=== PATIENT | female | born 1950 ===

== ENCOUNTER 2016-12-15 09:27 | Inpatient (IN) | payer MEDICARE, OTHER ==
[2016-12-15 09:28] VITALS: BMI 34.2
--- NOTE | 2016-12-15 10:03 | ED PDOC ---
Arrival/HPI - General Chief Complaint: Medical Clearance Time Seen by Provider: 12/15/16 09:47 Historian: Patient - History of Present Illness Narrative History of Present Illness (Text): 12/15/16 10:00 A 66 year old female sent into the emergency department by PMD for further evaluation. Family present to assist with translation when needed. Patient complains of a cough, fever and chills for the past 3 months. She reports her cough resolved after taken antibiotics perceived by her PMD. However, continues to experience fever and chills. Patient denies any nausea, vomiting, chest pain , shortness of breath, dyspnea on exertion or any other complaints. Patient reports she had a chest xray which showed a lung mass. PMD: Dr. James Time/Duration: Other (3 months) Symptom Course: Unchanged Quality: Other Context: Home Past Medical History - Provider Review Nursing Documentation Reviewed: Yes - Past History Past History: No Previous - Infectious Disease Hx of Infectious Diseases: None - Tetanus Immunization Tetanus Immunization: Unknown - Pulmonary Hx Pneumonia: Yes - Endocrine/Metabolic Hx Endocrine Disorders: Yes Hx Hypothyroidism: Yes - Hematological/Oncological Hx Blood Disorders: Yes Hx Cancer: Yes (COLON 2008) Hx Chemotherapy: Yes (2008) - Musculoskeletal/Rheumatological Hx Musculoskeletal Disorders: Yes Hx Arthritis: Yes - Gastrointestinal Hx Gastrointestinal Disorders: Yes Hx Bowel Surgery: Yes (COLECTOMY 2008) Other/Comment: 2008 COLON CANCER COLECTOMY - Genitourinary/Gynecological Hx Genitourinary Disorders: Yes Other/Comment: HX OVARIAN CYSTECTOMT OPEN 1997 HYSTERECTOMY OCTOBER 2013 - Surgical History Hx Section: Yes Hx Cholecystectomy: Yes Hx Hysterectomy: Yes Hx Tubal Ligation: Yes (1979) Other/Comment: OPEN OVARIAN CYSTECTOMY 1997 KATHE CATH INSERTION THEN REMOVAL - Anesthesia Hx Anesthesia: Yes Hx Anesthesia Reactions: Yes (NAUSEA VOMITTING) - Suicidal Assessment Feels Threatened In Home Enviroment: No Family/Social History - Physician Review Nursing Documentation Reviewed: Yes Family/Social History: No Known Family HX Smoking Status: Former Smoker Hx Alcohol Use: No Hx Substance Use Treatment: No Allergies/Home Meds Allergies/Adverse Reactions: Allergies No Known Allergies Allergy (Verified 12/15/16 09:46) Home Medications: Home Meds Medication Instructions Recorded Confirmed Atorvastatin Calcium [Lipitor] 10 mg PO DAILY 03/05/13 11/17/13 Levothyroxine 200 mcg PO DAILY 03/05/13 11/17/13 Physical Exam - Physical Exam Narrative Physical Exam (Text): - Review of Systems Constitutional: (+) Fever, Chills absent: Fatigue, Weight Change Eyes: Normal ENT: Normal Respiratory: (+) Cough, which resolved absent: SOB, ALEMAN Cardiovascular: Normal absent: Chest pain, Palpitations, Syncope Gastrointestinal: Normal absent: Abdominal pain, Diarrhea, Nausea, Vomiting Genitourinary: Normal. absent: Dysuria, Frequency, Hematuria Musculoskeletal: Normal. absent: Arthralgias, Back Pain, Neck Pain Skin: Normal Neurological: Normal absent: Focal Weakness Endocrine: Normal Hemo/Lymphatic: Normal Psychiatric: Normal - Physical exam Patient appears age appropriate, speaking full sentences without difficulty - Systems Exam Head: Present: Atraumatic, Normocephalic Pupils: Present: PERRL Extraocular Muscles: Present: EOMI Conjunctiva: Present: Normal Mouth: Present: Moist Mucous Membranes Neck: Present: Normal Range of Motion. No: MIDLINE TENDERNESS, Paraspinal Tenderness Respiratory/Chest: Present: Clear to Auscultation, Good Air Exchange. No: Respiratory Distress, Accessory Muscle Use, Tachypnic Cardiovascular: Present: Regular Rate and Rhythm, Normal S1, S2, Peripheral Pulses Present. No: Murmurs Abdomen: Present: Normal Bowel Sounds, No: Tenderness, Peritoneal Signs, Rebound, Guarding, Distention Back: Present: Normal Inspection. No: Midline Tenderness, Paraspinal Tenderness Upper Extremity: Present: Normal Inspection. No: Cyanosis, Edema Lower Extremity: Present: Normal Inspection. No: Edema Neurological: Present: GCS=15, Speech Normal, cranial nerves II through XII fully intact with no cerebellar abnormality, neuro-sensory fully intact. No focal neurological deficits. Skin: Present: Warm, Dry, Normal Color. No: Rashes Lymphatic: Present: OX3, NI, NC Psychiatric: Present: Alert, Oriented x 3, Normal Insight, Normal Concentration Vital Signs Reviewed: Yes Vital Signs Temp Pulse Resp BP Pulse Ox 12/15/16 09:42 98.1 F 86 17 122/83 97 Temperature: Afebrile Blood Pressure: Normal Pulse: Regular Respiratory Rate: Normal Appearance: Positive for: Well-Appearing, Non-Toxic, Comfortable Pain Distress: None Mental Status: Positive for: Alert and Oriented X 3 Medical Decision Making ED Course and Treatment: 12/15/16 10:00 Impression: A 66 year old female with fever, chills and cough (resolved with abx). Pt denies weight loss. Physical exam unremarkable. Pt does not appear in resp distress. Differential diagnosis includes but not limited to: pneumonia, lung CA Plan: -- Chest xray -- Labs -- Blood culture -- Reassess and disposition Progress Notes: 12/15/16 10:[address] Mercer, who request patient admission for failed out patient treatment and biopsy to rule out cancer. Patient and family aware of and in agreement with plan. 12/15/16 11:04 Chest X-ray read and interpreted by me, which shows no cardiomegaly, effusions, right parihilar infiltrate. 12/15/16 11:31 Case discussed in detail with Dr. Thakur,who agrees with admission to [facility]. Requests Dr. Alejo, Dr. Simón Blank and Dr. Bustamante for consult. Patient and family aware of and agree with plan. - Lab Interpretations Lab Results: 12/15/16 10:23 12/15/16 10:23 Lab Results 12/15/16 10:23: Sodium 142, Potassium 3.9, Chloride 103, Carbon Dioxide 27, Anion Gap 16, BUN 15, Creatinine 0.7, Est GFR ( Amer) > 60, Est GFR (Non- Af Amer) > 60, Random Glucose 147 H, Calcium 9.5, Total Bilirubin 0.4, AST 45 H , ALT 60 H, Alkaline Phosphatase 172 H, Total Protein 8.4 H, Albumin 3.9, Globulin 4.5, Albumin/Globulin Ratio 0.9 L 12/15/16 10:23: PT 12.0 H, INR 1.11 H, APTT 33.4 H 12/15/16 10:23: WBC 11.9 H, RBC 3.93, Hgb 10.2 L, Hct 32.2 L, MCV 81.9, MCH 26.0 , MCHC 31.7, RDW 15.2 H, Plt Count 565 H, MPV 8.4, Gran % 64.9, Lymph % (Auto) 21.8 L, Stanton % (Auto) 6.1 H, Eos % (Auto) 6.8 H, Baso % (Auto) 0.4, Gran # 7.72 H, Lymph # 2.6, Stanton # 0.7 H, Eos # 0.8 H, Baso # 0.05 I have reviewed the lab results: Yes - RAD Interpretation Radiology Orders: 12/15/16 10:05 CHEST TWO VIEWS (PA/LAT) [RAD] Stat - Medication Orders Current Medication Orders: Azithromycin (Zithromax 500mg In Ns) 500 mg in 250 mls @ 167 mls/hr IVPB STAT STA PRN Reason: Protocol Stop: 12/15/16 11:44 Last Admin: 12/15/16 11:08 Dose: 167 mls/hr Discontinued Medications Ceftriaxone Sodium (Rocephin 1 Gram Ivpb) 1 gm in 100 mls @ 200 mls/hr IV STAT STA PRN Reason: Protocol Stop: 12/15/16 10:44 Last Admin: 12/15/16 10:28 Dose: 200 mls/hr Ondansetron HCl (Zofran Odt) 4 mg PO STAT STA Stop: 12/15/16 10:32 Last Admin: 12/15/16 10:34 Dose: 4 mg Ondansetron HCl (Zofran Odt) Confirm Administered Dose 4 mg .ROUTE .STK-MED ONE Stop: 12/15/16 10:33 Last Admin: 12/15/16 10:34 Dose: - Scribe Statement The provider has reviewed the documentation as recorded by the Roberto Carlos Rm Provider Scribe Attestation: All medical record entries made by the Scribe were at my direction and personally dictated by me. I have reviewed the chart and agree that the record accurately reflects my personal performance of the history, physical exam, medical decision making, and the department course for this patient. I have also personally directed, reviewed, and agree with the discharge instructions and disposition. Disposition/Present on Arrival - Present on Arrival Any Indicators Present on Arrival: No History of DVT/PE: No History of Uncontrolled Diabetes: No Urinary Catheter: Yes History of Decub. Ulcer: No History Surgical Site Infection Following: None - Disposition Have Diagnosis and Disposition been Completed?: Yes Diagnosis: Lung mass Disposition: HOSPITALIZED Disposition Time: 10:13 Patient Plan: Admission Patient Problems: Current Active Problems Problem Status Onset Lung mass Acute Condition: STABLE Referrals: Damián James [Primary Care Provider] - Follow up with primary Forms: [email or web address] (Lao)
[2016-12-15] MEDS ORDERED: cefTRIAXone 1 gm 1 GM/100 ML BAG IV STA (10:15)
[2016-12-15] MEDS ORDERED: Azithromycin 500MG/NS 250ml 500 MG/250 ML BAG IVPB STA (10:15)
[2016-12-15 10:35] LABS: BASO # 0.05 K/mm3 (0.0-2.0); BASO % 0.4 % (0.0-3.0); EOS # 0.8 (0.0-0.7); EOS % 6.8 % (1.5-5.0); GRAN # 7.72 (1.4-6.5); GRAN % 64.9 % (50.0-68.0); HEMOGLOBIN 10.2 gm/dL (12.0-16.0); LYMPH # 2.6 (1.2-3.4); LYMPH % 21.8 % (22.0-35.0); MEAN CELL VOLUME 81.9 fL (80.0-105.0); MEAN CORPUSCULAR HGB CONC 31.7 g/dl (31.0-37.0); MEAN PLATELET VOLUME 8.4 fl (7.0-11.0); MONO # 0.7 (0.1-0.6); MONO % 6.1 % (1.0-6.0); PLATELET COUNT 565 10^3/uL (120.0-450.0); RBC 3.93 10^6/uL (3.5-6.1); RED CELL DISTRIBUTION WIDTH 15.2 % (11.5-14.5); WHITE BLOOD COUNT 11.9 10^3/ul (4.5-11.0)
[2016-12-15 10:37] LABS: ALB/GLOB RATIO 0.9 (1.1-1.8); ALBUMIN 3.9 g/dL (3.0-4.8); ALT/SGPT 60 U/L (7-56); AST/SGOT 45 U/L (15-39); BLOOD UREA NITROGEN 15 mg/dL (7-21); CALCIUM 9.5 mg/dL (8.4-10.5); GFR AFRICAN-AMERICAN > 60; GFR NON-AFRICAN AMERICAN > 60
[2016-12-15 10:40] LABS: INR 1.11 (0.93-1.08); PARTIAL THROMBOPLASTIN TIME 33.4 Seconds (23.7-30.8)
--- NOTE | 2016-12-15 12:34 | RAD ---
HISTORY: cough COMPARISON: Prior chest radiograph 12/06/2016. TECHNIQUE: Chest PA and lateral FINDINGS: LUNGS: No acute infiltrate appreciated with a prominent right epicardial fat pad again identified. Right suprahilar nodular mass again evident. PLEURA: No significant pleural effusion identified. No pneumothorax apparent. CARDIOVASCULAR: Mild cardiomegaly stable. No pulmonary vascular derangement identified. OSSEOUS STRUCTURES: No significant abnormalities. VISUALIZED UPPER ABDOMEN: Normal. OTHER FINDINGS: None. IMPRESSION: Stable mild cardiomegaly. No acute infiltrate. Right suprahilar nodular lesion again identified.
[2016-12-15] MEDS ORDERED: Pneumococcal 23-Valent Vaccine IM ONE (15:39)
[2016-12-15] MEDS: Albuterol-Ipratrop 3 mg / 0.5 (3 ml) UD IH SCH (20:42)
[2016-12-15] MEDS: MethylPREDNISolone 40 mg Vial IVP SCH (21:10)
--- NOTE | 2016-12-15 22:43 | CP.PCM.HP ---
History of Present Illness - History of Present Illness History of Present Illness: 12/15/16 Narrative History of Present Illness (Text): 12/15/16 10:00 A 66 year old female sent into the emergency department by PMD for further evaluation. Family present to assist with translation when needed. Patient complains of a cough, fever and chills for the past 3 months. She reports her cough resolved after taken antibiotics perceived by her PMD. However, continues to experience fever and chills. Patient denies any nausea, vomiting, chest pain , shortness of breath, dyspnea on exertion or any other complaints. Patient reports she had a chest xray which showed a lung mass.PT IS SEEN AND examined in her room , looking comfortable Present on Admission - Present on Admission Any Indicators Present on Admission: No Review of Systems - Constitutional Constitutional: As Per HPI - EENT Eyes: As Per HPI Ears: As Per HPI Nose/Mouth/Throat: As Per HPI - Breasts Breasts: As Per HPI - Cardiovascular Cardiovascular: As Per HPI - Respiratory Respiratory: Wheezing, Chest Congestion - Gastrointestinal Gastrointestinal: As Per HPI - Genitourinary Genitourinary: As Per HPI - Reproductive: Female Reproductive:Female: As Per HPI - Menstruation Menstruation: As Per HPI - Musculoskeletal Musculoskeletal: As Per HPI - Integumentary Integumentary: As Per HPI - Neurological Neurological: As Per HPI - Psychiatric Psychiatric: As Per HPI - Endocrine Endocrine: As Per HPI - Hematologic/Lymphatic Hematologic: As Per HPI Past Patient History - Infectious Disease Hx of Infectious Diseases: None - Tetanus Immunizations Tetanus Immunization: Unknown - Past Medical History & Family History Past Medical History?: Yes - Past Social History Smoking Status: Former Smoker - CARDIAC Hx Hypercholesterolemia: Yes - PULMONARY Hx Pneumonia: Yes - HEENT Hx HEENT Problems: Yes (glasses) - ENDOCRINE/METABOLIC Hx Endocrine Disorders: Yes Hx Hypothyroidism: Yes - HEMATOLOGICAL/ONCOLOGICAL Hx Blood Disorders: Yes Hx Cancer: Yes (COLON 2009, colectomy) Hx Chemotherapy: Yes (2008) - MUSCULOSKELETAL/RHEUMATOLOGICAL Hx Falls: No - GASTROINTESTINAL Hx Gastrointestinal Disorders: Yes Other/Comment: 2009 COLON CANCER COLECTOMY - GENITOURINARY/GYNECOLOGICAL Hx Genitourinary Disorders: Yes Other/Comment: HX OVARIAN CYSTECTOMY OPEN 1997 HYSTERECTOMY OCTOBER 2013 - PSYCHIATRIC Hx Substance Use: No - SURGICAL HISTORY Hx Cholecystectomy: Yes Hx Hysterectomy: Yes (10/2013) Other/Comment: OPEN OVARIAN CYSTECTOMY 1998 KATHE CATH INSERTION THEN REMOVAL 2008, tubal 1980, colectomy 2009 - ANESTHESIA Hx Anesthesia: Yes Hx Anesthesia Reactions: Yes (NAUSEA VOMITTING) Meds Allergies/Adverse Reactions: Allergies Allergy/AdvReac Type Severity Reaction Status Date / Time No Known Allergies Allergy Verified 12/15/16 09:46 Physical Exam - Constitutional Appears: Well - Head Exam Head Exam: ATRAUMATIC, NORMAL INSPECTION, NORMOCEPHALIC - Eye Exam Eye Exam: EOMI, Normal appearance, PERRL Pupil Exam: NORMAL ACCOMODATION, PERRL - ENT Exam ENT Exam: Mucous Membranes Moist, Normal Exam - Neck Exam Neck exam: Positive for: Normal Inspection - Respiratory Exam Respiratory Exam: Clear to Auscultation Bilateral, NORMAL BREATHING PATTERN - Cardiovascular Exam Cardiovascular Exam: REGULAR RHYTHM - GI/Abdominal Exam GI & Abdominal Exam: Normal Bowel Sounds, Soft. absent: Tenderness - Rectal Exam Rectal Exam: NORMAL INSPECTION - Exam Exam: Circumcision, NORMAL INSPECTION External exam: NORMAL EXTERNAL EXAM Speculum exam: NORMAL SPECULUM EXAM Bimanual exam: NORMAL BIMANUAL EXAM - Extremities Exam Extremities exam: Positive for: normal inspection - Back Exam Back exam: NORMAL INSPECTION - Neurological Exam Neurological exam: Alert, CN II-XII Intact, Normal Gait, Oriented x3, Reflexes Normal - Psychiatric Exam Psychiatric exam: Normal Affect, Normal Mood - Skin Skin Exam: Dry, Intact, Normal Color, Warm Results - Vital Signs Recent Vital Signs: Last Vital Signs Temp 99.4 F 12/15/16 18:26 Pulse 75 12/15/16 15:28 Resp 18 12/15/16 15:28 BP 136/92 H 12/15/16 15:28 Pulse Ox 100 12/15/16 11:57 - Labs Result Diagrams: 12/15/16 10:23 12/15/16 10:23 Assessment & Plan (1) Anemia Status: Acute (2) Leukocytosis Status: Acute (3) Thrombocytosis Status: Acute - Assessment and Plan (Free Text) Assessment: Narrative History of Present Illness (Text): 12/15/16 A 66 year old female sent into the emergency department by PMD for further evaluation. Family present to assist with translation when needed. Patient complains of a cough, fever and chills for the past 3 months. She reports her cough resolved after taken antibiotics perceived by her PMD. However, continues to experience fever and chills. Patient denies any nausea, vomiting, chest pain , shortness of breath, dyspnea on exertion or any other complaints. Patient reports she had a chest xray which showed a lung mass. we admitted the pt , pul. oncology and Ir consults called .pt had h/o colan ca . s/p chemo
[2016-12-16] MEDS: Albuterol-Ipratrop 3 mg / 0.5 (3 ml) UD IH SCH ×4 (02:43→21:05)
--- NOTE | 2016-12-16 04:22 | CON ---
DATE: 12/15/2016 REFERRING PHYSICIAN: Kathy Thakur MD REASON FOR CONSULTATION: Cough, shortness of breath, and lung mass. HISTORY OF PRESENT ILLNESS: This is a 66 years old female with known history of cervical cancer requiring hysterectomy, history of colon cancer requiring resection in the remote past, seen a PMD as an outpatient. Apparently, has some x-rays done, and was told to go to the emergency room. She was treated with antibiotics prior to coming to ER and felt better with that. No nausea, no vomiting, no diarrhea, leg pain, leg swelling. Admit to have loud snoring, daytime sleepy. PAST MEDICAL HISTORY: Significant for cervical cancer requiring hysterectomy, colon cancer requiring hemicolectomy, history of arthritis, hyperlipidemia, and hypothyroid. ALLERGIES: NONE KNOWN. SOCIAL HISTORY: Stopped smoking many years ago. Denied any alcohol use. FAMILY HISTORY: No significant cardiopulmonary disease reported. REVIEW OF SYSTEMS: No headache, no rhinitis, admit to have cough, shortness of breath. No chest pain. No nausea, no vomiting, no diarrhea, dysuria, leg pain, leg swelling, admit to have snoring and daytime sleepy. PHYSICAL EXAMINATION: GENERAL: Lying in the bed. No acute distress. VITAL SIGNS: Temperature 98, heart rate is 75, respiratory rate 18, blood pressure 136/92, pulse of 100% on room air. HEENT: Moist mucous membrane. Crowded airway. Mallampati score is 4. NECK: Supple. No JVD. LUNGS: Fair airflow with few rhonchi, prolonged expiratory phase. HEART: S1 and S2. ABDOMEN: Soft and nontender, no organomegaly. EXTREMITIES: No edema. NEUROLOGIC: Awake and alert. Follow simple commands. LABORATORY DATA: Shows hemoglobin 10.2, hematocrit 32.2, WBC of 11.9, platelet is 565, INR of 1.1, PTT 33. Sodium 142, potassium 3.9, chloride 103, bicarbonate 27, BUN 15, creatinine 0.7, glucose 147, calcium 9.5, AST 25, ALT 60, alkaline phosphatase is 172, and albumin is 3.9. IMAGING DATA: Chest x-ray was done on admission and it shows right suprahilar nodule. CAT scan does show right upper lobe lung mass adjacent to mediastinum with probably right hilar adenopathy, mild mediastinal adenopathy also seen. IMPRESSION AND PLAN: 1. Right upper lobe lung mass. 2. Mediastinal and hilar adenopathy. 3. History of colon cancer. 4. History of cervical cancer. 5. May have a component of chronic lung disease. 6. Hypothyroid. 7. Hypertension. 8. Hyperlipidemia. Case discussed with the family, daughter at the bedside. All the question were answered. We will start her on Rocephin 1 g daily, nebulizer treatments, Solu-medrol. We will speak to Dr. Simón Blank for possible lung biopsy. Also spoke to Dr. Thakur. Thank you, I will follow with you. Ashlie Alejo MD
--- NOTE | 2016-12-16 05:04 | CON ---
DATE: 12/15/2016 LOCATION: Consult on the medical floor. REQUESTING PHYSICIAN: Dr. Bustamante. CHIEF COMPLAINT: Lung mass. HISTORY OF PRESENT ILLNESS: The patient is a 66-year-old female sent to the emergency room by her primary doctor after recent testing. CT scan of the chest done 2 days prior as ordered by Dr. 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 The patient had a chest x-ray done by her primary, Dr. James, done on 11/15/2016 for bronchitis with the impression at that time showing right upper lobe density, possibly pneumonia, followup recommended to rule out a mass with a repeat x-ray done on 12/06/2016 showing right upper lobe lung mass unchanged with the eventual CAT scan done as above. She had taken antibiotics with good effect and the patient is no longer febrile with a productive cough, which had been complaining back from 3 months time. She is seen resting comfortably in no acute distress at this visit. ALLERGIES: SHE DENIES ANY ALLERGIES. MEDICATIONS: Reviewed that include aspirin, Lipitor, Synthroid and Lisinopril. PAST MEDICAL HISTORY: Significant for hypertension, hypothyroidism, hyperlipidemia with a history of cancer of the cervix, squamous cell CA diagnosed in 09/2013, eventually having a hysterectomy, one-third of the upper vagina with right salpingo-oophorectomy done by Dr. 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 The patient also reports having had cancer of the colon with chemotherapy [place] [address] Bustamante with a port at that time having been discontinued. She also reports recent placement of ear tubes by , Ears, Nose and Throat for fullness in her ears. FAMILY HISTORY AND SOCIAL HISTORY: The patient admits to smoking 1 pack a day for at least 20 years, quitting in 2008. Denies alcohol use. 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 REVIEW OF SYSTEMS: Essentially, negative to questioning except as above, except for the patient reporting right chest discomfort approximately 4 to 5 out of 10 with deep breath. PHYSICAL EXAMINATION: VITAL SIGNS: Temperature 98.1, pulse 75, respirations 18, blood pressure 136/92 and pulse ox 100%. HEENT: Unremarkable except for a bilateral tympanostomy tubes of approximately 2 to 3 months duration. Tongue is dry. NECK: Supple. HEART: Regular rate. LUNGS: Rare rhonchi on the right. ABDOMEN: Soft, obese and nontender. EXTREMITIES: No edema. SKIN: Warm, dry and clear. NEUROLOGIC: Awake, alert and oriented x3. LABORATORY DATA: The patient labs were done. White blood cell count 11.9, hemoglobin 10.2, hematocrit of 32.2 and platelet count of 565,000. INR 1.1 with a chem metabolic panel showing an AST of 45, ALT of 60 and alk phos 172. Total protein 8.4, non-fasting glucose 147. On review of prior testing, the patient's LFT's were within normal range on 11/06/2013 with an AST of 21 at that time and ALT of 27, they are now 45 and 60 respectively. Other testing was described above including the CT scan of the chest which was significant for a speculated right upper lobe lesion adjacent to the mediastinum measuring 24 x 37 mm with probable hilar adenopathy. 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 Tympanostomy tube placement, hypertension, hyperlipidemia, hypothyroidism and obesity. PLAN: For this patient after consult with Dr. Simón Blank for tissue diagnosis biopsy. We will give Tylenol for mild pain, tramadol for moderate pain in her right chest wall. We will refill her thyroid medication, pending her TSH value, put on hold in the interim, Lisinopril dose was now we will start with low dose with increase dose as indicated. We will stop her aspirin in anticipation of ventral biopsy. We will ask for CT scan of the abdomen and pelvis with p.o. and IV contrast with liver protocol. We will check tumor markers including, CEA, CA19-9 and we will monitor clinically and with labs. Prognosis for this patient is guarded. Rogelio MD Brianna
[2016-12-16] MEDS: Levothyroxine 100 MCG TAB PO SCH (05:06)
[2016-12-16] MEDS: Pantoprazole 40 mg EC Tab PO SCH (05:06)
[2016-12-16] MEDS: MethylPREDNISolone 40 mg Vial IVP SCH ×3 (05:07→21:41)
[2016-12-16] MEDS ORDERED: Levothyroxine 50 MCG TAB PO SCH (06:00)
[2016-12-16 06:51] LABS: ALB/GLOB RATIO 0.9 (1.1-1.8); ALT/SGPT 54 U/L (7-56); AST/SGOT 41 U/L (15-39); BLOOD UREA NITROGEN 14 mg/dL (7-21); CALCIUM 9.5 mg/dL (8.4-10.5); GFR AFRICAN-AMERICAN > 60; GFR NON-AFRICAN AMERICAN > 60
[2016-12-16 07:14] LABS: BASO # 0.02 K/mm3 (0.0-2.0); BASO % 0.2 % (0.0-3.0); EOS % 0.1 % (1.5-5.0); GRAN # 10.06 (1.4-6.5); HEMOGLOBIN 10.3 gm/dL (12.0-16.0); LYMPH # 1.2 (1.2-3.4); LYMPH % 10.2 % (22.0-35.0); MEAN CELL VOLUME 82.5 fL (80.0-105.0); MEAN CORPUSCULAR HEMOGLOBIN 26.1 pg (25.0-35.0); MEAN CORPUSCULAR HGB CONC 31.7 g/dl (31.0-37.0); MEAN PLATELET VOLUME 8.7 fl (7.0-11.0); MONO # 0.2 (0.1-0.6); MONO % 1.5 % (1.0-6.0); PLATELET COUNT 612 10^3/uL (120.0-450.0); RBC 3.94 10^6/uL (3.5-6.1); RED CELL DISTRIBUTION WIDTH 15.1 % (11.5-14.5); WHITE BLOOD COUNT 11.4 10^3/ul (4.5-11.0)
[2016-12-16] MEDS ORDERED: Barium Sulfate Susp 2.1% w/v, 2.0% w/w 450 mL Bottle PO ONE (08:00)
[2016-12-16] MEDS: Enoxaparin 30 mg Syringe SC SCH (09:47)
[2016-12-16] MEDS: cefTRIAXone 1 gm 1 GM/100 ML BAG IVPB SCH (09:47)
[2016-12-16] MEDS ORDERED: Iohexol 350 MG/100 ML VIAL ONE (10:30)
--- NOTE | 2016-12-16 15:17 | CT ---
PROCEDURE: CT Abdomen and Pelvis with contrast HISTORY: LIVER PROTOCOL LUNG MASS ABN LFTs COMPARISON: Abdomen pelvis CT with contrast examination 12/31/2013. TECHNIQUE: Helical CT of the abdomen pelvis was performed following oral contrast administration. Subsequently, intravenous contrast was dynamically administered with sequential CT examinations performed at various time points post contrast administration, including arterial, arterial venous and delayed time points. Contrast dose: Omnipaque 350, 100 cc. Radiation dose: Total exam DLP = 2528 mGy-cm. This CT exam was performed using one or more of the following dose reduction techniques: Automated exposure control, adjustment of the mA and/or kV according to patient size, and/or use of iterative reconstruction technique. FINDINGS: LOWER THORAX: Cardiomegaly is noted as well as the right lower lobe calcified granuloma. Linear atelectasis or fibrosis is seen at both lung bases. LIVER: There is a 1.6 x 1.7 cm poorly enhancing lesion identified at the right lobe liver inferiorly which does not exhibit the classic peripheral nodule enhancing than a benign hemangioma which should. This may represent a metastatic lesion and follow-up MRI is advised without contrast for further characterization. Tissue diagnosis is an alternative. Remainder the liver appears unremarkable. . No gross lesion or ductal dilatation. GALLBLADDER AND BILE DUCTS: Prior cholecystectomy with dilatation of the common bile duct again evident. The prior CBD measures 21 mm with the distal CBD measuring 6 mm with a biliary stent in position with the tip terminating at or just distal to the ampulla. It appears terminates somewhat distal to its previous location on 12/31/2013. PANCREAS: Unremarkable. No gross lesion or significant ductal dilatation. SPLEEN: Unremarkable. ADRENALS: Unremarkable. No mass. KIDNEYS AND URETERS: Extrarenal right renal pelvis again evident. No hydronephrosis bilaterally. No solid mass. Simple cyst again noted at the lower pole right kidney. Stable but dilated right ureter is again identified. VASCULATURE: Unremarkable. No aortic aneurysm. BOWEL: Nonacute colonic diverticular changes are again seen throughout the colon with postop changes about the left hemicolon suggesting prior segmental resection distally. Opacified small-bowel appears diffusely unremarkable. Stomach is moderately distended with oral contrast material and appears unremarkable APPENDIX: Normal appendix. PERITONEUM: Unremarkable. No free fluid. No free air. LYMPH NODES: Unremarkable. No enlarged lymph nodes. BLADDER: Unremarkable. REPRODUCTIVE: Prior hysterectomy identified once again. BONES: No acute fracture. OTHER FINDINGS: None. IMPRESSION: 1. 1.7 cm poorly enhancing lesion is identified at the right lobe liver for which follow-up MRI is advised to evaluate for possible malignancy. 2. Dilated common bile duct with biliary stent again identified placed. 3. Stable dilated right ureter without hydronephrosis. 4. Extensive colonic diverticulosis without diverticulitis. Post segmental resection distal left hemicolon evident. 5. Other lesser findings as discussed above.
--- NOTE | 2016-12-16 21:43 | PN ---
This is the patient's hospital visit on the medical floor. For Dr. Bustamante. SUBJECTIVE: The patient is a 66-year-old female, [place] speaking with fair Citizen [place], seen while resting in bed, admitted via the emergency room by her primary doctor and clip coater Dr. Rai after a suspicious right upper lobe mass was diagnosed with mediastinal adenopathy with the patient now rescheduled as per Dr. Simón Blank for biopsy when possible. She is otherwise resting comfortably now, reporting that her right chest upper abdominal discomfort is no longer an issue, since she has been resting in bed since her admission to the hospital, she is without complaint. She denies coughing, hemoptysis, or pain at this point. OBJECTIVE: VITAL SIGNS: Temperature 98.5, pulse 97, respirations 20, blood pressure 125/71, pulse ox 93%. HEENT: Unremarkable. Tongue is dry. NECK: Supple. HEART: Regular rate. LUNGS: Occasional rhonchi on the right. ABDOMEN: Obese, soft, nontender. EXTREMITIES: No edema. SKIN: Warm, dry, and clear. NEUROLOGIC: Awake, alert, and oriented x3. LABORATORY DATA: The patient's labs were done with a white blood cell count of 11.4, hemoglobin 10.3, hematocrit of 32.5, platelet count 612,000 with a chem metabolic panel showing a non-fasting glucose of 232, AST of 41, alk phos of 191. CEA of 3.8. CA19-9 pending. TSH of 1.1. Again, INR of 1.1, done yesterday. The patient did have a CT scan of the abdomen and pelvis done earlier today with contrast. Impression was 1.7 cm poorly enhanced lesion at right lobe of the liver, dilated common bile duct with biliary stent, stable dilated right ureter without hydronephrosis, colonic diverticulosis without diverticulitis, post segmental resection distal left hemicolon event, status post prior hysterectomy. The patient's blood cultures were negative from yesterday. The patient is continuing her Solu-Medrol 20 mg IV q. [address] Alejo. This may explain the elevation of her white blood cell count and her blood sugar testing. Pepcid was given as prophylaxis for her steroid use. ASSESSMENT: New lung mass, history of cancer of the colon, history of cancer of the cervix status post hysterectomy with fistula, tympanostomy tube placement bilateral, hypertension, hyperlipidemia, hypothyroidism, obesity with possible metastasis to the right lower lobe of the liver?. PLAN: Continue present medical regimen with labs to be drawn in the morning. We will repeat her PT/INR in anticipation of biopsy as per Dr. Simón Blank. We will treat the patient as per present medical regimen with current changes as indicated. Prognosis for this patient is guarded. Rogelio Reed MD
[2016-12-17] MEDS: Albuterol-Ipratrop 3 mg / 0.5 (3 ml) UD IH SCH ×4 (01:01→19:52)
--- NOTE | 2016-12-17 01:33 | PN ---
DATE: SUBJECTIVE: The patient was seen and examined on the bedside. Daughter was sitting on the bedside also. The patient is feeling better. No nausea, vomiting, diarrhea. No hematuria or hematochezia. No swelling of the leg. No chest pain. No palpitation. Just feeling shortness of breath and coughing once in a while. Length of time discussion done with the daughter. All questions were answered. PHYSICAL EXAMINATION VITAL SIGNS: Temperature 98.5, pulse 97, blood pressure 125/75, respiratory rate 20. HEENT: Head normocephalic and atraumatic. Eyes: PERRLA. Extraocular muscles intact. Conjunctivae clear. Nose patent. Mucous membrane moist. NECK: Neck supple. No carotid bruits. No JVD or thyromegaly. CHEST: Bilaterally symmetrical. HEART: S1, S2 positive. LUNGS: Clear to auscultation. ABDOMEN: Soft. Bowel sounds present. No organomegaly. EXTREMITIES: No edema. No cyanosis. NEUROLOGIC: The patient is awake and alert. Moving all 4 extremities. No focal deficits. MEDICATIONS: DuoNeb, Lovenox, Pepcid, Protonix, Rocephin, Solu-Medrol, levothyroxine, Tylenol, Tramadol, Zestril. LABORATORY DATA: White blood cell count of 11.4, hemoglobin 10.3, hematocrit of 32.5, platelets 612. Sodium 142, potassium 4.4, BUN 14, creatinine 0.6, random glucose 232, AST 41, ALT 54. ASSESSMENT AND PLAN: The patient is a 66-year-old lady with hyperglycemia, abnormal liver function tests, carcinoembryonic antigen is 3.8, is high. Leukocytosis, anemia. Eventful CAT of abdomen and pelvis reviewed by me, seen by Dr. Rogelio Reed, covering Dr. Bustamante. CAT of the abdomen shows 1.7 cm poorly enhanced lesion at right lobe of the liver, dilated common bile duct with biliary stent, stable dilated right ureter without hydronephrosis, colonic diverticulosis without diverticulitis, post segmental resection distal left hemicolon event, status post prior hysterectomy. Blood cultures were negative. The patient is continuing Solu-Medrol tapering doses. The patient's new lung density, history of colon cancer, history of cancer of the cervix, status post hysterectomy with fistula, tympanostomy tube placement bilaterally, hypertension, hypercholesterolemia, hypothyroidism, obesity, possible metastasis right lower lobe of the liver. May be patient will be go tomorrow for biopsy by Dr. Simón Blank. Continue present treatment. Overall prognosis is guarded as per oncologist, seen by Dr. Alejo, microstrategy developer. history of arthritis, The patient has been found to have hilar adenopathy also, chronic obstructive lung disease, hypothyroidism. Discussion done with the family, daughter was at the bedside. All of their questions were answered. Started on Rocephin, nebulizer treatments, Solu-medrol . Spoke to Dr. Simón Blank for possible lung biopsy. Gastrointestinal and deep venous thrombosis prophylaxis. Repeat labs. Kathy Thakur MD MTDD
--- NOTE | 2016-12-17 04:25 | PN ---
DATE: 12/16/2016 REFERRING PHYSICIAN: Dr. Thakur. SUBJECTIVE: She is lying in the bed at 45 degrees. No headache. No rhinitis. No nausea, no vomiting, and no diarrhea. No leg pain and leg swelling. OBJECTIVE: GENERAL: In no acute distress. VITAL SIGNS: Temperature is 98, heart rate is 97, respiratory rate is 20, blood pressure 125/71, pulse ox 93% on room air. HEENT: Moist mucous membranes. Crowded airway. NECK: Supple. No JVD. LUNGS: Fair air flow with few rhonchi. HEART: S1 and S2. ABDOMEN: Soft, nontender. No organomegaly. EXTREMITIES: There is no edema. NEUROLOGIC: Awake and alert. Follows simple commands. LABORATORY DATA: Shows hemoglobin 10.3, hematocrit 32.5, WBC 11.4, platelet is 612. Sodium 142, potassium 4.4., chloride 104, bicarbonate 23, BUN 14, creatinine 0.6, glucose 232, calcium is 9.5. AST 41, ALT 54, alkaline phosphatase is 191, albumin 4.0. Carcinoembryonic antigen 3.8. TSH 1.1. Blood culture has been negative. Has CAT scan of the abdomen and pelvis done, which shows 1.7 cm poorly enhanced lesion identified in the right lobe of the liver for which follow up MRI was advised. Dilated common bile duct with a biliary stent again identified, stable dilated right ureteral without hydronephrosis, extensive colonic diverticulosis without diverticulitis. MEDICATIONS: She is on DuoNeb q.6 hours, Lovenox 30 mg subcutaneous daily, Pepcid 20 mg daily, Protonix 40 mg daily, Rocephin 1 g daily, Solu-Medrol 20 mg q.8 hours, Synthroid 100 mcg daily, Tylenol p.r.n., Ultram 50 mg three times a day p.r.n., Zestril 5 mg daily. IMPRESSION AND PLAN: Right lung mass, also having mediastinal and hilar adenopathy, also has a liver lesion, history of colon cancer, history of cervical cancer, chronic lung disease, hypothyroidism, hypertension, hyperlipidemia. We will keep the patient n.p.o. with possible biopsy most likely a lung biopsy and let Dr. Simón Blank decide if he want to go for liver lesion biopsy. We will place her n.p.o., gastric prophylaxis, sequential compression device to lower extremity, bronchodilator. Thank you, and we will follow up with you. Ashlie Alejo MD
[2016-12-17] MEDS: Pantoprazole 40 mg EC Tab PO SCH (05:05)
[2016-12-17] MEDS: MethylPREDNISolone 40 mg Vial IVP SCH ×3 (05:06→22:08)
[2016-12-17 07:41] LABS: MEAN CELL VOLUME 81.5 fL (80.0-105.0); MEAN CORPUSCULAR HEMOGLOBIN 26.1 pg (25.0-35.0); MEAN CORPUSCULAR HGB CONC 32.1 g/dl (31.0-37.0); MEAN PLATELET VOLUME 8.9 fl (7.0-11.0); PLATELET COUNT 614 10^3/uL (120.0-450.0); RBC 3.83 10^6/uL (3.5-6.1); RED CELL DISTRIBUTION WIDTH 15.1 % (11.5-14.5); WHITE BLOOD COUNT 23.2 10^3/ul (4.5-11.0)
[2016-12-17 07:49] LABS: INR 1.13 (0.93-1.08); PROTHROMBIN TIME 12.2 Seconds (9.9-11.8)
[2016-12-17 07:55] LABS: ALB/GLOB RATIO 0.9 (1.1-1.8); ALBUMIN 3.7 g/dL (3.0-4.8); ALT/SGPT 50 U/L (7-56); AST/SGOT 25 U/L (15-39); BLOOD UREA NITROGEN 21 mg/dL (7-21); CALCIUM 8.6 mg/dL (8.4-10.5); GFR AFRICAN-AMERICAN > 60; GFR NON-AFRICAN AMERICAN > 60
[2016-12-17 08:23] LABS: BAND 2 % (0-2); LYMPHOCYTE 4 % (22.0-35.0); MONOCYTE 3 % (1.0-6.0); NEUTROPHIL 91 % (50.0-70.0)
[2016-12-17 08:24] LABS: PLATELET ESTIMATE NORMAL (NORMAL)
[2016-12-17] MEDS: cefTRIAXone 1 gm 1 GM/100 ML BAG IVPB SCH (09:47)
[2016-12-17] MEDS: Enoxaparin 30 mg Syringe SC SCH (09:47)
--- NOTE | 2016-12-17 15:08 | CP.PCM.PN ---
Subjective - Date & Time of Evaluation Date of Evaluation: 12/17/16 Time of Evaluation: 09:30 - Subjective Subjective: PGY [address] Bustamante: Pt seen and examined at bedside. No acute events overnight. Pt c/o R side chest pain with deep inspiration rated 4/10 in severity. Denies any f/c, sob, abd pain , n/v/d. Objective - Vital Signs/Intake and Output Vital Signs (last 24 hours): Temp Pulse Resp BP Pulse Ox 97.9 F 73 18 100/54 L 94 L 12/17/16 08:06 12/17/16 08:06 12/17/16 08:06 12/17/16 09:00 12/17/16 08:06 Intake and Output: 12/17/16 12/17/16 06:59 18:59 Intake Total 940 Balance 940 - Medications Medications: Current Medications Acetaminophen (Tylenol 325mg Tab) 650 mg PO Q4H PRN PRN Reason: Pain, Mild (1-3) Last Admin: 12/15/16 18:26 Dose: 650 mg Albuterol/Ipratropium (Duoneb 3 Mg/0.5 Mg (3 Ml) Ud) 3 ml IH [id number] [facility] Last Admin: 12/17/16 13:34 Dose: 3 ml Enoxaparin Sodium (Lovenox) 30 mg SC DAILY [facility] PRN Reason: Protocol Last Admin: 12/17/16 09:47 Dose: Not Given Famotidine (Pepcid) 20 mg PO DAILY [facility] Last Admin: 12/17/16 09:46 Dose: 20 mg Ceftriaxone Sodium (Rocephin 1 Gram Ivpb) 1 gm in 100 mls @ 100 mls/hr IVPB DAILY [facility] PRN Reason: Protocol Last Admin: 12/17/16 09:47 Dose: 100 mls/hr Sodium Chloride (Sodium Chloride 0.45%) 1,000 mls @ 80 mls/hr IV .[id number] [facility] Levothyroxine Sodium (Synthroid) 100 mcg PO 0600 [facility] Last Admin: 12/16/16 05:06 Dose: 100 mcg Lisinopril (Zestril) 5 mg PO DAILY [facility] Last Admin: 12/17/16 09:00 Dose: Not Given Methylprednisolone (Solu-Medrol) 20 mg IVP Q8 [facility] Last Admin: 12/17/16 05:06 Dose: 20 mg Pantoprazole Sodium (Protonix Ec Tab) 40 mg PO 0600 [facility] Last Admin: 12/17/16 05:05 Dose: Not Given Tramadol HCl (Ultram) 50 mg PO TID PRN PRN Reason: Pain, moderate (4-7) - Labs Labs: 12/17/16 07:00 12/17/16 07:00 PT 12.2 Seconds (9.9-11.8) H 12/17/16 07:00 INR 1.13 (0.93-1.08) H 12/17/16 07:00 APTT 33.4 Seconds (23.7-30.8) H 12/15/16 10:23 - Constitutional Appears: No Acute Distress - Head Exam Head Exam: ATRAUMATIC, NORMAL INSPECTION, NORMOCEPHALIC - Eye Exam Eye Exam: EOMI, Normal appearance, PERRL Pupil Exam: NORMAL ACCOMODATION, PERRL - ENT Exam ENT Exam: Mucous Membranes Moist, Normal Exam - Neck Exam Neck Exam: Full ROM, Normal Inspection. absent: Lymphadenopathy - Respiratory Exam Respiratory Exam: Clear to Ausculation Bilateral, NORMAL BREATHING PATTERN. absent: Rales, Wheezes - Cardiovascular Exam Cardiovascular Exam: REGULAR RHYTHM, RRR, +S1, +S2. absent: Murmur - GI/Abdominal Exam GI & Abdominal Exam: Soft, Normal Bowel Sounds. absent: Distended, Tenderness - Extremities Exam Extremities Exam: Full ROM, Normal Capillary Refill, Normal Inspection. absent : Calf Tenderness, Joint Swelling, Pedal Edema - Back Exam Back Exam: NORMAL INSPECTION - Neurological Exam Neurological Exam: Alert, Awake, CN II-XII Intact, Normal Gait, Oriented x3 - Skin Skin Exam: Dry, Intact, Normal Color, Warm Assessment and Plan - Assessment and Plan (Free Text) Assessment: 66F with pmh of colon cancer (2008) and cervical cancer s/p hysterectomy (2009) , HTN, HLD, Hypothyroidism, obesity, presented to the PMD with cough fever and chills x 3 months found to have lung mass on CXR. Plan: - Cont current medical management - CXR: R supra hilar nodular lesion - CT abd pelvis showed 1.7cm poorly enhancing lesion in the R lobe of liver rec MRI follow up - Ordered MRI of abd w/wo verenice - IR consulted for biopsy of lung mass tami at 11am, hold Lovenox Saturday PM and Saturday - Cont abx Rocephin - Cont Duoneb and methylprednosolone 20mg Q8 - NS @ 80 Case and plan was reviewed and discussed in detail with Dr Bustamante.
[2016-12-17] MEDS ORDERED: Gadodiamide 287 MG/ML VIAL (15ML) IV ONE (18:29)
[2016-12-17] MEDS: Levothyroxine 100 MCG TAB PO SCH (22:08)
[2016-12-17] MEDS ORDERED: Magnesium Hydroxide Susp 30 ml UD PO STA (22:32)
--- NOTE | 2016-12-17 22:58 | CP.PCM.PN ---
Subjective - Date & Time of Evaluation Date of Evaluation: 12/17/16 Time of Evaluation: 22:55 - Subjective Subjective: Patient was seen at bedside because she had no bowel movement for 3 days. States that she does not suffer from constipation, has been drinking and eating normal. Denies nausea, vomiting , abdominal pain, diarrhoea. She is for biopsy in the morning. This 66 year old woman was admitted with cough , fever, chills of 3 weeks duration, leukocytosis, anemia, elevated platelets. Has PMH of PNA, hypothyroidism, colon cancer ,obesity, colectomy, ovarian cystectomy, hystrectomy, cholecystectomy. Objective - Vital Signs/Intake and Output Vital Signs (last 24 hours): Temp Pulse Resp BP Pulse Ox 97.9 F 73 18 100/54 L 94 L 12/17/16 08:06 12/17/16 08:06 12/17/16 08:06 12/17/16 09:00 12/17/16 08:06 - Medications Medications: Current Medications Acetaminophen (Tylenol 325mg Tab) 650 mg PO Q4H PRN PRN Reason: Pain, Mild (1-3) Last Admin: 12/15/16 18:26 Dose: 650 mg Albuterol/Ipratropium (Duoneb 3 Mg/0.5 Mg (3 Ml) Ud) 3 ml IH [id number] [facility] Last Admin: 12/17/16 19:52 Dose: 3 ml Enoxaparin Sodium (Lovenox) 30 mg SC DAILY [facility] PRN Reason: Protocol Last Admin: 12/17/16 09:47 Dose: Not Given Famotidine (Pepcid) 20 mg PO DAILY [facility] Last Admin: 12/17/16 09:46 Dose: 20 mg Ceftriaxone Sodium (Rocephin 1 Gram Ivpb) 1 gm in 100 mls @ 100 mls/hr IVPB DAILY [facility] PRN Reason: Protocol Last Admin: 12/17/16 09:47 Dose: 100 mls/hr Sodium Chloride (Sodium Chloride 0.45%) 1,000 mls @ 80 mls/hr IV .[id number] [facility] Levothyroxine Sodium (Synthroid) 100 mcg PO 0600 [facility] Last Admin: 12/17/16 22:08 Dose: Not Given Lisinopril (Zestril) 5 mg PO DAILY [facility] Last Admin: 12/17/16 09:00 Dose: Not Given Magnesium Hydroxide (Milk Of Magnesia) 30 ml PO STAT [facility] Stop: 12/17/16 22:33 Methylprednisolone (Solu-Medrol) 20 mg IVP Q8 [facility] Last Admin: 12/17/16 22:08 Dose: 20 mg Pantoprazole Sodium (Protonix Ec Tab) 40 mg PO 0600 [facility] Last Admin: 12/17/16 05:05 Dose: Not Given Tramadol HCl (Ultram) 50 mg PO TID PRN PRN Reason: Pain, moderate (4-7) - Labs Labs: 12/17/16 07:00 12/17/16 07:00 PT 12.2 Seconds (9.9-11.8) H 12/17/16 07:00 INR 1.13 (0.93-1.08) H 12/17/16 07:00 APTT 33.4 Seconds (23.7-30.8) H 12/15/16 10:23 Micro Results 12/15/16 10:42 Blood-Venous Blood Culture - Preliminary NO GROWTH AFTER 48 HOURS 12/15/16 10:23 Blood-Venous Blood Culture - Preliminary NO GROWTH AFTER 48 HOURS Most Recent Lab Values WBC 23.2 10^3/ul (4.5-11.0) H D 12/17/16 07:00 RBC 3.83 10^6/uL (3.5-6.1) 12/17/16 07:00 Hgb 10.0 gm/dL (12.0-16.0) L 12/17/16 07:00 Hct 31.2 % (36.0-48.0) L 12/17/16 07:00 MCV 81.5 fL (80.0-105.0) 12/17/16 07:00 MCH 26.1 pg (25.0-35.0) 12/17/16 07:00 MCHC 32.1 g/dl (31.0-37.0) 12/17/16 07:00 RDW 15.1 % (11.5-14.5) H 12/17/16 07:00 Plt Count 614 10^3/uL (120.0-450.0) H 12/17/16 07:00 MPV 8.9 fl (7.0-11.0) 12/17/16 07:00 Gran % 88.0 % (50.0-68.0) H 12/16/16 06:00 Lymph % (Auto) 10.2 % (22.0-35.0) L 12/16/16 06:00 Calloway % (Auto) 1.5 % (1.0-6.0) 12/16/16 06:00 Eos % (Auto) 0.1 % (1.5-5.0) L 12/16/16 06:00 Baso % (Auto) 0.2 % (0.0-3.0) 12/16/16 06:00 Gran # 10.06 (1.4-6.5) H 12/16/16 06:00 Lymph # 1.2 (1.2-3.4) 12/16/16 06:00 Calloway # 0.2 (0.1-0.6) 12/16/16 06:00 Eos # 0.0 (0.0-0.7) 12/16/16 06:00 Baso # 0.02 K/mm3 (0.0-2.0) 12/16/16 06:00 Neutrophils % (Manual) 91 % (50.0-70.0) H 12/17/16 07:00 Band Neutrophils % 2 % (0-2) 12/17/16 07:00 Lymphocytes % (Manual) 4 % (22.0-35.0) L 12/17/16 07:00 Monocytes % (Manual) 3 % (1.0-6.0) 12/17/16 07:00 Platelet Evaluation Normal (NORMAL) 12/17/16 07:00 PT 12.2 Seconds (9.9-11.8) H 12/17/16 07:00 INR 1.13 (0.93-1.08) H 12/17/16 07:00 APTT 33.4 Seconds (23.7-30.8) H 12/15/16 10:23 Sodium 139 mmol/L (132-148) 12/17/16 07:00 Potassium 4.6 mmol/L (3.6-5.0) 12/17/16 07:00 Chloride 104 mmol/L (98-107) 12/17/16 07:00 Carbon Dioxide 16 mmol/L (21-33) L 12/17/16 07:00 Anion Gap 24 (10-20) H 12/17/16 07:00 BUN 21 mg/dL (7-21) 12/17/16 07:00 Creatinine 0.6 mg/dL (0.5-1.4) 12/17/16 07:00 Est GFR ( Amer) > 60 12/17/16 07:00 Est GFR (Non-Af Amer) > 60 12/17/16 07:00 Random Glucose 255 mg/dL (70-110) H 12/17/16 07:00 Calcium 8.6 mg/dL (8.4-10.5) 12/17/16 07:00 Total Bilirubin 0.4 mg/dL (0.2-1.3) 12/17/16 07:00 AST 25 U/L (15-39) 12/17/16 07:00 ALT 50 U/L (7-56) 12/17/16 07:00 Alkaline Phosphatase 152 U/L (38-133) H 12/17/16 07:00 Total Protein 7.7 g/dL (5.8-8.3) 12/17/16 07:00 Albumin 3.7 g/dL (3.0-4.8) 12/17/16 07:00 Globulin 4.0 gm/dL 12/17/16 07:00 Albumin/Globulin Ratio 0.9 (1.1-1.8) L 12/17/16 07:00 Carcinoembryonic Ag 3.8 ng/mL (0.0-3.0) H 12/16/16 06:00 CA 19-9 Antigen 175 U/mL (0-37) H 12/16/16 06:00 TSH 3rd Generation 1.1 MIU/ml (0.46-4.68) 12/16/16 06:00 - Constitutional Appears: Well, No Acute Distress - Head Exam Head Exam: ATRAUMATIC, NORMAL INSPECTION, NORMOCEPHALIC - Eye Exam Eye Exam: Normal appearance - ENT Exam ENT Exam: Normal External Ear Exam - Neck Exam Neck Exam: Normal Inspection - Respiratory Exam Respiratory Exam: NORMAL BREATHING PATTERN - Cardiovascular Exam Cardiovascular Exam: absent: JVD - GI/Abdominal Exam GI & Abdominal Exam: absent: Distended - Rectal Exam Rectal Exam: Deferred - Exam Additional comments: Deferred. - Extremities Exam Extremities Exam: Normal Inspection - Back Exam Back Exam: NORMAL INSPECTION - Neurological Exam Neurological Exam: Alert, Oriented x3 - Psychiatric Exam Psychiatric exam: Normal Affect, Normal Mood - Skin Skin Exam: Normal Color Assessment and Plan - Assessment and Plan (Free Text) Assessment: Constipation. Hypothyroidism. Obeisity. PNA? Anemia. Leukocytosis. Thrombocytosis. Plan: MOM 30 CC po now. Continue present management.
--- NOTE | 2016-12-17 23:01 | PN ---
DATE: 12/17/2016 REFERRING PHYSICIAN: Dr. Thakur SUBJECTIVE: The patient is out of bed to chair, reading a book. Biopsy was not done today. No headache. No rhinitis. No nausea, no vomiting, and no diarrhea. No leg pain and leg swelling. PHYSICAL EXAMINATION GENERAL: In no acute distress. VITAL SIGNS: Temperature is 98, heart rate 73, respiratory rate 18, blood pressure 100/54, pulse ox 94% on room air. HEENT: Moist mucous membranes. Crowded airway. NECK: Supple. No JVD. CARDIOPULMONARY: S1 and S2. LUNGS: Fair air flow with few rhonchi. ABDOMEN: Soft and nontender, no organomegaly. EXTREMITIES: No edema. NEUROLOGIC: Awake and alert. Follows simple commands. LABORATORY DATA: Hemoglobin 10.0, hematocrit 31.2, WBC 23,000, platelet count is 614, INR 1.13. Sodium 139, potassium 4.6, chloride 104, bicarbonate 19, BUN 21, creatinine 0.6, glucose 255, calcium 8.6,AST 25, ALT 50, alk phos is 152, albumin 3.7, globulin is 4.0, carcinoembryonic antigen is 3.8, CA 19-9 antigen 175. Microbiology blood culture has been negative. MRI of the liver is done, report is still pending. MEDICATIONS: She is on DuoNeb q. 6 hours, Lovenox 30 mg subcutaneous daily, Pepcid 20 mg daily, Protonix 40 mg daily, Rocephin 1 g daily, IV fluid with half normal saline 80 mL per hour, Solu-Medrol 20 mg q. 8 hours, Synthroid 100 mcg daily, Tylenol p.r.n., Ultram 50 mg three times a day, and Zestril 5 mg daily. IMPRESSION AND PLAN: Right lung mass, also has mediastinal and hilar adenopathy, liver lesion, history of colon cancer, history of cervical cancer, chronic lung disease, hypothyroidism, hypertension, hyperlipidemia. Reschedule biopsy for tomorrow. From pulmonary point of view, she is doing okay. Continue bronchodilator, keep head at 45 degree, sleep apnea precaution, , needs close cardiopulmonary monitoring, gastric prophylaxis, deep venous thrombosis prophylaxis. Thank you and we will follow with you. Ashlie Alejo MD
--- NOTE | 2016-12-17 23:48 | CP.PCM.PN ---
Subjective - Date & Time of Evaluation Date of Evaluation: 12/17/16 Time of Evaluation: 07:30 - Subjective Subjective: Pt seen and examined at bedside. No acute events overnight. Pt c/o R side chest pain with deep inspiration rated 4/10 in severity. Denies any f/c, sob, abd pain , n/v/d.daughter bryan is at bed side , going for biopsy [place] Objective - Vital Signs/Intake and Output Vital Signs (last 24 hours): Temp Pulse Resp BP Pulse Ox 97.9 F 73 18 100/54 L 94 L 12/17/16 08:06 12/17/16 08:06 12/17/16 08:06 12/17/16 09:00 12/17/16 08:06 - Medications Medications: Current Medications Acetaminophen (Tylenol 325mg Tab) 650 mg PO Q4H PRN PRN Reason: Pain, Mild (1-3) Last Admin: 12/15/16 18:26 Dose: 650 mg Albuterol/Ipratropium (Duoneb 3 Mg/0.5 Mg (3 Ml) Ud) 3 ml IH [id number] [facility] Last Admin: 12/17/16 19:52 Dose: 3 ml Enoxaparin Sodium (Lovenox) 30 mg SC DAILY [facility] PRN Reason: Protocol Last Admin: 12/17/16 09:47 Dose: Not Given Famotidine (Pepcid) 20 mg PO DAILY [facility] Last Admin: 12/17/16 09:46 Dose: 20 mg Ceftriaxone Sodium (Rocephin 1 Gram Ivpb) 1 gm in 100 mls @ 100 mls/hr IVPB DAILY [facility] PRN Reason: Protocol Last Admin: 12/17/16 09:47 Dose: 100 mls/hr Sodium Chloride (Sodium Chloride 0.45%) 1,000 mls @ 80 mls/hr IV .[id number] [facility] Levothyroxine Sodium (Synthroid) 100 mcg PO 0600 [facility] Last Admin: 12/17/16 22:08 Dose: Not Given Lisinopril (Zestril) 5 mg PO DAILY [facility] Last Admin: 12/17/16 09:00 Dose: Not Given Methylprednisolone (Solu-Medrol) 20 mg IVP Q8 [facility] Last Admin: 12/17/16 22:08 Dose: 20 mg Pantoprazole Sodium (Protonix Ec Tab) 40 mg PO 0600 [facility] Last Admin: 12/17/16 05:05 Dose: Not Given Tramadol HCl (Ultram) 50 mg PO TID PRN PRN Reason: Pain, moderate (4-7) - Labs Labs: 12/17/16 07:00 12/17/16 07:00 PT 12.2 Seconds (9.9-11.8) H 12/17/16 07:00 INR 1.13 (0.93-1.08) H 12/17/16 07:00 APTT 33.4 Seconds (23.7-30.8) H 12/15/16 10:23 - Constitutional Appears: Well - Head Exam Head Exam: ATRAUMATIC, NORMAL INSPECTION, NORMOCEPHALIC - Eye Exam Eye Exam: EOMI, Normal appearance, PERRL Pupil Exam: NORMAL ACCOMODATION, PERRL - ENT Exam ENT Exam: Mucous Membranes Moist, Normal Exam - Neck Exam Neck Exam: Full ROM, Normal Inspection. absent: Lymphadenopathy - Respiratory Exam Respiratory Exam: Clear to Ausculation Bilateral, NORMAL BREATHING PATTERN - Cardiovascular Exam Cardiovascular Exam: REGULAR RHYTHM, +S1, +S2. absent: Murmur - GI/Abdominal Exam GI & Abdominal Exam: Soft, Normal Bowel Sounds. absent: Tenderness - Rectal Exam Rectal Exam: NORMAL INSPECTION - Exam Exam: Circumcision, NORMAL INSPECTION External exam: NORMAL EXTERNAL EXAM Speculum exam: NORMAL SPECULUM EXAM Bimanual exam: NORMAL BIMANUAL EXAM - Extremities Exam Extremities Exam: Full ROM, Normal Capillary Refill, Normal Inspection. absent : Joint Swelling, Pedal Edema - Back Exam Back Exam: NORMAL INSPECTION - Neurological Exam Neurological Exam: Alert, Awake, CN II-XII Intact, Normal Gait, Oriented x3 - Psychiatric Exam Psychiatric exam: Normal Affect, Normal Mood - Skin Skin Exam: Dry, Intact, Normal Color, Warm Assessment and Plan (1) Anemia Status: Acute (2) Leukocytosis Status: Acute (3) Thrombocytosis Status: Acute - Assessment and Plan (Free Text) Assessment: 66F with pmh of colon cancer (2008) and cervical cancer s/p hysterectomy (2009) , HTN, HLD, Hypothyroidism, obesity, presented to the PMD with cough fever and chills x 3 months found to have lung mass on CXR. Plan: - Cont current medical management - CXR: R supra hilar nodular lesion - CT abd pelvis showed 1.7cm poorly enhancing lesion in the R lobe of liver rec MRI follow up - Ordered MRI of abd w/wo verenice - IR consulted for biopsy of lung mass tami at 11am, hold Lovenox Saturday PM and Saturday - Cont abx Rocephin - Cont Duoneb and methylprednosolone 20mg Q8 - NS got miralex for constepation ,
[2016-12-18] MEDS: Albuterol-Ipratrop 3 mg / 0.5 (3 ml) UD IH SCH ×4 (01:36→19:28)
[2016-12-18] MEDS: Sodium Chloride 0.45% 1,000 ML IV SCH ×2 (05:44→21:04)
[2016-12-18] MEDS: MethylPREDNISolone 40 mg Vial IVP SCH ×3 (05:45→22:46)
[2016-12-18] MEDS: Pantoprazole 40 mg EC Tab PO SCH (05:46)
[2016-12-18] MEDS: Levothyroxine 100 MCG TAB PO SCH (05:47)
[2016-12-18] MEDS: Enoxaparin 30 mg Syringe SC SCH (09:12)
[2016-12-18] MEDS: cefTRIAXone 1 gm 1 GM/100 ML BAG IVPB SCH (09:34)
--- NOTE | 2016-12-18 10:53 | MRI ---
PROCEDURE: MRI Abdomen with and without contrast HISTORY: Follow-up lesion right lobe of the liver COMPARISON: CT scan 12/16/2016. TECHNIQUE: Multisequence, multiplanar MR images of the abdomen with and without gadolinium contrast enhancement. FINDINGS: LIVER: There is a 1.7 cm lesion in the right lobe of the liver. On the postcontrast images this has a hypo intense appearance centrally with rim enhancement. On T2 images there is a larger area of edema or abnormal signal intensity around the central portion of the lesion. This measures 26 mm in diameter as seen on image 12 series 6. These findings are not typical of hemangioma. This is suspicious for metastatic disease. Clinical correlation is suggested regarding a primary neoplasm. GALLBLADDER: Unremarkable. SPLEEN: Unremarkable. PANCREAS: Unremarkable. ADRENALS: Unremarkable. KIDNEYS: Unremarkable. AORTA: No aneurysm. ASCITES: None. PERITONEUM: Unremarkable. LYMPH NODES: Unremarkable. OTHER FINDINGS: The report concurs with the preliminary [facility] report IMPRESSION: 1.7 cm lesion in the right lobe of the liver with a rim enhancement pattern. The findings are suspicious for neoplasm. There are no other lesions seen.
--- NOTE | 2016-12-18 11:31 | CP.PCM.PN ---
Subjective - Date & Time of Evaluation Date of Evaluation: 12/18/16 Time of Evaluation: 07:45 - Subjective Subjective: PGY [address] Bustamante: Pt seen and examined at bedside. No acute events overnight. No complaints at this time. For lung biopsy this am. Denies any f/c, sob, abd pain, n/v/d. Objective - Vital Signs/Intake and Output Vital Signs (last 24 hours): Temp Pulse Resp BP Pulse Ox 97.9 F 67 20 140/70 95 12/18/16 06:00 12/18/16 09:34 12/18/16 06:00 12/18/16 09:34 12/18/16 06:00 Intake and Output: 12/18/16 12/18/16 06:59 18:59 Intake Total 180 240 Balance 180 240 - Medications Medications: Current Medications Acetaminophen (Tylenol 325mg Tab) 650 mg PO Q4H PRN PRN Reason: Pain, Mild (1-3) Last Admin: 12/15/16 18:26 Dose: 650 mg Albuterol/Ipratropium (Duoneb 3 Mg/0.5 Mg (3 Ml) Ud) 3 ml IH [id number] [facility] Last Admin: 12/18/16 08:03 Dose: 3 ml Enoxaparin Sodium (Lovenox) 30 mg SC DAILY [facility] PRN Reason: Protocol Last Admin: 12/18/16 09:12 Dose: Not Given Famotidine (Pepcid) 20 mg PO DAILY [facility] Last Admin: 12/18/16 09:34 Dose: 20 mg Ceftriaxone Sodium (Rocephin 1 Gram Ivpb) 1 gm in 100 mls @ 100 mls/hr IVPB DAILY [facility] PRN Reason: Protocol Last Admin: 12/18/16 09:34 Dose: 100 mls/hr Sodium Chloride (Sodium Chloride 0.45%) 1,000 mls @ 80 mls/hr IV .[id number] [facility] Last Admin: 12/18/16 05:44 Dose: 80 mls/hr Levothyroxine Sodium (Synthroid) 100 mcg PO 0600 [facility] Last Admin: 12/18/16 05:47 Dose: 100 mcg Lisinopril (Zestril) 5 mg PO DAILY [facility] Last Admin: 12/18/16 09:34 Dose: 5 mg Methylprednisolone (Solu-Medrol) 20 mg IVP Q8 [facility] Last Admin: 12/18/16 05:45 Dose: 20 mg Pantoprazole Sodium (Protonix Ec Tab) 40 mg PO 0600 [facility] Last Admin: 12/18/16 05:46 Dose: 40 mg Tramadol HCl (Ultram) 50 mg PO TID PRN PRN Reason: Pain, moderate (4-7) - Labs Labs: 12/17/16 07:00 12/17/16 07:00 PT 12.2 Seconds (9.9-11.8) H 12/17/16 07:00 INR 1.13 (0.93-1.08) H 12/17/16 07:00 APTT 33.4 Seconds (23.7-30.8) H 12/15/16 10:23 - Constitutional Appears: No Acute Distress - Head Exam Head Exam: ATRAUMATIC, NORMAL INSPECTION, NORMOCEPHALIC - Eye Exam Eye Exam: EOMI, Normal appearance, PERRL Pupil Exam: NORMAL ACCOMODATION, PERRL - ENT Exam ENT Exam: Mucous Membranes Moist, Normal Exam - Neck Exam Neck Exam: Full ROM, Normal Inspection. absent: Lymphadenopathy - Respiratory Exam Respiratory Exam: Clear to Ausculation Bilateral. absent: Wheezes - Cardiovascular Exam Cardiovascular Exam: REGULAR RHYTHM, +S1, +S2. absent: Murmur - GI/Abdominal Exam GI & Abdominal Exam: Soft, Normal Bowel Sounds. absent: Tenderness - Extremities Exam Extremities Exam: absent: Calf Tenderness, Pedal Edema - Back Exam Back Exam: absent: CVA tenderness (L) - Neurological Exam Neurological Exam: Alert, Awake, Oriented x3 - Psychiatric Exam Psychiatric exam: Normal Affect, Normal Mood - Skin Skin Exam: Dry, Intact, Normal Color, Warm Assessment and Plan - Assessment and Plan (Free Text) Assessment: 66F with pmh of colon cancer (2008) and cervical cancer s/p hysterectomy (2009) , HTN, HLD, Hypothyroidism, obesity, presented to the PMD with cough fever and chills x 3 months found to have lung mass on CXR. Plan: - IR consulted - biopsy of lung mass tami at 11am - Cont current medical management - CXR: R supra hilar nodular lesion - CT abd pelvis showed 1.7cm poorly enhancing lesion in the R lobe of liver rec MRI follow up - MRI of abd w/wo verenice 1.7cm R lobe lesion with a rim enhancing pattern - finding suspicious for neoplasm. no other lesions noticed - Cont abx Rocephin - Cont Duoneb and methylprednosolone 20mg Q8 - NS @ 80 Case and plan was reviewed and discussed in detail with Dr Bustamante.
[2016-12-18] MEDS ORDERED: Midazolam 2 MG/2 ML VIAL ONE (12:14)
--- NOTE | 2016-12-18 18:43 | CT ---
PROCEDURE: CT guided right upper lobe lung biopsy. HISTORY: Solitary noncalcified 4 cm right upper lobe lung mass. Evaluate for malignancy. PHYSICIAN(S): Simón Blank MD. TECHNIQUE: The relative risks and indications of the procedure were explained to the patient and consent obtained. The patient was placed supine on the CT scanner and preliminary images through the upper lungs obtained. Conscious sedation and monitoring were provided throughout the procedure by a nurse. There is a 4 cm noncalcified mass in the right upper lobe anteriorly with irregular margins.. A right anterior approach was selected and the area prepped and draped in the usual sterile fashion. 1% Xylocaine was used to anesthetize the skin and soft tissues. A 19 gauge guiding needle was advanced into the 4 cm right upper lobe lung mass. Its position was confirmed with CT. Using coaxial technique, multiple core biopsies were obtained. The postprocedure images show no evidence of large pneumothorax or significant bridge.. IMPRESSION: 1. CT-guided right upper lobe lung biopsy as described above.
--- NOTE | 2016-12-18 18:44 | CT ---
PROCEDURE: CT guided liver biopsy. HISTORY: Solitary 2.5 cm right liver mass. History colon CA, cervical CA and recently biopsied right upper lobe lung mass. Evaluate for metastatic disease. PHYSICIAN(S): Simón Blank MD. TECHNIQUE: The relative risks and indications of the procedure were explained to the patient and consent obtained. The patient was placed supine on the CT scanner and preliminary images through the liver obtained. Conscious sedation and monitoring were provided throughout the procedure by a nurse. There is a 2.5 cm low-attenuation lesion in the inferior aspect of the right lobe.. A right lateral approach was selected and the area prepped and draped in the usual sterile fashion. 1% Xylocaine was used to anesthetize the skin and soft tissues. A 17-gauge guiding needle was advanced into the 2.5 cm right liver mass. Its position was confirmed with CT. Using coaxial technique, multiple core biopsies were obtained. The postprocedure images show no evidence of significant hemorrhage. IMPRESSION: 1. CT-guided liver biopsy as described above.
[2016-12-18] MEDS ORDERED: MethylPREDNISolone 40 mg Vial IVP SCH (22:00)
--- NOTE | 2016-12-18 23:11 | PN ---
DATE: 12/18/2016 REFERRING PROVIDER: Kathy Thakur MD SUBJECTIVE: She is lying in the bed 45 degrees, status post liver biopsy, mild abdominal pain. No nausea, no vomiting, no diarrhea. No leg pain. No leg swelling. OBJECTIVE: GENERAL: No acute distress. VITAL SIGNS: Temperature is 98, heart rate is 83, respiratory rate is 20, blood pressure 136/84, pulse ox 93% on room air. HEENT: Moist mucous membranes. Crowded airway. NECK: Supple. No JVD. LUNGS: Has fair airflow with rhonchi. HEART: S1 and S2. ABDOMEN: Soft and nontender. No organomegaly. EXTREMITIES: No edema. NEUROLOGIC: Awake and alert, follows simple commands. MEDICATIONS: She is on DuoNeb q.6 hour, lactulose 20 g p.o. daily p.r.n. for constipation, Lovenox 30 mg daily, Pepcid 20 mg daily, Protonix 40 mg daily, Rocephin 1 g IV daily, IV fluid half normal saline 80 mL/hour, Solu-Medrol 20 mg q.8 h., Synthroid 100 mcg daily, Tylenol p.r.n., Ultram 50 mg 3 times a day p.r.n.,and Zestril 5 mg daily. LABORATORY DATA: Shows no new labs available since yesterday. Microbiology: Blood cultures have been negative. Status post liver biopsy. IMPRESSION AND PLAN: Right lung mass, mediastinal and hilar adenopathy, also having a liver lesion, history of colon cancer, history of cervical cancer, chronic lung disease, hypothyroid, hypertension, hyperlipidemia. Spoke to family at bedside. All the questions answered. We will change Solu-Medrol to 20 q.12 hour. Choices are to send the patient to [facility] for therapy or home. Could be followed by Dr. Thakur as an outpatient. Taper off steroids next 5 days or so. We will make further recommendation once the biopsy report is back. Thank you and we will follow with you. Ashlie Alejo MD
--- NOTE | 2016-12-19 01:24 | PN ---
DATE: 12/18/2016 SUBJECTIVE: The patient is a 66 years old female. The patient was seen and examined at the bedside, looking comfortable. No nausea, vomiting or diarrhea. No hematemesis or hematochezia. Status post lung biopsy, ultrasound guided by Dr. Simón Blank. Pain is not as much. Shortness of breath is better. Cough is better. PHYSICAL EXAMINATION: VITAL SIGNS: Temperature 97.8, pulse 80, blood pressure 136/84, respiratory rate is 20. HEENT: Head normocephalic, atraumatic. Eyes; PERRLA. Extraocular muscles are intact. Conjunctivae clear. Nose is patent. Mucous membrane moist. NECK: Supple. No carotid bruits. No JVD or thyromegaly. CHEST: Bilateral symmetrical. HEART: S1, S2 positive. LUNGS: Clear to auscultation. ABDOMEN: Soft, positive sounds present. No organomegaly. EXTREMITIES: No edema. No cyanosis. NEUROLOGIC: Awake, alert and oriented. EXTREMITIES: Moving all four extremities. No focal deficit. MEDICATIONS: DuoNeb, lactulose, Lovenox, Pepcid, Protonix, Rocephin, NS, Solo-Medrol, Synthroid, Tylenol and Zestril. LABORATORY DATA: White blood cells 23.2, hemoglobin 10.0, hematocrit 31.2,and platelets 614. Sodium 139, potassium 4.6, BUN noted , creatinine 0.6, glucose 255. ASSESSMENT AND PLAN: Ms. Guille Simon is 66 years old female with leukocytosis, anemia, thrombocytosis, uncontrolled diabetes mellitus, increased alkaline phosphatase, abnormal liver function test, has right lung mass. Ultrasound-guided diagnostic biopsy done by Dr. Simón Blank, waiting for the biopsy result. Also has mediastinal and hilar adenopathy, liver lesion, history of colon cancer, history of cervical cancer, chronic lung disease, hypothyroidism, hypertension, and hypercholesterolemia. Continue bronchodilator, tapering dose of steroids. Need close cardiopulmonary monitoring. Gastric and DVT prophylaxis. Discussion done with the patient, the patient's sister and nurse practitioner Beronica. Reviewed labs. We will followup. Kathy Thakur MD [facility] # [id number] MTDLeonor
[2016-12-19] MEDS: Albuterol-Ipratrop 3 mg / 0.5 (3 ml) UD IH SCH ×2 (02:06→08:06)
[2016-12-19] MEDS: Levothyroxine 100 MCG TAB PO SCH (05:53)
[2016-12-19] MEDS: Pantoprazole 40 mg EC Tab PO SCH (05:53)
--- NOTE | 2016-12-19 07:55 | RAD ---
HISTORY: rt lung bx COMPARISON: CT-guided lung biopsy 12/18/2016 ; chest x-ray PA and lateral 12/15/2016 FINDINGS: LUNGS: The ill-defined right upper lobe mass is similar in appearance PLEURA: No significant pleural effusion identified, no pneumothorax apparent. CARDIOVASCULAR: Cardiomegaly - as before. The fullness mild asymmetry is renoted. Right cardiophrenic fat pad noted. OSSEOUS STRUCTURES: Thoracic spondylosis VISUALIZED UPPER ABDOMEN: Normal. OTHER FINDINGS: None. IMPRESSION: No interval pneumothorax or significant appearing no pleural effusion appreciated. Right upper lobe mass and recently biopsied noted
[2016-12-19] MEDS: cefTRIAXone 1 gm 1 GM/100 ML BAG IVPB SCH (10:17)
[2016-12-19] MEDS: Enoxaparin 30 mg Syringe SC SCH (10:17)
[2016-12-19] MEDS: MethylPREDNISolone 40 mg Vial IVP SCH (10:18)
[2016-12-19 10:25] VITALS: BP 140/66; PULSE 62
[2016-12-19 10:38] VITALS: RESP 19; TEMP 98; O2SAT 95
--- NOTE | 2016-12-19 13:11 | CP.PCM.PN ---
<Sravan Montero - Last Filed: 12/19/16 13:07> Subjective - Date & Time of Evaluation Date of Evaluation: 12/19/16 Time of Evaluation: 07:15 - Subjective Subjective: PGY [address] Bustamante: Pt seen and examined at bedside. No acute events overnight. States that her R sided chest /abd pain has resolved. No complaints at this time. Is s/p lung and liver bx pod1. Denies any f/c, sob, abd pain, n/v/d. Objective - Vital Signs/Intake and Output Vital Signs (last 24 hours): Temp Pulse Resp BP Pulse Ox 98.0 F 62 19 140/66 95 12/19/16 06:00 12/19/16 10:18 12/19/16 06:00 12/19/16 10:18 12/19/16 06:00 Intake and Output: 12/19/16 12/19/16 06:59 18:59 Intake Total 2019 Balance 2019 - Labs Labs: 12/17/16 07:00 12/17/16 07:00 PT 12.2 Seconds (9.9-11.8) H 12/17/16 07:00 INR 1.13 (0.93-1.08) H 12/17/16 07:00 APTT 33.4 Seconds (23.7-30.8) H 12/15/16 10:23 - Constitutional Appears: No Acute Distress - Head Exam Head Exam: ATRAUMATIC, NORMAL INSPECTION, NORMOCEPHALIC - Eye Exam Eye Exam: EOMI, Normal appearance, PERRL Pupil Exam: NORMAL ACCOMODATION, PERRL - ENT Exam ENT Exam: Mucous Membranes Moist, Normal Exam - Neck Exam Neck Exam: absent: Lymphadenopathy - Respiratory Exam Respiratory Exam: Clear to Ausculation Bilateral, NORMAL BREATHING PATTERN. absent: Wheezes - Cardiovascular Exam Cardiovascular Exam: REGULAR RHYTHM, RRR, +S1, +S2. absent: Murmur - GI/Abdominal Exam GI & Abdominal Exam: Soft, Normal Bowel Sounds. absent: Distended, Tenderness - Extremities Exam Extremities Exam: Full ROM, Normal Capillary Refill, Normal Inspection. absent : Calf Tenderness, Joint Swelling, Pedal Edema - Back Exam Back Exam: NORMAL INSPECTION - Neurological Exam Neurological Exam: Alert, Awake, CN II-XII Intact, Normal Gait, Oriented x3 - Psychiatric Exam Psychiatric exam: Normal Affect, Normal Mood - Skin Skin Exam: Dry, Intact, Normal Color, Warm Assessment and Plan - Assessment and Plan (Free Text) Assessment: 66F with pmh of colon cancer (2008) and cervical cancer s/p hysterectomy (2009) , HTN, HLD, Hypothyroidism, obesity, presented to the PMD with cough fever and chills x 3 months found to have lung mass on CXR. S/p lung and liver bx POD 1. Plan: - IR consulted - s/p lung and liver bx yesterday - F/u pathology report - Cont current medical management - CXR: R supra hilar nodular lesion - CT abd pelvis showed 1.7cm poorly enhancing lesion in the R lobe of liver rec MRI follow up - MRI of abd w/wo verenice 1.7cm R lobe lesion with a rim enhancing pattern - finding suspicious for neoplasm. no other lesions noticed - Cont Duoneb and methylprednosolone 20mg Q8 - NS @ 80 Case and plan was reviewed and discussed in detail with Dr Bustamante. <Julio Bustamante P - Last Filed: 12/22/16 11:41> Objective - Vital Signs/Intake and Output Vital Signs (last 24 hours): Temp Pulse Resp BP Pulse Ox 98.0 F 62 19 140/66 95 12/19/16 06:00 12/19/16 10:18 12/19/16 06:00 12/19/16 10:18 12/19/16 06:00 - Labs Labs: 12/17/16 07:00 12/17/16 07:00 PT 12.2 Seconds (9.9-11.8) H 12/17/16 07:00 INR 1.13 (0.93-1.08) H 12/17/16 07:00 APTT 33.4 Seconds (23.7-30.8) H 12/15/16 10:23 Attending/Attestation - Attestation I have personally seen and examined this patient.: Yes I have fully participated in the care of the patient.: Yes I have reviewed all pertinent clinical information, including history, physical exam and plan: Yes
--- NOTE | 2016-12-19 18:40 | CP.PCM.DIS ---
Provider - Provider Date of Admission: 12/15/16 11:31 Attending physician: Kathy Thakur MD Primary care physician: Damián James MD Time Spent in preparation of Discharge (in minutes): 60 Diagnosis - Discharge Diagnosis (1) Anemia Status: Acute (2) Leukocytosis Status: Acute (3) Thrombocytosis Status: Acute Hospital Course - Lab Results Lab Results: Most Recent Lab Values WBC 23.2 10^3/ul (4.5-11.0) H D 12/17/16 07:00 RBC 3.83 10^6/uL (3.5-6.1) 12/17/16 07:00 Hgb 10.0 gm/dL (12.0-16.0) L 12/17/16 07:00 Hct 31.2 % (36.0-48.0) L 12/17/16 07:00 MCV 81.5 fL (80.0-105.0) 12/17/16 07:00 MCH 26.1 pg (25.0-35.0) 12/17/16 07:00 MCHC 32.1 g/dl (31.0-37.0) 12/17/16 07:00 RDW 15.1 % (11.5-14.5) H 12/17/16 07:00 Plt Count 614 10^3/uL (120.0-450.0) H 12/17/16 07:00 MPV 8.9 fl (7.0-11.0) 12/17/16 07:00 Gran % 88.0 % (50.0-68.0) H 12/16/16 06:00 Lymph % (Auto) 10.2 % (22.0-35.0) L 12/16/16 06:00 [place] % (Auto) 1.5 % (1.0-6.0) 12/16/16 06:00 Eos % (Auto) 0.1 % (1.5-5.0) L 12/16/16 06:00 Baso % (Auto) 0.2 % (0.0-3.0) 12/16/16 06:00 Gran # 10.06 (1.4-6.5) H 12/16/16 06:00 Lymph # 1.2 (1.2-3.4) 12/16/16 06:00 [place] # 0.2 (0.1-0.6) 12/16/16 06:00 Eos # 0.0 (0.0-0.7) 12/16/16 06:00 Baso # 0.02 K/mm3 (0.0-2.0) 12/16/16 06:00 Neutrophils % (Manual) 91 % (50.0-70.0) H 12/17/16 07:00 Band Neutrophils % 2 % (0-2) 12/17/16 07:00 Lymphocytes % (Manual) 4 % (22.0-35.0) L 12/17/16 07:00 Monocytes % (Manual) 3 % (1.0-6.0) 12/17/16 07:00 Platelet Evaluation Normal (NORMAL) 12/17/16 07:00 PT 12.2 Seconds (9.9-11.8) H 12/17/16 07:00 INR 1.13 (0.93-1.08) H 12/17/16 07:00 APTT 33.4 Seconds (23.7-30.8) H 12/15/16 10:23 Sodium 139 mmol/L (132-148) 12/17/16 07:00 Potassium 4.6 mmol/L (3.6-5.0) 12/17/16 07:00 Chloride 104 mmol/L (98-107) 12/17/16 07:00 Carbon Dioxide 16 mmol/L (21-33) L 12/17/16 07:00 Anion Gap 24 (10-20) H 12/17/16 07:00 BUN 21 mg/dL (7-21) 12/17/16 07:00 Creatinine 0.6 mg/dL (0.5-1.4) 12/17/16 07:00 Est GFR ( Amer) > 60 12/17/16 07:00 Est GFR (Non-Af Amer) > 60 12/17/16 07:00 Random Glucose 255 mg/dL (70-110) H 12/17/16 07:00 Calcium 8.6 mg/dL (8.4-10.5) 12/17/16 07:00 Total Bilirubin 0.4 mg/dL (0.2-1.3) 12/17/16 07:00 AST 25 U/L (15-39) 12/17/16 07:00 ALT 50 U/L (7-56) 12/17/16 07:00 Alkaline Phosphatase 152 U/L (38-133) H 12/17/16 07:00 Total Protein 7.7 g/dL (5.8-8.3) 12/17/16 07:00 Albumin 3.7 g/dL (3.0-4.8) 12/17/16 07:00 Globulin 4.0 gm/dL 12/17/16 07:00 Albumin/Globulin Ratio 0.9 (1.1-1.8) L 12/17/16 07:00 Carcinoembryonic Ag 3.8 ng/mL (0.0-3.0) H 12/16/16 06:00 CA 19-9 Antigen 175 U/mL (0-37) H 12/16/16 06:00 TSH 3rd Generation 1.1 MIU/ml (0.46-4.68) 12/16/16 06:00 - Hospital Course Hospital Course: A 66 year old female sent into the emergency department by PMD for further evaluation. Family present to assist with translation when needed. Patient complains of a cough, fever and chills for the past 3 months. She reports her cough resolved after taken antibiotics perceived by her PMD. However, continues to experience fever and chills. Patient denies any nausea, vomiting, chest pain , shortness of breath, dyspnea on exertion or any other complaints. Patient reports she had a chest xray which showed a lung mass. Assessment: 66F with pmh of colon cancer (2008) and cervical cancer s/p hysterectomy (2009) , HTN, HLD, Hypothyroidism, obesity, presented to the PMD with cough fever and chills x 3 months found to have lung mass on CXR. S/p lung and liver bx POD 1. Plan: - IR consulted - s/p lung and liver bx yesterday - F/u pathology report - Cont current medical management - CXR: R supra hilar nodular lesion - CT abd pelvis showed 1.7cm poorly enhancing lesion in the R lobe of liver rec MRI follow up - MRI of abd w/wo verenice 1.7cm R lobe lesion with a rim enhancing pattern - finding suspicious for neoplasm. no other lesions noticed - Cont Duoneb and methylprednosolone 20mg [id number] doses Discharge Exam - Head Exam Head Exam: ATRAUMATIC, NORMAL INSPECTION, NORMOCEPHALIC - Eye Exam Eye Exam: EOMI, Normal appearance, PERRL Pupil Exam: NORMAL ACCOMODATION, PERRL - GI/Abdominal Exam GI & Abdominal Exam: Normal Bowel Sounds - Rectal Exam Rectal Exam: NORMAL INSPECTION - Exam Exam: Circumcision, NORMAL INSPECTION External exam: NORMAL EXTERNAL EXAM Speculum exam: NORMAL SPECULUM EXAM Bimanual exam: NORMAL BIMANUAL EXAM - Neurological Exam Neurological exam: Alert, CN II-XII Intact, Normal Gait, Oriented x3, Reflexes Normal - Psychiatric Exam Psychiatric exam: Normal Affect, Normal Mood - Skin Skin Exam: Dry, Intact, Normal Color, Warm Discharge Plan - Discharge Medications Prescriptions: Cefuroxime Susp [Ceftin] 500 mg PO BID #10 mg Methylprednisolone [Medrol Dose Pack (21 tabs)] See Protocol PO DAILY #21 mg - Follow Up Plan Condition: STABLE Disposition: HOME/ ROUTINE Instructions: Lung Cancer (DC), Anemia (DC) Additional Instructions: Follow up with Dr. Thakur on Saturday12/24/16 at 1:00 pm if not able to make please call [phone] to reschedule your appointment. IF SHORTNESS OF BREATH PERSIST OR GETS WORST PLEASE CALL YOUR PRIMARY CARE PHYSICIAN OR GO TO THE NEAREST EMERGENCY ROOM. Referrals: Damián James [Primary Care Provider] -
== END 2016-12-19 13:03 | disposition home or self-care (01) | DRG 181 ==
LOC: ED 09:27 → ERH 11:31 → 3RSO 12:05
PROVIDERS: ADMIT Internal Medicine; ATTEND Internal Medicine
PROC: 3E0F7GC Introduction of Other Therapeutic Substance into Respiratory Tract, Via Natural or Artificial Opening (ICD-10-PCS; 2016-12-15)
PROC: 0FB13ZX Excision of Right Lobe Liver, Percutaneous Approach, Diagnostic (ICD-10-PCS; 2016-12-18)
PROC: 0BBC3ZX Excision of Right Upper Lung Lobe, Percutaneous Approach, Diagnostic (ICD-10-PCS; principal; 2016-12-18 11:30)
DX: C34.11 Malignant neoplasm of upper lobe, right bronchus or lung (principal); C78.7 Secondary malignant neoplasm of liver and intrahepatic bile duct; J44.9 Chronic obstructive pulmonary disease, unspecified; E11.65 Type 2 diabetes mellitus with hyperglycemia; I10 Essential (primary) hypertension; D64.9 Anemia, unspecified; R59.0 Localized enlarged lymph nodes; E78.5 Hyperlipidemia, unspecified; E66.9 Obesity, unspecified; E03.9 Hypothyroidism, unspecified; D75.89 Other specified diseases of blood and blood-forming organs; R07.1 Chest pain on breathing; K59.00 Constipation, unspecified; D72.829 Elevated white blood cell count, unspecified; E78.00 Pure hypercholesterolemia, unspecified; Z85.038 Personal history of other malignant neoplasm of large intestine; Z85.41 Personal history of malignant neoplasm of cervix uteri; Z90.49 Acquired absence of other specified parts of digestive tract; Z90.710 Acquired absence of both cervix and uterus; Z92.21 Personal history of antineoplastic chemotherapy; Z87.891 Personal history of nicotine dependence

== ENCOUNTER 2017-01-03 14:02 | Inpatient (IN) | payer MEDICARE, OTHER ==
[2017-01-03 14:26] VITALS: BMI 32.5
[2017-01-03] MEDS ORDERED: Sodium Chloride 0.9% 1,000 ML IV STA (14:44)
--- NOTE | 2017-01-03 14:47 | ED PDOC ---
Arrival/HPI - General Chief Complaint: Fever Time Seen by Provider: 01/03/17 14:43 Historian: Patient - History of Present Illness Narrative History of Present Illness (Text): 01/03/17 14:35 Aurora Han is a 66 year old female, whose past medical history includes newly diagnosed lung cancer, who presents to the emergency department complaining of intermittent fevers for the past 10 days. Patient states that her oral temperature yesterday was 102.8 and 100.6 this morning. Patient notes that she took Tylenol at 13:00 this afternoon. Patient denies any sore throat, cough, abdominal pain, dysuria, sick person contact, difficulty breathing, or any other complaints at this time. PMD: Dr. Thakur Time/Duration: > week (10 days) Symptom Onset: Gradual Symptom Course: Intermittent Activities at Onset: Rest Context: Home Past Medical History - Provider Review Nursing Documentation Reviewed: Yes - Past History Past History: No Previous - Infectious Disease Hx of Infectious Diseases: None - Tetanus Immunization Tetanus Immunization: Unknown - Cardiac Hx Hypertension: Yes - Pulmonary Hx Lung Cancer: Yes Hx Pneumonia: Yes - HEENT Hx HEENT Disorder: Yes (glasses) - Endocrine/Metabolic Hx Endocrine Disorders: Yes Hx Hypothyroidism: Yes - Hematological/Oncological Hx Blood Disorders: Yes Hx Cancer: Yes (COLON 2009, colectomy; Lung) Hx Chemotherapy: Yes (2008) - Musculoskeletal/Rheumatological Hx Falls: No - Gastrointestinal Hx Gastrointestinal Disorders: Yes Other/Comment: 2008 COLON CANCER COLECTOMY - Genitourinary/Gynecological Hx Genitourinary Disorders: Yes Other/Comment: HX OVARIAN CYSTECTOMY OPEN 1997 HYSTERECTOMY OCTOBER 2013 - Psychiatric Hx Substance Use: No - Surgical History Hx Cholecystectomy: Yes Other/Comment: Ovarian Cyst sx. Colon Sx. Lung biopsy - Anesthesia Hx Anesthesia Reactions: Yes (NAUSEA VOMITTING) Hx Malignant Hyperthermia: No - Suicidal Assessment Feels Threatened In Home Enviroment: No Family/Social History - Physician Review Nursing Documentation Reviewed: Yes Family/Social History: No Known Family HX Smoking Status: Former Smoker Hx Alcohol Use: No Hx Substance Use: No Hx Substance Use Treatment: No Allergies/Home Meds Allergies/Adverse Reactions: Allergies No Known Allergies Allergy (Verified 12/15/16 09:46) Home Medications: Home Meds Medication Instructions Recorded Confirmed Levothyroxine 100 mcg PO DAILY 03/05/13 01/03/17 Ketotifen Fumarate 1 drop BOTHEYES BID 12/15/16 01/03/17 Lisinopril [Prinivil] 5 mg PO DAILY 12/15/16 01/03/17 Physical Exam - Physical Exam Narrative Physical Exam (Text): - Review of Systems Constitutional: Intermittent Fevers. absent: Fatigue Eyes: Normal ENT: Normal Respiratory: Normal absent: SOB, Cough, Sputum Cardiovascular: Normal absent: Chest pain, Palpitations, Syncope Gastrointestinal: Normal absent: Abdominal pain, Diarrhea, Nausea, Vomiting Genitourinary: Normal. absent: Dysuria, Frequency, Hematuria Musculoskeletal: Normal. absent: Arthralgias, Back Pain, Neck Pain Skin: Normal Neurological: Normal absent: Focal Weakness Endocrine: Normal Hemo/Lymphatic: Normal Psychiatric: Normal - Physical exam Patient appears age appropriate, speaking full sentences without difficulty. - Systems Exam Head: Present: Atraumatic, Normocephalic Pupils: Present: PERRL Extraocular Muscles: Present: EOMI Conjunctiva: Present: Normal Mouth: Present: Moist Mucous Membranes Neck: Present: Normal Range of Motion. No: MIDLINE TENDERNESS, Paraspinal Tenderness Respiratory/Chest: Present: Clear to Auscultation, Good Air Exchange. No: Respiratory Distress, Accessory Muscle Use, Tachypnic Cardiovascular: Present: Regular Rate and Rhythm, Normal S1, S2, Peripheral Pulses Present. No: Murmurs Abdomen: Present: Normal Bowel Sounds, No: Tenderness, Peritoneal Signs, Rebound, Guarding, Distention Back: Present: Normal Inspection. No: Midline Tenderness, Paraspinal Tenderness Upper Extremity: Present: Normal Inspection. No: Cyanosis, Edema Lower Extremity: Present: Normal Inspection. No: Edema Neurological: Present: GCS=15, Speech Normal, cranial nerves II through XII fully intact with no cerebellar abnormality, neuro-sensory fully intact. No focal neurological deficits. Skin: Present: Warm, Dry, Normal Color. No: Rashes Lymphatic: Present: OX3, NI, NC Psychiatric: Present: Alert, Oriented x 3, Normal Insight, Normal Concentration Vital Signs Reviewed: Yes Vital Signs Temp Pulse Resp BP Pulse Ox 01/03/17 15:22 99.8 F H 91 H 18 113/62 95 01/03/17 14:38 99.8 F H 01/03/17 14:27 98.9 F 106 H 18 125/74 96 Temperature: Afebrile Blood Pressure: Normal Pulse: Tachycardic Respiratory Rate: Normal Appearance: Positive for: Well-Appearing, Non-Toxic, Comfortable Pain Distress: None Mental Status: Positive for: Alert and Oriented X 3 Medical Decision Making ED Course and Treatment: 01/03/17 14:35 Impression: 66 year old female complaining of intermittent fevers for the past 10 days. Differential Diagnosis included but are not limited to: fever of unknown origin vs. cancer vs. pneumonia Plan: -- Chest X-ray -- Blood Culture -- Urine Culture and Urinalysis -- Labs -- IV Fluids -- Reassess and disposition Prior Visits: Notes and results from previous visits were reviewed. Patient last seen in the ED on 12/15/16 sent by PMD due to cough, fever, and chills for 3 months. Patient was admitted to hospitalist care for further evaluation. Progress Notes: 01/03/17 15:10 Chest X-ray: Dictator : Milo Delatorre MD FINDINGS: LUNGS:There is a mass in the right upper lobe measuring 2.5 x 4.5 cm. This is unchanged. The lungs are otherwise clear PLEURA:No significant pleural effusion identified, no pneumothorax apparent. CARDIOVASCULAR:Normal. OSSEOUS STRUCTURES:No significant abnormalities. VISUALIZED UPPER ABDOMEN:Normal. OTHER FINDINGS:None. IMPRESSION: Stable appearance of right upper lobe lung mass. No acute pulmonary findings 01/03/17 15:[address] Thakur in the emergency department and asked to admit patient to her service with Dr. Bustamante and Dr. Alejo on consult. Pt in no resp distress, aware of and agrees with plan - Lab Interpretations Lab Results: 01/03/17 15:00 01/03/17 15:00 Lab Results 01/03/17 15:00: Sodium 136, Potassium 3.8, Chloride 101, Carbon Dioxide 24, Anion Gap 15, BUN 14, Creatinine 0.8, Est GFR ( Amer) > 60, Est GFR (Non- Af Amer) > 60, Random Glucose 160 H, Calcium 9.1, Total Bilirubin 0.5, AST 55 H , ALT 54, Alkaline Phosphatase 184 H, Total Protein 7.5, Albumin 3.7, Globulin 3.8, Albumin/Globulin Ratio 1.0 L 01/03/17 15:00: PT 12.2 H, INR 1.13 H, APTT 36.9 H 01/03/17 15:00: WBC 11.6 H D, RBC 3.58, Hgb 9.3 L, Hct 28.7 L, MCV 80.2, MCH 26.0, MCHC 32.4, RDW 16.5 H, Plt Count 444, MPV 8.7, Gran % 76.9 H, Lymph % ( Auto) 11.4 L, [place] % (Auto) 6.1 H, Eos % (Auto) 5.3 H, Baso % (Auto) 0.3, Gran # 8.93 H, Lymph # 1.3, [place] # 0.7 H, Eos # 0.6, Baso # 0.04 I have reviewed the lab results: Yes - RAD Interpretation Radiology Orders: 01/03/17 14:44 CHEST PORTABLE [RAD] Stat - Medication Orders Current Medication Orders: Sodium Chloride (Sodium Chloride 0.9%) 1,000 mls @ 1,000 mls/hr IV .Q1H STA Stop: 01/03/17 15:43 Last Admin: 01/03/17 15:12 Dose: 1,000 mls/hr - Scribe Statement The provider has reviewed the documentation as recorded by the Roberto Carlos Cortez Provider Scribe Attestation: All medical record entries made by the Fabiolaibroberto were at my direction and personally dictated by me. I have reviewed the chart and agree that the record accurately reflects my personal performance of the history, physical exam, medical decision making, and the department course for this patient. I have also personally directed, reviewed, and agree with the discharge instructions and disposition. Disposition/Present on Arrival - Present on Arrival Any Indicators Present on Arrival: No History of DVT/PE: No History of Uncontrolled Diabetes: No Urinary Catheter: No History of Decub. Ulcer: No History Surgical Site Infection Following: None - Disposition Have Diagnosis and Disposition been Completed?: Yes Diagnosis: Fever Disposition: HOSPITALIZED Disposition Time: 15:22 Patient Plan: Admission Condition: FAIR Referrals: Terence Campbell, [Non-Staff] - Follow up with primary Forms: [employer] (Slovenian)
--- NOTE | 2017-01-03 15:02 | RAD ---
HISTORY: cough COMPARISON: 12/18/2016 FINDINGS: LUNGS: There is a mass in the right upper lobe measuring 2.5 x 4.5 cm. This is unchanged. The lungs are otherwise clear PLEURA: No significant pleural effusion identified, no pneumothorax apparent. CARDIOVASCULAR: Normal. OSSEOUS STRUCTURES: No significant abnormalities. VISUALIZED UPPER ABDOMEN: Normal. OTHER FINDINGS: None. IMPRESSION: Stable appearance of right upper lobe lung mass. No acute pulmonary findings
[2017-01-03 15:13] LABS: ADD MANUAL DIFF? NO
[2017-01-03 15:25] LABS: ALKALINE PHOSPHATASE 184 U/L (38-133); ALT/SGPT 54 U/L (7-56); AST/SGOT 55 U/L (15-39); BILIRUBIN,TOTAL 0.5 mg/dL (0.2-1.3); BLOOD UREA NITROGEN 14 mg/dL (7-21); CALCIUM 9.1 mg/dL (8.4-10.5); CARBON DIOXIDE 24 mmol/L (21-33); CHLORIDE 101 mmol/L (95-110); GFR AFRICAN-AMERICAN > 60; GLUCOSE,RANDOM 160 mg/dL (70-110); POTASSIUM 3.8 mmol/L (3.6-5.0); SODIUM 136 mmol/L (132-148); TOTAL PROTEIN 7.5 g/dL (5.8-8.3)
[2017-01-03 15:32] LABS: BASO # 0.04 K/mm3 (0.0-2.0); BASO % 0.3 % (0.0-3.0); EOS # 0.6 (0.0-0.7); EOS % 5.3 % (1.5-5.0); GRAN # 8.93 (1.4-6.5); GRAN % 76.9 % (50.0-68.0); HEMATOCRIT 28.7 % (36.0-48.0); LYMPH # 1.3 (1.2-3.4); LYMPH % 11.4 % (22.0-35.0); MEAN CELL VOLUME 80.2 fl (80.0-105.0); MEAN CORPUSCULAR HGB CONC 32.4 g/dl (31.0-37.0); MEAN PLATELET VOLUME 8.7 fl (7.0-11.0); MONO # 0.7 (0.1-0.6); MONO % 6.1 % (1.0-6.0); PLATELET COUNT 444 10^3/uL (120.0-450.0); RED CELL DISTRIBUTION WIDTH 16.5 % (11.5-14.5); WHITE BLOOD COUNT 11.6 10^3/ul (4.5-11.0)
[2017-01-03 15:38] LABS: INR 1.13 (0.93-1.08); PARTIAL THROMBOPLASTIN TIME 36.9 Seconds (23.7-30.8)
[2017-01-03 17:10] LABS: URINE BILIRUBIN NEGATIVE (NEGATIVE); URINE BLOOD SMALL (NEGATIVE); URINE GLUCOSE (UA) NEGATIVE (NEGATIVE); URINE KETONE NEGATIVE (NEGATIVE); URINE LEUKOCYTE ESTERASE NEGATIVE Leu/uL (NEGATIVE); URINE PROTEIN NEGATIVE mg/dL (<30 mg/dL); URINE UROBILINOGEN 0.2 E.U./dL (<1 E.U./dL)
[2017-01-03 17:13] LABS: URINE APPEARANCE CLEAR (CLEAR); URINE COLOR YELLOW (YELLOW)
[2017-01-03 17:19] LABS: URINE BACTERIA MOD (NEG); URINE RBC 0 - 2 /hpf (0-2); URINE WBC 0 - 2 /hpf (0-6)
[2017-01-03] MEDS ORDERED: Pneumococcal 23-Valent Vaccine IM ONE (19:52)
[2017-01-03] MEDS ORDERED: Morphine 2 mg/ml ISec IVP PRN (19:55)
[2017-01-04 05:33] LABS: ADD MANUAL DIFF? NO
[2017-01-04] MEDS: Levothyroxine 100 MCG TAB PO SCH (05:41)
[2017-01-04 05:47] LABS: BASO # 0.03 K/mm3 (0.0-2.0); BASO % 0.3 % (0.0-3.0); EOS # 0.7 (0.0-0.7); EOS % 6.8 % (1.5-5.0); GRAN # 6.51 (1.4-6.5); GRAN % 65.3 % (50.0-68.0); HEMATOCRIT 30.6 % (36.0-48.0); LYMPH # 2.1 (1.2-3.4); LYMPH % 20.6 % (22.0-35.0); MEAN CORPUSCULAR HEMOGLOBIN 25.4 pg (25.0-35.0); MEAN CORPUSCULAR HGB CONC 31.4 g/dl (31.0-37.0); MEAN PLATELET VOLUME 8.4 fl (7.0-11.0); MONO # 0.7 (0.1-0.6); PLATELET COUNT 452 10^3/uL (120.0-450.0); RED CELL DISTRIBUTION WIDTH 16.9 % (11.5-14.5)
[2017-01-04 06:14] LABS: ALKALINE PHOSPHATASE 209 U/L (38-133); ALT/SGPT 51 U/L (7-56); AST/SGOT 34 U/L (15-39); BILIRUBIN,TOTAL 0.5 mg/dL (0.2-1.3); BLOOD UREA NITROGEN 8 mg/dL (7-21); CALCIUM 8.9 mg/dL (8.4-10.5); CARBON DIOXIDE 23 mmol/L (21-33); CHLORIDE 105 mmol/L (95-110); GFR AFRICAN-AMERICAN > 60; GLUCOSE,RANDOM 118 mg/dL (70-110); POTASSIUM 4.2 mmol/L (3.6-5.0); SODIUM 140 mmol/L (132-148); TOTAL PROTEIN 7.8 g/dL (5.8-8.3)
--- NOTE | 2017-01-04 07:22 | CON ---
DATE: 01/03/2017 This is admission consult for Dr. Bustamante on the Oncology/MedSurg floor. CHIEF COMPLAINT: Pyrexia, elevated temperatures. HISTORY OF PRESENT ILLNESS: The patient is a 66-year-old female, admitted by the emergency room earlier today after the patient reportedly suffered from high fevers off and on for the past 10 days with an elevated temperature to 102 last night and now admitted by the emergency room. She denies nausea or vomiting with her family members at the bedside reporting significant 5/10 or 6/10 pain to the right mid chest. It is radiating to the lateral aspect of her chest, also with right rib area, also left shoulder pain, unrelieved by tramadol which was prescribed recently while she was in the office. The patient also recently had PET/CT scan done along with an MRI of her brain which will be related further on in this dictation. 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 ALLERGIES: NO KNOWN ALLERGIES. MEDICATIONS: Include aspirin, Lipitor, Synthroid, and lisinopril. PAST MEDICAL HISTORY: Significant for recently diagnosed adenocarcinoma of the lungs; history of hypertension; hypothyroidism; hyperlipidemia; history of cancer of the cervix, squamous CA diagnosed in 09/2013 with the patient being status post hysterectomy, one third of the upper vagina; right salpingo-oophorectomy done by Dr. Matt Blank. Then the pathology showed there is squamous cell CA of the cervix. The patient also had cancer of the colon with chemotherapy [place] [address] Bustamante with a port placed and discontinued then. She also reports recent ear tube placement by Dr. Linton, Ear, Nose and Throat for fullness in her ears. FAMILY HISTORY AND SOCIAL HISTORY: The patient has been smoking 1 pack a day for 20 years, quitting in 2008. Denies alcohol use. 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 Four daughters and two sons alive and well. Two brothers and three sisters alive, one brother with diabetes. REVIEW OF SYSTEMS: Twelve-point review of systems was done which is essentially negative to questions except for items listed in the history of present illness as above. The patient does report that her right chest discomfort is worsened with deep breaths. PHYSICAL EXAMINATION: I have checked the physical exam. VITAL SIGNS: Today include a temperature of 98.2 with earlier temperatures noted to be 98.5 with a rectal temperature of 99.8. Her pulse is 100, respirations are 19, blood pressure 120/82 and pulse ox 98%. HEENT: Unremarkable except for known bilateral tympanostomy tubes, approximately 3 months' duration. NECK: Supple. HEART: Regular rate. LUNGS: Occasional rhonchi on the right greater than left. ABDOMEN: Soft, obese, nontender. EXTREMITIES: No edema. SKIN: Warm, dry and clear. NEUROLOGIC: Awake, alert and oriented x3 with minimal tenderness to gentle palpation of the right rib area and decreased range of motion of the left shoulder. LABORATORY DATA: The patient's labs were done. White blood cell count 11.6; hemoglobin 9.3; hematocrit 28.7; platelet count 444,000 with a chem metabolic panel within normal range except for non-fasting glucose of 160, AST of 55, alk phos of 184. Her INR is 1.13 with urinalysis showing small amount of blood, otherwise negative. The patient's testing also included her MRI and PET/CT scan. PET/CT scan done from today showed an impression of FDG-avid mass lesion in the medial aspect of the right lung upper lobe extending to the right upper mediastinum consistent with the patient's known right lung cancer. The mass abuts the SVC without definite evidence of encasement or occlusion of the SVC. Right hilar, precarinal, and subcarinal FDG-avid large lymphadenopathy consistent with metastasis, 2.5-cm FDG-avid mass lesion in the inferior aspect of the right liver lobe and 1-cm FDG-avid lesion in the left liver lobe consistent with metastasis. She has metastases including lytic bone lesion of the left humeral head, multiple lesions in the spine, and right iliac bone. The patient had MRI for brain done yesterday. It was read as impression, probable metastatic lesions in the left frontal lobe and right posterior temporal lobe with the impressions also stating there was a lesion in the left frontal, suspicious for metastatic disease, 5-mm central portion with a halo of edema, measuring 15 mm; also small lesion in the right posterior temporal lobe with a lesion in the left precentral gyrus, findings will be better evaluated with post-contrast scan. The patient did have testing done on her tissue diagnosis, biopsy from 12/18/2016 showing [id number] differentiated adenocarcinoma of the lung, primary, predominantly solid type with other stains sent as per Dr. Bustamante reporting that she may be a candidate for Keytruda as indicated. ASSESSMENT: Fever of unknown origin; recently diagnosed adenocarcinoma, poorly differentiated of the lungs, predominantly solid type with metastases to the mediastinum; right hilum precarinal, subcarinal lymphadenopathy with metastasis; and also 2.5-cm right liver lobe lesion with bony lesions including left humeral head, spine and right iliac bone. She also suffers from hypothyroidism, hypertension, history of cancer of the cervix, history of cancer of the colon with this considered de tamia lung cancer with metastasis. She also has tympanostomy tubes. PLAN: Plan for this patient after discussion with Dr. Bustamante is to ask for a consult with Dr. Sherice Peters, Radiation Oncology, also as per Dr. Thakur who asked Dr. Alejo, evaluation for her lung lesions; also for her intractable pain. We will offer Tylenol for mild pain, tramadol for moderate pain with morphine 2 mg IV q. 4 hours for her severe pain. The patient does not appear to need an anxiolytic at this point. The prognosis for this patient is guarded. Also consideration for treatment with Keytruda as per special test ordered by Dr. Bustamante on the biopsy specimen. Rogelio Reed MD
[2017-01-04] MEDS: Budesonide 0.5 mg/2 ml Inhal Susp UD IH SCH ×2 (07:48→19:44)
[2017-01-04] MEDS: Arformoterol 15 mcg/2 ml Inh Sol IH SCH ×2 (07:48→19:44)
--- NOTE | 2017-01-04 08:30 | CON ---
DATE: 01/03/2017 REFERRING PHYSICIAN: Dr. Thakur. REASON FOR CONSULT: Lung tumor. HISTORY OF PRESENT ILLNESS: This is a 66-year-old female with newly diagnosed lung cancer, complaining about some fever, had fever up to 102. Not much cough. No sputum production. No nausea, no vomiting, diarrhea, leg pain or leg swelling. PAST MEDICAL HISTORY: Hypothyroid, lung cancer, history of pneumonia, had a colon cancer in 2009, and history of cholecystectomy. ALLERGIES: NONE KNOWN. SOCIAL HISTORY: Former smoker. Denies any alcohol use. FAMILY HISTORY: No history of cardiopulmonary disease reported. MEDICATIONS: Morphine 2 mg IV q. 4 hours p.r.n., Synthroid 100 mcg daily, Tylenol p.r.n., Ultram 50 mg q. 8 hours, and Zestril 5 mg daily. REVIEW OF SYSTEMS: Denies any headache. No rhinitis. No nausea, no vomiting. No dysuria. No leg pain or leg swelling. PHYSICAL EXAMINATION GENERAL: Lying in the bed, sleepy, arousable. VITAL SIGNS: Temp is 98, heart rate is 100, respiratory rate is 20, blood pressure 120/82, and pulse ox 98% on room air. HEENT: Moist mucous membranes. Crowded airway. Mallampati score is 4. NECK: Supple. No JVD. LUNGS: Fair airflow with few rhonchi. HEART: S1 and S2. ABDOMEN: Soft, nontender. No organomegaly. EXTREMITIES: There is no edema. NEUROLOGIC: Awake, alert and follows simple commands. LABORATORY DATA: Shows hemoglobin 9.3, hematocrit 28.7, WBC 11.6 and platelets are 444. INR 1.13, PTT 37. Sodium 136, potassium 3.8, chloride 101, bicarbonate 24, BUN 14, creatinine 0.8, glucose 160, calcium 9.1. AST 55, ALT 54, and alkaline phosphatase is 184. Albumin 3.7. Chest x-ray done today, right upper lobe mass. She has a PET scan done as an outpatient, which was also done before coming to the hospital, shows right lung upper lobe extended to the right upper mediastinum, consistent with the patient's known cancer with FDG-avid mass abuts the SVC without defined evidence of encasement or occlusion of the SVC; right hilum, precarinal and subcarinal FDG-avid, large lymphadenopathy, consistent with metastatic disease. There is 2.5 cm avid mass lesion in the inferior aspect of the right liver lobe and 1 cm FDG evidence lesion at the left liver lobe, consistent with metastatic disease. There is also metastatic including lytic bony lesion in the left humeral head, multiple lesions in the spine, right iliac bone. IMPRESSION AND PLAN: Metastatic cancer, which is a primary lung, also has history of colon cancer in the past, history of cervical cancer in the past, chronic lung disease, hypothyroid, hypertension, and hyperlipidemia. We will add inhaled bronchodilator, gastric prophylaxis, SCD to lower extremity. We will need radiation oncology followup. Case discussed with Oncology team. Thank you and we will follow with you. Ashlie Alejo MD
--- NOTE | 2017-01-04 09:40 | CARD ---
APPROVED REPORT EKG Measurement Heart [id number] <Conclusion> Normal sinus rhythm Normal ECG
--- NOTE | 2017-01-04 11:51 | CP.PCM.CON ---
History of Present Illness - History of Present Illness History of Present Illness: Ms Han is a 66 year old female with a newly diagnosed stage IV lung cancer. She initially presented with dyspnea on exertion as well as right sided rib pain A CT of the chest on December 13, 2016 revealed a solid spiculated mass in the right upper lung adjacent to the mediastinum measuring 2.4 x 3.7cm with mild mediastinal lymph nodes. There was a sub-carinal lymph node measuring 2.6 x 1.6cm. On December 16, 2016, she had a CT of the abdomen and pelvis which revealed a 1.7cm poorly enhancing lesion in the right lobe of the lesion. A right upper lobe lung and liver biopsy confirmed adenocarcinoma. She had x-ray of the right ribs on December 27, 2016 which was negative for a destructive mass.As part of the metastatic workup on January 02, 2017, she had a MRI of the brain which revealed a left frontal lesion measuring 5mm, right posterior temporal and left precentral gyrus lesion consistent with metastases. A CT/PET scan on January 03, 2017 revealed a right upper lung mass measuring 3.7 x 3.9cm as well as 2.6cm right liver lesion and left humeral head metastases, T7 vertebral body metastases on the left, right iliac and right L4 lesion. She was [place] [facility]. We were asked to see the patient today regarding the brain lesions. Incidentally, the patient recently has been complaining of left shoulder pain. Review of Systems - Respiratory Respiratory: Dyspnea on Exertion - Musculoskeletal Additional comments: left shoulder pain 5/10 and right pleuritic lower pain. Past Patient History - Infectious Disease Hx of Infectious Diseases: None - Tetanus Immunizations Tetanus Immunization: Unknown - Past Medical History & Family History Past Medical History?: Yes - Past Social History Smoking Status: Former Smoker Alcohol: None Home Situation {Lives}: With Family - CARDIAC Hx Hypercholesterolemia: Yes Hx Hypertension: Yes - PULMONARY Hx Pneumonia: Yes Other/Comment: lung mass found on cxr - HEENT Hx HEENT Problems: Yes (glasses, itchy eyes) - ENDOCRINE/METABOLIC Hx Endocrine Disorders: Yes Hx Hypothyroidism: Yes - HEMATOLOGICAL/ONCOLOGICAL Hx Blood Disorders: Yes Hx Cancer: Yes (COLON 2009, colectomy; Lung) Hx Chemotherapy: Yes (2008) Other/Comment: recently dx with lung ca, lung bx done - MUSCULOSKELETAL/RHEUMATOLOGICAL Hx Falls: No - GASTROINTESTINAL Hx Gastrointestinal Disorders: Yes Other/Comment: 2008 COLON CANCER COLECTOMY - GENITOURINARY/GYNECOLOGICAL Hx Genitourinary Disorders: Yes Other/Comment: HX OVARIAN CYSTECTOMY OPEN 1997 HYSTERECTOMY OCTOBER 2013 - PSYCHIATRIC Hx Substance Use: No - SURGICAL HISTORY Hx Cholecystectomy: Yes Other/Comment: Ovarian Cyst sx, lcw pac in and out, c section, tubal. Colon Sx. Lung biopsy - ANESTHESIA Hx Anesthesia Reactions: Yes (NAUSEA VOMITTING) Hx Malignant Hyperthermia: No Meds Allergies/Adverse Reactions: Allergies Allergy/AdvReac Type Severity Reaction Status Date / Time No Known Allergies Allergy Verified 12/15/16 09:46 - Medications Medications: Current Medications Acetaminophen (Tylenol 325mg Tab) 650 mg PO Q4H PRN PRN Reason: Pain, Mild (1-3) Last Admin: 01/03/17 21:42 Dose: 650 mg Arformoterol Tartrate (Brovana) 15 mcg IH [id number] [facility] Last Admin: 01/04/17 07:48 Dose: 15 mcg Budesonide (Pulmicort Respules) 0.5 mg IH [id number] [facility] Last Admin: 01/04/17 07:48 Dose: 0.5 mg Levothyroxine Sodium (Synthroid) 100 mcg PO 0600 [facility] Last Admin: 01/04/17 05:41 Dose: 100 mcg Lisinopril (Zestril) 5 mg PO DAILY [facility] Last Admin: 01/04/17 09:50 Dose: 5 mg Morphine Sulfate (Morphine) 2 mg IVP Q4H PRN PRN Reason: Pain, severe (8-10) Tramadol HCl (Ultram) 50 mg PO TID PRN PRN Reason: Pain, moderate (4-7) Last Admin: 01/04/17 09:56 Dose: 50 mg Physical Exam - Eye Exam Eye Exam: EOMI - ENT Exam ENT Exam: Mucous Membranes Moist - Respiratory Exam Respiratory Exam: Clear to Auscultation Bilateral - Cardiovascular Exam Cardiovascular Exam: REGULAR RHYTHM - GI/Abdominal Exam GI & Abdominal Exam: Normal Bowel Sounds - Neurological Exam Neurological exam: CN II-XII Intact, Oriented x3 Results - Vital Signs Recent Vital Signs: Last Vital Signs Temp 99.1 F 01/04/17 08:23 Pulse 77 01/04/17 08:23 Resp 20 01/04/17 08:23 BP 131/80 01/04/17 08:23 Pulse Ox 96 01/04/17 08:23 - Labs Result Diagrams: 01/04/17 04:30 01/04/17 04:30 Labs: Laboratory Results - last 24 hr 01/03/17 01/04/17 01/04/17 16:40 04:30 04:30 WBC 10.0 RBC 3.78 Hgb 9.6 L Hct 30.6 L MCV 81.0 MCH 25.4 MCHC 31.4 RDW 16.9 H Plt Count 452 H MPV 8.4 Gran % 65.3 Lymph % (Auto) 20.6 L [place] % (Auto) 7.0 H Eos % (Auto) 6.8 H Baso % (Auto) 0.3 Gran # 6.51 H Lymph # 2.1 Hamblen # 0.7 H Eos # 0.7 Baso # 0.03 Sodium Potassium Chloride Carbon Dioxide Anion Gap BUN Creatinine Est GFR ( Amer) Est GFR (Non-Af Amer) Random Glucose Calcium Total Bilirubin AST ALT Alkaline Phosphatase Total Protein Albumin Globulin Albumin/Globulin Ratio TSH 3rd Generation 1.9 Urine Color Yellow Urine Appearance Clear Urine pH 6.0 Ur Specific [place] 1.015 Urine Protein Negative Urine Glucose (UA) Negative Urine Ketones Negative Urine Blood Small H Urine Nitrate Negative Urine Bilirubin Negative Urine Urobilinogen 0.2 Ur Leukocyte Esterase Negative Urine RBC 0 - 2 Urine WBC 0 - 2 Ur Epithelial Cells 3 - 4 Urine Bacteria Mod Urine Other Fiber 01/04/17 04:30 WBC RBC Hgb Hct MCV MCH MCHC RDW Plt Count MPV Gran % Lymph % (Auto) [place] % (Auto) Eos % (Auto) Baso % (Auto) Gran # Lymph # [place] # Eos # Baso # Sodium 140 Potassium 4.2 Chloride 105 Carbon Dioxide 23 Anion Gap 16 BUN 8 Creatinine 0.7 Est GFR ( Amer) > 60 Est GFR (Non-Af Amer) > 60 Random Glucose 118 H Calcium 8.9 Total Bilirubin 0.5 AST 34 ALT 51 Alkaline Phosphatase 209 H Total Protein 7.8 Albumin 3.8 Globulin 4.0 Albumin/Globulin Ratio 1.0 L TSH 3rd Generation Urine Color Urine Appearance Urine pH Ur Specific [place] Urine Protein Urine Glucose (UA) Urine Ketones Urine Blood Urine Nitrate Urine Bilirubin Urine Urobilinogen Ur Leukocyte Esterase Urine RBC Urine WBC Ur Epithelial Cells Urine Bacteria Urine Other Assessment & Plan - Assessment and Plan (Free Text) Assessment: Ms Han is a 66 year old female with a newly diagnosed stage IV lung cancer. We reviewed the PET and MRI of brain findings with the patient. She is symptomatic from her left humeral metastases. We spoke about palliative whole radiation therapy. Because of her left shoulder pain, she would like radiation to that region as well. We spoke to her and her family about the risks and benefits of radiation therapy. Informed consent was obtained. We will schedule her for a simulation session so that she can begin treatment as soon as possible. She will be started on decadron as well. Dr Bustamante has ordered an xray of the shoulder and MRI of the thoracic spine which we will follow up as well.
--- NOTE | 2017-01-04 14:15 | RAD ---
PROCEDURE: Radiographs of the left humerus. HISTORY: Mets to humerus COMPARISON: None. FINDINGS: BONES: Normal. No fracture or focal lesion. SOFT TISSUES: Normal. OTHER FINDINGS: None. IMPRESSION: Normal radiographs of left humerus.
[2017-01-04] MEDS ORDERED: Gadodiamide 287 MG/ML VIAL (15ML) IV ONE (14:20)
--- NOTE | 2017-01-04 15:17 | HP ---
DATE: 01/03/2017 CHIEF COMPLAINT: Fever, failed outpatient treatment. HISTORY OF PRESENT ILLNESS: The patient is a 66-year-old female with past medical history of newly diagnosed lung cancer with liver metastasis, was discharged recently, got a course of antibiotics in the hospital for postoperative pneumonia. Biopsy was done, came to know the patient has cancer with metastasis, then followed up in my office. Ten days ago, family called me that the patient has fever. I gave as outpatient Z-Sumit. Now, according to the patient and her family still the patient getting 102.8 fever at night. No sore throat. No coughing. No nausea, vomiting, or diarrhea. No hematuria or hematochezia. No swelling of the legs. No chest pain. No palpitation. PAST MEDICAL HISTORY: Hypertension, lung cancer, pneumonia, hypothyroidism, colon cancer with colectomy, status post chemotherapy, history of ovarian cystectomy, hysterectomy. FAMILY HISTORY: Father and mother noncontributory. HABITS: No smoking. No drugs. No ethanol. ALLERGIES: THE PATIENT IS NOT ALLERGIC TO ANY MEDICATION. HOME MEDICATIONS: Levothyroxine, lisinopril, and ketotifen. REVIEW OF SYSTEMS: The patient seen and examined on the bedside, looking comfortable. No nausea, vomiting, or diarrhea. No hematuria or hematochezia. No swelling of the legs. No chest pain. No palpitation. No headache. No dizziness. Has fever, fatigue, and tired. PHYSICAL EXAMINATION VITAL SIGNS: Temperature 97.8, pulse 91, respiratory rate 18, blood pressure 113/52, and pulse oximetry 95%. T-max is 102.1. HEENT: Head is normocephalic and atraumatic. Eyes: PERRLA. Extraocular muscles intact. Conjunctivae clear. Nose is patent. Mucous membrane moist. NECK: Supple. No carotid bruits. No thyromegaly. CHEST: Bilaterally symmetrical. HEART: S1 and S2 positive. LUNGS: Clear to auscultation. ABDOMEN: Soft. Bowel sounds are present. No organomegaly. EXTREMITIES: No edema. No cyanosis. NEUROLOGIC: The patient is awake and alert. Follows simple commands. LABORATORY DATA: White blood cell is 11.6, hemoglobin 9.3, hematocrit 28.7 and platelets 444. Sodium 136, potassium 3.8, BUN 14, creatinine 0.8, glucose 160, AST 55 and ALT 184. ASSESSMENT AND PLAN: The patient is a 66-year-old lady, was seen and examined on the bedside in the ER on 01/03/2017 and the H and P 01/03/2017. The patient has hyperglycemia, normal liver function test, lymphocystosis, anemia, history of newly diagnosed lung cancer with metastasis to the liver, obstructive pneumonia, hypertension, hypothyroidism, colectomy, chemotherapy in 2008, history of ovarian cystectomy, hysterectomy. Gastrointestinal and deep venous thrombosis prophylaxis. We did have patient consult with ID. Blood cultures are done. For pulmonary called Dr. Alejo. We will follow up. Kathy Thakur MD
--- NOTE | 2017-01-04 15:41 | MRI ---
PROCEDURE: MR LUMBAR SPINE WITH AND WITHOUT CONTRAST HISTORY: mets to spine COMPARISON: PET-CT 01/03/2017 TECHNIQUE: Multiecho multiplanar sequences were performed through the lumbar spine with and without the use of intravenous contrast. FINDINGS: Normal lumbar lordosis. Vertebral body heights are preserved. There is an 8 mm metastatic lesion on the right side of the L4 vertebral body. This was also demonstrated on the PET-CT. There is also a lesion within L2 vertebral body that most likely represents a hemangioma. This is high in signal intensity on nonenhanced T1 weighted images. Conus medullaris unremarkable at the level of T12 Paraspinal soft tissues are unremarkable. No abnormal enhancement. T12-L1: No disc herniation, spinal canal stenosis or neural foraminal narrowing. L1-2: No disc herniation, spinal canal stenosis or neural foraminal narrowing. L2-3: No disc herniation, spinal canal stenosis or neural foraminal narrowing. L3-4: No disc herniation, spinal canal stenosis or neural foraminal narrowing. L4-5: Mild disc bulge L5-S1: There is disc bulging with mild spondylolisthesis. There is bilateral foraminal stenosis OTHER FINDINGS: None. IMPRESSION: Small metastatic lesion on the right side of L4. No other lesions seen. No evidence of vertebral compression fracture or epidural invasion. Disc degeneration with spondylolisthesis at L5-S1. Bilateral foraminal stenosis
--- NOTE | 2017-01-04 15:47 | MRI ---
PROCEDURE: MR THORACIC SPINE WITH AND WITHOUT CONTRAST HISTORY: Mets to spine COMPARISON: PET-CT 01/03/2017 TECHNIQUE: Multiecho multiplanar sequences were performed through the thoracic spine with and without the use of intravenous contrast. 15 cc of Omniscan FINDINGS: ALIGNMENT: Normal thoracic spinal alignment. Normal thoracic kyphosis. VERTEBRA: Vertebral body height are preserved. MARROW: Metastatic lesions are seen at the C7 and T7 levels. These lesions are low intensity on T1 weighted imaging and high intensity on T2 and postcontrast imaging. There is no associated epidural invasion or compression fracture. There are no other lesions identified. These lesions were also seen on the recent PET-CT. PARASPINAL SOFT TISSUES: Unremarkable. CORD: Unremarkable thoracic cord. No volume loss, signal abnormality or syrinx. DISCS: No disc herniation, spinal canal stenosis, or neuroforaminal narrowing. ENHANCEMENT: Enhancement at the C7 and T7 levels OTHER FINDINGS: None. IMPRESSION: Metastatic lesions within the vertebral bodies at C7 and T7. No evidence of compression fracture and no epidural invasion
[2017-01-04] MEDS: Vancomycin 1gm in NS 250ml 1 GM/250 ML BAG IVPB SCH (16:02)
[2017-01-04] MEDS: cefTRIAXone 1 gm 1 GM/100 ML BAG IVPB SCH (16:02)
--- NOTE | 2017-01-04 17:25 | CP.PCM.PN ---
<Sravan Montero - Last Filed: 01/04/17 17:21> Subjective - Date & Time of Evaluation Date of Evaluation: 01/04/17 Time of Evaluation: 07:55 - Subjective Subjective: Heme/onc note for Dr Bustamante: Pt seen and examined at bedside. No acute events overnight. Pt still complains of fevers and chills. Last fever last night at 10pm of 102.1F. Denies any n/v , cp, abd pain, bm changes. Objective - Vital Signs/Intake and Output Vital Signs (last 24 hours): Temp Pulse Resp BP Pulse Ox 99.1 F 77 20 131/80 96 01/04/17 08:23 01/04/17 08:23 01/04/17 08:23 01/04/17 08:23 01/04/17 08:23 Intake and Output: 01/04/17 01/04/17 06:59 18:59 Intake Total 120 Balance 120 - Medications Medications: Current Medications Acetaminophen (Tylenol 325mg Tab) 650 mg PO Q4H PRN PRN Reason: Pain, Mild (1-3) Last Admin: 01/03/17 21:42 Dose: 650 mg Arformoterol Tartrate (Brovana) 15 mcg IH [id number] [facility] Last Admin: 01/04/17 07:48 Dose: 15 mcg Budesonide (Pulmicort Respules) 0.5 mg IH [id number] [facility] Last Admin: 01/04/17 07:48 Dose: 0.5 mg Vancomycin HCl (Vancomycin 1gm) 1 gm in 250 mls @ 167 mls/hr IVPB Q12H [facility] PRN Reason: Protocol Last Admin: 01/04/17 16:02 Dose: 167 mls/hr Piperacillin Sod/Tazobactam Sod (Zosyn 3.375 In Ns 100ml) 100 mls @ 200 mls/hr IVPB Q6 [facility] PRN Reason: Protocol Stop: 01/11/17 18:01 Ceftriaxone Sodium (Rocephin 1 Gram Ivpb) 1 gm in 100 mls @ 100 mls/hr IVPB DAILY [facility] PRN Reason: Protocol Last Admin: 01/04/17 16:02 Dose: 100 mls/hr Levothyroxine Sodium (Synthroid) 100 mcg PO 0600 [facility] Last Admin: 01/04/17 05:41 Dose: 100 mcg Lisinopril (Zestril) 5 mg PO DAILY [facility] Last Admin: 01/04/17 09:50 Dose: 5 mg Morphine Sulfate (Morphine) 2 mg IVP Q4H PRN PRN Reason: Pain, severe (8-10) Tramadol HCl (Ultram) 50 mg PO TID PRN PRN Reason: Pain, moderate (4-7) Last Admin: 01/04/17 09:56 Dose: 50 mg - Labs Labs: 01/04/17 04:30 01/04/17 04:30 PT 12.2 Seconds (9.9-11.8) H 01/03/17 15:00 INR 1.13 (0.93-1.08) H 01/03/17 15:00 APTT 36.9 Seconds (23.7-30.8) H 01/03/17 15:00 - Constitutional Appears: No Acute Distress - Head Exam Head Exam: ATRAUMATIC, NORMAL INSPECTION, NORMOCEPHALIC - Eye Exam Eye Exam: EOMI, Normal appearance, PERRL Pupil Exam: NORMAL ACCOMODATION, PERRL - ENT Exam ENT Exam: Mucous Membranes Moist - Neck Exam Neck Exam: Full ROM, Normal Inspection. absent: Lymphadenopathy - Respiratory Exam Respiratory Exam: Clear to Ausculation Bilateral, NORMAL BREATHING PATTERN. absent: Wheezes - Cardiovascular Exam Cardiovascular Exam: REGULAR RHYTHM, RRR, +S1, +S2. absent: Murmur - GI/Abdominal Exam GI & Abdominal Exam: Soft. absent: Distended, Tenderness - Extremities Exam Extremities Exam: absent: Calf Tenderness, Pedal Edema - Neurological Exam Neurological Exam: Alert, Awake, Oriented x3 - Psychiatric Exam Psychiatric exam: Normal Affect, Normal Mood - Skin Skin Exam: Dry, Intact, Normal Color, Warm Assessment and Plan - Assessment and Plan (Free Text) Assessment: 66F with pmh of HTN, Hypothyroidism, HLD, cervical ca in 2013 s/p hysterectomy, colon ca s/p resection? chemo in 2008, newly diagnosed lung adenocarcinoma with mets to the liver, bone, and brain, presents with fevers x 10 days. - Radiation oncology consulted for recs regarding if patient a candidate of any RT - Pulm consulted regarding lung mass - started on pulmicort and brovana - To consider treatment with Keytruda - will f/u - Pain control - ID consulted for fevers - started on Rocephin, Vanc and zosyn - Consulted IR for port placement - F/u Humerus xray evaluate extent of mets - F/u MRI of thoracic and lumbar spine to evaluate extent of mets - Pet/CT - R uppr lobe mass, Large hilum and precarinal and subcrinal FDG amid large lymphadenopathy consistent with mets, 2.5 cm in inf aspect of R liver lobe , and 1cm in L liver lobe consistent with mets, osseous mets including lytic bony lesion at the L humeral head, multiple lesion in the spine and R ilaic bone Case and plan was reviewed and discussed with Dr Bustamante. <Julio Bustamante P - Last Filed: 01/12/17 18:41> Objective - Vital Signs/Intake and Output Vital Signs (last 24 hours): Temp Pulse Resp BP Pulse Ox 98.5 F 68 18 130/76 95 01/09/17 06:00 01/09/17 09:12 01/09/17 06:00 01/09/17 09:12 01/09/17 06:00 - Labs Labs: 01/09/17 06:01 01/09/17 06:01 PT 12.2 Seconds (9.9-11.8) H 01/03/17 15:00 INR 1.13 (0.93-1.08) H 01/03/17 15:00 APTT 36.9 Seconds (23.7-30.8) H 01/03/17 15:00 Attending/Attestation - Attestation I have personally seen and examined this patient.: Yes I have fully participated in the care of the patient.: Yes I have reviewed all pertinent clinical information, including history, physical exam and plan: Yes
[2017-01-04] MEDS: Piperacillin/Tazobact 3.375 gm 100 ML IVPB SCH (18:12)
[2017-01-04] MEDS: Enoxaparin 60 mg Syringe SC SCH (20:58)
--- NOTE | 2017-01-05 03:00 | PN ---
DATE: The patient is 66 years old female. SUBJECTIVE: The patient seen and examined on the bedside, just came back from x-rays, MRI's and radiation therapy. Last night had fever of 102.1. Denies nausea, vomiting or diarrhea. No hematuria or hematochezia. No swelling of the legs. No chest pain. No palpitation. No headache. No dizziness. PHYSICAL EXAMINATION: VITAL SIGNS: Temperature 99.1, pulse 77, blood pressure 130/80 and respiratory rate 18 and T-max is 102.1. HEENT: Head is normocephalic and atraumatic. Eyes: PERRLA. Extraocular muscles intact. Conjunctivae clear. Nose patent. NECK: Supple. No carotid bruits. No thyromegaly. CHEST: Bilaterally symmetrical. HEART: S1 and S2, positive. LUNGS: Clear to auscultation. ABDOMEN: Soft. Bowel sounds are present. No organomegaly. EXTREMITIES: No edema. No cyanosis. NEUROLOGIC: The patient is awake and alert. Moving all four extremities. No focal deficits. MEDICATIONS: Brovana, morphine, Pulmicort, Rocephin, Synthroid, Tylenol, Tramadol, vancomycin, Zestril and Zosyn. LABORATORY DATA: White blood cell count noted , hemoglobin 9.6, hematocrit 30.6 and platelets 452. Sodium 140, potassium 4.2, BUN 8, creatinine 0.7, glucose 118 and alkaline phosphatase 209. Prolactin 0.15. ASSESSMENT AND PLAN: Ms. Aurora Han is 66 years old lady with history of leukocytosis and improved anemia, thrombocytosis, hyperglycemia, hematuria with hypercholesterolemia, cervical pain status post hysterectomy, colon carcinoma status post resection, history of chemotherapy in 2009, newly diagnosed lung adenocarcinoma with metastasis with the liver, bones and brain, has fever from 10 days. Oncology consult appreciated. The patient had lung mass seen by the fan runner, started on Brovana. Pain control. Infectious disease started the patient on Rocephin, vancomycin and Zosyn. Consult with interventional radiology for port placement. lumbar spine done shows metastasis, lymphadenopathy. Gastrointestinal and deep venous thrombosis prophylaxis. Repeat labs. We will followup. Kathy Thakur MD [facility]
[2017-01-05] MEDS: Piperacillin/Tazobact 3.375 gm 100 ML IVPB SCH ×4 (03:13→18:02)
--- NOTE | 2017-01-05 05:54 | PN ---
DATE: 01/04/2017 REFERRING PHYSICIAN: Dr. Thakur. SUBJECTIVE: Patient out of bed to chair. Family is at bedside. Feels okay. Still having fever last night. PHYSICAL EXAMINATION: VITAL SIGNS: Temperature is 99.0, heart rate is 104, respiratory rate is 18, blood pressure 102/63, pulse ox 96% on room air. HEENT: Moist mucous membranes. Crowded airway. NECK: Supple. No JVD. LUNGS: Fair air flow with rhonchi. CARDIOPULMONARY: S1 and S2. ABDOMEN: Soft and nontender. No organomegaly. EXTREMITIES: No edema. NEUROLOGIC: Awake and alert. Follows simple commands. MEDICATIONS: She is on Brovana 15 mcg inhaled twice a day, Lovenox mg subcutaneous q. 12 hours, Morphine 2 mg IV q. 4 hours, p.r.n., Pulmicort inhaled twice a day, Rocephin 1 g IV daily, Synthroid 100 mcg daily, Tylenol p.r.n, Ultram 50 mg 3 times a day p.r.n., vancomycin 1 g IV q. 12 hours, Zestril 5 mg daily, Zosyn 3.375 g q. 6 hours. LABORATORY DATA: Shows hemoglobin 9.6, hematocrit 13.6, WBC 10.0, platelets is 452, INR 1.13, PTT 37. Sodium 140, potassium 4.2, chloride 105, bicarbonate 23, BUN 8, creatinine 0.7, glucose 118, calcium 8.9, AST 34, ALT 51, alkaline phosphatase is 209, albumin is 3.8, procalcitonin 0.12, TSH is 1.9. Microbiology: Blood cultures have been negative. Humerus x-ray was unremarkable. Thoracic spine MRI was done, which shows metastatic lesion within the vertebral body at C7 and T7. No evidence of compression fracture and no evidence of epidural invasion. Also had MRI of lumbar spine done, which shows small metastatic lesion in the right side of L4. No other lesions seen. No evidence of vertebral compression fracture or epidural invasion, disk degeneration with spondylolisthesis at L5 to S1, bilateral foraminal stenosis. IMPRESSION AND PLAN: Metastatic cancer, which is primary lung. Also has a history of colon cancer in the past, history of cervical cancer in the past, chronic lung disease, hypothyroid, hypertension, hyperlipidemia. At present, she has metastatic disease to spine and brain. I spoke with the patient's family at bedside. All their questions answered. Has a fever, is it post-obstructive pneumonia? I agree with antibiotics, gastric prophylaxis, sequential compression device to lower extremities, fall precautions. Patient evaluated by Radiation Oncology. Radiation will be started soon. Thank you and we will follow with you. Ashlie Alejo MD
[2017-01-05] MEDS: Vancomycin 1gm in NS 250ml 1 GM/250 ML BAG IVPB SCH (06:47)
[2017-01-05] MEDS: Levothyroxine 100 MCG TAB PO SCH (06:48)
[2017-01-05 07:27] LABS: ALB/GLOB RATIO 0.9 (1.1-1.8); ALKALINE PHOSPHATASE 197 U/L (38-133); ALT/SGPT 56 U/L (7-56); AST/SGOT 37 U/L (15-39); BILIRUBIN,TOTAL 0.5 mg/dL (0.2-1.3); BLOOD UREA NITROGEN 7 mg/dL (7-21); CARBON DIOXIDE 25 mmol/L (21-33); CHLORIDE 102 mmol/L (98-107); GFR AFRICAN-AMERICAN > 60; GLUCOSE,RANDOM 158 mg/dL (70-110); POTASSIUM 3.7 mmol/L (3.6-5.0); SODIUM 138 mmol/L (132-148); TOTAL PROTEIN 7.2 g/dL (5.8-8.3)
[2017-01-05 07:40] LABS: BASO # 0.04 K/mm3 (0.0-2.0); BASO % 0.4 % (0.0-3.0); EOS # 0.8 (0.0-0.7); EOS % 6.9 % (1.5-5.0); GRAN # 8.25 (1.4-6.5); GRAN % 74.4 % (50.0-68.0); LYMPH # 1.3 (1.2-3.4); LYMPH % 11.5 % (22.0-35.0); MEAN CELL VOLUME 79.9 fl (80.0-105.0); MEAN CORPUSCULAR HEMOGLOBIN 26.6 pg (25.0-35.0); MEAN CORPUSCULAR HGB CONC 33.3 g/dl (31.0-37.0); MEAN PLATELET VOLUME 8.6 fl (7.0-11.0); MONO # 0.8 (0.1-0.6); MONO % 6.8 % (1.0-6.0); RED CELL DISTRIBUTION WIDTH 16.8 % (11.5-14.5); WHITE BLOOD COUNT 11.1 10^3/ul (4.5-11.0)
[2017-01-05] MEDS: Arformoterol 15 mcg/2 ml Inh Sol IH SCH ×2 (08:59→19:50)
[2017-01-05] MEDS: Budesonide 0.5 mg/2 ml Inhal Susp UD IH SCH ×2 (08:59→19:50)
[2017-01-05] MEDS: Enoxaparin 60 mg Syringe SC SCH ×2 (09:23→21:02)
[2017-01-05] MEDS: cefTRIAXone 1 gm 1 GM/100 ML BAG IVPB SCH (09:23)
--- NOTE | 2017-01-05 21:36 | PN ---
DATE: 01/05/2017 SUBJECTIVE: The patient is a 66-year-old female seen lying awake in bed reporting that her temperatures have returned with the patient reporting her pain is bearable and she has not taken her morphine that was ordered for severe pain. The patient now aware of her diagnosis of metastasis to the brain and other findings as described on her medical record. With this, the patient is otherwise reporting that she had testing done yesterday, which will be reviewed, MRIs of the thoracic and lumbar spine. PHYSICAL EXAMINATION: VITAL SIGNS: Temperature 99.5, pulse 91, respirations 20, blood pressure 116/72, pulse ox 95%. HEENT: Unremarkable. NECK: Supple. HEART: Regular rate. LUNGS: Clear. Occasional rare rhonchi. ABDOMEN: Obese, soft, nontender. EXTREMITIES: No edema. SKIN: Warm, dry, and clear. LABORATORY DATA: The patient's labs were done. White blood cell count of 11.1, hemoglobin of 9.0, hematocrit 27.0, platelet count of 455,000 with a chem metabolic panel showing a fasting glucose of 158, alkaline phosphatase 197, procalcitonin 0.1, otherwise normal chem metabolic panel. The patient's urine culture and blood culture has been negative after 24 hours. The patient did have an x-ray of her humerus, which was done yesterday that was read as normal radiographs of the left humerus. She also had an MRI of the thoracic spine with and without gadolinium yesterday that was read as metastatic lesion within the vertebral of C7 and T7. No evidence of compression fracture or epidural invasion. She had an MRI of the lumbosacral spine with and without gadolinium yesterday that was read as small metastatic lesion in the right side of L4 and no other lesions seen. No evidence of vertebral, compression fracture, epidural invasion, disc degeneration, spondylosis of L4, L5, and S1, bilateral foraminal stenosis. The patient was relayed this information. 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 The plan for this patient after conversation with Dr. Bustamante to continue present medical regimen, consult with Dr. Sherice Peters, radiation oncology was appreciated with a palliative treatment regimen to begin along with port placement. We will monitor clinically and with labs with antibiotics begun by , infectious disease furniture rental consultant. Prognosis for this patient is guarded. Rogelio Reed MD
[2017-01-06] MEDS: Piperacillin/Tazobact 3.375 gm 100 ML IVPB SCH ×4 (00:31→17:40)
--- NOTE | 2017-01-06 01:58 | PN ---
DATE: SUBJECTIVE: The patient is 66 years old female. The patient is seen and examined at the bedside, getting a nebulizer treatment, still having fever at night. No nausea, vomiting or diarrhea. No hematemesis or hematochezia. No swelling of the legs. No chest pain. No palpitation. PHYSICAL EXAMINATION: VITAL SIGNS: Temperature 99.2, T-max 102.7, pulse 92, blood pressure 150/81 and respiratory rate 18. HEENT: Head normocephalic and atraumatic. Eyes, PERRLA. Extraocular muscles intact. Conjunctivae clear. Nose patent. Mucous membrane moist. NECK: Supple. No carotid bruits, JVD or thyromegaly. CHEST: Bilaterally symmetrical. HEART: S1 and S2 positive. LUNGS: Clear to auscultation. ABDOMEN: Soft. Bowel sounds positive. No organomegaly. EXTREMITIES: No edema and no cyanosis. NEUROLOGICAL: The patient is awake and alert. Moving all 4 extremities. No focal deficit. MEDICATIONS: Brovana, Lovenox, morphine, Pulmicort, Synthroid, Tylenol, tramadol, Zestril and Zosyn. LABORATORY DATA: White blood cell 11.1, hemoglobin 9.0, hematocrit 27.0 and platelets is 455. Sodium 138, potassium 3.7, BUN 7, creatinine 0.7 and glucose 158. ASSESSMENT AND PLAN: Mr. Guille Simon is 66 years old female with leukocytosis, anemia, hyperglycemia, hematuria, metastatic cancer which is primarily in the lung also history of lung cancer in the past, history of cervical cancer in the past, chronic lung disease, hypothyroidism, hypertension, hypercholesterolemia. Now, the patient is metastatic disease to the spine, brain and lungs. Dr. Alejo spoke to the patient's family. All questions answered even I spooked to them as a fever is it post-obstructive pneumonia, getting antibiotics, gastric prophylaxis, sequential compression device to lower extremities, fall precautions. Radiation oncology evaluated the patient for radiation therapy. I think Saturday they will start radiation therapy. We will follow. Kathy Thakur MD
--- NOTE | 2017-01-06 04:28 | CON ---
DATE: 01/05/2017 LOCATION: The patient was seen in room 374, bed 2. CHIEF COMPLAINT: Fever in several days. HISTORY OF PRESENT ILLNESS: This is a 66-year-old female with past medical history significant for poorly-differentiated adenocarcinoma of the lung, hypertension, hypothyroid disease, hyperlipidemia, cancer of the cervix, and history of hysterectomy, who is admitted with fever x10 days duration. According to Dr. Alejo's note, the patient has malignancy and metastasis of the spine and brain metastasis. The patient denies any chest pain at this time. The patient was admitted through the emergency room, was seen by Dr. Ebenezer Hernandez, who states the patient has newly diagnosed lung cancer and presented to the emergency room with fevers for 10 days and denied any dysuria or frequency. PAST MEDICAL HISTORY: Significant for poorly-differentiated adenocarcinoma of the lung, cervical cancer. Dr. Alejo writes that the patient also has colon cancer, hypertension, hypothyroidism, and hyperlipidemia. PAST SURGICAL HISTORY: The patient also has surgical history significant for hysterectomy, cholecystectomy, lung biopsy and colon resection. ALLERGIES: THE PATIENT HAS NO KNOWN ALLERGIES TO ANY ANTIBIOTICS. According to the nursing note, the patient had colectomy because of colon cancer in 2008, had chemotherapy in 2008, hysterectomy and tubal ligation in 1979. MEDICATIONS AT HOME: Includes the patient to be on lisinopril and levothyroxine. PHYSICAL EXAMINATION VITAL SIGNS: Temperature is 100, T-Max is 102.1, heart rate of 95, blood pressure is 110/60, respiratory rate of 20 and was up to 24 at one time, oxygenating well with saturating at 96%. HEENT: Unremarkable. NECK: Supple. LUNGS: Decreased breath sounds. HEART: Normal S1 and S2. ABDOMEN: Soft and nontender. No rebound or guarding. LABORATORY EXAMINATION: Reveals a white count of 11,600, hemoglobin of 9 and platelets of 444. Coagulation is noted. Chemistry reveals the patient's procalcitonin is 0.15, BUN of 14, creatinine of 0.8, and alk phos of 197. Urinalysis is unremarkable with 0 to 2 wbc's, moderate bacteria. Microbiology reveals the blood cultures are negative, urine cultures are negative. X-rays of the humerus reveals normal x-ray of the left humerus. The MRI of the spine reveals metastatic disease within the vertebral bodies of C7 and T7, and lumbar spine MRI, small metastatic disease in the right-side of L4 is noted. The patient had a plain chest x-ray, mass in the right upper lung is noted which is unchanged. Dr. Thakur's note is reviewed, and he says the patient with colon cancer status post resection, history of chemotherapy in 2008, newly-diagnosed lung cancer, adenocarcinoma with mets to the liver, bones, and brain. Reviews of previous admission reveals the patient had a liver biopsy on 12/[address] Simón lBank. Pathology of the biopsy of the liver on 12/18 reveals metastatic adenocarcinoma of the lung on the liver biopsy. Pathology of the biopsy reveals the lung mass to be poorly-differentiated adenocarcinoma of the lung, primary. The patient had abdominal CAT scan, which reveals liver metastasis, dilated common bile duct with biliary stent identified again and hydro. Review of microbiology from previous admission, the patient had Klebsiella in the urine in 2013, sensitivity is reviewed, and another one likely E. coli in the urine, and also sensitivity is reviewed. ASSESSMENT AND PLAN: This is a 66-year-old female with poorly-differentiated adenocarcinoma of the lung with metastasis to the liver, metastasis to the bone and spine, hypertension, hypothyroidism, hyperlipidemia, history of colon cancer, and history of cervical cancer presenting now with fever and tachycardia, systemic inflammatory response syndrome with normal procalcitonin. No evidence of pneumonia and the lung mass with a biliary stent and renal stent, but the blood and urine cultures negative at 24 hours. Fever is mostly likely from the liver metastasis. We will discontinue the Rocephin, which is ceftriaxone. We will discontinue the vancomycin and continue with Zosyn for now, and I doubt biliary tract infection since the blood culture thus far negative, although the patient does have mild alk phos elevation and the CAT scan of the abdomen and pelvis from 12/16 does show dilated common bile duct with a biliary stent and a stable dilated right ureter without hydronephrosis. If cultures remain negative, we will discontinue the Zosyn for the next 24 hours. Bennie García MD
--- NOTE | 2017-01-06 06:14 | PN ---
DATE: 01/05/2017 PULMONARY PROGRESS NOTE REFERRING PHYSICIAN: Kathy Thakur MD SUBJECTIVE: She is lying in the bed, head at 47 degrees. Still having fever. No nausea. No vomiting or diarrhea. No leg pain or leg swelling. PHYSICAL EXAMINATION: GENERAL: In no acute distress. VITAL SIGNS: Temperature is 99.6, heart rate 92, respiratory rate is 18, blood pressure 123/70, and pulse ox is 96% on room air. HEENT: Moist mucous membranes. Crowded airway. NECK: Supple. No JVD. LUNGS: Had a fair airflow with few rhonchi. HEART: S1 and S2. ABDOMEN: Soft, nontender, no organomegaly. EXTREMITIES: No edema. NEUROLOGICAL: Awake and alert. Follows simple commands. MEDICATIONS: She is on Brovana 15 mcg inhaled twice a day, Lovenox 50 mg subcutaneous q.12 h., morphine 2 mg IV q.4 h. p.r.n., budesonide 0.5 mg inhaled twice a day, Synthroid 100 mcg daily, Tylenol on a p.r.n. basis, Ultram 50 mg q.8 h. p.r.n., and Zosyn 3.375 g IV q.6 h. LABORATORY DATA: Shows hemoglobin 9.0, hematocrit 27.0, WBC 11.1, and platelet count is 455. Sodium 138, potassium 3.7, chloride 102, bicarbonate 25, BUN 7, creatinine 0.6, glucose 158, calcium 9.0, AST 37, ALT 56, alkaline phosphatase is 197, albumin is 3.5, procalcitonin 0.15. Microbiology: Blood cultures have been negative. IMPRESSION AND PLAN: Metastatic cancer of which primary is the lung, had a history of colon cancer in the past, history of cervical cancer, chronic lung disease, hypothyroid, hypertension, hyperlipidemia, fever, is this obstructive pneumonia? Already on Zosyn. Continue bronchodilators, keep head at 45 degrees, gastric prophylaxis, deep vein thrombosis prophylaxis. Oncology and infectious diseases followup. Ashlie Alejo MD
[2017-01-06] MEDS: Levothyroxine 100 MCG TAB PO SCH (06:53)
[2017-01-06 07:18] LABS: ALB/GLOB RATIO 0.9 (1.1-1.8); ALKALINE PHOSPHATASE 210 U/L (38-133); ALT/SGPT 60 U/L (7-56); AST/SGOT 41 U/L (15-39); BILIRUBIN,TOTAL 0.6 mg/dL (0.2-1.3); BLOOD UREA NITROGEN 7 mg/dL (7-21); CALCIUM 9.1 mg/dL (8.4-10.5); CARBON DIOXIDE 25 mmol/L (21-33); CHLORIDE 104 mmol/L (98-107); GFR AFRICAN-AMERICAN > 60; GLUCOSE,RANDOM 140 mg/dL (70-110); POTASSIUM 3.8 mmol/L (3.6-5.0); SODIUM 140 mmol/L (132-148); TOTAL PROTEIN 7.1 g/dL (5.8-8.3)
[2017-01-06] MEDS: Budesonide 0.5 mg/2 ml Inhal Susp UD IH SCH ×2 (07:44→21:01)
[2017-01-06] MEDS: Arformoterol 15 mcg/2 ml Inh Sol IH SCH ×2 (07:44→21:01)
[2017-01-06 08:08] LABS: BASO # 0.05 K/mm3 (0.0-2.0); BASO % 0.5 % (0.0-3.0); EOS # 0.9 (0.0-0.7); EOS % 9.8 % (1.5-5.0); GRAN # 5.82 (1.4-6.5); GRAN % 63.9 % (50.0-68.0); HEMATOCRIT 27.3 % (36.0-48.0); LYMPH # 1.7 (1.2-3.4); LYMPH % 18.2 % (22.0-35.0); MEAN CELL VOLUME 80.8 fl (80.0-105.0); MEAN CORPUSCULAR HEMOGLOBIN 25.4 pg (25.0-35.0); MEAN CORPUSCULAR HGB CONC 31.5 g/dl (31.0-37.0); MEAN PLATELET VOLUME 8.4 fl (7.0-11.0); MONO # 0.7 (0.1-0.6); MONO % 7.6 % (1.0-6.0); RED CELL DISTRIBUTION WIDTH 16.8 % (11.5-14.5); WHITE BLOOD COUNT 9.1 10^3/ul (4.5-11.0)
[2017-01-06] MEDS: Enoxaparin 60 mg Syringe SC SCH ×2 (11:10→21:25)
[2017-01-06] MEDS ORDERED: oxyCODONE 5 mg Immediate Release Tab PO PRN (15:54)
--- NOTE | 2017-01-06 19:04 | PN ---
DATE: 01/06/2017 SUBJECTIVE: The patient is seen earlier today. No fevers. No chills. No nausea. PHYSICAL EXAMINATION: VITAL SIGNS: Temperature is 98, blood pressure is 120/70, respiratory rate of 16. HEENT: Unremarkable. NECK: Supple. LUNGS: Decreased breath sounds. HEART: Normal S1 and S2. ABDOMEN: Soft, nontender. LABORATORY DATA: Reveals the patient's white count is 9.1, hemoglobin of 8 and chemistry reveals a BUN of 7, creatinine of 0.7. Urinalysis is noted and blood cultures are no growth, urine cultures are no growth. ASSESSMENT AND PLAN: A 66-year-old female with poorly differentiated adenocarcinoma of the lung with metastasis to the liver, metastasis to the bone and spine, hypertension, hypothyroidism, hyperlipidemia, history of colon cancer, and history of cervical cancer, presenting now with a fever and tachycardia with SIRS (systemic inflammatory response syndrome) with a normal procalcitonin. No evidence of pneumonia on imaging and there is a lung mass present. There is also biliary stent and renal stent on imaging. Thus far all cultures are negative. If the re-cultures remain negative, we will discontinue the Zosyn in the next 24 hours. Fever maybe secondary to liver metastasis. We will follow with you. Bennie García MD
--- NOTE | 2017-01-06 21:30 | PN ---
DATE: 01/06/2017 SUBJECTIVE: The patient is a 66-year-old female seeing lying awake in bed, reporting that her temperature is persist with the patient not willing try stronger analgesics including tablets or parenteral narcotics for her pain, was settling for Tramadol as needed. With this patient has a diagnosis of adenocarcinoma of the lung stage IV metastasis to the mediastinum, liver, bone and brain. She is scheduled for radiation as per Dr. Sherice Peters with port placement as per Dr. Simón Blank with the patient reports she is unaware of a need for a port place that she has had a port for a colon cancer in the past , which was removed. We will clarify this with Dr. Bustamante. She believes she would only be treated with oral chemotherapy agents. She is, otherwise, in no acute distress. PHYSICAL EXAMINATION VITAL SIGNS: Temperature 98.1, pulse 82, respirations 20, blood pressure 128/78, pulse ox 96%. HEENT: Unremarkable. NECK: Supple. HEART: Regular rate. LUNGS: Rare rhonchi. ABDOMEN: Obese, soft, and nontender. EXTREMITIES: No edema. Free range of motion. SKIN: Warm, dry, and clear. NEUROLOGIC: Awake, alert, and oriented x3. LABORATORY DATA: The patient's labs were done. White blood cell count of 9.1, hemoglobin 8.6 dropped from 9.0 yesterday, hematocrit 27.3, platelet count of 484,000. Chem metabolic panel showing an AST of 41, ALT of 60, alkaline phosphatase of 210, and procalcitonin is 0.1. ASSESSMENT: For this patient is that of stage IV poorly differentiated adenocarcinoma metastasis to liver, brain, bone. Hypertension, hypothyroidism, fevers of unknown origin, history of colon cancer, history of cervical cancer with systemic inflammatory response syndrome. She also has tympanostomy tube placement bilaterally, history of cancer of the cervix. PLAN: The plan for this patient after conversation with Dr. Bustamante to continue present medical regimen. Infectious Disease consult was appreciated with *------* also the patient's evaluation by Dr. Sherice Peters with radiation to start with analgesics to be adjusted as indicated. We will continue her present medical regimen including her Synthroid in the interim with antibiotics as per *------*. Rogelio MD [facility] # [id number]
--- NOTE | 2017-01-06 21:35 | PN ---
PULMONARY NOTE DATE: 01/06/2017 SUBJECTIVE: The patient is resting in bed, very comfortable. No complaints of shortness of breath on room air. No nausea, vomiting or diarrhea. No abdominal pain. PHYSICAL EXAMINATION: VITAL SIGNS: Her temperature is 98.1, her pulse is 82, respirations are 20, and blood pressure is 128/78. SKIN: Warm and dry. HEENT: Head: Atraumatic, normocephalic. Eyes: Reactive to light. Ears, Nose and Throat: Seems to be within normal limits. NECK: Supple. No JVD. No thyroid enlargement. No lymph nodes. HEART: Regular rate and rhythm. Normal S1 and S2. LUNGS: Revealed some decreased breath sounds at the bases with occasional rhonchi. ABDOMEN: Soft and nontender. Normal bowel sounds. No organomegaly noted. GENITALIA AND RECTAL: deferred. MUSCULOSKELETAL: No joint deformities. EXTREMITIES: Reveal no edema. NEUROLOGICAL: She seemed to be grossly intact. IMPRESSION: The patient has metastatic cancer which primary is the lung, has a history of colon carcinoma as well as a history of cervical carcinoma. She has chronic obstructive pulmonary disease as well as hypothyroidism, hypertension, hyperlipidemia, and may have obstructive pneumonia. PLAN: We will continue with Zosyn and bronchodilators. Keep patient at 45 degrees. Also she has an oncology as well as an infectious diseases consult. We will continue to follow closely and treat aggressively along with the other consultants and the primary care doctor. El Santos MD
[2017-01-07] MEDS: Piperacillin/Tazobact 3.375 gm 100 ML IVPB SCH ×2 (00:57→05:42)
[2017-01-07] MEDS: Levothyroxine 100 MCG TAB PO SCH (05:52)
[2017-01-07 07:03] LABS: BASO # 0.01 K/mm3 (0.0-2.0); BASO % 0.1 % (0.0-3.0); EOS % 0.2 % (1.5-5.0); GRAN # 7.58 (1.4-6.5); HEMATOCRIT 32.3 % (36.0-48.0); LYMPH # 1.1 (1.2-3.4); LYMPH % 11.6 % (22.0-35.0); MEAN CORPUSCULAR HEMOGLOBIN 26.3 pg (25.0-35.0); MEAN CORPUSCULAR HGB CONC 32.5 g/dl (31.0-37.0); MEAN PLATELET VOLUME 8.5 fl (7.0-11.0); MONO # 0.4 (0.1-0.6); MONO % 4.1 % (1.0-6.0); RED CELL DISTRIBUTION WIDTH 16.2 % (11.5-14.5)
[2017-01-07 07:36] LABS: ALB/GLOB RATIO 0.9 (1.1-1.8); ALKALINE PHOSPHATASE 233 U/L (38-133); ALT/SGPT 65 U/L (7-56); AST/SGOT 40 U/L (15-39); BILIRUBIN,TOTAL 0.9 mg/dL (0.2-1.3); BLOOD UREA NITROGEN 7 mg/dL (7-21); CALCIUM 9.3 mg/dL (8.4-10.5); CARBON DIOXIDE 24 mmol/L (21-33); CHLORIDE 106 mmol/L (98-107); GFR AFRICAN-AMERICAN > 60; GLUCOSE,RANDOM 215 mg/dL (70-110); POTASSIUM 4.2 mmol/L (3.6-5.0); SODIUM 141 mmol/L (132-148); TOTAL PROTEIN 7.4 g/dL (5.8-8.3)
[2017-01-07] MEDS: Enoxaparin 60 mg Syringe SC SCH ×2 (07:43→21:29)
[2017-01-07] MEDS: Budesonide 0.5 mg/2 ml Inhal Susp UD IH SCH ×2 (07:59→19:41)
[2017-01-07] MEDS: Arformoterol 15 mcg/2 ml Inh Sol IH SCH ×2 (07:59→19:41)
[2017-01-07] MEDS ORDERED: Lidocaine 2% Inj (20ml) ONE ×2 (12:32→13:17)
[2017-01-07] MEDS ORDERED: Iodixanol 320 MG/ML 100 ML BOTTLE IV ONE (12:40)
[2017-01-07] MEDS ORDERED: Midazolam 2 MG/2 ML VIAL ONE ×2 (12:54→13:08)
[2017-01-07] MEDS ORDERED: Sodium Chloride 0.45% 1,000 ML IV SCH (13:45)
--- NOTE | 2017-01-07 13:58 | CP.PCM.PN ---
Subjective - Date & Time of Evaluation Date of Evaluation: 01/07/17 Time of Evaluation: 11:10 - Subjective Subjective: Comfortable, no fevers overnight. Objective - Vital Signs/Intake and Output Vital Signs (last 24 hours): Temp Pulse Resp BP Pulse Ox 97.9 F 71 20 131/80 98 01/07/17 08:56 01/07/17 10:12 01/07/17 08:56 01/07/17 10:12 01/07/17 08:56 Intake and Output: 01/07/17 01/07/17 06:59 18:59 Intake Total 1027 Output Total 0 Balance 1027 - Medications Medications: Current Medications Acetaminophen (Tylenol 325mg Tab) 650 mg PO Q4H PRN PRN Reason: Pain, Mild (1-3) Last Admin: 01/06/17 15:45 Dose: 650 mg Arformoterol Tartrate (Brovana) 15 mcg IH [id number] [facility] Last Admin: 01/07/17 07:59 Dose: Not Given Budesonide (Pulmicort Respules) 0.5 mg IH [id number] [facility] Last Admin: 01/07/17 07:59 Dose: Not Given Enoxaparin Sodium (Lovenox) 50 mg SC Q12H [facility] PRN Reason: Protocol Last Admin: 01/07/17 07:43 Dose: 50 mg Sodium Chloride (Sodium Chloride 0.45%) 1,000 mls @ 80 mls/hr IV .[id number] [facility] Stop: 01/08/17 06:00 Levothyroxine Sodium (Synthroid) 100 mcg PO 0600 [facility] Last Admin: 01/07/17 05:52 Dose: 100 mcg Lisinopril (Zestril) 5 mg PO DAILY [facility] Last Admin: 01/07/17 10:12 Dose: 5 mg Memantine (Namenda) 5 mg PO DAILY [facility] Morphine Sulfate (Morphine) 2 mg IVP Q4H PRN PRN Reason: Pain, severe (8-10) Ondansetron HCl (Zofran Inj) 4 mg IVP Q6H PRN PRN Reason: Nausea/Vomiting Oxycodone HCl (Oxycodone Immediate Release Tab) 2.5 mg PO Q6H PRN PRN Reason: Pain, moderate (4-7) Tramadol HCl (Ultram) 50 mg PO TID PRN PRN Reason: Pain, moderate (4-7) Last Admin: 01/06/17 11:11 Dose: 50 mg - Labs Labs: 01/07/17 06:20 01/07/17 06:20 PT 12.2 Seconds (9.9-11.8) H 01/03/17 15:00 INR 1.13 (0.93-1.08) H 01/03/17 15:00 APTT 36.9 Seconds (23.7-30.8) H 01/03/17 15:00 - Constitutional Appears: Non-toxic, No Acute Distress - Head Exam Head Exam: NORMAL INSPECTION - ENT Exam ENT Exam: Mucous Membranes Moist - Neck Exam Neck Exam: absent: Meningismus - Respiratory Exam Respiratory Exam: Decreased Breath Sounds - Cardiovascular Exam Cardiovascular Exam: +S1, +S2 - GI/Abdominal Exam GI & Abdominal Exam: Soft. absent: Tenderness Assessment and Plan - Assessment and Plan (Free Text) Plan: Assessment S/P systemic inflammatory response syndrome, consider due to spinal and liver metastases in this patient with adenocarcinoma of the lung stage IV (poorly- differentiated) - no evidence of sepsis identified history of cervical cancer history of colon cancer HTN hypothyroidism dyslipidemia obesity with BMI 33 Plan Blood and urine cx are negative, CXR does not show pneumonia - will continue to monitor off antibiotics since she is at risk for nosocomial infections
--- NOTE | 2017-01-07 15:38 | CP.PCM.PN ---
<Sravan Montero - Last Filed: 01/07/17 15:40> Subjective - Date & Time of Evaluation Date of Evaluation: 01/07/17 Time of Evaluation: 10:30 - Subjective Subjective: Heme/onc note for Dr Bustamante: Pt seen and examined at bedside. No acute events overnight. No complaints. Dr Bustamante and I met with the patient along with her family at bedside explaining her condition along with all the treatment options including chemo, radiation,and immunotherapy. All their questions were answered. Denies any n/v, cp, abd pain, bm changes. Objective - Vital Signs/Intake and Output Vital Signs (last 24 hours): Temp Pulse Resp BP Pulse Ox 99.6 F 93 H 18 135/74 96 01/07/17 14:14 01/07/17 14:14 01/07/17 14:14 01/07/17 14:14 01/07/17 14:14 Intake and Output: 01/07/17 01/07/17 06:59 18:59 Intake Total 1027 360 Output Total 0 Balance 1027 360 - Medications Medications: Current Medications Acetaminophen (Tylenol 325mg Tab) 650 mg PO Q4H PRN PRN Reason: Pain, Mild (1-3) Last Admin: 01/06/17 15:45 Dose: 650 mg Arformoterol Tartrate (Brovana) 15 mcg IH [id number] [facility] Last Admin: 01/07/17 07:59 Dose: Not Given Budesonide (Pulmicort Respules) 0.5 mg IH [id number] [facility] Last Admin: 01/07/17 07:59 Dose: Not Given Enoxaparin Sodium (Lovenox) 50 mg SC Q12H [facility] PRN Reason: Protocol Last Admin: 01/07/17 07:43 Dose: 50 mg Sodium Chloride (Sodium Chloride 0.45%) 1,000 mls @ 80 mls/hr IV .[id number] [facility] Stop: 01/08/17 06:00 Levothyroxine Sodium (Synthroid) 100 mcg PO 0600 [facility] Last Admin: 01/07/17 05:52 Dose: 100 mcg Lisinopril (Zestril) 5 mg PO DAILY [facility] Last Admin: 01/07/17 10:12 Dose: 5 mg Memantine (Namenda) 5 mg PO DAILY [facility] Last Admin: 01/07/17 15:00 Dose: 5 mg Morphine Sulfate (Morphine) 2 mg IVP Q4H PRN PRN Reason: Pain, severe (8-10) Ondansetron HCl (Zofran Inj) 4 mg IVP Q6H PRN PRN Reason: Nausea/Vomiting Oxycodone HCl (Oxycodone Immediate Release Tab) 2.5 mg PO Q6H PRN PRN Reason: Pain, moderate (4-7) Tramadol HCl (Ultram) 50 mg PO TID PRN PRN Reason: Pain, moderate (4-7) Last Admin: 01/07/17 14:47 Dose: 50 mg - Labs Labs: 01/07/17 06:20 01/07/17 06:20 PT 12.2 Seconds (9.9-11.8) H 01/03/17 15:00 INR 1.13 (0.93-1.08) H 01/03/17 15:00 APTT 36.9 Seconds (23.7-30.8) H 01/03/17 15:00 - Constitutional Appears: No Acute Distress - Head Exam Head Exam: ATRAUMATIC, NORMAL INSPECTION, NORMOCEPHALIC - Eye Exam Eye Exam: EOMI, Normal appearance, PERRL Pupil Exam: NORMAL ACCOMODATION, PERRL - ENT Exam ENT Exam: Mucous Membranes Moist, Normal Exam - Neck Exam Neck Exam: Full ROM, Normal Inspection. absent: Lymphadenopathy - Respiratory Exam Respiratory Exam: Clear to Ausculation Bilateral, NORMAL BREATHING PATTERN. absent: Rhonchi, Wheezes - Cardiovascular Exam Cardiovascular Exam: RRR, +S1, +S2 - GI/Abdominal Exam GI & Abdominal Exam: Soft. absent: Distended, Tenderness - Extremities Exam Extremities Exam: absent: Calf Tenderness, Pedal Edema - Neurological Exam Neurological Exam: Alert, Awake, Oriented x3 - Skin Skin Exam: Dry, Intact, Normal Color Assessment and Plan - Assessment and Plan (Free Text) Assessment: 66F with pmh of HTN, Hypothyroidism, HLD, cervical ca in 2013 s/p hysterectomy, colon ca s/p resection? chemo in 2008, newly diagnosed lung adenocarcinoma with mets to the liver, bone, and brain, presents with fevers x 10 days. Currently afebrile. - Plan for Chemo port today - Plan to start Carboplatin and Gemcitabine; Plan to start tx with immunotherapy with Keytruda and Opdivo - Namenda started for cognitive dys of brain radiation -Will consider to administer 1 dose of bisphophonate - Radiation oncology consulted will receive whole brain RT - Pathology called to add BRAf gene testing - Pulm consulted regarding lung mass - pulmicort and brovana - Pain control - ID consulted for fevers - monitor off abx - Consulted IR for port placement - Humerus xray evaluate extent of mets - Normal radiographi - MRI of thoracic and lumbar spine - shows mets lesion to vertebral bodies of C7 and T7;Small mets lesion in R side of L4 - Pet/CT - R uppr lobe mass, Large hilum and precarinal and subcrinal FDG amid large lymphadenopathy consistent with mets, 2.5 cm in inf aspect of R liver lobe , and 1cm in L liver lobe consistent with mets, osseous mets including lytic bony lesion at the L humeral head, multiple lesion in the spine and R ilaic bone Case and plan was reviewed and discussed with Dr Bustamante. <Julio Bustamante P - Last Filed: 01/12/17 18:36> Objective - Vital Signs/Intake and Output Vital Signs (last 24 hours): Temp Pulse Resp BP Pulse Ox 98.5 F 68 18 130/76 95 01/09/17 06:00 01/09/17 09:12 01/09/17 06:00 01/09/17 09:12 01/09/17 06:00 - Labs Labs: 01/09/17 06:01 01/09/17 06:01 PT 12.2 Seconds (9.9-11.8) H 01/03/17 15:00 INR 1.13 (0.93-1.08) H 01/03/17 15:00 APTT 36.9 Seconds (23.7-30.8) H 01/03/17 15:00 Attending/Attestation - Attestation I have personally seen and examined this patient.: Yes I have fully participated in the care of the patient.: Yes I have reviewed all pertinent clinical information, including history, physical exam and plan: Yes
--- NOTE | 2017-01-07 20:50 | VASCULAR ---
PROCEDURE: Ultrasound and fluoroscopic right internal jugular venous access port. CLINICAL HISTORY: Metastatic lung CA.Venous port for chemotherapy. PHYSICIAN(S): Simón Blank M.D. TECHNIQUE: The relative risks and indications of the procedure were explained to the patient and consent obtained. The patient was placed supine on the arteriogram table and the right neck and chest prepped and draped in the usual sterile fashion. Conscious sedation monitoring was provided throughout the procedure by a nurse. Antibiotics were given prior to the procedure. Under direct ultrasound guidance, the right internal jugular vein was punctured with a micro-puncture set. A 0.035 angled Glidewire was advanced into the IVC. A 4 cm incision was made below the right clavicle and the pocket blunted dissected. A 8 Polish single-lumen catheter, 24cm long, was advanced to the SVC/RA junction. The catheter was trimmed and attached to the port. The port aspirates and injects easily. The port was placed in the pocket and closed in 2 layers. The patient tolerated the procedure well. IMPRESSION: Ultrasound and fluoroscopically placed right internal jugular venous access port.
--- NOTE | 2017-01-07 21:37 | PN ---
DATE: 01/06/2017 SUBJECTIVE: The patient is a 66-year-old female. The patient was seen and examined at bedside, looking comfortable, but still she has fever every night, and having pain of malignancy. She is scheduled for radiation as per Dr. Peters, radiation specialist. No nausea, vomiting, or diarrhea. Still getting shortness of breath. No chest pain. No palpitation. PHYSICAL EXAMINATION: VITAL SIGNS: Temperature is 98.1, pulse 82, respiratory rate 20, and blood pressure 128/78. HEENT: Head is normocephalic and atraumatic. Eyes; PERRLA. Extraocular muscles intact. Conjunctivae clear. Nose patent. Mucous membrane moist. NECK: Supple. No carotid bruits, JVD, or thyromegaly. CHEST: Bilaterally symmetrical. HEART: S1 and S2 positive. LUNGS: Clear to auscultation. ABDOMEN: Soft. Bowel sounds present. No organomegaly. EXTREMITIES: No edema. No cyanosis. NEUROLOGICAL: The patient is awake and alert. Moving all 4 extremities. No focal deficit. LABORATORY DATA: White blood cell is 9.1, hemoglobin 8.6, hematocrit 27.3, and platelets 484,000. AST 41 and ALT 60. IMPRESSION AND PLAN: Ms. Aurora Han is 66 years old lady with stage IV poorly differentiated adenocarcinoma, metastasis to the liver, brain and bone; hypertension, hypothyroidism, fever of unknown origin, may be related with malignancy, history of colon cancer, history of cervical cancer with systemic inflammatory response syndrome, history of tympanostomy tube placement bilaterally, and history of cancer of the cervix. [employer] Operator, ID, and oncologist on the case. Hypercholesterolemia. No evidence of pneumonia on imaging and there is a lung mass present. There is also biliary stent and renal stent on imaging. Cultures are negative. If re-cultures remain negative, we will discontinue Zosyn in the next 24 hours as per ID. Fever may be secondary to the liver metastasis. We will continue present treatment. Continue Brovana, Lovenox, pain medication, oxycodone, morphine, Pulmicort capsule, Synthroid, tramadol, and Zestril. Gastrointestinal and deep vein thrombosis prophylaxis. We will follow up. Kathy Thakur MD [facility] # [id number]
--- NOTE | 2017-01-08 02:04 | PN ---
PULMONARY PROGRESS NOTE DATE: 01/07/2017 REFERRING PHYSICIAN: Dr. Thakur. SUBJECTIVE: She is lying in the bed at 45 degree. Family is at the bedside. Had Port-A-Cath placed on the right chest. No nausea. No vomiting or diarrhea. No leg pain or leg swelling. PHYSICAL EXAMINATION GENERAL: In no acute distress. VITAL SIGNS: Temp is 98, heart rate 80, respiratory rate is 20, blood pressure 143/81 and pulse ox is 98%on room air. HEENT: Moist mucous membranes. Crowded airway. Mallampati score is 4. NECK: Supple. No JVD. LUNGS: Has a fair airflow with few rhonchi. HEART: S1 and S2. ABDOMEN: Soft and nontender. No organomegaly. EXTREMITIES: No edema. NEUROLOGIC: Awake and alert. Follows simple commands. MEDICATIONS: She is on Brovana 15 mcg inhaled twice a day, folic acid 1 mg daily, Lovenox 50 mg daily, methylprednisolone 4 mg twice a day, morphine 2 mg q.4 hours, Namenda 5 mg daily, oxycodone immediate release 2.5 mg q.6 hour p.r.n., Pulmicort inhaled twice a day, IV fluid with half normal saline 80 mL per hour, Synthroid 100 mcg daily, Tylenol p.r.n., Ultram 50 mg q.8 hour p.r.n., Zestril 5 mg daily, Zofran on p.r.n. basis. LABORATORY DATA: Shows hemoglobin 10.5, hematocrit 32.3, WBC 9.0 and platelets is 484. Sodium 141, potassium 4.2, chloride 106, bicarbonate 24, BUN 7, creatinine 0.6 and glucose 215. AST of 40, ALT of 65, alkaline phosphatase is 233, albumin is 3.5 and procalcitonin is 0.15. Microbiology; blood culture and urine culture, there is no growth. IMPRESSION AND PLAN: Metastatic cancer, had a history of colon cancer, cervical cancer, chronic lung disease, hypothyroid, hypertension, hyperlipidemia, metastatic brain lesion, had a [id number] today still have a low grade fever, on antibiotics, could be central component?, gastric prophylaxis, deep venous thrombosis prophylaxis. Spoke to family at the bedside. All the questions answered. Thank you and we will follow with you. Ashlie Alejo MD [facility] # [id number]
--- NOTE | 2017-01-08 05:17 | PN ---
The patient is a 66 years old female. SUBJECTIVE: The patient was seen and examined on the bedside, complaining about headache. Today, the patient had a session with Dr. Bustamante and the patient's family was also there. chemotherapy, radiation therapy and immunotherapy was discussed. No nausea, vomiting, diarrhea. No hematuria or hematochezia. Still having pain and sometimes shortness of breath. PHYSICAL EXAMINATION: VITAL SIGNS: Temperature 99.6, pulse 93, respiratory rate 18, blood pressure 134/73, pulse oximetry 96. HEENT: Head normocephalic, atraumatic. Eyes, PERRLA. Extraocular muscles are intact. Conjunctivae clear. Nose patent. NECK: Supple. No carotid bruits, JVD, or thyromegaly. CHEST: Bilaterally symmetrical. HEART: S1, S2 positive. LUNGS: Clear to auscultation. ABDOMEN: Soft. Bowel sounds positive. No organomegaly. EXTREMITIES: No edema, no cyanosis. NEUROLOGICAL: The patient is awake, alert. Follows simple commands. MEDICATIONS: Tylenol, Brovana, Pulmicort, Lovenox, Synthroid, Zestril, Namenda, morphine, Zofran, tramadol. LABORATORY DATA: White blood cells 9.0, hemoglobin 10.5, hematocrit 32.3, platelets 484. Sodium 141, potassium 4.2, BUN 7, creatinine 0.6, glucose 215. ASSESSMENT AND PLAN: The patient is a 66-year-old lady with anemia, thrombocytosis, hyperglycemia, hypothyroidism, hypertension, hypercholesterolemia, cervical cancer status post hysterectomy, colon cancer status post colon resection, and chemotherapy in 2008, newly diagnosed lung adenocarcinoma with metastasis to the liver, bone and brain, has fever for almost 10 days. Plan to start chemotherapy was discussed with the family. Started treatment with immunotherapy with Keytruda and Opdivo. Namenda started for cognitive dysfunction of the brain and according to Dr. Bustamante, he will administer 1 dose of bisphosphonate. Brain radiation. Pathology was called to add BRAF gene testing. Pulmonology is on the case, ID is on the case. Interventional radiology called for port placement. MRI of the thorax and lumbar spine done, shows metastasis to vertebral body C7, T7, small metastatic lesion in the right side of L4. We will continue the present treatment. Gastrointestinal and deep vein thrombosis prophylaxis. Migraine headache. The patient is seen by Dr. Garza, Infectious Disease. The patient has systemic inflammatory response syndrome, may be due to spinal and liver metastasis. Has adenocarcinoma of the lung, stage IV, poorly differentiated. No evidence of sepsis identified as per ID. Blood and urine cultures are negative. Chest x-ray does not show any pneumonia. We will continue to monitor off the antibiotics and she is at risk of nosocomial infection. GI and DVT prophylaxis. Repeat labs on followup. Kathy Thakur MD [facility]
[2017-01-08] MEDS: Levothyroxine 100 MCG TAB PO SCH (05:51)
[2017-01-08] MEDS: Arformoterol 15 mcg/2 ml Inh Sol IH SCH ×3 (07:43→19:57)
[2017-01-08] MEDS: Budesonide 0.5 mg/2 ml Inhal Susp UD IH SCH ×3 (07:43→19:57)
[2017-01-08 08:14] VITALS: O2SAT 95
[2017-01-08] MEDS: Enoxaparin 60 mg Syringe SC SCH (09:27)
[2017-01-08] MEDS: Sodium Chloride 0.9% 1,500 ML IV SCH ×3 (09:45→17:47)
[2017-01-08] MEDS: POLYETHYLENE GLYCOL 3350 17 GM/Dose PACKET PO SCH (09:58)
[2017-01-08 10:02] LABS: BASO # 0.02 K/mm3 (0.0-2.0); BASO % 0.2 % (0.0-3.0); EOS # 0.3 (0.0-0.7); GRAN # 7.71 (1.4-6.5); GRAN % 74.8 % (50.0-68.0); HEMATOCRIT 32.2 % (36.0-48.0); LYMPH # 1.7 (1.2-3.4); LYMPH % 16.4 % (22.0-35.0); MEAN CELL VOLUME 81.3 fl (80.0-105.0); MEAN CORPUSCULAR HEMOGLOBIN 26.5 pg (25.0-35.0); MEAN CORPUSCULAR HGB CONC 32.6 g/dl (31.0-37.0); MEAN PLATELET VOLUME 8.6 fl (7.0-11.0); MONO # 0.6 (0.1-0.6); MONO % 5.6 % (1.0-6.0); RED CELL DISTRIBUTION WIDTH 16.3 % (11.5-14.5); WHITE BLOOD COUNT 10.3 10^3/ul (4.5-11.0)
[2017-01-08 10:12] LABS: ALB/GLOB RATIO 0.9 (1.1-1.8); ALKALINE PHOSPHATASE 211 U/L (38-133); ALT/SGPT 58 U/L (7-56); AST/SGOT 48 U/L (15-39); BILIRUBIN,TOTAL 0.4 mg/dL (0.2-1.3); BLOOD UREA NITROGEN 9 mg/dL (7-21); CALCIUM 9.2 mg/dL (8.4-10.5); CARBON DIOXIDE 25 mmol/L (21-33); CHLORIDE 102 mmol/L (98-107); GFR AFRICAN-AMERICAN > 60; GLUCOSE,RANDOM 175 mg/dL (70-110); MAGNESIUM 2.2 mg/dL (1.7-2.2); POTASSIUM 3.6 mmol/L (3.6-5.0); SODIUM 138 mmol/L (132-148); TOTAL PROTEIN 7.5 g/dL (5.8-8.3)
[2017-01-08] MEDS ORDERED: Dexamethasone 20 MG, DiphenhydrAMINE 25 MG, Famotidine 20 MG in Sodium Chloride 0.9% 50 ML IVPB ONE (11:00)
[2017-01-08] MEDS ORDERED: Palonosetron 0.25 mg/5 mL Inj IVP ONE (11:00)
--- NOTE | 2017-01-08 11:52 | CP.PCM.PN ---
<Sravan Montero - Last Filed: 01/08/17 11:47> Subjective - Date & Time of Evaluation Date of Evaluation: 01/08/17 Time of Evaluation: 07:15 - Subjective Subjective: Heme/onc note for Dr Bustamante: Pt seen and examined at bedside. No acute events overnight. Pt complains of some constipation. Denies any n/v, cp, abd pain, urinary changes. Objective - Vital Signs/Intake and Output Vital Signs (last 24 hours): Temp Pulse Resp BP Pulse Ox 98.6 F 81 20 131/82 95 01/08/17 08:13 01/08/17 09:28 01/08/17 08:13 01/08/17 09:28 01/08/17 08:13 Intake and Output: 01/08/17 01/08/17 06:59 18:59 Intake Total 1020 Balance 1020 - Medications Medications: Current Medications Acetaminophen (Tylenol 325mg Tab) 650 mg PO Q4H PRN PRN Reason: Pain, Mild (1-3) Last Admin: 01/07/17 17:28 Dose: 650 mg Arformoterol Tartrate (Brovana) 15 mcg IH [id number] [facility] Last Admin: 01/08/17 07:43 Dose: Not Given Budesonide (Pulmicort Respules) 0.5 mg IH [id number] [facility] Last Admin: 01/08/17 07:43 Dose: Not Given Docusate Sodium (Colace) 100 mg PO BID [facility] Last Admin: 01/08/17 09:58 Dose: 100 mg Enoxaparin Sodium (Lovenox) 50 mg SC Q12H [facility] PRN Reason: Protocol Last Admin: 01/08/17 09:27 Dose: 50 mg Folic Acid (Folic Acid) 1 mg PO DAILY [facility] Last Admin: 01/08/17 09:28 Dose: 1 mg Sodium Chloride (Sodium Chloride 0.9%) 1,500 mls @ 250 mls/hr IV .Q6H [facility] Stop: 01/08/17 21:44 Carboplatin 500 mg/ Sodium (Chloride) 300 mls @ 300 mls/hr IV ONCE ONE Stop: 01/08/17 12:59 Pemetrexed 800 mg/ Sodium (Chloride) 250 mls @ 250 mls/hr IV ONCE ONE Stop: 01/08/17 12:59 Levothyroxine Sodium (Synthroid) 100 mcg PO 0600 [facility] Last Admin: 01/08/17 05:51 Dose: 100 mcg Lisinopril (Zestril) 5 mg PO DAILY [facility] Last Admin: 01/08/17 09:28 Dose: 5 mg Memantine (Namenda) 5 mg PO DAILY [facility] Last Admin: 01/08/17 09:28 Dose: 5 mg Methylprednisolone (Medrol) 4 mg PO BID [facility] Stop: 01/11/17 18:30 Last Admin: 01/08/17 09:28 Dose: 4 mg Morphine Sulfate (Morphine) 2 mg IVP Q4H PRN PRN Reason: Pain, severe (8-10) Ondansetron HCl (Zofran Inj) 4 mg IVP Q6H PRN PRN Reason: Nausea/Vomiting Oxycodone HCl (Oxycodone Immediate Release Tab) 2.5 mg PO Q6H PRN PRN Reason: Pain, moderate (4-7) Polyethylene Glycol (Miralax) 17 gm PO DAILY [facility] Last Admin: 01/08/17 09:58 Dose: 17 gm Tramadol HCl (Ultram) 50 mg PO TID PRN PRN Reason: Pain, moderate (4-7) Last Admin: 01/07/17 14:47 Dose: 50 mg - Labs Labs: 01/08/17 09:50 01/08/17 09:50 PT 12.2 Seconds (9.9-11.8) H 01/03/17 15:00 INR 1.13 (0.93-1.08) H 01/03/17 15:00 APTT 36.9 Seconds (23.7-30.8) H 01/03/17 15:00 - Constitutional Appears: No Acute Distress - Head Exam Head Exam: ATRAUMATIC, NORMAL INSPECTION, NORMOCEPHALIC - Eye Exam Eye Exam: EOMI, Normal appearance, PERRL Pupil Exam: NORMAL ACCOMODATION, PERRL - ENT Exam ENT Exam: Mucous Membranes Moist, Normal Exam - Neck Exam Neck Exam: Full ROM, Normal Inspection. absent: Lymphadenopathy - Respiratory Exam Respiratory Exam: Clear to Ausculation Bilateral, NORMAL BREATHING PATTERN. absent: Wheezes - Cardiovascular Exam Cardiovascular Exam: REGULAR RHYTHM, RRR, +S1, +S2. absent: Murmur - GI/Abdominal Exam GI & Abdominal Exam: Soft. absent: Distended, Tenderness - Extremities Exam Extremities Exam: Full ROM, Normal Capillary Refill, Normal Inspection. absent : Calf Tenderness, Joint Swelling, Pedal Edema - Neurological Exam Neurological Exam: Alert, Awake, CN II-XII Intact, Normal Gait, Oriented x3 - Psychiatric Exam Psychiatric exam: Normal Affect, Normal Mood - Skin Skin Exam: Dry, Intact, Normal Color, Warm Assessment and Plan - Assessment and Plan (Free Text) Assessment: 66F with pmh of HTN, Hypothyroidism, HLD, cervical ca in 2013 s/p hysterectomy, colon ca s/p resection? chemo in 2008, newly diagnosed lung adenocarcinoma with mets to the liver, bone, and brain, presents with fevers x 10 days. Currently afebrile. S/p chemoport placement. Started RT yesterday and will cont Sat- Saturday. Chemo will start today. - RT given yesterday and again today - Sat-Saturday - S/p chemo port - plan to start chemo today - Chemo with Carboplatin and Gemcitabine; Plan to start tx with immunotherapy with Keytruda and Opdivo - Namenda started for cognitive dys of brain radiation - Will consider to administer 1 dose of bisphophonate - Radiation oncology consulted will receive whole brain RT - Constipatio - started on colace and miralax - Pathology called to add BRAf gene testing - Pulm consulted regarding lung mass - pulmicort and brovana - Pain control - ID consulted for fevers - monitor off abx - Consulted IR for port placement - Humerus xray evaluate extent of mets - Normal radiographi - MRI of thoracic and lumbar spine - shows mets lesion to vertebral bodies of C7 and T7;Small mets lesion in R side of L4 - Pet/CT - R uppr lobe mass, Large hilum and precarinal and subcrinal FDG amid large lymphadenopathy consistent with mets, 2.5 cm in inf aspect of R liver lobe , and 1cm in L liver lobe consistent with mets, osseous mets including lytic bony lesion at the L humeral head, multiple lesion in the spine and R ilaic bone Total time spent with pt family yesterday >90min explaining her condition along with all the treatment options including chemo,radiation,and immunotherapy. Case and plan was reviewed and discussed with Dr Bustamante. <Julio Bustamante P - Last Filed: 01/11/17 23:27> Objective - Vital Signs/Intake and Output Vital Signs (last 24 hours): Temp Pulse Resp BP Pulse Ox 98.5 F 68 18 130/76 95 01/09/17 06:00 01/09/17 09:12 01/09/17 06:00 01/09/17 09:12 01/09/17 06:00 - Labs Labs: 01/09/17 06:01 01/09/17 06:01 PT 12.2 Seconds (9.9-11.8) H 01/03/17 15:00 INR 1.13 (0.93-1.08) H 01/03/17 15:00 APTT 36.9 Seconds (23.7-30.8) H 01/03/17 15:00 Attending/Attestation - Attestation I have personally seen and examined this patient.: Yes I have fully participated in the care of the patient.: Yes I have reviewed all pertinent clinical information, including history, physical exam and plan: Yes
[2017-01-08] MEDS ORDERED: SODIUM CHLORIDE 0.9% IV ONE (12:00)
[2017-01-08] MEDS ORDERED: PEMETREXED IV ONE (12:00)
[2017-01-08 12:21] LABS: URINE APPEARANCE CLEAR (CLEAR); URINE BILIRUBIN NEGATIVE (NEGATIVE); URINE BLOOD TRACE-LYSED (NEGATIVE); URINE COLOR YELLOW (YELLOW); URINE GLUCOSE (UA) NEGATIVE (NEGATIVE); URINE KETONE NEGATIVE (NEGATIVE); URINE LEUKOCYTE ESTERASE NEGATIVE Leu/uL (NEGATIVE); URINE PROTEIN NEGATIVE mg/dL (<30 mg/dL); URINE UROBILINOGEN 0.2 E.U./dL (<1 E.U./dL)
[2017-01-08 12:47] LABS: URINE AMORPHOUS SEDIMENT FEW; URINE BACTERIA MANY (NEG); URINE WBC 0 - 2 /hpf (0-6)
--- NOTE | 2017-01-08 13:32 | CP.PCM.PN ---
Subjective - Date & Time of Evaluation Date of Evaluation: 01/08/17 Time of Evaluation: 10:40 - Subjective Subjective: Comfortable in bed, had an episode of fever last night but did not have chills, no nausea or vomiting, no SOB, no cough or colds, no abdominal pain, no diarrhea , no dysuria. Objective - Vital Signs/Intake and Output Vital Signs (last 24 hours): Temp Pulse Resp BP Pulse Ox 98.6 F 81 20 131/82 95 01/08/17 08:13 01/08/17 08:13 01/08/17 08:13 01/08/17 08:13 01/08/17 08:13 Intake and Output: 01/08/17 01/08/17 06:59 18:59 Intake Total 1020 Balance 1020 - Medications Medications: Current Medications Acetaminophen (Tylenol 325mg Tab) 650 mg PO Q4H PRN PRN Reason: Pain, Mild (1-3) Last Admin: 01/07/17 17:28 Dose: 650 mg Arformoterol Tartrate (Brovana) 15 mcg IH [id number] [facility] Last Admin: 01/08/17 07:43 Dose: Not Given Budesonide (Pulmicort Respules) 0.5 mg IH [id number] [facility] Last Admin: 01/08/17 07:43 Dose: Not Given Enoxaparin Sodium (Lovenox) 50 mg SC Q12H [facility] PRN Reason: Protocol Last Admin: 01/07/17 21:29 Dose: 50 mg Folic Acid (Folic Acid) 1 mg PO DAILY [facility] Levothyroxine Sodium (Synthroid) 100 mcg PO 0600 [facility] Last Admin: 01/08/17 05:51 Dose: 100 mcg Lisinopril (Zestril) 5 mg PO DAILY [facility] Last Admin: 01/07/17 10:12 Dose: 5 mg Memantine (Namenda) 5 mg PO DAILY [facility] Last Admin: 01/07/17 15:00 Dose: 5 mg Methylprednisolone (Medrol) 4 mg PO BID [facility] Stop: 01/11/17 18:30 Last Admin: 01/07/17 19:03 Dose: 4 mg Morphine Sulfate (Morphine) 2 mg IVP Q4H PRN PRN Reason: Pain, severe (8-10) Ondansetron HCl (Zofran Inj) 4 mg IVP Q6H PRN PRN Reason: Nausea/Vomiting Oxycodone HCl (Oxycodone Immediate Release Tab) 2.5 mg PO Q6H PRN PRN Reason: Pain, moderate (4-7) Tramadol HCl (Ultram) 50 mg PO TID PRN PRN Reason: Pain, moderate (4-7) Last Admin: 01/07/17 14:47 Dose: 50 mg - Labs Labs: 01/07/17 06:20 01/07/17 06:20 PT 12.2 Seconds (9.9-11.8) H 01/03/17 15:00 INR 1.13 (0.93-1.08) H 01/03/17 15:00 APTT 36.9 Seconds (23.7-30.8) H 01/03/17 15:00 - Constitutional Appears: Non-toxic, No Acute Distress - Head Exam Head Exam: NORMAL INSPECTION - ENT Exam ENT Exam: Mucous Membranes Moist - Neck Exam Neck Exam: absent: Meningismus - Respiratory Exam Respiratory Exam: Decreased Breath Sounds Additional comments: right anterior chest wall port site intact - Cardiovascular Exam Cardiovascular Exam: +S1, +S2 - GI/Abdominal Exam GI & Abdominal Exam: Soft. absent: Tenderness Assessment and Plan - Assessment and Plan (Free Text) Plan: Assessment S/P systemic inflammatory response syndrome, consider due to spinal and liver metastases in this patient with adenocarcinoma of the lung stage IV (poorly-differentiated) - no evidence of sepsis identified; still had an episode of fever yesterday but patient just had a port-a-cath placed yesterday POD #1 history of cervical cancer history of colon cancer HTN hypothyroidism dyslipidemia obesity with BMI 33 Plan Blood and urine cx are negative, CXR does not show pneumonia - will continue to monitor off antibiotics since she is at risk for hospital-acquired infections
--- NOTE | 2017-01-09 | PN ---
DATE: 01/08/2017 REFERRING PHYSICIAN: Dr. Thakur. SUBJECTIVE: The patient was lying in the bed, head at 45 degrees, feels okay. Sister and family is at bedside. No headache, no rhinitis. No nausea. No vomiting. No diarrhea. No leg pain. No leg swelling. OBJECTIVE: GENERAL: No acute distress. VITAL SIGNS: Temp is 98.3, heart rate 71, respiratory rate is 20, and blood pressure 134/82. HEENT: Moist mucous membranes. Crowded airway. NECK: Supple. No JVD. LUNGS: Has fair airflow with few rhonchi. HEART: S1 and S2. ABDOMEN: Soft and nontender. No organomegaly. EXTREMITIES: There is no edema. NEUROLOGIC: Awake, alert, and follows simple commands. MEDICATIONS: She is on Brovana 15 mcg inhaler twice a day, Colace 100 mg twice a day, folic acid 1 mg daily, Lovenox 50 mg subcu twice a day, methylprednisolone 4 mg twice a day, MiraLax 17 g p.o. daily, morphine 2 mg q.4 hour p.r.n., Namenda 5 mg daily, oxycodone immediate release 2.5 mg q.6 hour p.r.n., Pulmicort inhaled twice a day, Synthroid 100 mcg daily, Tylenol p.r.n., Ultram 50 mg three times a day p.r.n., Zestril 5 mg daily, Zofran p.r.n. basis. LABORATORY DATA: Shows hemoglobin 10.5, hematocrit 32.2, WBC 10.3, platelets count are 535. Sodium 138, potassium 3.6, chloride 102, bicarbonate 25, BUN 9, creatinine 0.7, glucose 175, calcium 9.2, magnesium 2.2, AST 48, ALT 58, alkaline phosphatase is 211, albumin is 3.6. Procalcitonin 0.07. Microbiology: Blood culture and urine culture, there is no growth. IMPRESSION: Metastatic cancer, also has a history of colon cancer, cervical cancer, chronic obstructive lung disease, hypothyroid, hypertension, hyperlipidemia, also metastatic brain lesion, starting radiation therapy and chemotherapy. On antibiotics, bronchodilator. Keep head at 45 degrees. Gastric and deep vein thrombosis prophylaxis. Thank you and we will follow with you. Ashlie Alejo MD [facility] # [id number]
--- NOTE | 2017-01-09 03:04 | PN ---
SUBJECTIVE: The patient is a 66-year-old female. The patient is seen and examined at the bedside, feels comfortable, still having fever last night. No nausea, vomiting or diarrhea. No hematuria or hematochezia. No swelling of the legs. No chest pain. No palpitation. Has a little bit of constipation. PHYSICAL EXAMINATION: VITAL SIGNS: Temperature 98.3, pulse 71, blood pressure 135/82 and respiratory rate 20. HEENT: Head; normocephalic and atraumatic. Eyes; PERRLA. Extraocular muscles intact. Conjunctivae clear. Nose patent. Mucous membranes moist. NECK: Supple. No carotid bruits, JVD, or thyromegaly. CHEST: Bilaterally symmetrical. HEART: S1 and S2 positive. LUNGS: Clear to auscultation. ABDOMEN: Soft. Bowel sounds positive. No organomegaly. EXTREMITIES: No edema and no cyanosis. NEUROLOGICAL: The patient is awake and alert. Moving all 4 extremities. No focal deficit. MEDICATIONS: Brovana, Colace, folic acid, Lovenox, Solu-Medrol, MiraLax, morphine, Namenda, oxycodone, Pulmicort, Synthroid, Tylenol, tramadol, Zestril, and Zofran. LABORATORY DATA: White blood cells 10.3, hemoglobin 10.5, hematocrit 32.2, and platelets 532. Sodium 130, potassium 3.6, BUN 9, creatinine 0.7, glucose 175, AST 48 and ALT 58. ASSESSMENT AND PLAN: The patient is a 66-year-old lady with hyperglycemia, abnormal liver function test, anemia, history of leukocytosis improved, and systemic inflammatory response syndrome. The patient is having fever, may be due to spinal and liver metastasis with adenocarcinoma of the lung, stage IV poorly differentiated. As per ID, no evidence of sepsis identified, still had episodes of fever. The patient has Port-A-Cath placed yesterday. Peptic ulcer disease, has cervical cancer, colon cancer, hypertension, hypothyroidism, dyslipidemia and obesity. Blood cultures are negative. The patient was seen by Dr. Kayla Simeon and Dr. Bustamante. Newly diagnosed lung adenocarcinoma with metastasis to the liver, bone and brain, having high constant fevers since 10 days, Chemotherapy placement, started radiation therapy yesterday and we will continue Saturday to Saturday. The patient got chemoport today and got chemotherapy. Gastrointestinal and deep vein thrombosis prophylaxis. Repeat labs. We will follow up. Kathy Thakur MD
[2017-01-09] MEDS: Levothyroxine 100 MCG TAB PO SCH (05:59)
[2017-01-09 06:50] LABS: GRAN # 9.34 (1.4-6.5); GRAN % 87.2 % (50.0-68.0); LYMPH # 0.8 (1.2-3.4); LYMPH % 7.8 % (22.0-35.0); MEAN CELL VOLUME 81.8 fl (80.0-105.0); MEAN CORPUSCULAR HEMOGLOBIN 26.4 pg (25.0-35.0); MEAN CORPUSCULAR HGB CONC 32.3 g/dl (31.0-37.0); MEAN PLATELET VOLUME 8.6 fl (7.0-11.0); MONO # 0.5 (0.1-0.6); RED CELL DISTRIBUTION WIDTH 16.6 % (11.5-14.5); WHITE BLOOD COUNT 10.7 10^3/ul (4.5-11.0)
[2017-01-09 07:02] LABS: ALB/GLOB RATIO 0.9 (1.1-1.8); ALKALINE PHOSPHATASE 193 U/L (38-133); ALT/SGPT 55 U/L (7-56); AST/SGOT 40 U/L (15-39); BILIRUBIN,TOTAL 0.2 mg/dL (0.2-1.3); BLOOD UREA NITROGEN 12 mg/dL (7-21); CALCIUM 8.8 mg/dL (8.4-10.5); CARBON DIOXIDE 25 mmol/L (21-33); CHLORIDE 103 mmol/L (98-107); GFR AFRICAN-AMERICAN > 60; GLUCOSE,RANDOM 204 mg/dL (70-110); MAGNESIUM 2.3 mg/dL (1.7-2.2); PHOSPHOROUS 3.8 mg/dL (2.5-4.5); POTASSIUM 3.9 mmol/L (3.6-5.0); SODIUM 139 mmol/L (132-148)
[2017-01-09] MEDS: Budesonide 0.5 mg/2 ml Inhal Susp UD IH SCH (07:57)
[2017-01-09] MEDS: Arformoterol 15 mcg/2 ml Inh Sol IH SCH (07:57)
[2017-01-09 08:49] VITALS: BP 130/76; PULSE 68; RESP 18; TEMP 98.5
[2017-01-09] MEDS: Enoxaparin 60 mg Syringe SC SCH (08:53)
[2017-01-09] MEDS: POLYETHYLENE GLYCOL 3350 17 GM/Dose PACKET PO SCH (09:12)
--- NOTE | 2017-01-28 19:37 | DS ---
CHIEF COMPLAINT: Fever. HISTORY OF PRESENT ILLNESS: Ms. Aurora Han is a 66-year-old lady with history of lung cancer came to the emergency room with intermittent fever for the past 10 days. The patient says that her oral temperature yesterday was 102.8 and 100.6 on the day of admission. The patient noticed that she took Tylenol and with that fever is coming down, but then again coming up. The patient denies sore throat. No nausea, vomiting, or diarrhea. No sick person or contact. No hematuria. No hematochezia. No swelling of the legs. We admitted the patient and did lumbar spine MRI, thoracic spine MRI, and humerus x-rays. The patient was seen by Dr. Alejo, Dr. Blanco Garza, and Dr. Bustamante, oncologist. Port was put. Discharged home. Followup as an outpatient. PAST MEDICAL HISTORY: Hypertension, lung cancer, pneumonia, hypothyroidism, history of colon cancer in 2008, colectomy done, status post chemotherapy, history of ovarian cyst, ovarian surgery, and hysterectomy. FAMILY HISTORY: Father and mother noncontributory. HABITS: Former smoker. Now no drugs. No ethanol. ALLERGIES: THE PATIENT IS NOT ALLERGIC WITH ANY MEDICATIONS. REVIEW OF SYSTEMS: The patient is seen and examined on the bedside, looking comfortable. No nausea, vomiting, or diarrhea. No hematuria or hematochezia. No swelling of the legs. No chest pain. No palpitation. No headache or dizziness. PHYSICAL EXAMINATION: VITAL SIGNS: Temperature 98.5, pulse 68, blood pressure 130/76, and respiratory rate 18. HEENT: Head is normocephalic and atraumatic. Eyes: PERRLA. Extraocular muscles intact. Conjunctivae clear. Nose is patent. Mucous membrane moist. NECK: Supple. No carotid bruits. No thyromegaly. CHEST: Bilaterally symmetrical. HEART: S1 and S2 positive. LUNGS: Clear to auscultation. ABDOMEN: Soft. Bowel sounds are present. No organomegaly. EXTREMITIES: No edema. No cyanosis. NEUROLOGIC: The patient is awake and alert. Moving all 4 extremities. No focal deficits. LABORATORY DATA: White blood cells 10.7, hemoglobin 10.0, hematocrit 31.0, and platelets 553. Sodium 139, potassium 3.9, BUN 12, creatinine 0.6, glucose 204, magnesium 2.3, AST 40, ALT 55, and alkaline phosphatase 193. ASSESSMENT AND PLAN: Ms. Aurora Han is a 66-year-old lady with hyperglycemia, hypermagnesemia, abnormal liver function tests, history of hypothyroidism, history of leukocytosis improved, anemia, thrombocytosis, and hematuria was admitted with fever. Seen by ID, pulmonary, oncology. Metastatic lung cancer, history of colon cancer, cervical cancer, chronic obstructive lung disease, hypertension, hypercholesterolemia, metastasis to the brain and liver. Started radiation and chemotherapy. Port is put. Gastric and DVT prophylaxis given. Antibiotics given. Discharged home on 01/08/2017. We will follow up as an outpatient. Kathy Thakur MD
== END 2017-01-09 14:14 | disposition home or self-care (01) | DRG 181 ==
LOC: ED 14:02 → ERH 15:44 → 3RSO 17:52
PROVIDERS: ADMIT Internal Medicine; ATTEND Internal Medicine
PROC: 30233N1 Transfusion of Nonautologous Red Blood Cells into Peripheral Vein, Percutaneous Approach (ICD-10-PCS; 2017-01-06)
PROC: D0001ZZ Beam Radiation of Brain using Photons 1 - 10 MeV (ICD-10-PCS; principal; 2017-01-07)
PROC: DP0C1ZZ Beam Radiation of Other Bone using Photons 1 - 10 MeV (ICD-10-PCS; 2017-01-07)
PROC: 05HM33Z Insertion of Infusion Device into Right Internal Jugular Vein, Percutaneous Approach (ICD-10-PCS; 2017-01-07)
PROC: B543ZZA Ultrasonography of Right Jugular Veins, Guidance (ICD-10-PCS; 2017-01-07)
PROC: 3E04305 Introduction of Other Antineoplastic into Central Vein, Percutaneous Approach (ICD-10-PCS; 2017-01-08)
DX: C34.10 Malignant neoplasm of upper lobe, unspecified bronchus or lung (principal); C78.7 Secondary malignant neoplasm of liver and intrahepatic bile duct; C79.31 Secondary malignant neoplasm of brain; C78.1 Secondary malignant neoplasm of mediastinum; R65.10 Systemic inflammatory response syndrome (SIRS) of non-infectious origin without acute organ dysfunction; C79.51 Secondary malignant neoplasm of bone; R50.81 Fever presenting with conditions classified elsewhere; I10 Essential (primary) hypertension; E03.9 Hypothyroidism, unspecified; E78.5 Hyperlipidemia, unspecified; J44.9 Chronic obstructive pulmonary disease, unspecified; K27.9 Peptic ulcer, site unspecified, unspecified as acute or chronic, without hemorrhage or perforation; E66.9 Obesity, unspecified; G43.909 Migraine, unspecified, not intractable, without status migrainosus; E78.00 Pure hypercholesterolemia, unspecified; D64.9 Anemia, unspecified; R73.9 Hyperglycemia, unspecified; Z85.41 Personal history of malignant neoplasm of cervix uteri; Z85.038 Personal history of other malignant neoplasm of large intestine; Z90.710 Acquired absence of both cervix and uterus; Z68.33 Body mass index [BMI] 33.0-33.9, adult; Z90.49 Acquired absence of other specified parts of digestive tract; Z87.891 Personal history of nicotine dependence

== ENCOUNTER 2017-05-17 18:52 | Inpatient (IN) | payer MEDICARE, OTHER ==
[2017-05-17 18:52] VITALS: BMI 31.5
[2017-05-17] MEDS ORDERED: Albuterol-Ipratrop 3 mg / 0.5 (3 ml) UD IH STA (19:49)
--- NOTE | 2017-05-17 19:56 | ED PDOC ---
Arrival/HPI - General Chief Complaint: Cough, Cold, Congestion Time Seen by Provider: 05/17/17 19:08 Historian: Patient, Family (Son ) - History of Present Illness Narrative History of Present Illness (Text): 05/17/17 19:46 Aurora Han is a 66 year old female, whose past medical history includes lung cancer, hypertension, hypothyroidism, colectomy secondary to colon cancer ( 2008), hysterectomy and cholecystectomy presents to the Emergency department complaining of intermittent coughing with blood and phlegm since last week. Patient informs symptoms began last week but improved on its own until another episode of coughing with blood yesterday. Son informs administering codeine and a nebulizer with some improvements to symptoms. Patient additionally informs mild sore throat, weakness and shortness of breath secondary to coughing. Patient denies any fever, chills, nausea, chest pain, abdominal pain or any other complaints. Patient is compliant with her radiation and chemotherapy and admits compliance with good diet. Time/Duration: 1 week Symptom Onset: Gradual Symptom Course: Unchanged Activities at Onset: Light Past Medical History - Provider Review Nursing Documentation Reviewed: Yes - Past History Past History: No Previous - Infectious Disease Hx of Infectious Diseases: None - Tetanus Immunization Tetanus Immunization: Unknown - Cardiac Hx Hypertension: Yes - Pulmonary Hx Respiratory Disorders: Yes Hx Pneumonia: Yes Other/Comment: lung mass found on cxr - Neurological Hx Neurological Disorder: No - HEENT Hx HEENT Disorder: Yes (glasses, itchy eyes) - Renal Hx Renal Disorder: No - Endocrine/Metabolic Hx Endocrine Disorders: Yes Hx Hypothyroidism: Yes - Hematological/Oncological Hx Blood Disorders: Yes Hx Cancer: Yes (COLON 2009, colectomy; Lung) Hx Chemotherapy: Yes (05/07/2017) Other/Comment: recently dx with lung ca, lung bx done. radiation done today - Integumentary Hx Dermatological Disorder: No - Musculoskeletal/Rheumatological Hx Musculoskeletal Disorders: No Hx Falls: No - Gastrointestinal Hx Gastrointestinal Disorders: Yes Other/Comment: 2008 COLON CANCER COLECTOMY - Genitourinary/Gynecological Hx Genitourinary Disorders: Yes Other/Comment: HX OVARIAN CYSTECTOMY OPEN 1997 HYSTERECTOMY OCTOBER 2013 - Psychiatric Hx Psychophysiologic Disorder: No Hx Substance Use: No - Surgical History Hx Cholecystectomy: Yes Other/Comment: Ovarian Cyst sx, lcw pac in and out, c section, tubal. Colon Sx. Lung biopsy - Anesthesia Hx Anesthesia: Yes Hx Anesthesia Reactions: Yes (NAUSEA VOMITTING) Hx Malignant Hyperthermia: No - Suicidal Assessment Feels Threatened In Home Enviroment: No Family/Social History - Physician Review Nursing Documentation Reviewed: Yes Family/Social History: Unknown Family HX Smoking Status: Former Smoker Hx Alcohol Use: No Hx Substance Use: No Hx Substance Use Treatment: No Allergies/Home Meds Allergies/Adverse Reactions: Allergies No Known Allergies Allergy (Verified 05/17/17 19:01) Home Medications: Home Meds Medication Instructions Recorded Confirmed Levothyroxine 100 mcg PO DAILY 03/05/13 05/17/17 Ketotifen Fumarate 1 drop BOTHEYES BID 12/15/16 05/17/17 Lisinopril [Prinivil] 5 mg PO DAILY 12/15/16 05/17/17 Methylprednisolone [Medrol] 8 mg PO BID 02/26/17 05/17/17 Folic Acid [Folic Acid] 1 mg PO DAILY 03/20/17 05/17/17 metFORMIN [glucOPHAGE] 500 mg PO BID 04/16/17 05/17/17 Promethazine DM [Phenergan DM Oral 1 tbs PO HS 05/17/17 05/17/17 Syrup] Review of Systems - Physician Review All systems were reviewed & negative as marked: Yes - Review of Systems Constitutional: Normal. absent: Fevers Eyes: Normal ENT: Sore Throat (mild ) Respiratory: SOB (secondary to coughing ), Cough (cough with phlegm ) Cardiovascular: Normal. absent: Chest Pain Gastrointestinal: Vomiting, Hematemesis. absent: Abdominal Pain, Diarrhea, Nausea Genitourinary Female: Normal Musculoskeletal: Normal Skin: Normal Neurological: Normal. absent: Dizziness Endocrine: Normal Hemo/Lymphatic: Normal Psychiatric: Normal Physical Exam Vital Signs Reviewed: Yes Vital Signs Temp Pulse Resp BP Pulse Ox 05/17/17 19:02 98.2 F 120 H 18 116/71 96 Temperature: Afebrile Blood Pressure: Normal Pulse: Tachycardic Respiratory Rate: Normal Appearance: Positive for: Well-Appearing, Non-Toxic, Comfortable Pain Distress: None Mental Status: Positive for: Alert and Oriented X 3 - Systems Exam Head: Present: Atraumatic, Normocephalic Pupils: Present: PERRL Extroacular Muscles: Present: EOMI Conjunctiva: Present: Normal Mouth: Present: Moist Mucous Membranes Pharnyx: Present: Normal Nose (Internal): Present: Other (Nasal Congestion ) Neck: Present: Normal Range of Motion Respiratory/Chest: Present: Good Air Exchange, Rhonchi (bilaterally ), Other ( Blood in Sputum ). No: Respiratory Distress, Accessory Muscle Use Cardiovascular: Present: Regular Rate and Rhythm, Normal S1, S2. No: Murmurs Abdomen: Present: Normal Bowel Sounds. No: Tenderness, Distention, Peritoneal Signs Back: Present: Normal Inspection Upper Extremity: Present: Normal Inspection. No: Cyanosis, Edema Lower Extremity: Present: Normal Inspection. No: Edema Neurological: Present: GCS=15, CN II-XII Intact, Speech Normal Skin: Present: Warm, Dry, Normal Color. No: Rashes Psychiatric: Present: Alert, Oriented x 3, Normal Insight, Normal Concentration Medical Decision Making ED Course and Treatment: 05/17/17 20:05 Impression: 66 year old female presents to the Emergency department for coughing with blood. Differential Diagnosis included but are not limited to: acute bronchitis vs. pneumonia Plan: -- VBG -- Labs -- Chest X-ray -- Codeine -- Reassess and disposition Prior Visits: Notes and results from previous visits were reviewed. On 01/03/17 patient was seen in the Emergency department for intermittent fever. Patient was admitted to the hospital for further observation. Progress Notes: 05/17/17 21:11 Patient's WBC is elevated at 24. CXR shows Right PNA and will treat with Rocephin and Azithromycin. Patient feels a little with tylenol with codeine and neb tx. Case discussed with Dr. Rogelio Reed who agrees to place the patient on his service. He will consult Dr. Peters and Dr. Alejo. - Lab Interpretations Lab Results: 05/17/17 20:30 Lab Results 05/17/17 20:30: pO2 127 H, VBG pH 7.41, VBG pCO2 31.0 L, VBG HCO3 19.6 L, VBG Total CO2 20.6 L, VBG O2 Sat (Calc) 99.1 H, VBG Base Excess -4.0 L, VBG Potassium 5.0, Sodium 133.0, Chloride 102.0, Glucose 180 H, Lactate 1.7, FiO2 21.0, Venous Blood Potassium 5.0 05/17/17 20:30: WBC 24.2 H D, RBC 3.83, Hgb 10.5 L, Hct 33.9 L, MCV 88.5, MCH 27.4, MCHC 31.0, RDW 19.8 H, Plt Count 577 H, MPV 8.4, Gran % 93.5 H, Lymph % ( Auto) 1.6 L, Nye % (Auto) 4.4, Eos % (Auto) 0.5 L, Baso % (Auto) 0.0, Gran # 22.59 H, Lymph # 0.4 L, Nye # 1.1 H, Eos # 0.1, Baso # 0.01, Neutrophils % ( Manual) Pending, Lymphocytes % (Manual) Pending, Monocytes % (Manual) Pending - RAD Interpretation Radiology Orders: 05/17/17 19:48 CHEST PORTABLE [RAD] Stat - Medication Orders Current Medication Orders: Acetaminophen (Tylenol 325mg Tab) 650 mg PO Q6H PRN PRN Reason: Pain, Mild (1-3) Codeine Sulfate (Codeine) 30 mg PO Q4H PRN PRN Reason: Cough Folic Acid (Folic Acid) 1 mg PO DAILY NORMA Sodium Chloride (Sodium Chloride 0.9%) 1,000 mls @ 999 mls/hr IV .Q1H1M STA Stop: 05/17/17 22:02 Insulin Human Regular (Humulin R Low) 0 units SC ACHS NORMA PRN Reason: Protocol Levothyroxine Sodium (Synthroid) 100 mcg PO 0600 NORMA Lisinopril (Zestril) 5 mg PO DAILY NORMA Megestrol Acetate (Megace) 200 mg PO DAILY NORMA Oxycodone HCl (Oxycodone Immediate Release Tab) 15 mg PO Q6H PRN PRN Reason: Pain, severe (8-10) Pantoprazole Sodium (Protonix Ec Tab) 20 mg PO 0600 NORMA Polyethylene Glycol (Miralax) 17 gm PO DAILY NORMA Discontinued Medications Acetaminophen (Tylenol 325mg Tab) 650 mg PO STAT STA Stop: 05/17/17 19:52 Albuterol/Ipratropium (Duoneb 3 Mg/0.5 Mg (3 Ml) Ud) 3 ml IH STAT STA Stop: 05/17/17 19:50 Codeine Sulfate (Codeine) 30 mg PO STAT STA Stop: 05/17/17 19:51 Disposition/Present on Arrival - Present on Arrival Any Indicators Present on Arrival: No History of DVT/PE: No History of Uncontrolled Diabetes: No Urinary Catheter: No History of Decub. Ulcer: No History Surgical Site Infection Following: None - Disposition Have Diagnosis and Disposition been Completed?: Yes Diagnosis: Pneumonia, Hemoptysis Disposition: HOSPITALIZED Disposition Time: 21:14 Patient Plan: Admission Condition: FAIR Referrals: Damián James [Primary Care Provider] - Follow up with primary Forms: [employer] (E[place]ian)
[2017-05-17 20:45] LABS: BASO # 0.01 K/mm3 (0.0-2.0); EOS # 0.1 (0.0-0.7); EOS % 0.5 % (1.5-5.0); GRAN # 22.59 (1.4-6.5); GRAN % 93.5 % (50.0-68.0); HEMOGLOBIN 10.5 g/dL (12.0-16.0); LYMPH # 0.4 (1.2-3.4); LYMPH % 1.6 % (22.0-35.0); MEAN CELL VOLUME 88.5 fl (80.0-105.0); MEAN CORPUSCULAR HEMOGLOBIN 27.4 pg (25.0-35.0); MEAN PLATELET VOLUME 8.4 fl (7.0-11.0); MONO # 1.1 (0.1-0.6); MONO % 4.4 % (1.0-6.0); RBC 3.83 10^6/uL (3.5-6.1); RED CELL DISTRIBUTION WIDTH 19.8 % (11.5-14.5); WHITE BLOOD COUNT 24.2 10^3/ul (4.5-11.0)
[2017-05-17] MEDS ORDERED: Sodium Chloride 0.9% 500 ML IV STA (20:51)
[2017-05-17] MEDS ORDERED: Sodium Chloride 0.9% 1,000 ML IV STA (21:02)
[2017-05-17 21:04] LABS: VENOUS BLOOD GAS PO2 127 mm/Hg (30-55); VENOUS BLOOD PH 7.41 (7.32-7.43)
[2017-05-17 21:14] LABS: ALB/GLOB RATIO 0.9 (1.1-1.8); ALBUMIN 4.1 g/dL (3.0-4.8); ALT/SGPT 167 U/L (7-56); AST/SGOT 110 U/L (14-36); BLOOD UREA NITROGEN 16 mg/dL (7-21); CALCIUM 9.7 mg/dL (8.4-10.5); GFR AFRICAN-AMERICAN > 60; GFR NON-AFRICAN AMERICAN > 60; MAGNESIUM 1.9 mg/dL (1.7-2.2)
[2017-05-17 21:22] LABS: BAND 1 % (0-2); LYMPHOCYTE 3 % (22.0-35.0); MONOCYTE 2 % (1.0-6.0); NEUTROPHIL 94 % (50.0-70.0)
[2017-05-17 21:24] LABS: PLATELET COUNT 577 10^3/uL (120.0-450.0)
[2017-05-17] MEDS: Insulin Reg-LOW-Coverage SC SCH (22:57)
[2017-05-17] MEDS ORDERED: Cefepime IV 2 gm in NS 2 GM/100 ML BAG IVPB STA (23:22)
[2017-05-18] MEDS ORDERED: Influenza Vaccine 60 mcg/0.5 mL SYR (4YR UP) IM ONE (00:31)
[2017-05-18 03:06] LABS: URINE BILIRUBIN NEGATIVE (NEGATIVE); URINE BLOOD TRACE-INTACT (NEGATIVE); URINE GLUCOSE (UA) NEGATIVE (NEGATIVE); URINE LEUKOCYTE ESTERASE MODERATE Leu/uL (NEGATIVE); URINE NITRATE NEGATIVE (NEGATIVE); URINE PROTEIN TRACE mg/dL (<30 mg/dL); URINE UROBILINOGEN 0.2 E.U./dL (<1 E.U./dL)
[2017-05-18 03:21] LABS: URINE APPEARANCE SL CLOUDY (CLEAR); URINE COLOR YELLOW (YELLOW)
[2017-05-18 03:22] LABS: URINE EPITHELIAL CELLS 0 - 2 /hpf (0-5); URINE RBC 0 - 2 /hpf (0-2)
[2017-05-18 03:23] LABS: URINE BACTERIA MANY (NEG)
--- NOTE | 2017-05-18 05:36 | HP ---
This is her admission and history and physical. For Dr. Bustamante. CHIEF COMPLAINT: Hemoptysis. HISTORY OF PRESENT ILLNESS: The patient is 66-year-old female, to be admitted by the emergency room after patient reported coughing of blood with the patient having had a visit with Dr. Bustamante in the office yesterday for a cough. 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 Sherice Peters with recent scans showing progression of her disease with the patient to have followup treatment with Keytruda continuing next week. Her family reports that she had been coughing up blood like sputum, beginning a few hours ago with the cough, possibly related to her disease process, as the CT scan of the chest done on 05/09/2017 showed that the patient had increasing size of tumor in the right upper lobe of the chest, increased size of right suprahilar area with hilar lymphadenopathy, mild increase in mediastinal lymphadenopathy, slight increase in size of the left lobe with hepatic metastases, stable right lobe hepatic metastases, partial new tiny metastases with sclerotic changes to the C7 vertebrae, epidural soft tissue extension to the spinal canal, mixed sclerotic and lytic metastases to T7 with possible posterior epidural soft tissue extension to the spinal canal, sclerotic metastases to L1 and L4 vertebral bodies. She also had an MRI of her thoracic spine done on 05/10/2017, that was read as destructive enhancing bony lesion surrounding with bone marrow edema noted at T7 vertebral body, highly suggestive of metastases. No evidence of cord compression, multilevel small disc protrusion associated with mild spinal and neuroforaminal narrowing, hyperintensity in T1 and T2 bony lesion noted, T6 and T12 may represent benign hemangioma, large mass lesion at the central portion of the right lung, likely represent malignant neoplasm with a cervical spine. MRI done on 05/10/2017 also reporting that. There is an enhancing bony lesion at the anterior aspect of C7 surrounding bone marrow edema, highly suspicious for osseous metastases. No evidence of compression deformity in the cervical spine, multilevel small disc bulged, more prominent C3-4 associated with mild spinal stenosis on the cord compression. She also had MRI of her brain done on 04/23/2017 that was read as no evidence of metastatic disease, as she was treated with radiation with good effect, as her MRI of her brain done on 01/02/2017 showed probable metastatic lesions in the left frontal lobe and right posterior temporal lobe with most recent MRI of the brain showing again no evidence of metastatic disease. Her family is at the bedside with the patient having the cough as the main complaint, as her severe pain is now significantly improved. ALLERGIES: NO KNOWN ALLERGIES. MEDICATIONS: At this point include metformin, folic acid, Amitiza, omeprazole, lisinopril, L-thyroxine, meclozine, Colace, Megace, potassium, moxifloxacin eye drops, oxycodone, Medrol, promethazine with codeine, and codeine tablets. PAST MEDICAL HISTORY: Significant for hypertension, diabetes melitis, hypothyroidism, history of cancer to the cervix, squamous cell diagnosed in 09/2013, eventually having hysterectomy with one third of the upper vagina with right salpingo-oophorectomy, done by Dr. Matt Blank in 2013. 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 She also had cancer of the colon with chemotherapy done by Dr. Bustamante in 2008. Also status post tympanostomy tube placement in the recent past. FAMILY AND SOCIAL HISTORY : The patient is smoking a pack a day for approximately 20 years including in 2008. 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 She has 4 daughters, 2 sons, all alive and well. Two brothers and three sisters, one brother with diabetes, all alive. REVIEW OF SYSTEMS: A 12-point review of systems was done, which was negative to questioning except for items mentioned in the history of present illness as above. She ambulates with a measured gait. PHYSICAL EXAMINATION: VITAL SIGNS: Temperature 98.2, pulse 120, respirations 18, blood pressure 116/71, pulse ox 96%. HEENT: Unremarkable. NECK: Supple. HEART: Tachy rate, regular rhythm. LUNGS: Occasional rhonchi. ABDOMEN: Obese, soft, and nontender. EXTREMITIES: No edema. SKIN: Warm and dry. NEUROLOGIC: Awake, alert, and oriented. LABORATORY DATA: Pending with her most recent lab from 04/27/2017 showing white blood cell count of 12.3, hemoglobin of 9.4, hematocrit of 30.5, platelet count of 459,000, with a chem metabolic panel within normal range except for potassium of 3.5. AST of 37 and ALT of 70. The patient has other testing pending now with the above findings from May 10 and May 09 noted along with her brain MRI from April 23. ASSESSMENT: For this patient is that of hemoptysis, rule out pneumonia with known stage 4 non-small cell carcinoma of the lung, chemotherapy with Keytruda. The patient is due for Aredia for her bony lesions in the near future. She also suffers from hypertension. However, we will hold her lisinopril as she has cough at present, would restart the lisinopril once her cough improves. She also is taking Amitiza at home. We will change this to MiraLax as Amitiza is not on formulary here at this hospital. The patient also suffers from hypothyroidism, history of colon cancer, squamous cell cancer of the cervix with stage 4 non-small cell CA involving her cervical and thoracic spine with mediastinal lymphadenopathy, and liver metastases. Her intractable pain is now well controlled. The plan for this patient is to after consult with Dr. Alejo, Pulmonology, and Dr. Peters, Radiation Oncology, we will continue present medical regimen. We will ask for a trail of codeine 30 mg every 4 hours p.r.n. for cough to see if this will help with her cough with other modalities including IV antibodies and IV steroids as per Dr. Alejo, Pulmonology. We will check in a month clinically with labs with prognosis for this patient being guarded. Rogelio Reed MD
[2017-05-18] MEDS: Pantoprazole 20 mg EC Tab PO SCH (05:45)
[2017-05-18] MEDS ORDERED: Levothyroxine 100 MCG TAB PO SCH (06:00)
[2017-05-18] MEDS: Albuterol-Ipratrop 3 mg / 0.5 (3 ml) UD IH SCH ×4 (06:26→20:14)
[2017-05-18 07:50] LABS: BASO # 0.01 K/mm3 (0.0-2.0); EOS # 0.1 (0.0-0.7); EOS % 0.6 % (1.5-5.0); GRAN # 19.31 (1.4-6.5); HEMOGLOBIN 9.2 g/dL (12.0-16.0); LYMPH # 0.7 (1.2-3.4); LYMPH % 3.2 % (22.0-35.0); MEAN CELL VOLUME 88.3 fl (80.0-105.0); MEAN CORPUSCULAR HEMOGLOBIN 26.8 pg (25.0-35.0); MEAN CORPUSCULAR HGB CONC 30.4 g/dl (31.0-37.0); MEAN PLATELET VOLUME 8.4 fl (7.0-11.0); MONO # 0.9 (0.1-0.6); MONO % 4.2 % (1.0-6.0); RBC 3.43 10^6/uL (3.5-6.1); RED CELL DISTRIBUTION WIDTH 19.9 % (11.5-14.5)
[2017-05-18 07:55] LABS: ALB/GLOB RATIO 0.9 (1.1-1.8); ALBUMIN 3.6 g/dL (3.0-4.8); ALT/SGPT 142 U/L (7-56); AST/SGOT 66 U/L (14-36); BLOOD UREA NITROGEN 13 mg/dL (7-21); GFR AFRICAN-AMERICAN > 60; GFR NON-AFRICAN AMERICAN > 60
[2017-05-18] MEDS: Insulin Reg-LOW-Coverage SC SCH ×4 (08:59→22:00)
--- NOTE | 2017-05-18 09:09 | CP.PCM.CON ---
History of Present Illness - History of Present Illness History of Present Illness: Ms Han is known to our department. She has stage IV lung cancer on keytruda. We had originall seen her in consultation recently for back pain as well as cough. She had recent imaging studies of the chest, abdomen and pelvis as well as MRI of the spine. She had evidence of increased progression and enlargement of the right hilar lung mass. She is currently on palliative radiation therapy to the cervical and thoracic spine lesion. She is also getting palliative radiation to the lung mass. She was admitted to [facility] [place] [facility] [place] with cough and blood tinged sputum. Review of Systems - EENT Nose/Mouth/Throat: Sore Throat - Respiratory Respiratory: Cough, Hemoptysis Past Patient History - Infectious Disease Hx of Infectious Diseases: None - Tetanus Immunizations Tetanus Immunization: Unknown - Past Medical History & Family History Past Medical History?: Yes - Past Social History Smoking Status: Never Smoked - CARDIAC Hx Hypertension: Yes - PULMONARY Hx Respiratory Disorders: Yes Hx Pneumonia: Yes Other/Comment: lung mass found on cxr - NEUROLOGICAL Hx Neurological Disorder: No - HEENT Hx HEENT Problems: Yes (glasses, itchy eyes) - RENAL Hx Chronic Kidney Disease: No - ENDOCRINE/METABOLIC Hx Endocrine Disorders: Yes Hx Hypothyroidism: Yes - HEMATOLOGICAL/ONCOLOGICAL Hx Blood Disorders: Yes Hx Cancer: Yes (COLON 2009, colectomy; Lung) Hx Chemotherapy: Yes (05/07/2017) Other/Comment: recently dx with lung ca, lung bx done. radiation done today - INTEGUMENTARY Hx Dermatological Problems: No - MUSCULOSKELETAL/RHEUMATOLOGICAL Hx Falls: No - GASTROINTESTINAL Hx Gastrointestinal Disorders: Yes Other/Comment: 2008 COLON CANCER COLECTOMY - GENITOURINARY/GYNECOLOGICAL Hx Genitourinary Disorders: Yes Other/Comment: HX OVARIAN CYSTECTOMY OPEN 1997 HYSTERECTOMY OCTOBER 2013 - PSYCHIATRIC Hx Psychophysiologic Disorder: No - SURGICAL HISTORY Hx Cholecystectomy: Yes Other/Comment: Ovarian Cyst sx, lcw pac in and out, c section, tubal. Colon Sx. Lung biopsy - ANESTHESIA Hx Anesthesia: Yes Hx Anesthesia Reactions: Yes (NAUSEA VOMITTING) Hx Malignant Hyperthermia: No Meds Allergies/Adverse Reactions: Allergies Allergy/AdvReac Type Severity Reaction Status Date / Time No Known Allergies Allergy Verified 05/17/17 19:01 - Medications Medications: Current Medications Acetaminophen (Tylenol 325mg Tab) 650 mg PO Q6H PRN PRN Reason: Pain, Mild (1-3) Albuterol/Ipratropium (Duoneb 3 Mg/0.5 Mg (3 Ml) Ud) 3 ml IH [id number] [facility] Last Admin: 05/18/17 08:27 Dose: Not Given Codeine Sulfate (Codeine) 30 mg PO Q4H PRN PRN Reason: Cough Last Admin: 05/18/17 03:20 Dose: 30 mg Folic Acid (Folic Acid) 1 mg PO DAILY [facility] Cefepime HCl (Maxipime 2gm) 2 gm in 100 mls @ 100 mls/hr IVPB DAILY [facility] PRN Reason: Protocol Stop: 05/23/17 10:01 Insulin Human Regular (Humulin R Low) 0 units SC ACHS [facility] PRN Reason: Protocol Last Admin: 05/18/17 08:59 Dose: Not Given Levothyroxine Sodium (Synthroid) 100 mcg PO 0600 [facility] Last Admin: 05/18/17 05:45 Dose: 100 mcg Lisinopril (Zestril) 5 mg PO DAILY [facility] Megestrol Acetate (Megace) 200 mg PO DAILY [facility] Methylprednisolone (Medrol) 4 mg PO TID [facility] Oxycodone HCl (Oxycodone Immediate Release Tab) 15 mg PO Q6H PRN PRN Reason: Pain, severe (8-10) Pantoprazole Sodium (Protonix Ec Tab) 20 mg PO 0600 [facility] Last Admin: 05/18/17 05:45 Dose: 20 mg Polyethylene Glycol (Miralax) 17 gm PO DAILY [facility] Results - Vital Signs Recent Vital Signs: Last Vital Signs Temp 98 F 05/18/17 08:30 Pulse 90 05/18/17 08:30 Resp 24 05/18/17 08:30 BP 136/90 05/18/17 08:30 Pulse Ox 99 05/18/17 08:30 - Labs Result Diagrams: 05/18/17 07:00 05/18/17 07:00 Labs: Laboratory Results - last 24 hr 05/17/17 05/18/17 05/18/17 22:54 01:15 07:00 WBC 21.0 H RBC 3.43 L Hgb 9.2 L Hct 30.3 L MCV 88.3 MCH 26.8 MCHC 30.4 L RDW 19.9 H Plt Count 567 H MPV 8.4 Gran % 92.0 H Lymph % (Auto) 3.2 L Mcminn % (Auto) 4.2 Eos % (Auto) 0.6 L Baso % (Auto) 0.0 Gran # 19.31 H Lymph # 0.7 L Mcminn # 0.9 H Eos # 0.1 Baso # 0.01 Sodium Potassium Chloride Carbon Dioxide Anion Gap BUN Creatinine Est GFR ( Amer) Est GFR (Non-Af Amer) POC Glucose (mg/dL) 157 H Random Glucose Calcium Total Bilirubin AST ALT Alkaline Phosphatase Total Protein Albumin Globulin Albumin/Globulin Ratio TSH 3rd Generation Urine Color Yellow Urine Appearance Sl cloudy Urine pH 6.0 Ur Specific [place] 1.025 Urine Protein Trace H Urine Glucose (UA) Negative Urine Ketones Negative Urine Blood Trace-intact H Urine Nitrate Negative Urine Bilirubin Negative Urine Urobilinogen 0.2 Ur Leukocyte Esterase Moderate H Urine RBC 0 - 2 Urine WBC 10 - 15 Ur Epithelial Cells 0 - 2 Urine Bacteria Many 05/18/17 05/18/17 05/18/17 07:00 07:00 07:31 WBC RBC Hgb Hct MCV MCH MCHC RDW Plt Count MPV Gran % Lymph % (Auto) Mcminn % (Auto) Eos % (Auto) Baso % (Auto) Gran # Lymph # Mcminn # Eos # Baso # Sodium 136 Potassium 4.1 Chloride 103 Carbon Dioxide 20 L Anion Gap 17 BUN 13 Creatinine 0.7 Est GFR ( Amer) > 60 Est GFR (Non-Af Amer) > 60 POC Glucose (mg/dL) 117 H Random Glucose 109 Calcium 9.0 Total Bilirubin 0.5 AST 66 H D ALT 142 H Alkaline Phosphatase 223 H Total Protein 7.6 Albumin 3.6 Globulin 4.0 Albumin/Globulin Ratio 0.9 L TSH 3rd Generation 16.80 H Urine Color Urine Appearance Urine pH Ur Specific [place] Urine Protein Urine Glucose (UA) Urine Ketones Urine Blood Urine Nitrate Urine Bilirubin Urine Urobilinogen Ur Leukocyte Esterase Urine RBC Urine WBC Ur Epithelial Cells Urine Bacteria Assessment & Plan - Assessment and Plan (Free Text) Assessment: Ms Han is a 66 year old female with stage IV lung cancer. Based on her pain and cough, she is on palliative radiation for the bone metastases as well as increased lung mass. The radiation should help mitigate her cough. If her bleeding is due to her pulmonary disease, the radiation treatment should help as the tumor shrinks. From the radiation perspective, we would continue her current treatment. For her sore throat, once could offer her magic mouth wash as needed.
[2017-05-18] MEDS ORDERED: Cefepime IV 2 gm in NS 2 GM/100 ML BAG IVPB SCH (10:00)
[2017-05-18] MEDS: Megestrol Acetate 40 mg/ml Cup PO SCH (10:04)
[2017-05-18] MEDS: POLYETHYLENE GLYCOL 3350 17 GM/Dose PACKET PO SCH (10:05)
--- NOTE | 2017-05-18 13:32 | RAD ---
HISTORY: Sepsis Patient COMPARISON: Comparison made with CT scan chest abdomen pelvis 05/09/2017. . FINDINGS: LUNGS: Re- demonstrated is a poorly defined right upper lobe/right suprahilar mass lesion with what appears represent some superior retraction of the right hilum and associated chronic atelectasis and or thickening of the fissure. Suspect mild left basilar atelectasis. PLEURA: No significant pleural effusion identified, no pneumothorax apparent. CARDIOVASCULAR: Heart remains enlarged. OSSEOUS STRUCTURES: No significant abnormalities. VISUALIZED UPPER ABDOMEN: Normal. OTHER FINDINGS: None. IMPRESSION: Poorly defined right upper lobe/right suprahilar mass lesion with what appears represent some superior retraction of the right hilum and associated chronic atelectasis or thickening of the fissure. Suspect mild left basilar atelectasis.
--- NOTE | 2017-05-18 14:52 | CARD ---
APPROVED REPORT EKG Measurement Heart [id number] <Conclusion> Sinus tachycardia Possible Left atrial enlargement Nonspecific ST abnormality Abnormal ECG
--- NOTE | 2017-05-18 18:17 | PN ---
DATE: 05/18/2017 This is [facility] visit on the medical floor. REFERRING PHYSICIAN: Dr. 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 Arlene Peters. She has continued her radiation treatment with Dr. Peters to be resumed next week after the holiday with the hemoptysis noted blood like sputum with consideration for suspicious findings on her chest x-ray with antibiotics being given and consultants recommendation is being implemented. With this, the patient is otherwise being treated by Dr. Alejo with increase of her oral steroids. The patient was seen with her daughter at the bedside. She appears to be in no acute distress. OBJECTIVE/PHYSICAL EXAMINATION VITAL SIGNS: Temperature 98, pulse 90, respirations 24, blood pressure 136/90, pulse ox 99%. HEENT: Tongue is moist and midline. NECK: Supple. HEART: Tachy rate, regular rhythm. LUNGS: Scattered rhonchi. Rare expiratory wheeze. ABDOMEN: Obese, soft, and nontender. EXTREMITIES: No edema. SKIN: Warm and dry. NEUROLOGIC: Awake and alert. The patient denies any pain. LABORATORY DATA: The patient's EKG and chest x-ray were done they were not read yet, we will wait for the hard copy report. The patient was seen by Dr. Arlene Peters radiation oncology with Dr. Peters reporting the patient is receiving palliative radiation to the lung mass with increase progression enlargement of the right hilar lung mass. Also progression in cervical and thoracic spine. The patient's labs were done, white blood cell count of 21.0, hemoglobin of 9.2, hematocrit 30.3, and platelet count of 567,000. Chem metabolic panel showing an AST of 66 down from 110 yesterday, ALT of 142 down from 167 yesterday with a TSH of 16.8 with her Synthroid to be adjusted otherwise normal chem metabolic panel. ASSESSMENT: The assessment for this patient is that of hemoptysis, rule out pneumonia. 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 Brain metastasis now controlled. PLAN: Plan for this patient after conversation with Dr. Bustamante is to continue present medical regimen as per Dr. Alejo with codeine for her cough, with monitoring clinically with labs, with adjustment of her medications for her comfort, with continuation of radiation and as indicated with eventual Aredia to be given for her bony lesions. We also asked for consult with Dr. García of Infectious Disease regarding the possible pneumonia behind her tumor mass in her lung. We will also get MiraLax for constipation. The prognosis for this patient is guarded. We will monitor clinically with labs. This is a complex patient with multiple comorbidities with a comprehensive medically necessary and appropriate exam carried out at the bedside with [id number] time in excess of 30 minutes. The patient's daughter was at the bedside and her questions were answered. Rogelio Reed MD
--- NOTE | 2017-05-19 01:38 | CON ---
DATE: 05/18/2017 PULMONARY CONSULTATION NOTE REFERRING PHYSICIAN: Rogelio Reed MD REASON FOR CONSULTATION: Metastatic lung cancer status post radiation with cough, shortness of breath, and wheezing. HISTORY OF PRESENT ILLNESS: This is a 66-year-old female known to me with history of [id number] cancer of the lung with mets to the brain, bone, liver, she is now on radiation therapy, also been on chemotherapy, the patient developed some stridor, cough with blood-tinged sputum production. Last CAT scan which was done about 8-9 days ago shows increased size of the tumor with right upper lobe of the chest, also increase size of the right suprahilar area adenopathy, also has sclerotic change in the C7 vertebra. There is epidural soft tissue extension into the spinal canal. MRI suggestive of bone marrow edema at T7 vertebra. Presently lying in the bed, seen by Oncology service, is also seen by Radiation Oncology. Does have some stridor, which is inspiratory. No chest pain. No nausea, no vomiting, no diarrhea, leg pain or leg swelling. ALLERGIES :NONE KNOWN. SOCIAL HISTORY: Positive history of smoking. Denies any alcohol use. FAMILY HISTORY: Positive for diabetes. PAST MEDICAL HISTORY: Hypertension, diabetes, hypothyroid, history of cervix cancer in the past, also has a history of colon cancer in the past and chronic obstructive lung disease. MEDICATIONS: She is on codeine 30 mg q. 4 hours p.r.n., DuoNeb q. 6 hours, folic acid 1 mg daily, cefepime 2 g IV daily, Medrol 4 mg three times a day, Megace 20 mg daily, MiraLax 17 g daily, oxycodone immediate release 50 mg q. 6 hours, Protonix 40 mg daily, Synthroid 125 mcg daily, Tylenol p.r.n., and Zestril 5 mg daily. REVIEW OF SYSTEMS: No headache. No rhinitis. Has a cough with blood-tinged sputum, wheezing, no chest pain. No nausea, no vomiting or no diarrhea. No leg pain or leg swelling. PHYSICAL EXAMINATION GENERAL: Lying in the bed, mild distress secondary to cough and shortness of breath. VITAL SIGNS: Temperature is 98, heart is 90, respiratory rate is 20, blood pressure 136/90, pulse and 95% on room air. HEENT: Moist mucous membrane. Crowded airway. Mallampati score is IV. NECK: Supple. No JVD. LUNGS: Has a inspiratory stridor. HEART: S1, S2. ABDOMEN: Soft, nontender, no organomegaly. EXTREMITIES: Not much edema. NEUROLOGIC: Awake and follows simple commands. LABORATORY DATA: Shows hemoglobin 9.2, hematocrit 30.3, WBC 21,000, platelet is 567. VBG showed pH 7.41, pCO2 of 31, O2 127 that is on nasal cannula. Sodium 136, potassium 4.1, chloride 103, bicarbonate 20, BUN 13, creatinine 0.7, glucose 138, calcium 9.0, AST 66, ALT 142, alk phos is 223, albumin 3.6. TSH is 16. Urinalysis shows wbc 10-50, rbc 0-2. IMPRESSION AND PLAN: Metastatic lung cancer to liver, spine, recently found to have a progressive disease especially involving the lung and bone, last radiation therapy was a day ago, also may have component of chronic obstructive lung disease, hypertension, constipation, also has a history of hypothyroid with colon cancer in the past, also has cervical cancer in the past. Case discussed with nursing staff last night. Continue steroids, continue antibiotics. Continue cough suppressant. We will get CT scan of the neck to show the patency of vocal cord rule-out any pharyngeal, laryngeal and subglottic mass. Keep head elevated at 45 degrees, SCDs to lower extremity. Gastric prophylaxis, Oncology followup. Thank you and we will follow with you Ashlie Alejo MD
[2017-05-19] MEDS: Albuterol-Ipratrop 3 mg / 0.5 (3 ml) UD IH SCH ×4 (02:24→20:30)
[2017-05-19] MEDS: Pantoprazole 20 mg EC Tab PO SCH (06:15)
[2017-05-19] MEDS: Levothyroxine 125 MCG TAB PO SCH (06:15)
[2017-05-19 07:54] LABS: BASO # 0.01 K/mm3 (0.0-2.0); BASO % 0.1 % (0.0-3.0); EOS # 0.1 (0.0-0.7); EOS % 0.3 % (1.5-5.0); GRAN # 18.47 (1.4-6.5); GRAN % 92.2 % (50.0-68.0); HEMOGLOBIN 10.1 g/dL (12.0-16.0); LYMPH # 0.6 (1.2-3.4); LYMPH % 3.2 % (22.0-35.0); MEAN CELL VOLUME 88.4 fl (80.0-105.0); MEAN CORPUSCULAR HEMOGLOBIN 27.2 pg (25.0-35.0); MEAN CORPUSCULAR HGB CONC 30.7 g/dl (31.0-37.0); MEAN PLATELET VOLUME 8.5 fl (7.0-11.0); MONO # 0.8 (0.1-0.6); MONO % 4.2 % (1.0-6.0); RBC 3.72 10^6/uL (3.5-6.1); RED CELL DISTRIBUTION WIDTH 19.7 % (11.5-14.5)
[2017-05-19] MEDS: Insulin Reg-LOW-Coverage SC SCH ×3 (08:00→17:42)
[2017-05-19 08:02] LABS: ALB/GLOB RATIO 0.9 (1.1-1.8); ALBUMIN 3.8 g/dL (3.0-4.8); ALT/SGPT 142 U/L (7-56); AST/SGOT 66 U/L (14-36); BLOOD UREA NITROGEN 11 mg/dL (7-21); CALCIUM 9.5 mg/dL (8.4-10.5); GFR AFRICAN-AMERICAN > 60; GFR NON-AFRICAN AMERICAN > 60
[2017-05-19] MEDS: POLYETHYLENE GLYCOL 3350 17 GM/Dose PACKET PO SCH (09:35)
[2017-05-19] MEDS: Megestrol Acetate 40 mg/ml Cup PO SCH (09:45)
[2017-05-19] MEDS: Enoxaparin 30 mg Syringe SC SCH (12:41)
[2017-05-19] MEDS ORDERED: Aluminum Hydroxide/Magnesium 30 ML, DiphenhydrAMINE 75 MG, Lidocaine 2% Viscous 30 ML PO SCH (14:00)
[2017-05-19] MEDS: Meropenem 1 GM in Sodium Chloride 0.9% 100 ML IVPB SCH ×2 (15:15→22:46)
--- NOTE | 2017-05-19 16:09 | PN ---
DATE: 05/19/2017 This is [facility]'s [facility] visit on the medical floor. For Dr. Bustamante. SUBJECTIVE: The patient is a 66-year-old female, seen sitting up in bed with her family member at the bedside after I called earlier this morning for the patient desaturating on her pulse oximetry with oxygen 2 L nasal cannula begun. She humidified with good effect with the patient now reporting her breathing is better. She has a severe cough possibly related to her tumor burden, which is now being treated with radiation by Dr. Sherice Peters with the patient also known to be treated as per Dr. Bustamante with Keytruda. Lyrica was started as per Dr. Alejo with the patient requesting that this is not be given at this time; however, she will discuss with Dr. Alejo for her persistent cough secondary to tumor burden. With this, a CT scan of the neck and chest was ordered, it is to be done with a portable chest x-ray; however, now being done, we will look for the reading for it. At this point, the patient is resting comfortably. She also was getting B12 injection on a monthly basis with this possibly do now we will restart this. The patient is not wearing her sequential stockings, a compression device. We will stop Lovenox low-dose to this end. There is no further hemoptysis. Her oral steroids continue as per Dr. Alejo's recommendation increased from twice a day 4 mg of Medrol 3 to times a day. OBJECTIVE/PHYSICAL EXAMINATION: VITAL SIGNS: Today temperature 98.2, pulse 90, respirations 20, blood pressure 120/82, and pulse oximetry of 95%. HEENT: Unremarkable. Oxygen is on. NECK: Supple. HEART: Regular rate. LUNGS: Minimal decreased breath sounds bilaterally. ABDOMEN: Soft and nontender. EXTREMITIES: No edema. Free range of motion. SKIN: Warm and dry. NEUROLOGIC: Awake, alert, and oriented with the patient not actively coughing at this time. LABORATORY DATA: The patient's labs were done. White blood cell count 20.0, hemoglobin 10.1, hematocrit 32.9, platelet count of 599,000 with a chem metabolic panel within normal range except for AST of 66, ALT of 142, and nonfasting glucose of 139. The patient's blood cultures are negative after 24 hours. The patient did have a chest x-ray, which has not been read. We will await for the reading with a CT scan of the neck and chest ordered, which will be done later this afternoon. ASSESSMENT: For this patient is that of hemoptysis, stage IV nonsmall cell cancer of the lung, status post radiation and chemotherapy with questionable pneumonia, hypertension, diabetes, constipation, hypothyroidism, history of colon cancer, history of squamous cell cancer of the cervix with known metastases to the spine and liver with brain metastasis, most recent testing showed significant improvement there. PLAN: For this patient after conversation with Dr. Bustamante is to continue the plan as per Dr. Alejo; however, for DVT prophylaxis we will give low-dose Lovenox. We will also give her B12 injection, as there is no further hemoptysis with the patient to have CT scan of the chest and neck done with labs to be monitored in the morning. Prognosis for this patient is guarded. This has been a complex patient with comprehensive medically necessary to appropriate visit carried out in excess of 30 minutes [id number] time with the daughter's questions answer to her satisfaction and the nurse and family members in the room when the patient was examined and evaluated. Rogelio Reed MD
--- NOTE | 2017-05-19 16:49 | CON ---
DATE: 05/19/2017 HISTORY OF PRESENT ILLNESS: This is a 66-year-old female with colon cancer, hypertension, hypothyroidism, colectomy, colon cancer diagnosed in 2008, hysterectomy, and cholecystectomy, who is admitted through the Emergency Room and was seen in the Emergency Room with . The patient has been having fevers, cough, congestion, and shortness of breath. The patient denies any fevers. She does have occasional chills. The patient has a right-sided Port-A-Cath in. No abdominal pain, diarrhea, constipation, or bright red blood per rectum. No melena. PAST MEDICAL HISTORY: Significant for poorly differentiated adenocarcinoma of the lung, hypertension, hypothyroidism, cancer of the cervix, the patient's malignancy is metastasis with metastasis to the spine and brain. The patient also with colon cancer. PAST SURGICAL HISTORY: Significant for hysterectomy, cholecystectomy, lung biopsy, colectomy, and right-sided Port-A-Cath placement. ALLERGIES: THE PATIENT HAS NO KNOWN ALLERGIES TO ANY ANTIBIOTICS. MEDICATIONS: At home reveals the patient to be on Solu-Medrol, metformin, omeprazole, lisinopril, levothyroxine, and folic acid. PHYSICAL EXAMINATION: GENERAL: The patient is in bed in no acute distress. VITAL SIGNS: Temperature of 98, heart rate of 102, up to 120, respiratory rate of 24, blood pressure is 105/63, and oxygenation saturation is 95% saturation. HEENT: Unremarkable. NECK: Supple. LUNGS: Have decreased breath sounds. HEART: Normal S1 and S2. ABDOMEN: Soft and nontender. LABORATORY EXAMINATION: Reveals a white count of 24,000, hemoglobin of 10, platelets of 577, 93% granulocytosis. BUN of 11, creatinine of 0.7, alkaline phosphatase is 237 with an ALT of 142, and AST 66. Urinalysis is noted with 10-15 wbc's, many bacteria. Blood cultures have no growth in 24 hours. The patient had a chest x-ray, which demonstrated a poorly defined right upper lobe mass, superior retraction of the right hilum, and atelectasis. Dr. Alejo's consultation from yesterday is reviewed. He states the patient has a nonsmall cell cancer of the lung with metastasis to the brain, bone, and liver. ASSESSMENT AND PLAN: This is a 66-year-old female with lung cancer, poorly differentiated carcinoma of the lung with metastasis to the spine, bone, brain, liver; hypertension, hypothyroidism, colon cancer, cervical cancer, and diabetes admitted with shortness of breath, tachycardia, and the patient has had radiation treatment and chemotherapy and now presenting with systemic inflammatory response syndrome, must rule out underlying healthcare-associated pneumonia; according to Dr. Alejo's note the last CT scan showed increase in size of the tumor and the suprahilar adenopathy. Dr. Rogelio Reed's history and physical examination is noted. We will start the patient empirically on meropenem. Review of cultures from previous admissions reveals the patient has had Klebsiella in the urine and an Escherichia coli in the in 2013. We will also order a procalcitonin. Blood cultures are reported to be negative. We will make further recommendations upon availability of initial culture results negative and we will discontinue the cefepime. The patient is on Solu-Medrol. The patient is scheduled for CAT scan of the chest and neck by Dr. Alejo. We will make further recommendations upon availability of imaging, culture results, and procalcitonin. Bennie García MD
--- NOTE | 2017-05-19 17:32 | RAD ---
HISTORY: SOB COMPARISON: Comparison chest 05/17/2017. FINDINGS: No change right IJ central line with tip in the SVC LUNGS: Re- demonstrated is right suprahilar and right medial upper lobe mass lesion. . Mild left basilar atelectasis. PLEURA: No significant pleural effusion identified, no pneumothorax apparent. CARDIOVASCULAR: Heart remains mildly enlarged with left ventricular configuration OSSEOUS STRUCTURES: No significant abnormalities. VISUALIZED UPPER ABDOMEN: Normal. OTHER FINDINGS: None. IMPRESSION: Re- demonstrated is right suprahilar and right medial upper lobe mass lesion. . Mild left basilar atelectasis.
[2017-05-19] MEDS ORDERED: Aluminum Hydroxide/Magnesium 30 ML, DiphenhydrAMINE 75 MG, Lidocaine 2% Viscous 30 ML PO PRN ×2 (17:47→18:02)
--- NOTE | 2017-05-19 18:30 | CT ---
PROCEDURE: CT scan of the neck chest dated 05/19/2017. HISTORY: Hemoptysis. Stridor. COMPARISON: Comparison made with CT chest dated 05/09/2017. TECHNIQUE: Contiguous axial images were obtained through the neck and chest without intravenous contrast enhancement. Sagittal and coronal reconstructions were performed. Radiation dose (DLP): 1255.73 mGy-cm. This CT exam was performed using one or more of the following dose reduction techniques: Automated exposure control, adjustment of the mA and/or kV according to patient size, and/or use of iterative reconstruction technique. FINDINGS: LUNGS: Re- demonstrated is ill-defined right suprahilar and right upper lobe mass consistent with malignant tumor. This is less well seen compared to prior contrast enhanced CT scan. Surrounding associate atelectasis and scarring. The lesion appears to a invalid and narrow the right mainstem bronchus with possible invasion as well. Marked compression right upper lobe bronchus. There may also be some narrowing of proximal of right lower lobe bronchus. . Underlying emphysematous changes are present. MEDIASTINUM: Mildly enlarged mediastinal lymph nodes most conspicuous in the pretracheal/paratracheal region. . Evaluation for hilar adenopathy is limited due to the lack of circulating intravenous contrast material though the lesion appears to involve most of the right hilum possibly on a conglomeration of adenopathy this region as well. PLEURA: No evidence of effusion or pneumothorax. BONES: Lytic lesions seen within the anterior margin of the C4 vertebral body segment. There is a sclerotic lesion involving the C7 segment with questionable epidural mass lesion encroaching into the anterior margin of this spinal canal as mentioned before. Followup MRI of the cervical spine recommended. Lytic and sclerotic lesion within the T7 segment also noted. Degenerative spondylosis of the thoracic spine. UPPER ABDOMEN: Please refer to prior CT scan chest abdomen pelvis 05/09/2027 for additional details. OTHER FINDINGS: In situ right IJ central venous line. There are no large cervical masses or collections. Major salivary glands unremarkable. Slightly prominent right lobe thyroid gland. No significant cervical adenopathy. Evaluation of the vasculature limited due to the lack of circulating intravenous contrast material. Airway is midline and patent. No large masses are seen within oral cavity. Vallecula is symmetric. Free margin of the epiglottis unremarkable. Pyriform sinuses are symmetric as are the true vocal cords. IMPRESSION: Re- demonstrated is a large right hilar/ suprahilar and right upper lobe mass consistent with this patient's history of lung carcinoma. This lesion has surrounded the right mainstem bronchus which is narrowed with suspected invasion . There is also marked narrowing right upper lobe bronchus and mild narrowing of the proximal right lower lobe bronchus. . Presumed to compressive type atelectasis right upper lobe. The there is mediastinal adenopathy. Emphysematous changes with upper lobe predominance. Sclerotic lesion within T7 segment possible epidural tumor extension. Recommend follow-up MRI of the cervical spine. Lytic lesion within the C4 segment. Sclerotic and lytic lesion T7 segment. No large cervical masses or of cervical adenopathy See above discussion for additional details and findings.
--- NOTE | 2017-05-20 01:05 | PN ---
DATE: 05/19/2017 PULMONARY PROGRESS NOTE REFERRING PHYSICIAN: Rogelio Reed MD SUBJECTIVE: She is lying in the bed. Family at bedside. Feels a little better today, still short of breath, but no stridor. No nausea. No vomiting, diarrhea, leg pain, or leg swelling. OBJECTIVE: GENERAL: No acute distress. VITAL SIGNS: Temperature is 98, heart rate is , respiratory rate is 20, blood pressure 120/82, and pulse ox is 95% on 3 L nasal cannula. HEENT: Moist mucous membranes. Crowded airway. NECK: Supple. No JVD. LUNGS: Prolonged expiratory wheeze with a few rhonchi. HEART: S1 and S2. ABDOMEN: Soft and nontender. No organomegaly. EXTREMITIES: No edema. NEUROLOGIC: Awake, alert and follows simple commands. MEDICATIONS: She is on codeine 30 mg q.4 hours p.r.n., DuoNeb q.6 hours, folic acid 1 mg daily, insulin coverage, Lovenox 30 mg daily, and Lyrica 25 mg twice a day. She is getting magic solution to the mouth with hydro magnesium, simethicone, Benadryl, lidocaine, Medrol is 4 mg three times a day, magnesium is 200 mg daily, meropenem 1 g q.8 hours, MiraLax 17 g daily, oxycodone immediate release 15 mg q.6 hours p.r.n., Protonix 40 mg daily, Synthroid 125 mcg daily, Tessalon Perles 3 times a day, Tylenol p.r.n., and Zestril 5 mg daily. LABORATORY DATA: Shows hemoglobin 10.1, hematocrit 32.9, WBC 20, and platelet count is 599. Sodium 137, potassium 4.1, chloride 103, bicarbonate 23, BUN 11, creatinine 0.7, glucose 139, and calcium is 9.5. AST 66, ALT 142, alk phos is 237, and albumin is 3.8. Microbiology: Blood culture has been negative. Chest x-ray done today which shows re-demonstration of the right suprahilar and right medial upper lobe mass lesion, mid left basilar atelectasis; has a CAT scan of the neck and chest done which shows re-demonstration of the large right hilar, suprahilar, and right upper lobe mass consistent with this patient's history of lung carcinoma. This lesion has surrounded right mainstem bronchus which is narrowing with suspected invasion. There is also marked narrowing in right upper lobe bronchus and mid mild narrowing of the proximal right lower lobe bronchus, presumed to be compressive type atelectasis in upper lobe, also there is emphysema. IMPRESSION AND PLAN: Metastatic lung cancer to the liver and spine. Disease is progressive, specially in the lungs. Received radiation therapy, admitted with hemoptysis and stridor. Other issues are chronic obstructive lung disease, hypertension, constipation, hypothyroid, history of colon cancer, cervical cancer in the past. Spoke to the patient's family and answered all the questions. For now, I will continue bronchodilator, antibiotics, cough suppression. Probably after radiation therapy gets acute edema which increases the pressure of the right mainstem bronchus and right upper bronchus causing stridor, which is improved now, so I will suggest we should continue radiation to this mass in the right hilar and upper lobe area. If things do not go right can consider for bronchial stent. Spoke to the patient's daughter at bedside, all the questions, and we will follow with you. Ashlie Alejo MD
[2017-05-20] MEDS: Albuterol-Ipratrop 3 mg / 0.5 (3 ml) UD IH SCH ×4 (01:22→19:44)
[2017-05-20] MEDS: Levothyroxine 125 MCG TAB PO SCH (06:18)
[2017-05-20] MEDS: Pantoprazole 20 mg EC Tab PO SCH (06:18)
[2017-05-20] MEDS: Meropenem 1 GM in Sodium Chloride 0.9% 100 ML IVPB SCH (06:19)
[2017-05-20 07:57] LABS: BASO # 0.01 K/mm3 (0.0-2.0); EOS # 0.1 (0.0-0.7); EOS % 0.7 % (1.5-5.0); GRAN # 19.5 (1.4-6.5); GRAN % 91.7 % (50.0-68.0); HEMOGLOBIN 10.1 g/dL (12.0-16.0); LYMPH # 0.5 (1.2-3.4); LYMPH % 2.5 % (22.0-35.0); MEAN CELL VOLUME 88.2 fl (80.0-105.0); MEAN CORPUSCULAR HEMOGLOBIN 27.2 pg (25.0-35.0); MEAN CORPUSCULAR HGB CONC 30.8 g/dl (31.0-37.0); MEAN PLATELET VOLUME 8.4 fl (7.0-11.0); MONO # 1.1 (0.1-0.6); MONO % 5.1 % (1.0-6.0); RBC 3.72 10^6/uL (3.5-6.1); RED CELL DISTRIBUTION WIDTH 19.8 % (11.5-14.5); WHITE BLOOD COUNT 21.3 10^3/ul (4.5-11.0)
[2017-05-20 08:05] LABS: ALB/GLOB RATIO 0.9 (1.1-1.8); ALBUMIN 3.7 g/dL (3.0-4.8); ALT/SGPT 168 U/L (7-56); AST/SGOT 71 U/L (14-36); BLOOD UREA NITROGEN 13 mg/dL (7-21); CALCIUM 9.7 mg/dL (8.4-10.5); GFR AFRICAN-AMERICAN > 60; GFR NON-AFRICAN AMERICAN > 60
[2017-05-20] MEDS: Insulin Reg-LOW-Coverage SC SCH ×4 (08:19→23:30)
[2017-05-20] MEDS: POLYETHYLENE GLYCOL 3350 17 GM/Dose PACKET PO SCH (09:49)
[2017-05-20] MEDS: Megestrol Acetate 40 mg/ml Cup PO SCH (09:49)
[2017-05-20] MEDS: Enoxaparin 30 mg Syringe SC SCH (09:49)
--- NOTE | 2017-05-20 11:23 | PN ---
DATE: 05/20/2017 SUBJECTIVE: The patient is in bed, in no acute distress, nontoxic. The patient is eating breakfast. She is still complaining of cough and shortness of breath, but no fevers. The patient's daughter is at the bedside, concerns about her mother's persistent cough. PHYSICAL EXAMINATION: VITAL SIGNS: Temperature is 98, blood pressure is 120/80, respiratory rate of 20, heart rate of 98. HEENT: Unremarkable. NECK: Supple. LUNGS: Have decreased breath sounds. HEART: Normal S1, S2. ABDOMEN: Soft, nontender. LABORATORY EXAMINATION: Reveals a white count of 21,000, hemoglobin of 10, platelets of 574. BUN of 13, creatinine of 0.7. LFTs are noted to be elevated. The patient's procalcitonin is 0.28. Microbiology reveals the blood cultures are negative, and review of orders reveals the patient is on Solu-Medrol and the patient is on meropenem. ASSESSMENT AND PLAN: A 66-year-old female with metastatic lung cancer to liver, bone, and disease progression, had received radiation; and chronic obstructive lung disease; hypertension; hypothyroid disease; history of colon cancer; cervical cancer in the past; admitted with what appears to be systemic inflammatory response syndrome with progression of her underlying malignancy with negative cultures and negative procalcitonin. We will discontinue the meropenem. No need for antibiotics with a normal procalcitonin and negative cultures. The patient's primary pathology is really the underlying malignancy progression of this disease. Bennie García MD
[2017-05-20] MEDS: guaiFENesin-DM 600-30 mg ER Tab PO PRN ×2 (12:57→22:21)
--- NOTE | 2017-05-20 20:08 | PN ---
DATE: 05/20/2017 This is [facility] visit. For Dr. Bustamante. SUBJECTIVE: The patient is a 66-year-old female, seen lying awake in bed with family at the bedside with the patient reporting that her cough persist, no more hemoptysis with medicines adjusted as per Dr. Alejo with the patient now requesting guaifenesin pills and Tussionex pills with this being given to her. She also request Amitiza which she takes from home, which is not on formulary, we will do this and discontinue her MiraLax. Otherwise, the cough comes in spasm with Dr. Alejo believing that she may benefit possibly by a stent should this persist with her radiation to be restart tomorrow as per Dr. Sherice Peters. The patient is otherwise in no acute distress with oxygen on. PHYSICAL EXAMINATION: VITAL SIGNS: Temperature 98, pulse 97, respirations 20, blood pressure 124/82, and pulse ox 97%. HEENT: Unremarkable, oxygen is on. Tongue is moist and midline. NECK: Supple. HEART: Regular rate. Occasional ectopic beats. LUNGS: Rare rhonchi. Occasional expiratory wheeze. ABDOMEN: Obese, soft and nontender. EXTREMITIES: No edema. SKIN: Warm and dry. NEUROLOGIC: Awake and alert. LABORATORY DATA: The patient's labs were done; white blood cell count of 21.3, hemoglobin of 10.1, hematocrit of 32.8, and platelet count of 574,000. Her chem metabolic panel shows an AST of 71, ALT of 168, alk phos 228. Nonfasting glucose 261 on steroids. The patient did have a CT scan of her neck and chest done yesterday with the impression that a redemonstration of a large right hilar, suprahilar, and right upper lobe mass consistent with the patient's history of lung carcinoma which is just around the right mainstem bronchus which is now with suspected invasion. There is also marked narrowing of the right upper lobe bronchus and mild narrowing of the proximal right lower lobe bronchus presumed to be compressed and atelectasis, right upper lobe. There is mediastinal adenopathy, emphysematous changes with upper lobe predominant sclerotic lesions at T7, possible epidural tumor extension. Recommend follow up MRI of the C-spine lytic lesion with C4 and sclerotic lytic lesion at T7. No large cervical masses or cervical adenopathy. The patient also had a chest x-ray done prior to her CT scan. The chest x-ray was read as redemonstration of right suprahilar and right medial upper lobe mass lesion, mild left basilar atelectasis. 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 Persisting cough. PLAN: After conversation with Dr. Bustamante is to continue present medical regimen as per Dr. Alejo. We will continue low dose Lovenox for her DVT prophylaxis with the new findings consideration for stent placement, bronchial stent as per Dr. Alejo with radiation to continue with Dr. Sherice Peters tomorrow. The patient will also continue her IV antibiotics with her constipation to be addressed with Amitiza. The prognosis for this patient is guarded. We will monitor clinically with labs. After reading Dr. García's note, it appears we will discontinue her meropenem as per his recommendations. The prognosis for this patient is guarded. This is a long visit, an excess of 30 minutes at the bedside face to face time with the patient and her family answering questions and appropriately medically necessary with comprehensive exam at the bedside. Rogelio Reed MD
--- NOTE | 2017-05-20 23:30 | PN ---
DATE: 05/20/2017 REFERRING PHYSICIAN: Rogelio Reed MD SUBJECTIVE: The patient is lying in the bed at 45 degrees. Night was unremarkable. Feels better. Decreased cough and short of breath. No nausea, vomiting, diarrhea, leg pain, leg swelling. OBJECTIVE: GENERAL: In no acute distress. VITAL SIGNS: Temperature is 98, heart is 97, respiratory rate is 20, blood pressure 124/82, pulse ox 97% on 3 liters nasal cannula. HEENT: Moist mucous membrane. Crowded airway. NECK: Supple. No JVD. LUNGS: Has scattered rhonchi and few wheezing. HEART: S1 and S2. ABDOMEN: Soft, nontender. No organomegaly. EXTREMITIES: There is no edema. NEUROLOGIC: Awake, alert, and follows simple commands. MEDICATIONS: She is on codeine 30 mg q.4h. p.r.n., DuoNeb q.6 hours, folic acid 1 mg daily, insulin coverage, Lovenox 30 mg subcu daily, Lyrica 25 mg twice a day, methylprednisolone/Medrol 4 mg three times a day, Megace 200 mg daily, Mucinex DM 1 tablet q.8 hours p.r.n., oxycodone immediate release 50 mg q.6 hours p.r.n., Protonix 40 mg daily, Synthroid 125 mcg daily, Tessalon Perles 100 mg three times a day, Tylenol p.r.n., Zestril 5 mg daily. LABORATORY DATA: Shows hemoglobin 10.1, hematocrit of 32.8, WBC 21,000, platelet count is 574. Sodium 137, potassium 4.4, chloride 104, bicarbonate 23, BUN 13, creatinine 0.7, glucose 121, calcium 9.7, AST 71, ALT 168, alk phos is 228. Albumin is 3.7. Microbiology, blood cultures have been negative. IMPRESSION AND PLAN: 1. Metastatic lung cancer to the liver and spine with progressive disease especially in the lungs causing right mainstem bronchus and right upper lobe bronchus compression to restrict the flow, status post post-radiation therapy, developed some stridor and pulmonary compromise, which slowly improved. 2. Chronic obstructive lung disease. 3. Hypertension. 4. Constipation. 5. Hypothyroid. 6. History of cervical cancer. Spoke to the patient's daughter at the bedside. All the questions answered. to continue radiation therapy. If radiation does not work or symptom worsen, could be considered stent to the right upper lobe and right mainstem bronchus. Continue bronchodilator, keep at [address] her on BiPAP while sleeping at night. Thank you and we will follow with you. Ashlie Alejo MD
[2017-05-21] MEDS: Albuterol-Ipratrop 3 mg / 0.5 (3 ml) UD IH SCH ×4 (01:00→20:28)
[2017-05-21] MEDS: Pantoprazole 20 mg EC Tab PO SCH (06:13)
[2017-05-21] MEDS: Levothyroxine 125 MCG TAB PO SCH (06:13)
[2017-05-21] MEDS: guaiFENesin-DM 600-30 mg ER Tab PO PRN ×3 (06:17→22:29)
[2017-05-21 07:27] LABS: BASO # 0.02 K/mm3 (0.0-2.0); BASO % 0.1 % (0.0-3.0); EOS # 0.1 (0.0-0.7); EOS % 0.3 % (1.5-5.0); GRAN # 20.37 (1.4-6.5); GRAN % 92.4 % (50.0-68.0); LYMPH # 0.6 (1.2-3.4); LYMPH % 2.6 % (22.0-35.0); MEAN CELL VOLUME 88.2 fl (80.0-105.0); MEAN CORPUSCULAR HGB CONC 30.6 g/dl (31.0-37.0); MEAN PLATELET VOLUME 8.8 fl (7.0-11.0); MONO % 4.6 % (1.0-6.0); PLATELET COUNT 638 10^3/uL (120.0-450.0); RBC 4.07 10^6/uL (3.5-6.1); RED CELL DISTRIBUTION WIDTH 19.9 % (11.5-14.5); WHITE BLOOD COUNT 22.1 10^3/ul (4.5-11.0)
[2017-05-21 07:33] LABS: ALB/GLOB RATIO 0.9 (1.1-1.8); ALBUMIN 3.8 g/dL (3.0-4.8); ALT/SGPT 179 U/L (7-56); AST/SGOT 72 U/L (14-36); BLOOD UREA NITROGEN 14 mg/dL (7-21); CALCIUM 9.8 mg/dL (8.4-10.5); GFR AFRICAN-AMERICAN > 60; GFR NON-AFRICAN AMERICAN > 60
[2017-05-21] MEDS: Insulin Reg-LOW-Coverage SC SCH ×4 (09:12→22:23)
[2017-05-21] MEDS: Enoxaparin 30 mg Syringe SC SCH (09:36)
[2017-05-21] MEDS: oxyCODONE 15 mg Immediate Release Tab PO PRN (09:37)
[2017-05-21] MEDS: Megestrol Acetate 40 mg/ml Cup PO SCH (09:38)
[2017-05-21 11:31] LABS: BAND 5 % (0-2); EOSINOPHIL 1 % (0.0-3.0); LYMPHOCYTE 4 % (22.0-35.0); MONOCYTE 1 % (1.0-6.0); NEUTROPHIL 89 % (50.0-70.0)
[2017-05-21 11:32] LABS: ANISOCYTOSIS 1+; HYPOCHROMIA 1+; LARGE PLATELETS PRESENT; MICROCYTOSIS 1+; OVALOCYTES SLIGHT; PLATELET ESTIMATE HIGH (NORMAL); POLYCHROMASIA SLIGHT; TEAR DROP CELLS SLIGHT; TOXIC GRANULATION 1+
--- NOTE | 2017-05-21 13:18 | CP.PCM.CON ---
History of Present Illness - History of Present Illness History of Present Illness: Palliative consult requested by Dr Leonor Bustamante Reason:Goals of care/advance care planning 66 year old female with history of stage IV squamous cell lung cancer who presented with back pain, cough,hemoptysis, sore throat and weakness. CT of chest showed a large right hilar/suprhilar and right upper lobe mass. The lesion has surrounded the right main stem bronchus which is narrowed with suspected invasion. There is also marked narrowing of RUL bronchus and mild narrowing of RLL bronchus. Atelectasis of RLL, sclerotic lesion within T7 with possible epidural extension. She started palliative RT to chest. Yesterday her cough worsened and her O2 saturation level dropped. She was placed on BIPAP as needed. She is currently receiving immunotherapy with Keytruda. PMHX: HTN,DM,hypothyroidism,cervices cancer s/p SBO,colon cancer s/p chemotherapy. Social History: Former smoker, no alcohol or drug use.Lives independently. Family History: Non contributory. One sibling with DM Advance Care Planning: The patient does not have an Advanced Directive. Review of Systems: As per HPI, review otherwise negative Past Patient History - Infectious Disease Hx of Infectious Diseases: None - Tetanus Immunizations Tetanus Immunization: Unknown - Past Medical History & Family History Past Medical History?: Yes - Past Social History Smoking Status: Never Smoked - CARDIAC Hx Hypertension: Yes - PULMONARY Hx Respiratory Disorders: Yes Hx Pneumonia: Yes Other/Comment: lung mass found on cxr - NEUROLOGICAL Hx Neurological Disorder: No - HEENT Hx HEENT Problems: Yes (glasses, itchy eyes) - RENAL Hx Chronic Kidney Disease: No - ENDOCRINE/METABOLIC Hx Endocrine Disorders: Yes Hx Hypothyroidism: Yes - HEMATOLOGICAL/ONCOLOGICAL Hx Blood Disorders: Yes Hx Cancer: Yes (COLON 2009, colectomy; Lung) Hx Chemotherapy: Yes (05/07/2017) Other/Comment: recently dx with lung ca, lung bx done. radiation done today - INTEGUMENTARY Hx Dermatological Problems: No - MUSCULOSKELETAL/RHEUMATOLOGICAL Hx Falls: No - GASTROINTESTINAL Hx Gastrointestinal Disorders: Yes Other/Comment: 2008 COLON CANCER COLECTOMY - GENITOURINARY/GYNECOLOGICAL Hx Genitourinary Disorders: Yes Other/Comment: HX OVARIAN CYSTECTOMY OPEN 1997 HYSTERECTOMY OCTOBER 2013 - PSYCHIATRIC Hx Psychophysiologic Disorder: No - SURGICAL HISTORY Hx Cholecystectomy: Yes Other/Comment: Ovarian Cyst sx, lcw pac in and out, c section, tubal. Colon Sx. Lung biopsy - ANESTHESIA Hx Anesthesia: Yes Hx Anesthesia Reactions: Yes (NAUSEA VOMITTING) Hx Malignant Hyperthermia: No Meds Allergies/Adverse Reactions: Allergies Allergy/AdvReac Type Severity Reaction Status Date / Time No Known Allergies Allergy Verified 05/17/17 19:01 - Medications Medications: Current Medications Acetaminophen (Tylenol 325mg Tab) 650 mg PO Q6H PRN PRN Reason: Pain, Mild (1-3) Albuterol/Ipratropium (Duoneb 3 Mg/0.5 Mg (3 Ml) Ud) 3 ml IH [id number] [facility] Last Admin: 05/21/17 07:59 Dose: 3 ml Benzonatate (Tessalon Perles) 100 mg PO TID [facility] Last Admin: 05/21/17 09:36 Dose: 100 mg Codeine Sulfate (Codeine) 30 mg PO Q4H PRN PRN Reason: Cough Last Admin: 05/18/17 21:57 Dose: 30 mg Al Hydrox/Mg Hydrox/Simethicone 30 ml/Diphenhydramine HCl 75 mg/Lidocaine 30 ml 0 ml PO TID PRN PRN Reason: Mouth/Throat Pain Enoxaparin Sodium (Lovenox) 30 mg SC DAILY [facility] PRN Reason: Protocol Last Admin: 05/21/17 09:36 Dose: 30 mg Folic Acid (Folic Acid) 1 mg PO DAILY [facility] Last Admin: 05/21/17 09:36 Dose: 1 mg Guaifenesin/Dextromethorphan (Mucinex-Dm 600-30 Mg) 1 tab PO Q8 PRN PRN Reason: Cough and congestion Last Admin: 05/21/17 06:17 Dose: 1 tab Insulin Human Regular (Humulin R Low) 0 units SC ACHS [facility] PRN Reason: Protocol Last Admin: 05/21/17 12:50 Dose: Not Given Levothyroxine Sodium (Synthroid) 125 mcg PO 0600 [facility] Last Admin: 05/21/17 06:13 Dose: 125 mcg Lisinopril (Zestril) 5 mg PO DAILY [facility] Last Admin: 05/21/17 09:36 Dose: 5 mg Megestrol Acetate (Megace) 200 mg PO DAILY [facility] Last Admin: 05/21/17 09:38 Dose: 200 mg Methylprednisolone (Medrol) 4 mg PO TID [facility] Last Admin: 05/21/17 09:36 Dose: 4 mg Home Med - Amitiza (24 Mcg) 24 mcg PO BID [facility] Last Admin: 05/21/17 09:36 Dose: Not Given Oxycodone HCl (Oxycodone Immediate Release Tab) 15 mg PO Q6H PRN PRN Reason: Pain, severe (8-10) Last Admin: 05/21/17 09:37 Dose: 15 mg Pantoprazole Sodium (Protonix Ec Tab) 20 mg PO 0600 [facility] Last Admin: 05/21/17 06:13 Dose: 20 mg Pregabalin (Lyrica) 25 mg PO BID [facility] Last Admin: 05/21/17 09:36 Dose: 25 mg Physical Exam - Constitutional Appears: No Acute Distress, Chronically Ill - Head Exam Head Exam: NORMAL INSPECTION - Eye Exam Eye Exam: Normal appearance, PERRL - ENT Exam ENT Exam: Mucous Membranes Moist, Normal Oropharynx - Neck Exam Neck exam: Positive for: Normal Inspection - Respiratory Exam Respiratory Exam: Decreased Breath Sounds, NORMAL BREATHING PATTERN Additional comments: non productive cough - GI/Abdominal Exam GI & Abdominal Exam: Normal Bowel Sounds, Soft Additional comments: no tenderness - Extremities Exam Extremities exam: Positive for: normal capillary refill, normal inspection - Back Exam Back exam: NORMAL INSPECTION - Neurological Exam Neurological exam: Alert, Oriented x3 - Psychiatric Exam Psychiatric exam: Normal Affect - Skin Skin Exam: Dry, Warm - Additional Findings Additional findings: Palliative performance scale rating 50% Results - Vital Signs Recent Vital Signs: Last Vital Signs Temp 98.6 F 05/21/17 08:26 Pulse 96 H 05/21/17 08:26 Resp 19 05/21/17 08:26 BP 129/83 05/21/17 09:36 Pulse Ox 93 L 05/21/17 08:26 - Labs Result Diagrams: 05/21/17 06:30 05/21/17 06:30 Labs: Laboratory Results - last 24 hr 05/20/17 05/20/17 05/21/17 17:04 21:19 06:30 WBC 22.1 H RBC 4.07 Hgb 11.0 L Hct 35.9 L MCV 88.2 MCH 27.0 MCHC 30.6 L RDW 19.9 H Plt Count 638 H MPV 8.8 Gran % 92.4 H Lymph % (Auto) 2.6 L Eddy % (Auto) 4.6 Eos % (Auto) 0.3 L Baso % (Auto) 0.1 Gran # 20.37 H Lymph # 0.6 L Eddy # 1.0 H Eos # 0.1 Baso # 0.02 Neutrophils % (Manual) 89 H Band Neutrophils % 5 H Lymphocytes % (Manual) 4 L Monocytes % (Manual) 1 Eosinophils % (Manual) 1 Toxic Granulation 1+ Platelet Evaluation High Large Platelets Present Polychromasia Slight Hypochromasia 1+ Anisocytosis (manual) 1+ Microcytosis (manual) 1+ Tear Drop Cells Slight Ovalocytes Slight Sodium Potassium Chloride Carbon Dioxide Anion Gap BUN Creatinine Est GFR ( Amer) Est GFR (Non-Af Amer) POC Glucose (mg/dL) 108 198 H Random Glucose Calcium Total Bilirubin AST ALT Alkaline Phosphatase Total Protein Albumin Globulin Albumin/Globulin Ratio 05/21/17 05/21/17 05/21/17 06:30 08:02 11:40 WBC RBC Hgb Hct MCV MCH MCHC RDW Plt Count MPV Gran % Lymph % (Auto) Eddy % (Auto) Eos % (Auto) Baso % (Auto) Gran # Lymph # Eddy # Eos # Baso # Neutrophils % (Manual) Band Neutrophils % Lymphocytes % (Manual) Monocytes % (Manual) Eosinophils % (Manual) Toxic Granulation Platelet Evaluation Large Platelets Polychromasia Hypochromasia Anisocytosis (manual) Microcytosis (manual) Tear Drop Cells Ovalocytes Sodium 139 Potassium 4.4 Chloride 104 Carbon Dioxide 22 Anion Gap 17 BUN 14 Creatinine 0.8 Est GFR ( Amer) > 60 Est GFR (Non-Af Amer) > 60 POC Glucose (mg/dL) 114 H 118 H Random Glucose 134 H Calcium 9.8 Total Bilirubin 0.4 AST 72 H ALT 179 H Alkaline Phosphatase 238 H Total Protein 8.3 Albumin 3.8 Globulin 4.5 Albumin/Globulin Ratio 0.9 L Assessment & Plan - Assessment and Plan (Free Text) Assessment: 66 year old female with history of stage IV lung cancer which is progressed and is invading the right main stem and lower bronchus, T& epidural sclerotic lesion. She is receiving Keytruda immunotherapy. She has also started palliative RT to chest. The patient is alert and oriented. She complains of weakness, cough and sort throat. Palliative services introduced as additional support for patient and family. Patients daughter Rohit at bedside. The patient understands that her tumor has advanced and is invading her right bronchus. She also understands that her condition is not curable. She understands that she bronchial stent placement may also be offered as an additional intervention. The patient is somewhat discouraged as she does not feel any stronger. I explained that she may be experiencing side effects of treatment in addition to symptoms of underlying disease. She verbalizes understanding if this. She intends to continue radiation treatment.She will also speak with her oncologist regarding future treatment plan. We also discussed advance care planning. The patient does not have an Advanced Directive. Conversation regarding resuscitation wishes ensued. We specifically spoke about CPR and intubation. The patient wants to give further thought and discuss wishes with her daughters before making decision. Psychosocial support given. Time spent in goals of care and advance care planning discussion, 40 minutes Plan: Palliative support in establishing goals of care Advance care planning
--- NOTE | 2017-05-21 18:29 | CP.PCM.PN ---
Subjective - Date & Time of Evaluation Date of Evaluation: 05/21/17 Time of Evaluation: 11:10 - Subjective Subjective: No fevers, not in distress. Objective - Vital Signs/Intake and Output Vital Signs (last 24 hours): Temp Pulse Resp BP Pulse Ox 97.7 F 107 H 20 127/81 92 L 05/21/17 16:00 05/21/17 16:00 05/21/17 16:00 05/21/17 16:00 05/21/17 16:00 Intake and Output: 05/21/17 05/21/17 06:59 18:59 Intake Total 1200 Balance 1200 - Medications Medications: Current Medications Acetaminophen (Tylenol 325mg Tab) 650 mg PO Q6H PRN PRN Reason: Pain, Mild (1-3) Albuterol/Ipratropium (Duoneb 3 Mg/0.5 Mg (3 Ml) Ud) 3 ml IH [id number] [facility] Last Admin: 05/21/17 13:44 Dose: 3 ml Benzonatate (Tessalon Perles) 100 mg PO TID [facility] Last Admin: 05/21/17 17:07 Dose: 100 mg Codeine Sulfate (Codeine) 30 mg PO Q4H PRN PRN Reason: Cough Last Admin: 05/18/17 21:57 Dose: 30 mg Al Hydrox/Mg Hydrox/Simethicone 30 ml/Diphenhydramine HCl 75 mg/Lidocaine 30 ml 0 ml PO TID PRN PRN Reason: Mouth/Throat Pain Enoxaparin Sodium (Lovenox) 30 mg SC DAILY [facility] PRN Reason: Protocol Last Admin: 05/21/17 09:36 Dose: 30 mg Folic Acid (Folic Acid) 1 mg PO DAILY [facility] Last Admin: 05/21/17 09:36 Dose: 1 mg Guaifenesin/Dextromethorphan (Mucinex-Dm 600-30 Mg) 1 tab PO Q8 PRN PRN Reason: Cough and congestion Last Admin: 05/21/17 13:16 Dose: 1 tab Insulin Human Regular (Humulin R Low) 0 units SC ACHS [facility] PRN Reason: Protocol Last Admin: 05/21/17 17:04 Dose: Not Given Levothyroxine Sodium (Synthroid) 125 mcg PO 0600 [facility] Last Admin: 05/21/17 06:13 Dose: 125 mcg Lisinopril (Zestril) 5 mg PO DAILY [facility] Last Admin: 05/21/17 09:36 Dose: 5 mg Megestrol Acetate (Megace) 200 mg PO DAILY [facility] Last Admin: 05/21/17 09:38 Dose: 200 mg Methylprednisolone (Medrol) 4 mg PO TID [facility] Last Admin: 05/21/17 17:07 Dose: 4 mg Home Med - Amitiza (24 Mcg) 24 mcg PO BID [facility] Last Admin: 05/21/17 17:08 Dose: Not Given Oxycodone HCl (Oxycodone Immediate Release Tab) 15 mg PO Q6H PRN PRN Reason: Pain, severe (8-10) Last Admin: 05/21/17 09:37 Dose: 15 mg Pantoprazole Sodium (Protonix Ec Tab) 20 mg PO 0600 [facility] Last Admin: 05/21/17 06:13 Dose: 20 mg Pregabalin (Lyrica) 25 mg PO BID [facility] Last Admin: 05/21/17 17:07 Dose: 25 mg - Labs Labs: 05/21/17 06:30 05/21/17 06:30 - Constitutional Appears: Non-toxic - Head Exam Head Exam: NORMAL INSPECTION - Eye Exam Pupil Exam: Unequal - ENT Exam ENT Exam: Mucous Membranes Moist - Neck Exam Neck Exam: absent: Meningismus - Respiratory Exam Respiratory Exam: Decreased Breath Sounds - Cardiovascular Exam Cardiovascular Exam: +S1, +S2 - GI/Abdominal Exam GI & Abdominal Exam: Soft. absent: Tenderness Assessment and Plan - Assessment and Plan (Free Text) Plan: Assessment SIRS probable due to malignancy, currently no evidence of infection lung CA with metastases HTN COPD DM dyslipidemia obesity with BMI 34 history of colon CA history of cervical CA Plan Continue to monitor off antibiotics since he is at risk for nosocomial infections overall prognosis is poor
--- NOTE | 2017-05-21 19:21 | PN ---
DATE: 05/21/2017 PULMONARY PROGRESS NOTE REFERRING PHYSICIAN: Rogelio Reed MD SUBJECTIVE: She is lying in the bed, has still some cough, seen by Radiation Therapy. I believe she received radiation to the right hilar region. No nausea. No vomiting. No diarrhea. No leg pain or leg swelling. Family is at the bedside. PHYSICAL EXAMINATION GENERAL: In no acute distress. VITAL SIGNS: Temperature is 98, heart rate is 107, respiratory rate is 20, blood pressure is 127/81, and pulse ox is 92% on 3 L nasal cannula. HEENT: Moist mucous membranes. Crowded airway. Mallampati score is IV. NECK: Supple. No JVD. LUNGS: Has a scattered rhonchi and few crackles. HEART: S1 and S2. ABDOMEN: Soft and nontender. No organomegaly. EXTREMITIES: There is no edema. NEUROLOGIC: Awake and alert. Follow simple commands. MEDICATIONS: She is on codeine 30 mg q. 4 hours. p.r.n., DuoNeb q. 6 hours, folic acid 1 mg daily, Amitiza 20 mcg twice a day, insulin coverage, Lovenox 30 mg daily, Lyrica 25 mg twice a day. She is getting magic solution oral swish and spit. Also getting Medrol 4 mg three times a day, Megace 200 mg daily, Mucinex DM q. 8 hours p.r.n., oxycodone immediate release 15 mg q. 6 hours p.r.n., Protonix 40 mg daily, Synthroid 125 mcg daily, Tessalon Perles 100 mg three times a day, Tylenol p.r.n., and Zestril 5 mg daily. LABORATORY DATA: Shows hemoglobin 11.0, hematocrit of 35.9, WBC 22,000, platelets 638. Sodium 139, potassium 4.4, chloride 104, bicarbonate 22, BUN 14, creatinine 0.8, glucose 134, calcium is 9.8. AST 72, ALT 179, alk phos is 238. Albumin is 3.8. Microbiology: Blood cultures have been negative. IMPRESSION AND PLAN: Metastatic lung cancer with progressive disease involving the right mainstem bronchus and right upper bronchus. Also having mets to the liver and spine, on Radiation Therapy and Chemotherapy, status post second dose of Radiation Therapy, tolerated well. Also has chronic obstructive lung disease, hypertension, constipation, hypothyroidism, history of cervical cancer. Spoke to the patient's family at bedside. All the questions answered. Risks and benefit ratio discussed about chemo and Radiation Therapy. We will continue to evaluate on daily basis. Continue BiPAP while sleeping. Gastric prophylaxis, SCD to lower extremities, bronchodilator. Thank you and we will follow with you. Ashlie Alejo MD
[2017-05-22 01:20] LABS: BASO # 0.01 K/mm3 (0.0-2.0); EOS # 0.1 (0.0-0.7); EOS % 0.5 % (1.5-5.0); GRAN # 20.75 (1.4-6.5); GRAN % 92.9 % (50.0-68.0); HEMOGLOBIN 11.1 g/dL (12.0-16.0); LYMPH # 0.4 (1.2-3.4); MEAN CELL VOLUME 87.4 fl (80.0-105.0); MEAN CORPUSCULAR HEMOGLOBIN 27.3 pg (25.0-35.0); MEAN CORPUSCULAR HGB CONC 31.3 g/dl (31.0-37.0); MEAN PLATELET VOLUME 8.5 fl (7.0-11.0); MONO % 4.6 % (1.0-6.0); RBC 4.06 10^6/uL (3.5-6.1); WHITE BLOOD COUNT 22.3 10^3/ul (4.5-11.0)
--- NOTE | 2017-05-22 02:08 | PN ---
DATE: 05/21/2017 ONCOLOGY PROGRESS NOTE LOCATION: The patient is in room 370, bed 2. SUBJECTIVE: The patient is examined in bed. As long as she is lying in bed, coughing is not as bad, but when she tries to sit up forward and lean while she tries to bend the feet, coughing gets worse. When she tries to get up and go to the bathroom to brush her teeth or even to get up to bathroom to go to urinate, she starts coughing quite a bit and she becomes purple in the face. She does not like to use the BiPAP for more than an hour, it seems to bother her. Family is at the bedside. The patient did go down for radiation earlier today. When she is lying in bed flat, she does not seem to be having as much coughing. Overall, she feels better compared to the day she came in, which was Saturday. The patient tells me that coughing specially of blood colored sputum is diminished quite a bit, but she still has episodes of croupy cough. Denies any history of nausea or vomiting. No history of diarrhea. No leg pain or leg swelling. Called the family members including her 5 brothers and 2 sons at the bedside. PHYSICAL EXAMINATION: GENERAL: The patient is awake, alert and oriented, in no acute distress. VITAL SIGNS: Stable, T-max is 98.4, heart rate is 100, respirations 20, blood pressure 127/81 and pulse oximetry is 92% on 3 L of nasal cannula. HEENT: Normocephalic and atraumatic. Conjunctivae pale. The patient has crowded airways. Examination of the oropharynx reveals no oropharyngeal lesions. Tongue is moist. No ulcerations are noted. No events of any fungal infection. NECK: Supple. There is no adenopathy. No jugular venous distention noted. LUNGS: Reveals scattered rhonchi and few crackles. The patient has bronchial breath sounds in the right upper lobe posteriorly. HEART: Reveals S1 and S2 is normal. No gallop or murmur is heard. ABDOMEN: Soft and nontender. Liver and spleen nonpalpable. No rebound, rigidity or guarding is noted. EXTREMITIES: There is no cyanosis, clubbing or edema. NEUROLOGIC: Reveals the patient to be awake, alert and oriented, in no acute distress. MEDICATIONS: Reviewed. She is on codeine 30 mg q. 4 hours p.r.n. for cough, DuoNeb q. 6 hours, folic acid 1 mg daily, Amitiza 24 mcg twice a daily, she is on insulin coverage low-dose algorithm, Lovenox 30 mg subq daily, Lyrica 25 mg twice daily, Magic Mouthwash oral swish and swallow, she is on Medrol 4 mg three times a day, she is on Megace 200 mg daily, she is on Mucinex DM q. 8 hours p.r.n., oxycodone immediate release tablet 15 mg q. 6 hours p.r.n., Protonix 40 mg daily, Synthroid 125 mcg daily, Tessalon Perles 100 mg p.o. three times a day, Tylenol p.r.n. and Zestril 5 mg daily. LABORATORY DATA: Reviewed, hemoglobin of 11, hematocrit 35, white count of 22,000 and platelet count of 638,000. Sodium is 139, potassium is 4.4, chloride is 104, bicarbonateis 22, BUN is 14, creatinine is 0.8, glucose is 134, calcium is 9.8. AST is 72, ALT is 179, alkaline phosphatase is 238 and albumin is 3.8. Blood cultures have been negative so far. 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 The patient has been on active therapy with Keytruda, last treatment was given about 2 weeks ago. Next treatment is due next week. She is on bisphosphonate once a month, it should be due this month for metastatic bone disease. The patient has progressive symptomatology really to enlarging tumor and encroaching on the right mainstem, right upper lobe bronchus and right intermedius bronchus as well increasing the symptoms of not only the coughing, but increase in respiratory symptoms along with cough associated with shortness of breath. Family is concerned that breathing is not an issue, still about 2 weeks ago and she came down with what appeared to be a cold and since then she had a downward spiral. I spoke to the family and the patient at great length plan with most of the disease is located posteriorly, pressing as I mentioned in the right upper lobe, right intermedius, right lower lobe bronchus causing most of the symptomatology. I spoke with Dr. Alejo, we are going to assess the patient for placement of the stent if the radiation does not make a dent. The patient is currently on radiation therapy out of which she has had about 6 treatments and 4 or 5 more treatments are left. Encouraged the patient that we should continue the radiation. Told her to speak to Dr. Flores at [facility] to have our scan reviewed by him to see if she is a candidate for a stent placement. Dr. Alejo is also on agreement to give it a trial initially with treatment with radiation and if there is no improvement, assess her for placement of a stent. In the mean time, we will pursue giving her next dose of Keytruda and next dose of bisphosphonate while in the hospital. Plan is to continue radiation while monitoring the patient closely in the hospital. The patient is currently going to require acute stay in the hospital in view of the fact that she has an unstable pulmonary status. We spoke to Dr. Alejo in great length. Time spent with the patient and the family correlating all the facts, discussing the risk and the prognosis of the patient and the overall treatment perhaps took about an hour. I have reviewed the notes by Palliative Care, should , will speak to her and convey my concerns and what I thought at this point. Currently, the patient is full code. Julio Bustamante MD
[2017-05-22] MEDS: Albuterol-Ipratrop 3 mg / 0.5 (3 ml) UD IH SCH ×5 (04:55→19:05)
[2017-05-22] MEDS: Levothyroxine 125 MCG TAB PO SCH (05:57)
[2017-05-22] MEDS: Pantoprazole 20 mg EC Tab PO SCH (05:58)
[2017-05-22] MEDS: guaiFENesin-DM 600-30 mg ER Tab PO PRN ×2 (07:03→14:30)
[2017-05-22 07:36] LABS: ALB/GLOB RATIO 0.9 (1.1-1.8); ALBUMIN 3.9 g/dL (3.0-4.8); ALT/SGPT 159 U/L (7-56); AST/SGOT 63 U/L (14-36); BLOOD UREA NITROGEN 18 mg/dL (7-21); CALCIUM 9.8 mg/dL (8.4-10.5); GFR AFRICAN-AMERICAN > 60; GFR NON-AFRICAN AMERICAN > 60
[2017-05-22] MEDS: Insulin Reg-LOW-Coverage SC SCH ×4 (08:19→22:05)
[2017-05-22] MEDS: Megestrol Acetate 40 mg/ml Cup PO SCH (10:43)
[2017-05-22] MEDS: Enoxaparin 30 mg Syringe SC SCH (10:43)
--- NOTE | 2017-05-22 19:40 | CARD ---
APPROVED REPORT EXAM: Two-dimensional and M-mode echocardiogram with Doppler and color Doppler. INDICATION LVFX 2D DIMENSIONS Left Atrium (2D)3.9 (1.6-4.0cm)IVSd0.9 (0.7-1.1cm) LVDd4.1 (3.9-5.9cm)PWd0.9 (0.7-1.1cm) LVDs3.5 (2.5-4.0cm)FS (%) 14.9 % LVEF (%)31.9 (>50%) M-Mode DIMENSIONS Aortic Root3.20 (2.2-3.7cm)Aortic Cusp Exc.1.80 (1.5-2.0cm) Aortic Valve AoV Peak Nafffhji49.0cm/Zion Peak GR.4mmHg Mitral Valve MV E Ismlpttp61.9cm/sMV A Mvnanjbb73.8cm/sE/A ratio0.5 TDI Lateral E' Peak V8.68cm/sMedial E' Peak V9.36cm/sE/Lateral E'5.4 E/Medial E'5.0 Pulmonary Valve PV Peak Kicboeyw55.7cm/sPV Peak Grad.2mmHg Tricuspid Valve TR Peak Fedbdouu061ge/sRAP [id number] Peak Gr.24mmHg [id number] LEFT VENTRICLE The left ventricle is normal size. There is normal left ventricular wall thickness. The systolic function is mildly to moderately impaired.EF-35-40% There is global hypokinesis of the left ventricle. There is mild to moderate hypokinesis in the apical anterior wall. Transmitral Doppler flow pattern is Grade III-reversible restrictive diastolic dysfunction. No left ventricle thrombus noted on this study. There is no ventricular septal defect visualized. There is no left ventricular aneurysm. There is no mass noted in the left ventricle. RIGHT VENTRICLE The right ventricle is normal size. There is normal right ventricular wall thickness. The right ventricular systolic function is normal. ATRIA The left atrium size is normal. The right atrium size is normal. The interatrial septum is intact with no evidence for an atrial septal defect. AORTIC VALVE The aortic valve is thickened but opens well. The aortic valve is mildly to moderately sclerotic. There is trace aortic regurgitation. There is no aortic valvular stenosis. There is no aortic valvular vegetation. MITRAL VALVE The mitral valve is thickened but opens well. Mitral regurgitation is trace. There is no mitral valve stenosis. There is no evidence of mitral valve prolapse. TRICUSPID VALVE The tricuspid valve leaflets are thickened , but open well. There is trace tricuspid regurgitation.RVSP-34 mmof h g. There is no tricuspid valve stenosis. There is no tricuspid valve prolapse or vegetation. PULMONIC VALVE The pulmonic valve is not well visualized. GREAT VESSELS The aortic root is normal in size. The ascending aorta is normal in size. The pulmonary artery is normal. The IVC is normal in size and collapses >50% with inspiration. PERICARDIAL EFFUSION There is no pleural effusion. There is a trace pericardial effusion. <Conclusion> The left ventricle is normal size. There is normal left ventricular wall thickness. The systolic function is mildly to moderately impaired.EF-35-40% There is trace aortic regurgitation. Mitral regurgitation is trace. There is trace tricuspid regurgitation.RVSP-34 mmof h g. The IVC is normal in size and collapses >50% with inspiration. There is a trace pericardial effusion. no vegetation or thrombus noted. TDS, May consider MUGA scan to Assess LVEF%.
[2017-05-22] MEDS: Levalbuterol 0.63 MG/3 ML Inhal Soln UD IH SCH (23:30)
--- NOTE | 2017-05-22 23:37 | PN ---
DATE: 05/22/2017 PULMONARY PROGRESS NOTE REFERRING PHYSICIAN: Rogelio Reed MD SUBJECTIVE: She is lying in the bed, get short of breath with minimal exertion, seen by Oncology and Radiation therapy. No more stridor. No hemoptysis. No hematemesis. No hematuria. No diarrhea reported. OBJECTIVE: GENERAL: In no acute distress. VITAL SIGNS: Temperature is 98, heart rate is 91, respiratory rate is 20, blood pressure is 125/71, pulse ox 90% on nasal cannula. HEENT: Moist mucous membrane. Crowded airway. Mallampati score is IV. NECK: Supple. No JVD. LUNGS: Has a scattered rhonchi and few crackles. HEART: S1 and S2. ABDOMEN: Soft and nontender. No organomegaly. EXTREMITIES: No edema. NEUROLOGIC: Awake and alert. Follow simple commands. MEDICATIONS: She is on codeine 30 mg q. 4 hours p.r.n., albuterol and Atrovent nebulizer q 4 hours, Amitiza 24 mcg twice a day, insulin coverage, Lovenox 30 mg daily, Lyrica 25 mg twice a day, getting Magic Mouthwash, methylprednisolone 4 mg three times a day, Megace 200 mg daily, Mucinex DM 1 tab q 8 hours, oxycodone immediate release 50 mg q 6 hours p.r.n., Protonix 20 mg daily, Synthroid 125 mcg daily, Tessalon Perles 100 mg three times a day, Tylenol p.r.n., Zestril 5 mg daily. LABORATORY DATA: Shows hemoglobin 11.1, hematocrit 35.5, WBC 22,000, platelet is 599. Sodium 137, potassium 4.5, chloride 103, bicarbonate 22, BUN 18, creatinine 0.8, glucose 128, calcium 9.8, AST 63, ALT 159,, alkaline phosphatase 209, albumin is 3.9. Microbiology: Blood cultures have been negative. Had echocardiogram done which shows right ventricle systolic pressure is 34. Left ventricle is normal. Normal left ventricle wall motion. Systolic function mildly to moderately impaired. Ejection fraction is 35% to 40%. IMPRESSION AND PLAN: Metastatic lung cancer with progressive disease involving the right main bronchus, right upper bronchus, also metastatic liver disease, radiation and chemotherapy. Echo suggestive of cardiomyopathy, chronic lung disease, hypertension, constipation, hypothyroid, history of cervical cancer. I had a long discussion with Dr. Bustamante about further therapy. I spoke to patient's daughter at bedside. All the questions answered. We will give dose of Lasix today. We will get proBNP and procalcitonin in the morning. Continue steroids and antibiotics on hold. Gastric prophylaxis. Change nebulizer treatment to Xopenex. Titrate FiO2 to pulse ox about 90. Thank you and we will follow with you. Ashlie Alejo MD
[2017-05-23] MEDS: Levalbuterol 0.63 MG/3 ML Inhal Soln UD IH SCH ×5 (03:29→20:47)
--- NOTE | 2017-05-23 03:35 | PN ---
DATE: 05/22/2017 ONCOLOGY PROGRESS NOTE LOCATION: Patient is in room 370, bed 2. SUBJECTIVE: Patient is seen lying in bed. She had just come back from radiation, comfortable once she is lying flat in bed with less coughing, though she still has episodes of coughing but it can be croupy. Coughing gets worse when she leans forward, when she tries to get up and go to the bathroom, but overall feels a little bit better than yesterday. No more stridor, no more hemoptysis, no more hematemesis, no hematuria, no fevers, no chills, no diarrhea. Back pain has improved. PHYSICAL EXAMINATION: GENERAL: Patient is no acute distress. VITAL SIGNS: Stable. T-max 98.4, heart rate is 91, respirations 20, blood pressure 125/71, pulse ox is 90% on nasal cannula. Patient was able to use the BiPAP for about 2 hours last night. HEENT: Head is normocephalic, atraumatic. Conjunctivae pale. Sclerae is anicteric. Pupils are equally reactive to light and accommodation. Examination of the oropharynx reveals the tongue to be moist and no ulcerations are noted. No fungal infections noted. NECK: Supple. There is no adenopathy. LUNGS: Reveals scattered rhonchi with a few crackles, but the air entry on the right upper lobe appears to be slightly improved today. Patient was examined leaning forward with her legs dangling while having her hand resting on the table,which she uses for her meals. HEART: Reveals S1, S2 to be normal. No gallop or murmur is heard. ABDOMEN: Soft, nontender. No rebound, rigidity, or guarding is noted. Liver and spleen not palpable. No other masses are felt. EXTREMITIES: Reveal no cyanosis, clubbing, or edema. NEUROLOGIC: Reveals no focal deficits. Patient is awake, alert, and oriented. MEDICATIONS: Reviewed. She is on codeine 30 mg q. 4h. p.r.n., albuterol and Atrovent nebulizer q. 4h. She is on Amitiza 24 mcg twice a day, insulin coverage, Lovenox 30 mg daily, Lyrica 25 b.i.d., getting the magic mouthwash p.r.n. She is on methylprednisolone 4 mg three times a day, Megace 200 mg daily, Mucinex DM one tab q. 8 hours, oxycodone immediate release 15 mg q. 6h. p.r.n., Protonix 20 mg daily, Synthroid 125 mcg daily, Tessalon Perles 100 mg three times a day, Tylenol p.r.n., and Zestril 5 mg daily. LABORATORY DATA: Reveals a hemoglobin of 11, hematocrit of 35, white count 22,000, platelet count of 599,000. Sodium is 137, potassium 4.5, chloride 103, bicarbonate is 22, BUN of 18, creatinine 0.8. Glucose 128, calcium is 9.8, AST is 63, ALT is 159, alkaline phosphatase is 209, albumin is 3.9. Blood cultures have been negative. Echocardiogram that was done today was read by Dr. Castellanos, shows good right ventricular systolic pressure, left ventricle is normal, normal left ventricle wall motions. The systolic function is mild to moderately decreased and ejection fraction is around 36% to 41%. 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 Patient has liver mets, at least two lesions, and currently is on Keytruda chemotherapy. She is on bisphosphonates IV given once a month and currently patient is on radiation to this area that she has bronchial obstruction. Hemoptysis has improved. Patient has had six doses of radiation, which seems to be helping her slowly albeit not fast enough. I have spoken to Dr. Alejo yesterday and the plan is to try to see if she can complete the radiation while in the hospice, so we can her manage her more aggressively and if she should not improve, then we will consider stent placement. I spoke to the patient's daughter and patient's mother who is with her today. Patient will be getting one dose of Lasix today as was ordered by Dr. Alejo. We will continue to monitor the patient carefully. We are going to have proBNP and procalcitonin in the morning. Continue steroids for now and antibiotics are on hold. Patient is on gastric prophylaxis and the nebulizer treatment has been changed to Xopenex and titrate FiO2 oxygen to about 90%. We discussed the findings with Dr. Alejo regarding further treatment plans in addition to continuing to do what we are doing at this point. Routine post-exam instructions have been given to the patient. Time spent with the patient is greater than 45 minutes, then talking to the family another 50 minutes. Julio Bustamante MD
[2017-05-23] MEDS: Pantoprazole 20 mg EC Tab PO SCH (06:07)
[2017-05-23] MEDS: Levothyroxine 125 MCG TAB PO SCH (06:07)
[2017-05-23 06:35] LABS: EOS # 0.1 (0.0-0.7); EOS % 0.5 % (1.5-5.0); GRAN # 17.94 (1.4-6.5); LYMPH # 0.6 (1.2-3.4); LYMPH % 2.9 % (22.0-35.0); MEAN CELL VOLUME 87.2 fl (80.0-105.0); MEAN CORPUSCULAR HEMOGLOBIN 27.1 pg (25.0-35.0); MEAN CORPUSCULAR HGB CONC 31.1 g/dl (31.0-37.0); MEAN PLATELET VOLUME 8.6 fl (7.0-11.0); MONO # 0.9 (0.1-0.6); MONO % 4.6 % (1.0-6.0); RBC 4.06 10^6/uL (3.5-6.1); RED CELL DISTRIBUTION WIDTH 20.1 % (11.5-14.5); WHITE BLOOD COUNT 19.5 10^3/ul (4.5-11.0)
[2017-05-23 07:00] LABS: B-TYPE NATRIURETIC PEPTIDE 213 pg/mL (0-450)
[2017-05-23 07:25] LABS: ALB/GLOB RATIO 0.9 (1.1-1.8); ALBUMIN 3.8 g/dL (3.0-4.8); ALT/SGPT 161 U/L (7-56); AST/SGOT 57 U/L (14-36); BLOOD UREA NITROGEN 20 mg/dL (7-21); CALCIUM 10.1 mg/dL (8.4-10.5); GFR AFRICAN-AMERICAN > 60; GFR NON-AFRICAN AMERICAN > 60
[2017-05-23] MEDS ORDERED: Levalbuterol 0.63 MG/3 ML Inhal Soln UD IH PRN (07:32)
[2017-05-23] MEDS: Insulin Reg-LOW-Coverage SC SCH ×4 (08:49→21:48)
[2017-05-23] MEDS ORDERED: Sodium Chloride 0.9% 1,000 ML IV SCH (10:15)
[2017-05-23] MEDS: Megestrol Acetate 40 mg/ml Cup PO SCH (11:24)
[2017-05-23] MEDS: Enoxaparin 30 mg Syringe SC SCH (11:24)
[2017-05-23] MEDS: guaiFENesin-DM 600-30 mg ER Tab PO PRN (14:15)
[2017-05-23] MEDS: MethylPREDNISolone 40 mg Vial IVP SCH ×2 (15:57→21:51)
[2017-05-23] MEDS ORDERED: Morphine 2 mg/ml ISec IVP PRN ×2 (17:01→17:02)
--- NOTE | 2017-05-23 17:03 | PCM.RRT ---
<Marino Zaragoza - Last Filed: 05/23/17 17:11> [facility] Nurse Assessment - Situation Date: 05/23/17 Time [facility] was called: 16:16 [facility] Responder Arrival Time: 16:16 [facility] Location:: [address] [place] [address] Room Number: [id number] [facility] Reason for Call: O2 Saturation below 90% [facility] Called By: RN - IV IV Inserted during [facility]?: No - Respiratory Oxygen Delivery Method: BiPAP @% Received Nebulizer Treatments:: Yes Secretions Suctioned?: No Was the Patient Intubated?: No Was the Patient Placed on a Ventilator?: No - Diagnostic Test Ordered EKG: Yes - Stat Labs Ordered [facility] Stat Labs Ordered: BMP, TROPONIN, ABG CPR started during [facility]?: No - Vital Signs Vital Sign: Rapid Response Vital Sign Blood Pressure 126/72 Pulse Rate 130 Respiratory Rate 34 Temperature 98.6 F Oxygen Saturation 82 - Finger Stick Blood Glucose Finger Stick Blood Glucose: 149 - Time [facility] Ended Time [facility] Ended: 16:26 - Vital Signs at end of [facility] Vital Signs at end of [facility]: Rapid Response End Vital Sign Blood Pressure 124/64 Pulse Rate 132 Respiratory Rate 20 Temperature 98.6 F O2 Sat by Pulse Oximetry 91 - Recommendations Notifications: Attending Physician, Consultations, Family or Designated Caregiver - Respiratory Oxygen Delivery Method: BiPAP @% - Constitutional Appears: In Acute Distress, Chronically Ill - Head Head Exam: ATRAUMATIC, NORMAL INSPECTION, NORMOCEPHALIC - Eyes Eye Exam: Normal appearance - Respiratory Exam Respiratory Exam: Decreased Breath Sounds - Cardiovascular Exam Cardiovascular Exam: REGULAR RHYTHM - GI/Abdominal Exam GI & Abdominal Exam: Soft, Normal Bowel Sounds - Neurological Exam Neurological Exam: Alert, Awake, Oriented x3 Plan - Assessment of Findings&Treatment Plan Rapid Response was called by nursing staff due to decreased oxygen saturation. Patients baseline is in the low 90s, and saturation dropped to 82s. Patient was seen and evaluated by the medical time. Family was present bed side. Patient has Bipap machine which she refuses to use. Patient was told that if her saturate worsened we would have to intubate her. She proceeded to say she did not want to be intubated and agreed to use the BIPAP machine. On the BIPAP her condition improved and her oxygen saturation came up back to her baseline (91%) . Patient prior to this event was a full code, Dr. Burdick had discussion with family and the patient and they decided the patient now did not want to be a full code, did not want CPR performed and was interested in comfort care at home as soon as possible. <Georgiana Ellis - Last Filed: 05/23/17 17:16> [facility] [employer] Nurse Assessment - Vital Signs Vital Sign: Rapid Response Vital Sign Blood Pressure 126/72 Pulse Rate 130 Respiratory Rate 34 Temperature 98.6 F Oxygen Saturation 82 - Vital Signs at end of [facility] Vital Signs at end of [facility]: Rapid Response End Vital Sign Blood Pressure 124/64 Pulse Rate 132 Respiratory Rate 20 Temperature 98.6 F O2 Sat by Pulse Oximetry 91 Attending/Attestation - Attestation I have personally seen and examined this patient.: Yes I have fully participated in the care of the patient.: Yes I have reviewed all pertinent clinical information, including history, physical exam and plan: Yes
--- NOTE | 2017-05-23 17:14 | CP.PCM.CON ---
<Eugene Calixto - Last Filed: 05/23/17 17:31> History of Present Illness - History of Present Illness History of Present Illness: Critical Care Consult note- Dr. 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 Previous imaging demonstrates destructive enhancing bony lesions in cervical and thoracic vertebrae. Patient is actively receiving palliative radiation treatment w/ Dr. Peters and on Keytruda chemotherapy. Patient was admitted for productive cough with blood. During encounter a Rapid response was called, O2 saturation 87% HR 120. At this time it was discussed in detail the risks and benefits of intubating. Patient agreed to start BiPAP and oxygen saturation was baseline at 90%. PMH: HTN, DM, HTN, hx of cervical CA, squamous cell, colon CA s/p chemotherapy in 2008. PSH: salpingo-oohorectomy, tympanostomy tube placement ALL: NKDA SocialHx: Former smoker approx 1ppd for 20 years. Denies ETOH, recreational drug use Review of Systems - Review of Systems All systems: reviewed and no additional remarkable complaints except - Constitutional Constitutional: As Per HPI Past Patient History - Infectious Disease Hx of Infectious Diseases: None - Tetanus Immunizations Tetanus Immunization: Unknown - Past Medical History & Family History Past Medical History?: Yes - Past Social History Smoking Status: Never Smoked - CARDIAC Hx Hypertension: Yes - PULMONARY Hx Respiratory Disorders: Yes Hx Pneumonia: Yes Other/Comment: lung mass found on cxr - NEUROLOGICAL Hx Neurological Disorder: No - HEENT Hx HEENT Problems: Yes (glasses, itchy eyes) - RENAL Hx Chronic Kidney Disease: No - ENDOCRINE/METABOLIC Hx Endocrine Disorders: Yes Hx Hypothyroidism: Yes - HEMATOLOGICAL/ONCOLOGICAL Hx Blood Disorders: Yes Hx Cancer: Yes (COLON 2009, colectomy; Lung) Hx Chemotherapy: Yes (05/07/2017) Other/Comment: recently dx with lung ca, lung bx done. radiation done today - INTEGUMENTARY Hx Dermatological Problems: No - MUSCULOSKELETAL/RHEUMATOLOGICAL Hx Falls: No - GASTROINTESTINAL Hx Gastrointestinal Disorders: Yes Other/Comment: 2008 COLON CANCER COLECTOMY - GENITOURINARY/GYNECOLOGICAL Hx Genitourinary Disorders: Yes Other/Comment: HX OVARIAN CYSTECTOMY OPEN 1997 HYSTERECTOMY OCTOBER 2013 - PSYCHIATRIC Hx Psychophysiologic Disorder: No - SURGICAL HISTORY Hx Cholecystectomy: Yes Other/Comment: Ovarian Cyst sx, lcw pac in and out, c section, tubal. Colon Sx. Lung biopsy - ANESTHESIA Hx Anesthesia: Yes Hx Anesthesia Reactions: Yes (NAUSEA VOMITTING) Hx Malignant Hyperthermia: No Meds Allergies/Adverse Reactions: Allergies Allergy/AdvReac Type Severity Reaction Status Date / Time No Known Allergies Allergy Verified 05/17/17 19:01 - Medications Medications: Current Medications Acetaminophen (Tylenol 325mg Tab) 650 mg PO Q6H PRN PRN Reason: Pain, Mild (1-3) Benzonatate (Tessalon Perles) 100 mg PO TID [facility] Last Admin: 05/23/17 14:15 Dose: 100 mg Codeine Sulfate (Codeine) 30 mg PO Q4H PRN PRN Reason: Cough Last Admin: 05/18/17 21:57 Dose: 30 mg Al Hydrox/Mg Hydrox/Simethicone 30 ml/Diphenhydramine HCl 75 mg/Lidocaine 30 ml 0 ml PO TID PRN PRN Reason: Mouth/Throat Pain Enoxaparin Sodium (Lovenox) 30 mg SC DAILY [facility] PRN Reason: Protocol Last Admin: 05/23/17 11:24 Dose: 30 mg Guaifenesin/Dextromethorphan (Mucinex-Dm 600-30 Mg) 1 tab PO Q8 PRN PRN Reason: Cough and congestion Last Admin: 05/23/17 14:15 Dose: 1 tab Sodium Chloride (Sodium Chloride 0.9%) 1,000 mls @ 100 mls/hr IV .Q10H [facility] Stop: 05/23/17 17:44 Insulin Human Regular (Humulin R Low) 0 units SC ACHS NORMA PRN Reason: Protocol Last Admin: 05/23/17 13:47 Dose: Not Given Levalbuterol HCl (Xopenex) 0.63 mg IH Q4 [facility] Last Admin: 05/23/17 15:46 Dose: 0.63 mg Levalbuterol HCl (Xopenex) 0.63 mg IH [id number] PRN PRN Reason: Shortness of Breath Levothyroxine Sodium (Synthroid) 125 mcg PO 0600 [facility] Last Admin: 05/23/17 06:07 Dose: 125 mcg Lisinopril (Zestril) 5 mg PO DAILY [facility] Last Admin: 05/23/17 11:24 Dose: 5 mg Megestrol Acetate (Megace) 200 mg PO DAILY [facility] Last Admin: 05/23/17 11:24 Dose: 200 mg Methylprednisolone (Solu-Medrol) 20 mg IVP Q8 [facility] Last Admin: 05/23/17 15:57 Dose: 20 mg Home Med - Amitiza (24 Mcg) 24 mcg PO BID [facility] Last Admin: 05/23/17 11:26 Dose: Not Given Oxycodone HCl (Oxycodone Immediate Release Tab) 15 mg PO Q6H PRN PRN Reason: Pain, severe (8-10) Last Admin: 05/21/17 09:37 Dose: 15 mg Pantoprazole Sodium (Protonix Ec Tab) 20 mg PO 0600 [facility] Last Admin: 05/23/17 06:07 Dose: 20 mg Pregabalin (Lyrica) 25 mg PO BID [facility] Last Admin: 05/23/17 11:24 Dose: 25 mg Physical Exam - Constitutional Appears: Non-toxic, Agitated, Chronically Ill - Eye Exam Eye Exam: EOMI. absent: Scleral icterus - ENT Exam ENT Exam: Mucous Membranes Moist - Respiratory Exam Respiratory Exam: Accessory Muscle Use, Prolonged Expiratory Phase. absent: Chest Wall Tenderness Additional comments: started on BIPAP - Cardiovascular Exam Cardiovascular Exam: Tachycardia, +S1, +S2. absent: Bradycardia - GI/Abdominal Exam GI & Abdominal Exam: Soft. absent: Distended, Firm, Rebound, Rigid, Tenderness - Neurological Exam Neurological exam: Alert, Oriented x3 - Psychiatric Exam Psychiatric exam: Anxious - Skin Skin Exam: Intact, Warm Results - Vital Signs Recent Vital Signs: Last Vital Signs Temp 97.7 F 05/23/17 08:32 Pulse 115 H 05/23/17 11:24 Resp 20 05/23/17 08:32 BP 118/78 05/23/17 16:10 Pulse Ox 94 L 05/23/17 08:32 - Labs Result Diagrams: 05/23/17 06:00 05/23/17 06:00 Labs: Laboratory Results - last 24 hr 05/22/17 05/23/17 05/23/17 21:23 06:00 06:00 WBC 19.5 H RBC 4.06 Hgb 11.0 L Hct 35.4 L MCV 87.2 MCH 27.1 MCHC 31.1 RDW 20.1 H Plt Count 539 H MPV 8.6 Gran % 92.0 H Lymph % (Auto) 2.9 L [place] % (Auto) 4.6 Eos % (Auto) 0.5 L Baso % (Auto) 0.0 Gran # 17.94 H Lymph # 0.6 L [place] # 0.9 H Eos # 0.1 Baso # 0.00 Sodium 140 Potassium 4.4 Chloride 102 Carbon Dioxide 24 Anion Gap 18 BUN 20 Creatinine 0.8 Est GFR ( Amer) > 60 Est GFR (Non-Af Amer) > 60 POC Glucose (mg/dL) 169 H Random Glucose 147 H Calcium 10.1 Total Bilirubin 0.5 AST 57 H ALT 161 H Alkaline Phosphatase 197 H NT-Pro-B Natriuret Pep 213 Total Protein 8.1 Albumin 3.8 Globulin 4.3 Albumin/Globulin Ratio 0.9 L 05/23/17 05/23/17 05/23/17 09:30 11:18 16:17 WBC RBC Hgb Hct MCV MCH MCHC RDW Plt Count MPV Gran % Lymph % (Auto) [place] % (Auto) Eos % (Auto) Baso % (Auto) Gran # Lymph # [place] # Eos # Baso # Sodium Potassium Chloride Carbon Dioxide Anion Gap BUN Creatinine Est GFR ( Amer) Est GFR (Non-Af Amer) POC Glucose (mg/dL) 127 H 126 H 149 H Random Glucose Calcium Total Bilirubin AST ALT Alkaline Phosphatase NT-Pro-B Natriuret Pep Total Protein Albumin Globulin Albumin/Globulin Ratio Assessment & Plan - Assessment and Plan (Free Text) Assessment: 66F hx of squamous cell carcinoma of the lung stage 4 metastasis to the liver and bone, On Radiation and chemotherapy. admitted for hemoptysis secondary to possible necrotizing lung mass. Rapid response on 05/23/17, patient on BIPAP. After detailed discussion with the patient and the daughters, conclusion of no incubation, and full comfort care measures to be taken. Plan: Neuro: Patient awake, alert, responds to commands and answers questions appropriately Pain control to start Morphine drip Cardio: monitor vitals Pulm: BIPAP for now will ween to NC or room air GI: continue normal diet Heme/Onc: d/w Dr. Bustamante about patient and family decision moving forward chemotherapy and radiation per Dr. Peters and Dr. Bustamante Palliative care is on board for this case. After discussing with the patient and family the risks and benefits of intubation, family decided to take comfort measures. Patient is now DNR/DNI. Will start on Morphine drip. With withdraw any aggressive treatment methods. discussed w/ Dr. Burdick Critical Care attending Eugene Calixto PGY1 <Ayan Burdick - Last Filed: 05/24/17 21:11> Meds - Medications Medications: Current Medications Acetaminophen (Tylenol 325mg Tab) 650 mg PO Q6H PRN PRN Reason: Pain, Mild (1-3) Benzonatate (Tessalon Perles) 100 mg PO TID [facility] Last Admin: 05/24/17 18:45 Dose: 100 mg Carvedilol (Coreg) 3.125 mg PO BID [facility] Last Admin: 05/24/17 18:44 Dose: 3.125 mg Codeine Sulfate (Codeine) 30 mg PO Q4H PRN PRN Reason: Cough Last Admin: 05/18/17 21:57 Dose: 30 mg Al Hydrox/Mg Hydrox/Simethicone 30 ml/Diphenhydramine HCl 75 mg/Lidocaine 30 ml 0 ml PO TID PRN PRN Reason: Mouth/Throat Pain Enoxaparin Sodium (Lovenox) 30 mg SC DAILY [facility] PRN Reason: Protocol Last Admin: 05/24/17 12:16 Dose: 30 mg Guaifenesin/Dextromethorphan (Mucinex-Dm 600-30 Mg) 1 tab PO Q8 PRN PRN Reason: Cough and congestion Last Admin: 05/23/17 14:15 Dose: 1 tab Insulin Human Regular (Humulin R Low) 0 units SC ACHS [facility] PRN Reason: Protocol Last Admin: 05/24/17 18:34 Dose: Not Given Levalbuterol HCl (Xopenex) 0.63 mg IH Q4 [facility] Last Admin: 05/24/17 19:45 Dose: 0.63 mg Levalbuterol HCl (Xopenex) 0.63 mg IH [id number] PRN PRN Reason: Shortness of Breath Levothyroxine Sodium (Synthroid) 125 mcg PO 0600 [facility] Last Admin: 05/24/17 05:39 Dose: 125 mcg Lisinopril (Zestril) 5 mg PO DAILY [facility] Last Admin: 05/24/17 12:16 Dose: 5 mg Megestrol Acetate (Megace) 200 mg PO DAILY [facility] Last Admin: 05/24/17 12:17 Dose: 200 mg Methylprednisolone (Solu-Medrol) 20 mg IVP Q8 [facility] Last Admin: 05/24/17 15:33 Dose: 20 mg Morphine Sulfate (Morphine) 1 mg IVP Q3H PRN PRN Reason: Pain, severe (8-10) Last Admin: 05/24/17 08:28 Dose: 1 mg Home Med - Amitiza (24 Mcg) 24 mcg PO BID [facility] Last Admin: 05/24/17 18:34 Dose: Not Given Oxycodone HCl (Oxycodone Immediate Release Tab) 15 mg PO Q6H PRN PRN Reason: Pain, severe (8-10) Last Admin: 05/24/17 15:33 Dose: 15 mg Pantoprazole Sodium (Protonix Ec Tab) 20 mg PO 0600 [facility] Last Admin: 05/24/17 05:38 Dose: 20 mg Pregabalin (Lyrica) 25 mg PO BID [facility] Last Admin: 05/24/17 12:17 Dose: 25 mg Results - Vital Signs Recent Vital Signs: Last Vital Signs Temp 98 F 05/24/17 16:04 Pulse 103 H 05/24/17 18:44 Resp 22 05/24/17 19:49 BP 121/73 05/24/17 18:44 Pulse Ox 95 05/24/17 16:04 - Labs Result Diagrams: 05/24/17 06:00 05/24/17 06:00 Labs: Laboratory Results - last 24 hr 05/23/17 05/24/17 05/24/17 21:20 06:00 06:00 WBC 23.3 H RBC 4.05 Hgb 11.0 L Hct 35.7 L MCV 88.1 MCH 27.2 MCHC 30.8 L RDW 20.5 H Plt Count 545 H MPV 8.9 Sodium 143 Potassium 4.9 Chloride 106 Carbon Dioxide 19 L Anion Gap 22 H BUN 38 H Creatinine 0.9 Est GFR ( Amer) > 60 Est GFR (Non-Af Amer) > 60 POC Glucose (mg/dL) 175 H Random Glucose 172 H Calcium 9.8 Total Bilirubin 0.4 AST 56 H ALT 175 H Alkaline Phosphatase 197 H Total Protein 7.2 Albumin 3.7 Globulin 3.5 Albumin/Globulin Ratio 1.1 05/24/17 05/24/1705/24/18 08:34 11:50 17:34 WBC RBC Hgb Hct MCV MCH MCHC RDW Plt Count MPV Sodium Potassium Chloride Carbon Dioxide Anion Gap BUN Creatinine Est GFR ( Amer) Est GFR (Non-Af Amer) POC Glucose (mg/dL) 162 H 180 H 132 H Random Glucose Calcium Total Bilirubin AST ALT Alkaline Phosphatase Total Protein Albumin Globulin Albumin/Globulin Ratio Attending/Attestation - Attestation I have personally seen and examined this patient.: Yes I have fully participated in the care of the patient.: Yes I have reviewed all pertinent clinical information: Yes Notes (Text): 05/24/17 21:10 66 yo female with stage 4 lung CA, now in severe respiratory distress. On BPAP, steroid, Abx, nebs. Family requested to proceed with DNR/DNI, comfort care and transition to hospice if wont improve soon.
[2017-05-23 17:17] LABS: B-TYPE NATRIURETIC PEPTIDE 233 pg/mL (0-450); TROPONIN I < 0.01 ng/mL
[2017-05-23] MEDS ORDERED: MethylPREDNISolone 40 mg Vial IVP STA (17:26)
--- NOTE | 2017-05-23 18:34 | PN ---
DATE: 05/23/2017 PULMONARY PROGRESS NOTE REFERRING PHYSICIAN: Rogelio Reed MD SUBJECTIVE: She is lying on the bed, comfortable. Does not want to use CPAP/BiPAP, claustrophobic. Breathing is less better. No nausea. No vomiting, diarrhea, leg pain or leg swelling. OBJECTIVE: GENERAL: In no acute distress. VITAL SIGNS: Temperature is 98, heart rate , respiratory rate 20, blood pressure is 103/75, and pulse oximetry is 94% on nasal cannula. HEENT: Moist mucous membranes. Crowded airway. Mallampati score is IV. NECK: Supple. No JVD. LUNGS: Has a scattered rhonchi and few wheezing. HEART: S1 and S2. ABDOMEN: Soft and nontender. No organomegaly. EXTREMITIES: There is not much edema. NEUROLOGIC: Awake, alert, and follow simple commands. MEDICATIONS: She is on codeine sulfate 10 mg q.4 hours p.r.n., Amitiza 24 mcg p.o. twice a day, insulin coverage, Lovenox 30 mg subcu daily, Lyrica 25 mg twice a day, Mouth Oral magic mouthwash p.r.n. basis, Medrol 4 mg 3 times a day, Megace 200 mg daily, Mucinex DM one tab q.8 hours p.r.n., and oxycodone immediate release 15 mg q.6 hours p.r.n. She is given pamidronate 90 mg, Protonix 20 mg daily, IV fluid normal saline 100 mL per hour, Synthroid 125 mcg daily, Tessalon Perles 100 mg 3 times a day, Tylenol p.r.n. basis, Xopenex 0.63 q.4 hours, and Zestril 5 mg daily. LABORATORY DATA: Shows hemoglobin 11.0, hematocrit , and platelets are 539. Sodium 140, potassium 4.4, chloride 102, bicarbonate 24, BUN 20, creatinine 0.8, glucose 147, and calcium 10.1. AST is 57, ALT is 161, and alkaline phosphatase is 197. Microbiology; blood cultures, no growth. Sputum, no growth. IMPRESSION AND PLAN: Metastatic lung cancer with progressive disease to the lung involving the right hilar area with bronchus intermedius and right upper lobe bronchus compromised with metastatic disease. Echocardiogram suggestive of cardiomyopathy with pulmonary hypertension with diastolic cardiac dysfunction, chronic lung disease, hypertension, constipation, hypothyroid, history of cervical cancer, and colon cancer. Chemotherapy is being given. Started on IV fluid. We will watch closely and be careful. The patient does not go to heart failure especially with the cardiac diastolic dysfunction. Continue bronchodilator. Keep head at 45 degrees. Continue steroids. Radiation chemotherapy. Continue supportive care. Follow up labs in the morning. Thank you and we will follow with you. Ashlie Alejo MD
[2017-05-23] MEDS: Morphine 2 mg/ml ISec IVP PRN ×2 (20:21→23:29)
[2017-05-24] MEDS: Levalbuterol 0.63 MG/3 ML Inhal Soln UD IH SCH ×7 (02:19→23:24)
[2017-05-24] MEDS: Morphine 2 mg/ml ISec IVP PRN ×3 (02:22→08:28)
[2017-05-24] MEDS: MethylPREDNISolone 40 mg Vial IVP SCH ×3 (05:37→23:07)
[2017-05-24] MEDS: Pantoprazole 20 mg EC Tab PO SCH (05:38)
[2017-05-24] MEDS: Levothyroxine 125 MCG TAB PO SCH (05:39)
[2017-05-24 06:16] LABS: MEAN CELL VOLUME 88.1 fl (80.0-105.0); MEAN CORPUSCULAR HEMOGLOBIN 27.2 pg (25.0-35.0); MEAN CORPUSCULAR HGB CONC 30.8 g/dl (31.0-37.0); MEAN PLATELET VOLUME 8.9 fl (7.0-11.0); RBC 4.05 10^6/uL (3.5-6.1); RED CELL DISTRIBUTION WIDTH 20.5 % (11.5-14.5); WHITE BLOOD COUNT 23.3 10^3/ul (4.5-11.0)
--- NOTE | 2017-05-24 06:25 | CON ---
DATE: CONSULTING PHYSICIAN: Ashlie Castellanos MD REASON FOR CONSULTATION: Followup cardiomyopathy, decreased LV function, metastatic lung cancer, status post radiation, status post chemo. BRIEF CLINICAL HISTORY: This is a 66-year-old female with past medical history of [id number] cancer with metastasis to the brain, lung, and bone who had echo done yesterday, decreased LV function, trace pericardial effusion so the cardiology consult was called for followup and evaluation of cardiac function. The patient had rapid response. Blood pressure dropped. Oxygen saturation dropped, now with high-flow oxygen, the patient is a DNR/DNI. Family is at the bedside. PAST MEDICAL HISTORY: Significant for hypertension, diabetes, thyroid disease, cervical cancer in the past, history of colon cancer in the past, history of chronic bronchitis, history of xim-[id number] cancer with metastasis. SOCIAL HISTORY: History of positive smoking in the past. Denies any history of alcohol abuse. CURRENT MEDICATIONS: The patient is taking codeine, DuoNeb nebulizer treatment, high flow oxygen, oxycodone, Synthroid, Protonix, and Zestril. REVIEW OF SYSTEMS: As per HPI. PHYSICAL EXAMINATION: GENERAL: Temperature afebrile, heart rate 74, blood pressure 118/78. HEENT: PERRLA, intact. NECK: Supple. No carotid bruit or thyromegaly. CHEST: Clear to auscultation. HEART: S1, S2 regular. ABDOMEN: Soft. EXTREMITIES: Clubbing and cyanosis negative. Edema positive. LABORATORY DATA: Blood workup, WBC , hemoglobin 11, hematocrit 35.4, and platelet count 535. Chemistry shows sodium 140, potassium 4.4, chloride 102, carbon dioxide 24, anion gap of 18, BUN 20, and creatinine 0.8. Troponin 0.01. IMAGING STUDIES: EKG shows sinus tachycardia. The patient had echocardiography done yesterday dated 05/22/2017 and that showed ejection fraction of 35% to 40%, trace aortic regurgitation, trace mitral regurgitation, trace tricuspid regurgitation. I recommended a JACKY. IMPRESSION: Metastatic lung cancer, decreased left ventricular function, most likely secondary to chemotherapy. Suggest MUGA scan, but since the patient is code status DNR/DNI with morphine drip, so we will hold MUGA scan, but we will add on the Coreg if the patient is going to take it. For p.o. medication, we will add YESIKA inhibitors and Coreg. We will follow with you. Further recommendation as per the hospital course. We will follow with you. Thank you Dr. Bustamante for providing us the opportunity in taking care of the patient. Overall, patient's condition is critical. Long-term prognosis is extremely poor. This afternoon, the patient had a rapid response. Since the patient is a DNR/DNI, the patient wants comfort care, so we will hold MUGA scan for now. This was ordered, but I will hold it. Ashlie Castellanos MD
[2017-05-24 07:43] LABS: ALB/GLOB RATIO 1.1 (1.1-1.8); ALBUMIN 3.7 g/dL (3.0-4.8); ALT/SGPT 175 U/L (7-56); AST/SGOT 56 U/L (14-36); BLOOD UREA NITROGEN 38 mg/dL (7-21); CALCIUM 9.8 mg/dL (8.4-10.5); GFR AFRICAN-AMERICAN > 60; GFR NON-AFRICAN AMERICAN > 60
[2017-05-24] MEDS: Insulin Reg-LOW-Coverage SC SCH ×3 (09:07→18:34)
[2017-05-24] MEDS: Enoxaparin 30 mg Syringe SC SCH (12:16)
[2017-05-24] MEDS: Megestrol Acetate 40 mg/ml Cup PO SCH (12:17)
--- NOTE | 2017-05-24 13:11 | CP.PCM.PN ---
Subjective - Date & Time of Evaluation Date of Evaluation: 05/24/17 Time of Evaluation: 11:00 - Subjective Subjective: Alert, no complaints offered. High flow oxygen in use. Objective - Vital Signs/Intake and Output Vital Signs (last 24 hours): Temp Pulse Resp BP Pulse Ox 98.1 F 108 H 19 111/71 93 L 05/24/17 09:03 05/24/17 12:17 05/24/17 09:03 05/24/17 12:17 05/24/17 09:03 Intake and Output: 05/24/17 05/24/17 06:59 18:59 Intake Total 100 Output Total 350 Balance -250 - Medications Medications: Current Medications Acetaminophen (Tylenol 325mg Tab) 650 mg PO Q6H PRN PRN Reason: Pain, Mild (1-3) Benzonatate (Tessalon Perles) 100 mg PO TID [facility] Last Admin: 05/24/17 12:17 Dose: 100 mg Carvedilol (Coreg) 3.125 mg PO BID [facility] Last Admin: 05/24/17 12:17 Dose: 3.125 mg Codeine Sulfate (Codeine) 30 mg PO Q4H PRN PRN Reason: Cough Last Admin: 05/18/17 21:57 Dose: 30 mg Al Hydrox/Mg Hydrox/Simethicone 30 ml/Diphenhydramine HCl 75 mg/Lidocaine 30 ml 0 ml PO TID PRN PRN Reason: Mouth/Throat Pain Enoxaparin Sodium (Lovenox) 30 mg SC DAILY [facility] PRN Reason: Protocol Last Admin: 05/24/17 12:16 Dose: 30 mg Guaifenesin/Dextromethorphan (Mucinex-Dm 600-30 Mg) 1 tab PO Q8 PRN PRN Reason: Cough and congestion Last Admin: 05/23/17 14:15 Dose: 1 tab Insulin Human Regular (Humulin R Low) 0 units SC ACHS NORMA PRN Reason: Protocol Last Admin: 05/24/17 09:07 Dose: 1 units Levalbuterol HCl (Xopenex) 0.63 mg IH Q4 [facility] Last Admin: 05/24/17 12:04 Dose: 0.63 mg Levalbuterol HCl (Xopenex) 0.63 mg IH [id number] PRN PRN Reason: Shortness of Breath Levothyroxine Sodium (Synthroid) 125 mcg PO 0600 [facility] Last Admin: 05/24/17 05:39 Dose: 125 mcg Lisinopril (Zestril) 5 mg PO DAILY [facility] Last Admin: 05/24/17 12:16 Dose: 5 mg Megestrol Acetate (Megace) 200 mg PO DAILY [facility] Last Admin: 05/24/17 12:17 Dose: 200 mg Methylprednisolone (Solu-Medrol) 20 mg IVP Q8 [facility] Last Admin: 05/24/17 05:37 Dose: 20 mg Morphine Sulfate (Morphine) 1 mg IVP Q3H PRN PRN Reason: Pain, severe (8-10) Last Admin: 05/24/17 08:28 Dose: 1 mg Home Med - Amitiza (24 Mcg) 24 mcg PO BID [facility] Last Admin: 05/23/17 18:20 Dose: Not Given Oxycodone HCl (Oxycodone Immediate Release Tab) 15 mg PO Q6H PRN PRN Reason: Pain, severe (8-10) Last Admin: 05/21/17 09:37 Dose: 15 mg Pantoprazole Sodium (Protonix Ec Tab) 20 mg PO 0600 [facility] Last Admin: 05/24/17 05:38 Dose: 20 mg Pregabalin (Lyrica) 25 mg PO BID [facility] Last Admin: 05/24/17 12:17 Dose: 25 mg - Labs Labs: 05/24/17 06:00 05/24/17 06:00 - Constitutional Appears: No Acute Distress, Chronically Ill - Head Exam Head Exam: NORMOCEPHALIC Additional comments: alopecia s/p radiation therapy - Eye Exam Eye Exam: Normal appearance, PERRL - ENT Exam ENT Exam: Mucous Membranes Moist, Normal Oropharynx - Neck Exam Neck Exam: Normal Inspection - Respiratory Exam Additional comments: decreased R> L,dyspnea on exertion - Cardiovascular Exam Cardiovascular Exam: REGULAR RHYTHM, +S1, +S2 - GI/Abdominal Exam GI & Abdominal Exam: Soft, Normal Bowel Sounds - Extremities Exam Extremities Exam: Normal Capillary Refill, Normal Inspection - Back Exam Back Exam: NORMAL INSPECTION - Neurological Exam Neurological Exam: Alert, Oriented x3 - Skin Skin Exam: Dry, Warm Assessment and Plan - Assessment and Plan (Free Text) Assessment: 66 year old female with history of HTN,DM, colon cancer, cervical cancer and stage IV lung cancer who was admitted with hemoptysis which has since resolved, cough, dyspnea on exertion and weakness. She has been receiving immunotherapy with Keytruda. She is currently undergoing palliative radiation to right chest mass. Yesterday the patient developed increased shortness of breath and hypoxia. COUNTY ASSESSOR was called. After discussion with alumnae secretary, the patient indicated that she did not want to be intubated nor did she want CPR. She also requested to be made comfort care. Patient's family was present and in agreement with plan. I met with patient this morning. She states that she does not think she wants hospice care. She is willing to continue treatment. She understands the benefits and burdens of doing so. She asks that I speak with her family as well.Psychosocial support given. Family meeting with Dania Dimas S.W, myself and patients children. Family indicated that the patient did not want to stop treatment. Family stated that the patient became frightened when she experienced shortness of breath yesterday and thought she was imminently dying. After considering options for comfort care vs treatment, she has decided that she wants to continue radiation and immunotherapy treatment. Both patient and family aware that her her prognosis is guarded. Benefits and burdens of treatment explained to both patient and family. All are in agreement for continuing treatment. Family knows that hospice is always an available option but do not want services at this time. Time spent with patient and family in goals of care discussion, 45 minutes Plan: Palliative support in establishing goals of care Psychosocial support
[2017-05-24] MEDS: oxyCODONE 15 mg Immediate Release Tab PO PRN (15:33)
--- NOTE | 2017-05-24 15:39 | CARD ---
APPROVED REPORT EKG Measurement Heart [id number] <Conclusion> Sinus tachycardia with short W[place] Possible Left atrial enlargement Nonspecific ST abnormality Abnormal ECG
--- NOTE | 2017-05-24 18:30 | PN ---
PULMONARY PROGRESS NOTE DATE: 05/24/2017 REFERRING PHYSICIAN: Rogelio Reed MD SUBJECTIVE: The patient is lying in the bed, head at 45 degrees. Family is at bedside on high-flow oxygen and p.r.n. morphine and much more comfortable. Decreased cough and shortness of breath. No nausea. No vomiting, diarrhea, leg pain, or leg swelling. OBJECTIVE: GENERAL: In no acute distress. VITAL SIGNS: Temperature is 98, heart rate is 108, respiratory rate is 20, blood pressure is 111/71, and pulse ox is 93% on high-flow nasal oxygen. HEENT: Moist mucous membranes. Crowded airway. NECK: Supple. No JVD. LUNGS: Has a scattered rhonchi. HEART: S1 and S2. ABDOMEN: Soft and nontender. No organomegaly. EXTREMITIES: No edema. NEUROLOGIC: Awake, alert, and follows simple commands. MEDICATIONS: She is on codeine 30 mg q.4 hours p.r.n., Coreg 3.125 mg twice a day, insulin coverage, Lovenox 30 mg subcutaneously daily, Lyrica 25 mg twice a day, she is on magic mouth swish and spit, Megace 200 mg daily, morphine 1 mg q.3 hours p.r.n., Mucinex DM one tablet q.8 hours p.r.n., oxycodone 50 mg q.6 hours p.r.n., Protonix 20 mg daily, Solu-Medrol 20 mg IV q.8 hours, levothyroxine 125 mcg daily, Tessalon Perles 100 mg three times a day, Tylenol p.r.n., Xopenex 0.63 q.4 hours, and Zestril 5 mg daily. LABORATORY DATA: Shows hemoglobin 11.0, hematocrit 35.7, WBC 23,000, and platelet is 545. Sodium , potassium 4.5, chloride 106, bicarbonate 19, BUN 38, creatinine 0.9, glucose 172, and calcium 9.8. AST 56, ALT 175, and alkaline phosphatase 197. Albumin is 3.7. Microbiology: Sputum culture has been negative. Blood culture has been negative. IMPRESSION AND PLAN: Metastatic lung cancer with progressive disease involving the right hilar area with compression of the right bronchus intermedius and right upper lobe bronchus on chemotherapy and on radiation therapy. Rapid response was called yesterday, which was placed on high-flow oxygen and p.r.n. morphine given and also has cardiac diastolic dysfunction with pulmonary hypertension. 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 Case discussed with Dr. Bustamante in detail, also spoke to the patient's family at bedside. We will continue radiation therapy somewhere early next week. We will repeat CAT scan and see if compression on the bronchus intermedius and right upper lobe is better, if not, we will consider bronchial stenting. Thank you and we will follow with you. Ashlie Alejo MD
--- NOTE | 2017-05-24 20:09 | CARD ---
APPROVED REPORT INDICATION EVALUATE LV AND RV EF% PROCEDURE The above named patient recieved 28.7 millicuries of Tc99m tagged red blood cells intravenously. After achieving equilibrium, gated imaging of 16/frame/cycle was performed utillizing Gamma camera interfaced with a digital computer and gated device. Gated imaging was then performed in the left anterior oblique, anterior, and the left lateral projections. Findings Left Ventricle: The quality of the study is good. The left ventricle is within normal limits in size. The right ventricle is normal in size. Wall motion study shows good contractility of the left ventricle except for paradoxical septal wall motion. RV wall motion is normal. The right atrium is dynamic.. The left atrium is prominent. The remainder of the study is unremarkable. Impressions Normal overall LV function despite paradoxical septal wall motion. LVEF = 56%. Normal RV wall motion. Slight prominent left atrium.
--- NOTE | 2017-05-24 21:17 | PN ---
DATE: 05/24/2017 This is [facility]'s [facility] visit on the medical floor. For Dr. Bustamante. SUBJECTIVE: The patient is a 66-year-old female seen lying awake in bed with family members at the bedside, status post a rapid response yesterday, now receiving palliative radiation as per Dr. 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 The patient's brain lesion was treated with radiation with good response when the patient continued her radiation treatments now for her mediastinum. The patient has no further hemoptysis; however, the cough persists, possibly due to foreign body sensation there. With this, the patient is now on BiPAP with her oxygen saturation improved. It should be noted that this is a complex patient with a comprehensive medical necessary and appropriate visit carried out with Dr. Bustamante spending over one hour [id number] time with the family and the patient discussing the patient's condition and the chances for improving her recovery with the patient also seen by Ms. Neely for hospice evaluation. At present, she is a DNR/DNI with the family and the patient aware of her significant morbidity. However, the patient is presently resting comfortably with consultants recommendations to be carried out. OBJECTIVE/PHYSICAL EXAMINATION: VITAL SIGNS: Temperature 98.1, pulse 108, respirations 19, blood pressure 111/71, and pulse oximetry of 93% on a Venturi mask. HEENT: The patient is status post her chemotherapy. NECK: Supple. HEART: Tachy rate, regular rhythm. LUNGS: Scattered rhonchi bilateral. ABDOMEN: Soft and nontender. EXTREMITIES: No edema. SKIN: Warm and dry. NEUROLOGIC: Awake and alert. IMAGING: The patient did have an EKG done and has not been read. She had an echocardiogram done 2 days prior, as per Dr. Castellanos, which was read as systolic function impaired, ejection fraction of 35% to 40%, no vegetation noted. LABORATORY DATA: The patient's labs were done, white blood cell count of 23.3 on steroids, hemoglobin 11.0, hematocrit 35.7, platelet count of 545,000 with a chem metabolic panel showed her BUN of 38, creatinine of 0.9, nonfasting glucose 162, ALT of 175, AST of 56, alkaline phosphatase 197, otherwise normal chem metabolic panel. ASSESSMENT: For this patient is as above, metastatic stage IV carcinoma of the lung with documented brain, liver, bone metastases with progression of disease encroaching the right mainstem bronchus, right upper lobe. She also has liver metastasis on Keytruda chemotherapy and radiation, chronic obstructive pulmonary disease, persistent cough, hypertension, diabetes, constipation, hypothyroidism, history of colon cancer, squamous cell carcinoma of the cervix. PLAN: For this patient after conversation with Dr. Bustamante who spoke with Dr. Alejo who is her pulmonary cleaning validation consultant is to continue her present medical regimen with consideration for stent placement with radiation to continue as per Dr. Sherice Peters and Keytruda treatment also continue as per Dr. Bustamante's protocols and recommendations. The patient continues to be DNR/DNI with a hospice evaluation with Ms. Kelsi Neely, with prognosis for this patient is guarded. This is a complex patient with multiple comorbidities with a long visit [id number] time in excess of 1 hour answering questions with the family and the patient at the bedside with consultations with clinicians as listed above. Prognosis for this patient is guarded. Rogelio Reed MD
--- NOTE | 2017-05-24 22:15 | PN ---
DATE: 05/24/2017 LOCATION: The patient is in room 370, bed 2. REASON FOR CONSULTATION: Evaluate cardiac status; on echo, the patient has decreased LV function suggestive of cardiomyopathy, metastatic lung carcinoma, status post radiation and chemotherapy. BRIEF HISTORY: A 66-year-old female, known case of non-small cell carcinoma with metastasis to the brain, lung, and bone. Echo was done on 05/22/2017 which showed decreased LV function, trace pericardial seen, so cardiology consult was called for evaluation of her cardiac status as well as cardiac function. The patient yesterday had rapid response because blood pressure had dropped and also oxygen saturation had dropped; now with high-flow oxygen, the patient is breathing better. The patient was made DNR and DNI by the family. Today, the patient looks better. She answers all questions. She denies any chest pain or palpitation. PHYSICAL EXAMINATION: VITAL SIGNS: Blood pressure 111/71, respirations 19, pulse 108, and temperature 98.1. HEENT: Head is normocephalic. Eyes, pupils normal. Conjunctivae slightly pale. NECK: JVP low. Carotids are equal. LUNGS: No rales. CARDIOVASCULAR: S1, S2. ABDOMEN: Soft. No organomegaly. Bowels are normal. EXTREMITIES: No clubbing. No cyanosis. LABORATORY DATA: WBC 23.3, hemoglobin 11.0, hematocrit 35.7, and platelet 545. Sodium 143, potassium 4.9, BUN 38, creatinine 0.9, random sugar 180, AST 56, ALT 175, alkaline phosphatase 197. Troponin less than 0.01. Total protein 7.2. Albumin is 3.7. DIAGNOSES: 1. Metastatic lung cancer. 2. Decreased left ventricular function, more likely secondary to chemotherapy. PLAN: We were going to do MUGA scan, but now the patient is DNR/DNI, so we will treat the patient medically. Added Coreg 3.125 b.i.d. to her therapy and also added lisinopril 5 mg daily to her present therapy. The patient also is on Synthroid 125 mcg daily, methylprednisolone 20 mg IV q. 8 hours, Protonix 20 mg p.o. daily, Lyrica 25 mg p.o. b.i.d., Lovenox 30 mg subcu daily, Amitiza 24 mcg p.o. b.i.d. We will continue present therapy. We will follow with you. Ashlie Mayberry MDDD: 05/24/2017 17:25:21
--- NOTE | 2017-05-25 02:36 | PN ---
DATE: 05/24/2017 ADDENDUM to the dictation of Dr. Agustin Gonzalez, which was done already today on 05/24/2017. Aurora is a 66-year-old female under our care for metastatic stage IV non-small cell carcinoma of the lung, currently on radiation therapy to the right upper lobe lung tumor, which is mechanically pressing the upper lobe bronchus intermedius and right lower lobe posteriorly on the right side, which is causing significant pulmonary embarrassment for the patient with pulmonary hypoxemia along with pulmonary hypertension. The patient had been placed on high-flow nasal oxygen after rapid response was called in yesterday for progressively worsening respiratory status with worsening O2 sats from dropping down into the low 80s. At that time, the patient was started on a combination of concussion of medicines including IV Lasix, IV morphine and the steroids were increased. She got 60 mg of IV Solo-Medrol stat and placed on 7 mg q.8 hours. However, the combination of all these medicines possibly related to the effects from these medicines. The radiation induced edema around the tumor site has decreased and the patient is feeling 70% better compared to this time yesterday. Overall, the patient has improved and he had a long family discussion today in the presence of the Palliative Care Nurse and the licensed master social worker as well. The patient and family are correlating with the fact that at this point in time even intubation will not make much of a difference as the blockage is further beyond the level where the ET tube can reach unless the patient gets placement of a stent into the right mainstem bronchus extending into the right upper lobe or right intermedius bronchus or the right lower lobe the patient is not going to benefit. It appears that this portion of the lung contribution to the overall lung function still is crucial for the patient. There was a concern about left ventricular ejection fraction being affected based on the echo. The patient had a MUGA scan today, which shows paradoxical septal wall motion with the ejection fraction based on the MUGA scan of the left ventricle is still about 50%. I discussed all these findings to the family at great length. Family would like to continue aggressive medical support even though we have made her DNR/DNI. Plan is to continue radiation. I had a long talk with the radiation Oncologist as well on three-way conversation. The patient did get her radiation dose today. Plan is to reassess her next week for completion of 2 doses of radiation scheduled from Saturday and Saturday. If the patient is improved, we will try to ascertain that by doing a CAT scan in the early part of next week. If the CAT scan shows reduction of the tumor size with elevation of the pressure then we will continue with our current treatments including continuing her Keytruda, which she would be due next week. The patient only got Aredia yesterday. If on the other hand, there is minimal improvement then the patient will be assessed for placement of a stent, which will be done at [facility]. In the meantime, we will continue aggressive medical care for now and not adopt the route of hospice for the time being. Family and the patient are fully cognizant of all these facts and are in agreement. Time spent in discussion with the family and the patient correlating all the information and giving them the information. Time spent was more than 90 minutes for the patient and more than 50% of the time were spent [id number] in contact with the patient, counseling her and telling her about all these findings and recommendation and treatment plans. Julio Bustamante MD
[2017-05-25] MEDS: Levalbuterol 0.63 MG/3 ML Inhal Soln UD IH SCH ×5 (04:30→21:45)
[2017-05-25] MEDS: Pantoprazole 20 mg EC Tab PO SCH (05:37)
[2017-05-25] MEDS: Levothyroxine 125 MCG TAB PO SCH (05:37)
[2017-05-25] MEDS: MethylPREDNISolone 40 mg Vial IVP SCH ×3 (05:39→22:00)
[2017-05-25] MEDS: Insulin Reg-LOW-Coverage SC SCH ×4 (08:43→22:00)
[2017-05-25] MEDS: Enoxaparin 30 mg Syringe SC SCH (10:14)
[2017-05-25] MEDS: Megestrol Acetate 40 mg/ml Cup PO SCH (10:14)
--- NOTE | 2017-05-25 19:03 | PN ---
DATE: 05/25/2017 REASON FOR CONSULTATION AND FOLLOWUP: Cardiac evaluation, status post echo suggestive of cardiomyopathy, metastatic lung carcinoma, status post radiation, and status post chemo, but now the patient is DNR/DNI. Family is at the bedside. Denies any chest pain, shortness of breath, or any palpitation. PHYSICAL EXAMINATION: VITAL SIGNS: As follows; temperature afebrile, heart rate 98 and blood pressure 101/64. HEENT: PERRLA intact. NECK: Supple. No carotid bruits or thyromegaly. CHEST: Clear to auscultation. HEART: S1 and S2 regular. ABDOMEN: Soft. EXTREMITIES: Clubbing and cyanosis negative. LABORATORY DATA: Blood workup as follows; WBC 23.3, hemoglobin 11, hematocrit 35.7, and platelet count 554. Chemistry shows sodium 140, potassium 4.9, chloride of 106, carbon dioxide 19, anion gap of 22, BUN 30, and creatinine 0.9. The patient had a MUGA scan done yesterday that shows normal LV function, ejection fraction of 56%, normal RV function, but by echo, the patient had EF 35% to 40%, trace aortic regurgitation, and trace mitral regurgitation. IMPRESSION: Metastatic lung carcinoma, decrease left ventricular function most likely secondary to chemotherapy, do not resuscitate/do not intubate. RECOMMENDATIONS: Continue YESIKA inhibitors. Continue add Coreg. Continue Synthroid. Continue methylprednisolone. Continue supportive care. Continue Lovenox for DVT prophylaxis. the patient's condition is critical. Long-term prognosis is guarded. We will follow with you. Thank you Dr. Bustamante for providing us the opportunity in taking care of the patient, Aurora Han. Ashlie Castellanos MD
--- NOTE | 2017-05-25 20:22 | PN ---
DATE: 05/25/2017 PULMONARY PROGRESS NOTE REFERRING PHYSICIAN: Dr. Rogelio Reed SUBJECTIVE: She is lying in the bed. Family is at bedside, on high flow nasal cannula, p.r.n. morphine. Overall feels better. Still gets short of breath with exertion, although mild cough which is dry. No nausea, no vomiting, diarrhea, leg pain or leg swelling. PHYSICAL EXAMINATION GENERAL: In no acute distress. VITAL SIGNS: Temp is 99, heart rate is 92, respiratory rate is 20, blood pressure is 101/64, pulse ox is 99% on high flow nasal cannula. HEENT: Moist mucous membranes. Crowded airway. Mallampati score is IV. NECK: Supple. No JVD. LUNGS: Have few scattered rhonchi. No wheezing. No stridor. HEART: S1 and S2. ABDOMEN: Soft and nontender. No organomegaly. EXTREMITIES: No edema. NEUROLOGIC: Awake and alert. Follow simple commands. MEDICATIONS: She is on codeine 30 mg q. 4 hours p.r.n., Coreg 3.125 mg twice a day, insulin coverage, Lovenox 30 mg subcu daily, Lyrica 25 mg twice a day, Magic Mouthwash p.r.n. basis, Megace 20 mg daily, morphine 1 mg q. 3 hours p.r.n., Mucinex DM 1 tab q. 8 hours, oxycodone immediate release 50 mg q. 6 hours p.r.n., Protonix 20 mg daily, Solu-Medrol 20 mg q. 8 hours, Synthroid 125 mcg daily, Tessalon Perles 100 mg three times a day, Tylenol p.r.n., Xopenex p.r.n., Zestril 5 mg daily. LABORATORY DATA: Shows blood sugar this morning 194. Microbiology, blood culture, sputum culture, there is no growth. IMPRESSION AND PLAN: Metastatic lung cancer with progressive disease involving the right hilar with compression of the right bronchus intermedius and right upper lobe bronchus with cough and shortness of breath, on chemotherapy and actively on radiation therapy, may have component of sleep apnea syndrome, claustrophobic, could not use CPAP, has mild cardiac diastolic dysfunction, has pulmonary hypertension. Case discussed with the family. All the questions answered. We will continue high flow oxygen. Continue morphine p.r.n. basis, inhaled bronchodilator, gastric prophylaxis, deep vein thrombosis prophylaxis, continue radiation and chemotherapy for now. Thank you and we will follow with you. Ashlie Alejo MD
[2017-05-26] MEDS: Levalbuterol 0.63 MG/3 ML Inhal Soln UD IH SCH ×6 (02:35→21:35)
--- NOTE | 2017-05-26 04:36 | PN ---
ONCOLOGY PROGRESS NOTE DATE: 05/25/2017 LOCATION: Patient is in room 370, bed 2. SUBJECTIVE: Patient is examined, lying in bed, family is at the bedside, both the sons are by her side. Patient tells me that her breathing is considerably improved. She still uses the high-flow nasal oxygen almost on a continuous basis. Overall, she feels better, but when she tries to get up and go to the bathroom, on minimal exertion she gets short of breath and more importantly she has a choking sensation with mild cough, though it is dry now. No nausea. No vomiting. No leg pain. No leg swelling. She complains of some degree of pain and discomfort on swallowing or odynophagia, probably related to the sequelae of radiation, which is still ongoing at this point. She still has 2 more radiation treatments left. She is off the radiation treatment over the weekend and I have told her that may be Magic Mouthwash will be of tremendous value at this time. She is able to eat, her appetite is improved and she is eating a regular diet along with Glucerna supplements. PHYSICAL EXAMINATION GENERAL: Patient is in no acute distress. VITAL SIGNS: Stable. T-max is 99, heart rate is 92, respirations 20, blood pressure is 101/64, and pulse oximetry is 99% on high-flow nasal cannula. HEENT: Head is normocephalic and atraumatic. Crowded airways are noted. No oropharyngeal lesions are seen. Tongue is moist. There is no evidence of gross mucositis. NECK: Supple. There is no adenopathy. No jugular venous distention noted. LUNGS: Have few rhonchi. No wheezing. No stridor. HEART: Reveals PMI to be in the fifth intercostal space, inside the midclavicular line. S1 and S2 normal. No gallop or murmur is heard. ABDOMEN: Soft and nontender. Liver and spleen are not palpable. No other masses are felt. Patient does not have any significant pain, either in back or in the front in the abdominal area. EXTREMITIES: Reveals no cyanosis, clubbing, or edema. NEUROLOGIC: Higher functions are normal. No focal deficits are noted. Plantars are flexors. MEDICATIONS: The patient's medications are reviewed. She is on codeine 30 mg q.4 h p.r.n., Coreg 3.125 mg twice a day, insulin coverage, Lovenox 30 mg subcutaneously daily, Lyrica 25 mg twice a day, she was started on Magic Mouthwash 1 teaspoon q.4 h p.r.n., Megace 1 teaspoon daily to increase her appetite, she is also on IV morphine 1 q.3 hours p.r.n. for shortness of breath and has a preload and afterload reducing agent, she is on Mucinex DM tab one q. 8 hours, she is on oxycodone 30 mg q.6 h. p.r.n., Protonix 20 mg daily, Solu-Medrol 20 mg IV q.8 hours, Synthroid 125 mcg daily, Tessalon Perles 100 mg 3 times a day, Tylenol p.r.n., Xopenex p.r.n., Zestril 5 mg daily. LABORATORY DATA: Blood sugar 194. Blood cultures are negative and sputum cultures does not reveal any significant growth at this time. Overall, the patient is feeling better at this point in time. Lab data was reviewed. White count is 20,000, hemoglobin 11, hematocrit 35, and platelet count is 545,000. ASSESSMENT, NOTES AND PLAN: The patient has metastatic stage IV [id number] lung carcinoma with acute events related to mechanical compression of the right upper lobe, right intermedius lobe, and right lower lobe bronchus secondary to posteriorly located mass pressing on the bronchus mechanically, currently on RT, did received one of bisphosphonate 2 days ago, due for Keytruda next week, was noted have ventricular dysfunction based on the echo. MUGA scan shows good ejection fraction. Patient is currently on both angiotensin-converting enzyme inhibitors and carvedilol. We will check with Cardiology for planing to give her next dose Keytruda next week. In the interim, my plan is to repeat a CAT scan next week to see if there is interim decrease in the size of the lesion and then we will have a better idea which direction to proceed where the patient goes on to have a stent while continuing the Keytruda along with probably single agent such as Abraxane, which will be most appropriate in this situation, persistent disease in the lung and in the liver. I have explained my findings in detail with the patient, calorie count is in progress and I have encouraged the patient to take at least along with her other medications and her regular food. Reiterated to her about protein intake at this point in time and we pushed with therapy when she is a little bit better as right now paramount in breathing . The patient is a DNR and DNI with understanding that we will continue aggressive medical therapy. Family is on board so with the patient. Time spent with the patient at least more than 45 minutes. Discussed all my findings with the patient and the family in great detail. We will coordinate with Dr. Alejo, Pulmonology and Dr. Castellanos, Cardiology as well, even though the prognosis at this point is guarded at best. Julio Bustamante MD
[2017-05-26] MEDS: Pantoprazole 20 mg EC Tab PO SCH (06:40)
[2017-05-26] MEDS: Levothyroxine 125 MCG TAB PO SCH (06:40)
[2017-05-26] MEDS: MethylPREDNISolone 40 mg Vial IVP SCH ×3 (06:40→22:49)
[2017-05-26] MEDS: Insulin Reg-LOW-Coverage SC SCH ×3 (08:52→17:36)
[2017-05-26] MEDS: Megestrol Acetate 40 mg/ml Cup PO SCH (09:03)
[2017-05-26] MEDS: Enoxaparin 30 mg Syringe SC SCH (09:04)
[2017-05-26] MEDS: oxyCODONE 15 mg Immediate Release Tab PO PRN (09:09)
--- NOTE | 2017-05-26 16:59 | PN ---
DATE: REASON FOR CONSULTATION AND FOLLOWUP: Cardiac evaluation, status post echo, cardiomyopathy, metastatic carcinoma, radiation, status post chemo. The patient also DNR/DNI. SUBJECTIVE: The patient denies any chest pain or shortness of breath. Denies any palpitation. Daughter is at the bedside. OBJECTIVE/PHYSICAL EXAMINATION: GENERAL: Not in apparent distress, on high flow oxygen. VITAL SIGNS: Temperature afebrile, heart rate 90, blood pressure 101/64. HEENT: PERRLA. Extraocular muscles intact. NECK: Supple. No carotid bruits or thyromegaly. LUNGS: Clear to auscultation. HEART: S1 and S2 regular. ABDOMEN: Soft. EXTREMITIES: Clubbing and cyanosis negative. LABORATORY DATA: Blood workup as follows. WBC 23.3 as of 05/24/2017, hemoglobin of 11, hematocrit 35.7, and platelet count 545 as of 05/24/2017. IMPRESSION: Metastatic lung cancer, decreased left ventricular function, mostly secondary to chemotherapy, now code status do not resuscitate/do not intubate. Yesterday, the patient underwent a multigated acquisition scan that showed ejection fraction 56%, normal right ventricular function by echo. The patient has decreased left ventricular function though it was suboptimal study. By echocardiogram, ejection fraction was 35 to 40%, trace pericardial effusion, trace mitral regurgitation, trace tricuspid regurgitation. RECOMMENDATIONS: Continue low dose of YESIKA inhibitor. Continue Coreg as blood pressure is tolerated depending further deterioration of the ventricle. We will follow with you. The patient's blood pressure is running low, so, we will decrease lisinopril to 2.5 from tomorrow. We will repeat the blood workup tomorrow. Thank you Dr. Thakur for providing me the opportunity in taking care of the patient Aurora Han. Ashlie Castellanos MD
--- NOTE | 2017-05-26 22:13 | PN ---
DATE: 05/26/2017 ONCOLOGY PROGRESS NOTE LOCATION: Patient is in room 370, bed 2. SUBJECTIVE: Patient is examined in bed. Family is at the bedside. The daughter is here today. The patient tells me that her breathing is considerably improved, still uses high-flow nasal oxygen, almost on a continuous basis. Overall, she feels better, but when she tries to get up to go to the bathroom, on minimal exertion, she gets short of breath. She cannot lay down flat; otherwise, she ends up coughing as well. More importantly, she has a choking sensation with a mild cough, though it is significantly improved and the cough is dry without any hemoptysis. No history of nausea. No history of vomiting. No history of leg pain. No history of leg swelling. She complains of some degree of pain and discomfort on swallowing for which she is using the Magic mouthwash, still persistent today, told her to take it at least 20 minutes before meals; so, that she could have numbing of the oropharynx and the esophagus. She still has two more radiations left, as from my discussion with the radiation oncologist on Saturday, will find out tomorrow as to the number of treatments left. Meanwhile, I did suggest her to use the Magic Mouthwash one teaspoon every four hours for her odynophagia. Appetite is improved and I told her to stick to a soft diet for now. PHYSICAL EXAMINATION GENERAL: The patient is examined in bed, she is in no acute distress. VITAL SIGNS: Stable. T-max is 98.4. Heart rate is 85, respirations 20, blood pressure is 110/64, pulse oximetry is 99% on high-flow nasal cannula. HEENT: Head is normocephalic and atraumatic. Conjunctivae pale. Sclerae are anicteric. Pupils are equally reactive to light and accommodation. Examination of the oropharynx reveals tongue to be moist. No ulcerations are noted. There is no evidence of any fungal infection. NECK: Supple. There is no adenopathy. No jugular venous distention noted. LUNGS: Reveals bilateral rhonchi. No wheezing. No stridor. HEART: Reveals PMI to be in the fifth intercostal space, inside the midclavicular line. S1 and S2 are normal. No gallop or murmur is heard. ABDOMEN: Soft and nontender. No rebound, rigidity or guarding is noted. Bowel sounds are present. EXTREMITIES: Reveals no cyanosis, clubbing, or edema. NEUROLOGIC: Reveals higher functions to be normal. No focal deficits are noted. LYMPHATICS: Examination for adenopathy reveals no adenopathy in the neck, axilla or groin. MEDICATIONS: The patient's medications were reviewed. She is on codeine 30 mg q.4h. p.r.n., Coreg 3.125 mg twice a day, insulin coverage, Lovenox 30 mg subcutaneously daily, Lyrica 25 mg b.i.d., she is on the Magic Mouthwash 1 teaspoon q.4 hours, Megace 1 teaspoon daily to increase her appetite, she is also on IV morphine q.3 hours p.r.n. for shortness of breath and for preload and afterload reduction as well, she is on Mucinex DM one q. 8 hours, she is on oxycodone 30 mg q.6h. p.r.n., she is on Protonix 20 mg daily, Solu-Medrol 20 mg IV q.8 hours, Synthroid 125 mcg daily, Tessalon Perles 100 mg q.8 hours, Tylenol p.r.n., Xopenex p.r.n., the patient is on Zestril 5 mg daily along with Coreg 3.125 mg b.i.d. . LABORATORY DATA: Including blood cultures and sputum cultures have been negative. Sugars have been running a little bit high, probably from the steroids, has been controlled with the insulin coverage. Lab data otherwise shows hemoglobin and hematocrit to be stable. White count is elevated, probably related to the steroids as well. ASSESSMENT, NOTES AND PLAN: The patient has metastatic stage IV [id number] carcinoma with acute events related to the mechanical compression of the right upper lobe, right intermedius and right lower lobe bronchus secondary to posteriorly located tumor pressing on the bronchus mechanically. Currently on radiation therapy, also received one dose of bisphosphonate two days ago. Due for Keytruda next week, was noted to have ventricular dysfunction on the echo. MUGA scan shows good ejection fraction. The patient has a diastolic dysfunction. The patient is currently on an angiotensin-converting enzyme converting inhibitor and carvedilol. We will check with Cardiology for planing her next Keytruda, with Dr. Castellanos, the timing of the Keytruda, because of the concern that the Keytruda could have aggravated the cardiac issues. In the interim, we are planning to do a repeat CAT scan of the chest upon completion of radiation to see the impact of radiation and making further plans including placement of a stent if needed. I told to the patient and the daughter that if Keytruda may be difficult to give her tomorrow or next week because of the concerns of the heart, we may want to give her single agent Abraxane and come in with the Keytruda a little bit later, may be the week after. I reiterated to her about increasing protein intake by taking 5.43 . The patient is a DO NOT RESUSCITATE/DO NOT INTUBATE with the understanding that we will still continue aggressive medical therapy directed towards the cancer. Time spent with the patient about an hour, discussed my findings with the patient and the family in great detail. We will also coordinate treatment plans with Dr. Alejo, the pulmonology and Dr. Castellanos, her spindle frame carver as well. Even though the prognosis at this point is guarded, we have been cautiously optimistic. Time spent with the patient again greater than 90 minutes and more than 50% of the time spent [id number] with the patient and the family discussing about the various treatment modalities, outcomes, and what to expect. Julio Bustamante MD
--- NOTE | 2017-05-26 22:36 | PN ---
PULMONARY PROGRESS NOTE DATE: 05/26/2017 REFERRING PHYSICIAN: Dr. Rogelio Reed. SUBJECTIVE: The patient is lying in the bed on high flow nasal cannula oxygen. Feels better. Decreased cough. Decreased shortness of breath. No nausea, no vomiting, diarrhea, leg pain or leg swelling. OBJECTIVE: GENERAL: In no acute distress. VITAL SIGNS: Temp is 98, heart rate is 78, respiratory rate is 20, blood pressure is 127/76 and pulse ox is 95% on high flow oxygen. HEENT: Moist mucous membranes. Crowded airway. NECK: Supple. No JVD. LUNGS: Have few scattered rhonchi. HEART: S1 and S2. ABDOMEN: Soft and nontender. No organomegaly. EXTREMITIES: There is no edema. NEUROLOGIC: Awake and alert. Follow simple commands. MEDICATIONS: She is on codeine 30 mg q. 4 hours p.r.n., Coreg 3.125 mg twice a day, Amitiza 25 mcg twice a day, insulin coverage, Lovenox 30 mg subcu daily, Lyrica 25 mg twice a day, Magic solution to the mouth p.r.n. basis, Megace 200 mg daily, morphine 1 mg q. 3 hours p.r.n., Mucinex DM 1 tab q. 8 hours p.r.n., oxycodone immediate release 15 mg q. 6 hours p.r.n., Protonix 40 mg daily, Solu-Medrol 20 mg q. 8 hours, Synthroid 125 mcg daily, Tessalon Perles 100 mg three times a day, Tylenol p.r.n., Xopenex 0.63 q. 4 hours and Zestril 2.5 mg daily. LABORATORY DATA: Shows blood sugar this morning 211. Microbiology; blood culture and sputum culture, there is no growth. IMPRESSION AND PLAN: Metastatic lung cancer with progressive disease involving the right hilar, has a compression of the right bronchus intermedius and also right upper lobe bronchus with compression on radiation therapy, been on chemotherapy to chronic lung disease. She is claustrophobic, could not use continuous positive airway pressure, presently on high-flow nasal cannula oxygen, has mild diastolic dysfunction with pulmonary hypertension. Case discussed with the detail. Also spoke the patient family. I think we should continue to go ahead and get rest of the radiation therapy and also recommend continue chemotherapy on scheduled date as I discussed with Dr. Bustamante. Gastric prophylaxis and sequential compression device to lower extremity. Thank you and we will follow with you. Ashlie Alejo MD
[2017-05-27] MEDS: Levalbuterol 0.63 MG/3 ML Inhal Soln UD IH SCH ×6 (02:35→21:25)
[2017-05-27] MEDS: Levothyroxine 125 MCG TAB PO SCH (05:48)
[2017-05-27] MEDS: MethylPREDNISolone 40 mg Vial IVP SCH ×3 (05:48→21:53)
[2017-05-27] MEDS: Pantoprazole 20 mg EC Tab PO SCH (05:48)
[2017-05-27 06:30] LABS: BASO # 0.01 K/mm3 (0.0-2.0); GRAN # 21.26 (1.4-6.5); GRAN % 94.7 % (50.0-68.0); HEMOGLOBIN 10.1 g/dL (12.0-16.0); LYMPH # 0.2 (1.2-3.4); LYMPH % 0.9 % (22.0-35.0); MEAN CELL VOLUME 87.2 fl (80.0-105.0); MEAN CORPUSCULAR HEMOGLOBIN 26.9 pg (25.0-35.0); MEAN CORPUSCULAR HGB CONC 30.8 g/dl (31.0-37.0); MONO % 4.4 % (1.0-6.0); PLATELET COUNT 386 10^3/uL (120.0-450.0); RBC 3.76 10^6/uL (3.5-6.1); RED CELL DISTRIBUTION WIDTH 19.7 % (11.5-14.5); WHITE BLOOD COUNT 22.5 10^3/ul (4.5-11.0)
[2017-05-27 07:02] LABS: ALB/GLOB RATIO 0.9 (1.1-1.8); ALBUMIN 3.2 g/dL (3.0-4.8); ALT/SGPT 136 U/L (7-56); AST/SGOT 35 U/L (14-36); BLOOD UREA NITROGEN 25 mg/dL (7-21); GFR AFRICAN-AMERICAN > 60; GFR NON-AFRICAN AMERICAN > 60; MAGNESIUM 2.4 mg/dL (1.7-2.2)
[2017-05-27 08:56] LABS: MONOCYTE 5 % (1.0-6.0); NEUTROPHIL 95 % (50.0-70.0)
[2017-05-27 08:57] LABS: PLATELET ESTIMATE NORMAL (NORMAL)
[2017-05-27] MEDS: Megestrol Acetate 40 mg/ml Cup PO SCH (09:18)
[2017-05-27] MEDS: Enoxaparin 30 mg Syringe SC SCH (09:18)
[2017-05-27] MEDS: guaiFENesin-DM 600-30 mg ER Tab PO PRN (09:19)
[2017-05-27] MEDS: oxyCODONE 15 mg Immediate Release Tab PO PRN ×2 (09:19→17:57)
[2017-05-27] MEDS: Insulin Reg-LOW-Coverage SC SCH ×4 (09:20→21:54)
--- NOTE | 2017-05-27 18:37 | PN ---
DATE: 05/27/2017 REASON FOR CONSULTATION AND FOLLOWUP: Cardiac evaluation, status post echo, cardiomyopathy, metastatic carcinoma, status post radiation, status post chemo. The patient is DNR/DNI. SUBJECTIVE: The patient denies any chest pain or shortness of breath. Feels better. OBJECTIVE: GENERAL: Not in apparent distress, daughter is at the bedside. VITAL SIGNS: Temperature afebrile, heart rate 83, blood pressure 120/72. HEENT: PERRLA. Extraocular muscles intact. NECK: Supple. No carotid bruits or thyromegaly. CHEST: Clear to auscultation. HEART: S1 and S2 regular. ABDOMEN: Soft. EXTREMITIES: Clubbing and cyanosis negative. LABORATORY DATA: Blood workup as follows. WBC 22.5, hemoglobin 10.1, hematocrit 32.8, and platelet count 386. Chemistry shows sodium 135, potassium 4.2, chloride of 101, carbon dioxide 26, anion gap of 13, BUN 25, and creatinine 0.7. IMPRESSION: Metastatic lung cancer, decreased left ventricular function, mostly secondary to chemotherapy, status post multigated acquisition scan ejection fraction 50%. The patient was started on Coreg and lisinopril. By echocardiogram, ejection fraction was 35% to 40%, trace pericardial effusion, trace mitral regurgitation, trace tricuspid regurgitation. RECOMMENDATIONS: Continue YESIKA inhibitor. Continue Coreg. Discussed with Dr. Bustamante last night about her suggested to hold the chemo for a week given a little time to recuperate the ventricle, interim continue aggressive medical treatment Coreg 3.125 mg and lisinopril as blood pressure is tolerated. We will follow once the patient condition improved and hemodynamically the patient can be restarted chemo. Discussed with the patient and discussed with the patient's family and the daughter who is at the bedside. Ashlie Castellanos MD
[2017-05-27] MEDS: Morphine 2 mg/ml ISec IVP PRN (20:07)
--- NOTE | 2017-05-27 20:21 | PN ---
DATE: 05/27/2017 PULMONARY PROGRESS NOTE REFERRING PHYSICIAN: Dr. Rogelio Reed. SUBJECTIVE: The patient is sitting side of the bed, getting ready to go to commode. Family and her clinical laboratory assistant is at bedside. Night was unremarkable. Being on high-flow nasal cannula oxygen. Short of breath with minimal exertion. Still has some cough. No nausea, no vomiting, diarrhea, leg pain or leg swelling. OBJECTIVE: GENERAL: In no acute distress. VITAL SIGNS: Temp is 98, heart rate is 73, respiratory rate is 18, blood pressure is 120/72 and pulse ox is 93% on high flow oxygen. HEENT: Moist mucous membranes. Crowded airway. Mallampati score is IV. NECK: Supple. No JVD. LUNGS: Have a scattered rhonchi. HEART: S1 and S2. ABDOMEN: Soft and nontender. No organomegaly. EXTREMITIES: No edema. NEUROLOGIC: Awake and alert. Follow simple commands. MEDICATIONS: She is on codeine 30 mg q. 4 hours p.r.n., Coreg 3.125 mg twice a day, insulin coverage, Lyrica 25 mg twice a day, Magic mouthwash p.r.n. basis, Megace 200 mg daily, morphine 1 mg q. 3 hours p.r.n., Mucinex DM 1 tab q. 8 hours p.r.n., oxycodone immediate release 15 mg q. 6 hours p.r.n., Protonix 40 mg daily, Solu-Medrol 20 mg q. 8 hours, Synthroid 125 mcg daily, Tessalon Perles 100 mg three times a day, Tylenol p.r.n., Xopenex 0.63 q. 4 hours, Xopenex inhaled q. 6 hours p.r.n., and Zestril 2.5 mg daily. LABORATORY DATA: Shows hemoglobin 10.1, hematocrit 32.8, WBC 22.5, and platelet count 386. Sodium 135, potassium 4.8, chloride of 101, bicarbonate is 26, BUN 25, creatinine 0.7, glucose 183, calcium 9.0, phosphorous 3.4, magnesium 2.4, AST is 35, ALT 136, alkaline phosphatase is 128, albumin is 3.2. IMPRESSION AND PLAN: Metastatic lung cancer with progressive disease involving the right hilar, compressing the right bronchus intermedius and right upper lobe bronchus with radiation therapy, today will be the one before last chronic lung disease. Spoke to the family at bedside. Continue IV inhaled bronchodilator. Continue high-flow oxygen, gastric prophylaxis, SCDs to lower extremities. Continue antibiotics. Being follow by Oncology. Thank you and we will follow with you. Ashlie Alejo MD
[2017-05-28] MEDS: Levalbuterol 0.63 MG/3 ML Inhal Soln UD IH SCH ×6 (00:20→20:48)
--- NOTE | 2017-05-28 01:31 | PN ---
DATE: 05/27/2017 ONCOLOGY PROGRESS NOTE LOCATION: The patient is in room 370, bed 2. SUBJECTIVE: The patient is sitting at the side of the bed, getting to go to the bedside chair. Family and friends are by the bedside. Night was unremarkable. She is on high-flow nasal cannula. Still complains of shortness of breath on minimal exertion. Has some dry cough. No nausea. No vomiting. No diarrhea. No leg pain or leg swelling. PHYSICAL EXAMINATION: GENERAL: The patient is in no acute distress. VITAL SIGNS: Stable. T-max is 98.4, heart rate is 73, respirations 18, blood pressure is 120/72, pulse ox is 98% on high-flow oxygen. HEENT: Head is normocephalic, atraumatic. Conjunctivae pale. The patient has moist mucous membranes. Tongue is moist. No ulcerations are noted. No fungal infection is noted. NECK: Supple. There is no adenopathy. No jugular venous distention noted. LUNGS: Reveal bilateral scattered wheezes and rhonchi. CARDIOVASCULAR: Reveals PMI to be in the fifth intercostal space inside the midclavicular line. S1 and S2 are normal. No gallop or murmur is heard. ABDOMEN: Soft and nontender. Liver and spleen are not palpable. EXTREMITIES: Reveal no cyanosis, clubbing, or edema. NEUROLOGIC: Reveals higher functions to be normal. No focal deficits are noted. MEDICATIONS: The patient's medications were reviewed. She is on codeine 30 mg p.o. q. 4 h. p.r.n., Coreg 3.125 mg twice a day, insulin coverage, Lyrica 25 mg twice a day, Magic mouthwash p.r.n., Megace 200 mg daily, morphine 1 mg IM q. 3 hours p.r.n. Mucinex DM one tablet p.o. q. 8 hours p.r.n., oxycodone immediate release 15 mg p.o. q. 6 h. p.r.n., Protonix 40 mg daily, Solu-Medrol 20 mg p.o. IV q. 8 hours, Synthroid 125 mcg daily, Tessalon Perles 100 mg p.o. 3 times a day, Tylenol p.r.n., Xopenex 0.63 mg q. 4 h. via nebulizer and then Xopenex inhale q. 6 hours p.r.n., Zestril 2.5 mg p.o. daily. LABORATORY DATA: Reveals white count of 22.5, hemoglobin 10.1, hematocrit 32.8, platelet count is 386,000. Sodium is 135, potassium is 4.8, chloride is 101, bicarbonate is 26, BUN is 25, creatinine is 0.7, glucose 183, calcium 9, phosphorus 3.4, magnesium 2.4. AST is 35, ALT is 136, alkaline phosphatase is 128, albumin is 3.2. ASSESSMENT, NOTES, AND PLAN: The patient has metastatic stage IV adenocarcinoma of the lung with progressive disease involving the right hilum compressing the right mainstem, right bronchus intermedius and right lower lobe bronchus, on radiation therapy. The patient has 2 more radiation doses today and tomorrow. The patient is on IV steroids along with carvedilol and lisinopril at this point in time along with IV morphine to help her reduce the preload and afterload. PLAN: I spoke to the patient at great length. Spoke to Dr. Alejo as well. Spoke to Dr. Peters. The patient will complete her radiation tomorrow. We are going to hold off on any planned CAT scan of the chest for now. Plan is to transfer the patient once she completes radiation to TCU. Try to taper off from high-flow oxygen, nasal O2, the patient can tolerate. So, I am giving the patient Keytruda on Saturday and see how she does. Routine post-exam instructions have been given to the patient. Time spent with the patient, greater than 45 minutes, trying to correlate all the information. Discussed with the family and discussed with all the attending. I will speak to Dr. Alejo as well. Julio Bustamante MD
[2017-05-28] MEDS: Morphine 2 mg/ml ISec IVP PRN ×4 (03:21→22:22)
[2017-05-28] MEDS: Pantoprazole 20 mg EC Tab PO SCH (05:30)
[2017-05-28] MEDS: Levothyroxine 125 MCG TAB PO SCH (05:30)
[2017-05-28] MEDS: MethylPREDNISolone 40 mg Vial IVP SCH ×3 (05:31→21:57)
[2017-05-28] MEDS: Insulin Reg-LOW-Coverage SC SCH ×4 (08:03→21:57)
[2017-05-28] MEDS: Megestrol Acetate 40 mg/ml Cup PO SCH (11:07)
--- NOTE | 2017-05-28 12:19 | PN ---
DATE: 05/28/2017 REASON FOR CONSULTATION AND FOLLOWUP: Cardiac evaluation status post echo, cardiomyopathy, metastatic carcinoma, status post radiation, status post chemo, the patient is DNR and DNI. SUBJECTIVE: The patient denies any chest pain, shortness of breath, or any palpitations. Feels a lot better. PHYSICAL EXAMINATION: GENERAL: Not in apparent distress, improving. VITAL SIGNS: Temperature afebrile, heart rate 65, blood pressure 119/71. HEENT: PERRLA. Extraocular muscles intact. NECK: Supple. No carotid bruits. No thyromegaly. CHEST: Clear to auscultation. HEART: S1 and S2 regular. ABDOMEN: Soft. EXTREMITIES: Clubbing and cyanosis negative. LABORATORY DATA: Blood workup as follows; WBC 22.5, hemoglobin 10.9, hematocrit 32.8, platelet count of 386. Chemistry shows sodium 135, potassium 4.0, chloride 101, carbon dioxide 26, anion gap of 13, BUN 25, creatinine 0.7. IMPRESSION: Metastatic lung cancer, decreased left ventricular function, most likely related to chemo status post MUGA scan, ejection fraction 50%. The patient is started on Coreg and lisinopril, ejection fraction by echo 35%to 40%, trace pericardial effusion, trace mitral regurgitation, trace tricuspid regurgitation. RECOMMENDATIONS: Continue Coreg, continue YESIKA inhibitors, hold chemotherapy for 1 week, continue radiation, going to be finished today. Discussed with the patient, discussed with Dr. Bustamante, and discussed with the patient's family, monitor electrolytes. The patient is overall improved. We will follow with you. Thank you Dr. Bustamante, for providing us the opportunity in taking care of Aurora Han. Ashlie Casetllanos MD
[2017-05-28] MEDS ORDERED: Aluminum Hydroxide/Magnesium 30 ML, DiphenhydrAMINE 75 MG, Lidocaine 2% Viscous 30 ML PO PRN (15:05)
[2017-05-28] MEDS: Sucralfate 1 gm/10 ml Oral Susp UD PO SCH ×2 (15:30→16:59)
--- NOTE | 2017-05-28 18:19 | RAD ---
HISTORY: effusion COMPARISON: Chest x-ray performed 05/19/17 TECHNIQUE: Chest, one view. FINDINGS: Right-sided MediPort extends to the cavoatrial junction. Examination limited by habitus, hypoinflation, and patient obliquity. LUNGS: Re- demonstrated right hilar/ suprahilar mass. Mild right basilar atelectasis/infiltrate. Please note that chest x-ray has limited sensitivity for the detection of pulmonary masses. PLEURA: Trace right pleural effusion. No definite pneumothorax . CARDIOVASCULAR: Cardiomegaly. Ectatic aorta. OSSEOUS STRUCTURES: No acute osseous abnormality identified. VISUALIZED UPPER ABDOMEN: Unremarkable. OTHER FINDINGS: None. IMPRESSION: Limited study. Cardiomegaly. Ectatic aorta. Re- demonstrated right hilar/suprahilar mass. Mild right basilar atelectasis/infiltrate. Trace right pleural effusion.
[2017-05-28] MEDS ORDERED: Alum-Mag Hydrox-Simethicone Susp (30 mL) PO ONE (22:42)
[2017-05-28] MEDS ORDERED: Alum-Mag Hydrox-Simethicone Susp (30 mL) ONE (22:55)
[2017-05-28] MEDS ORDERED: Iohexol 350 MG/100 ML VIAL ONE (23:12)
[2017-05-29] MEDS: Levalbuterol 0.63 MG/3 ML Inhal Soln UD IH SCH ×6 (00:15→19:47)
--- NOTE | 2017-05-29 00:15 | PN ---
DATE: 05/28/2017 PULMONARY PROGRESS NOTE REFERRING PHYSICIAN: Dr. Rogelio Reed. SUBJECTIVE: She is lying in the bed, status post last radiation therapy today. Short of breath on minimal exertion, requiring high-flow nasal cannula oxygen, did not tolerate high-flow face mask and nasal cannula today. Pulse has dropped down to 70s with no rebreather mask. At rest with high-flow, he is satisfy. No nausea, no vomiting, and no diarrhea. No leg pain or leg swelling. OBJECTIVE: GENERAL: In no acute distress. VITAL SIGNS: Temp is 98, heart rate is 95, blood pressure is 112/75, and pulse ox is 97% on high-flow nasal cannula. HEENT: Moist mucous membranes. Crowded airway. NECK: Supple. No JVD. LUNGS: Has a fair airflow with few rhonchi. HEART: S1 and S2. ABDOMEN: Soft, nontender. No organomegaly. EXTREMITIES: No edema. NEUROLOGIC: Awake, alert and follow simple commands. MEDICATIONS: She is on Carafate 1 g twice a day, Coreg 3.125 mg twice a day, Amitiza 24 mcg twice a day, insulin coverage, Lyrica 25 mg twice a day, Magic mouthwash p.r.n., Megace 200 mg daily, morphine 1 mg q. 3 hours p.r.n., Mucinex DM q. 8 hours, oxycodone immediate release 15 mg q. 6 hours p.r.n., Solu-Medrol 20 mg q. 8 hours, Synthroid 125 mcg daily, Tessalon Perles 100 mg three times a day, Tylenol p.r.n., Xopenex 0.63 q. 8 hours, Zestril 2.5 mg daily. LABORATORY DATA: Shows blood sugar this morning 157. Chest x-ray done this afternoon shows cardiomegaly, ectatic aorta, right hilar suprahilar mass, mild right basilar atelectasis/infiltrate, and trace right pleural effusion. IMPRESSION AND PLAN: Metastatic lung cancer with progressive disease involving the right hilar and upper chest area with compression of the right bronchus intermedius and right upper lobe bronchus. Completed radiation therapy today, is also may be component of chronic lung disease, may have a component of sleep apnea syndrome. Still require high-flow nasal cannula oxygen, does not even tolerate reservoir mask. By MUGA scan, left ventricular function is normal. Echo was suggesting left ventricular ejection fraction 35% to 40% ?. I am going to go ahead and order CT angio to show there is no pulmonary embolism and also at the same time we will evaluate right bronchus intermedius and upper lobe bronchus. Continue steroids, gastric prophylaxis, sequential compression devices to lower extremity. Add Diflucan for few days having some throat pain which is not improving with Magic mouthwash. Thank you and we will follow with you. Ashlie Alejo MD
[2017-05-29] MEDS: MethylPREDNISolone 40 mg Vial IVP SCH ×3 (05:34→21:07)
[2017-05-29] MEDS: Pantoprazole 20 mg EC Tab PO SCH (05:34)
[2017-05-29] MEDS: Levothyroxine 125 MCG TAB PO SCH (05:34)
[2017-05-29] MEDS: Insulin Reg-LOW-Coverage SC SCH ×4 (08:19→21:13)
--- NOTE | 2017-05-29 08:38 | CT ---
PROCEDURE: CT Chest with contrast (Pulmonary Angiogram) HISTORY: suspected pe and evaluate right bronchous intermed COMPARISON: None available. TECHNIQUE: Axial computed tomography images were obtained of the chest in the pulmonary arterial phase of enhancement. Coronal and sagittal reformatted images were created and reviewed. Maximum intensity projection (MIP) reconstructed images in the following planes: Coronal and sagittal. Intravenous contrast dose: 100 cc Omnipaque 350 Mean Hounsfield unit values in the main pulmonary artery: 430.37 Radiation dose: Total exam DLP = 484.95 mGy-cm. This CT exam was performed using one or more of the following dose reduction techniques: Automated exposure control, adjustment of the mA and/or kV according to patient size, and/or use of iterative reconstruction technique. FINDINGS: PULMONARY ARTERIES: No evidence of acute pulmonary embolism. Tumor encasement of right main and lobar segments of the pulmonary arterial system identified. AORTA: No acute findings. No thoracic aortic aneurysm. LUNGS: Postobstructive atelectasis, pneumonitis noted in the right lung primarily affecting right lower lobe, to lesser extent medial segment right middle lobe and subsegmental aspects of the right upper lobe. Beyond the larger in bulky tumor burden there are no peripheral pulmonary nodules or masses. There is compensatory hyperinflation of left lung. PLEURAL SPACES: Unremarkable. No effusion or pneuomothorax. HEART: Unremarkable. No cardiomegaly. No significant pericardial effusion. LYMPH NODES: Bulky right hilar and mediastinal tumor developing and invading the right mainstem bronchus. Lobar and segmental bronchi although aerated are narrow resulting in postobstructive atelectasis affecting right middle, right upper and right lower lobes. BONES, CHEST WALL: Unremarkable. No fractureLytic lesion involving T7 vertebral body with small paraspinous component to the left of the midline without impression upon the spinal canal. Sclerotic lesion involving C7, lytic lesion incompletely visualized involving C6. Mann or destructive lesion OTHER FINDINGS: Stent identified and as can best be ascertained, in satisfactory position. IMPRESSION: 1. No evidence of pulmonary embolism. Tumor burden impresses upon right pulmonary artery and lobar branches without complete occlusion. 2. Tumor involvement and encasement of the right mainstem bronchus which is nearly completely occluding resulting in postobstructive atelectasis/ pneumonitis affecting primarily the right lower lobe. 3. Osseous metastatic disease as described.
[2017-05-29] MEDS: Sucralfate 1 gm/10 ml Oral Susp UD PO SCH ×4 (09:20→21:08)
[2017-05-29] MEDS: Megestrol Acetate 40 mg/ml Cup PO SCH (09:20)
[2017-05-29] MEDS: Morphine 2 mg/ml ISec IVP PRN ×4 (11:50→20:35)
[2017-05-29] MEDS: guaiFENesin-DM 600-30 mg ER Tab PO PRN (11:52)
--- NOTE | 2017-05-29 13:22 | PN ---
DATE: 05/29/2017 ONCOLOGY PROGRESS NOTE LOCATION: The patient is in room 370. SUBJECTIVE: The patient is lying in bed status post radiation therapy, which was the last treatment today. The patient still has concerns of significant shortness of breath on minimal exertion, requiring high-flow nasal oxygen, could not tolerate high-flow face mask and nasal cannula today. Pulse oximetry had dropped specifically when she had to go down for radiation. At rest, with the high-flow oxygen, the patient is stable without any significant complaint. Coughing has minimized. No nausea, no vomiting, no diarrhea, no leg pain, no leg swelling, no fevers. PHYSICAL EXAMINATION: GENERAL: Patient is in no acute distress. VITAL SIGNS: Stable. T-max is 98.4, heart rate is 95, blood pressure is 112/75, and pulse oximetry is 97% on high-flow nasal oxygen. HEENT: Head is normocephalic and atraumatic. Conjunctiva pale. Examination of the oropharynx revealed no oropharyngeal lesions. Tongue is moist. NECK: Supple. There is no adenopathy. LUNGS: Reveals fair airflow with scattered wheezes. HEART: Reveals PMI to be in the fifth intercostal space. S1 and S2 are normal. No gallop or murmur is heard. ABDOMEN: Soft and nontender. Liver and spleen are not palpable. EXTREMITIES: Reveal no cyanosis, clubbing, or edema. NEUROLOGIC: Higher functions are normal. No focal deficits are noted. GENITOURINARY: Deferred. RECTAL: Deferred. LYMPHATICS: There is no evidence of adenopathy in the neck, axilla or groin. MEDICATIONS: The patient's medications were reviewed. She is currently on Carafate 1 g twice a day for significant odynophagia, Coreg 3.125 mg twice a day, Amitiza 24 mcg twice a day, insulin coverage, Lyrica 25 mg twice a day, Magic Mouthwash p.r.n., Megace 200 mg once a day, morphine sulfate 1 mg q. 3 hours p.r.n., Mucinex DM q. 8 hours, oxycodone immediate release 15 mg q. 6 hours p.r.n., Solu-Medrol 20 mg IV q.8 hours, Synthroid 125 mcg daily, Tessalon Perles 100 mg 3 times a day, Tylenol p.r.n., Xopenex 0.63 q. 8 hours, and Zestril 2.5 mg daily. LABORATORY DATA: Reveals blood sugar of 157. Chest x-ray done shows cardiomegaly, ectatic aorta, right hilar/suprahilar mass, mild right basilar atelectasis, and trace right pleural effusion. The patient has had a CAT scan of the chest as well, the result of which is pending. ASSESSMENT NOTES AND PLAN: The patient has metastatic stage IV [id number] adenocarcinoma of the lung with progressive disease involving the right hilar bronchus intermedius and right lower lobe bronchus, very close to the main hilum with compression of the bronchi. The patient completed radiation, it may be a component of chronic lung disease, obstruction along with a component of sleep apnea. She still continues to require high-flow nasal oxygen, could not tolerate anything less than that. The patient's MUGA scan shows good ventricular ejection fraction. We will check with the Dr. Alejo after doing the CAT scan as to further decision making, which direction we should go, should the patient get the placement of a stent prior to continuation of therapy. Unfortunately, the patient cannot be transferred to the TCU while she is on high-flow oxygen. We will have to make a decision pertaining which direction we should go. The patient is on steroids. She is on gastric prophylaxis, sequential compression devices to the lower extremity and I have added Diflucan as well for the oral pain just to cover for possible fungal infection as well. We will follow with the patient and make appropriate recommendations after discussion with the consultants involved. Time spent with the patient, talking to the patient's family as well is more than 90 minutes. We will review the CAT results and then discuss further treatment plans, both with the patient and the family. Labs for morning have been requested. Julio Bustamante MD
[2017-05-29] MEDS ORDERED: Lidocaine 5% Oint(35 gm) TOP SCH (14:00)
[2017-05-29] MEDS: Enoxaparin 30 mg Syringe SC SCH (14:15)
[2017-05-29] MEDS ORDERED: Lidocaine 5% Oint(35 gm) TOP PRN (14:38)
[2017-05-29] MEDS: oxyCODONE 15 mg Immediate Release Tab PO PRN (23:40)
--- NOTE | 2017-05-29 23:55 | PN ---
DATE: 05/29/2017 LOCATION: The patient is in room 370, bed 2. REASON FOR CONSULTATION AND FOLLOWUP: Cardiac evaluation status post echo, cardiomyopathy, metastatic carcinoma, status post radiation, status post chemo. The patient off and on getting shortness of breath. Denies chest pain. Denies palpitations. SUBJECTIVE: The patient off and on getting short of breath. Denies chest pain. Denies palpitations. PHYSICAL EXAMINATION: VITAL SIGNS: Blood pressure 113/71, respirations 23. Pulse on the record is 93, when I examined the patient, it was about 110. Temperature 98.7. HEENT: Head is normocephalic. Eyes, pupils normal. Conjunctivae slightly pale. NECK: JVP low. Carotids are equal. THORAX: AP diameter normal. LUNGS: No significant rales. CARDIOVASCULAR: S1, S2. ABDOMEN: Soft. No tenderness. No organomegaly. EXTREMITIES: No clubbing. No cyanosis. LABORATORY DATA: On 05/27/2017, WBC 22.5, hemoglobin 10.1, hematocrit 32.8, platelets 386. Random sugar 183. Sodium 135, potassium 4.8, BUN 25, creatinine 0.7, calcium 9.0, phosphorus 3.4, magnesium 2.4, AST 35, ALT 136. Total protein 6.7, albumin 3.2, globulin 3.5. The patient's MUGA scan on 05/24/2017, showed LV ejection fraction of 56%. The patient had CT of the chest on 05/28/2017, that was negative for pulmonary embolism. There are tumor involvement and encasement of the right mainstem bronchus which is nearly completely occluding, resulting in postobstructive atelectasis/pneumonitis affecting primarily the right lower lobe. Also, metastasis to and involving C7, lytically and incompletely visualized involving C6 . DIAGNOSES: Metastatic lung cancer, sinus tachycardia related to underlying pulmonary state. The patient is needing high flow nasal O2. Echo showed a low ejection fraction of 35% to 40%, trace pericardial effusion, trace mitral regurgitation, trace tricuspid regurgitation. MUGA scan on 05/24/2017 showed LV ejection fraction of 56%. PLAN: The patient is on carvedilol 3.125 p.o. b.i.d. We will increase to 6.25 b.i.d. to help the heart rate further. The patient is on Lovenox 30 mg subcutaneously daily, Lyrica 25 mg b.i.d., Megace 200 mg p.o. daily, Protonix 20 mg daily, Solu-Medrol 20 mg IV q.8 hour, Synthroid 125 mcg p.o. daily, lisinopril 2.5 mg p.o daily, and we will continue to follow closely. Ashlie Mayberry MD
[2017-05-30] MEDS: Levalbuterol 0.63 MG/3 ML Inhal Soln UD IH SCH ×6 (00:43→20:37)
--- NOTE | 2017-05-30 00:47 | PN ---
DATE: 05/29/2017 PULMONARY PROGRESS NOTE REFERRING PHYSICIAN: Dr. Rogelio Reed. SUBJECTIVE: The patient is lying in bed, head at 45 degree on high flow nasal cannula oxygen, earlier day when is noted desaturated with minimal exertion. Still has a cough. No nausea, vomiting, diarrhea, leg pain or leg swelling. OBJECTIVE: GENERAL: On high flow nasal cannula oxygen. VITAL SIGNS: Temp is 98, heart rate is 93, respiratory rate is 20, blood pressure is 113/71, and pulse ox is 92% on high-flow nasal cannula oxygen. HEENT: Moist mucous membranes. No ulcer or thrush noted. NECK: Supple. No JVD. LUNGS: Has a decreased breath sounds at right base. HEART: S1 and S2. ABDOMEN: Soft and nontender. No organomegaly. EXTREMITIES: There is no edema. NEUROLOGIC: Awake, alert, and follow simple commands. MEDICATIONS: She is on Carafate 1 g four times a day, Coreg 6.25 mg twice a day, Diflucan 200 mg daily, Amitiza 24 mcg twice a day, insulin coverage, lidocaine 5% at effected area q. 6 hours, Lovenox 30 mg daily, Lyrica 25 mg daily, Magic solution swish and spit, Megace 200 mg daily, morphine 1 mg q. 3 hours, Mucinex DM 1 tab q. 8 hours p.r.n., oxycodone immediate release 15 mg q. 6 hours p.r.n., Protonix 20 mg daily, Solu-Medrol 20 mg q. 8 hours, Synthroid 125 mcg daily, Tessalon Perles 100 mg three times a day, Tylenol p.r.n., Xopenex inhale q. 4 hours and Zestril 2.5 mg daily. LABORATORY DATA: Reviewed noted blood sugar 209. Microbiology: Blood culture and sputum culture, there is no growth. IMPRESSION AND PLAN: Metastatic lung cancer with progressive disease, has a hilar mass with compression to the right bronchus intermedius and also right upper lobe bronchus, also encasing to the pulmonary artery, chronic obstructive lung disease, and respiratory failure requiring high flow oxygen. Case discussed with Dr. Bustamante and also spoke to Dr. Flores at [facility]. I spoke to the patient's family at bedside. All the questions answered. Lastly, I spoke to Dr. Flores this evening. OR time is not available this week, earliest procedure can be done next Saturday. We will continue high flow oxygen, bronchodilator, may increase steroids to 40 q. 8 hour for a day or so and see if that improves her oxygenation. Gastric prophylaxis, deep vein thrombosis prophylaxis, and continue Diflucan. Thank you and we will follow with you. Ashlie Alejo MD
--- NOTE | 2017-05-30 04:45 | PN ---
ONCOLOGY PROGRESS NOTE DATE: LOCATION: The patient is in room 370, bed 2. SUBJECTIVE: The patient is lying in bed while examining. She completed her radiation yesterday, still has concerns of significant shortness of breath on minimal exertion, requiring high-flow nasal oxygen, cannot tolerate face mask or nasal cannula. Pulse oximetry drops dramatically when she tries to do that. At rest, with the high-flow oxygen, the patient is stable without significant complaint, still has a dry cough though it has minimized. No hemoptysis. No nausea, no vomiting, no diarrhea, no leg pain or leg swelling, no fevers, no chills. PHYSICAL EXAMINATION: GENERAL: The patient is in no acute distress. VITAL SIGNS: Stable as stated in the chart. T-max is 98.4, heart rate is 95, blood pressure is 112/75 and pulse ox is 97% on high-flow nasal oxygen. HEENT: Head is normocephalic and atraumatic. Conjunctiva pale. Examination of the oropharynx revealed no oropharyngeal lesions. Tongue is moist. No ulcerations are noted. No fungal infections are noted. NECK: Supple. There is no adenopathy. The patient is complaining of right shoulder pain posteriorly. LUNGS: Reveals fair airflow with scattered wheezes. HEART: Reveals PMI to be in the fifth intercostal space inside the midclavicular line. S1 and S2 are normal. No gallop or murmur is heard. ABDOMEN: Soft and nontender. Liver and spleen are not palpable. No other masses are felt. There is no rebound, rigidity or guarding noted. EXTREMITIES: Reveal no cyanosis, clubbing, or edema. NEUROLOGIC: Reveals higher functions to be normal. No focal deficits are noted. GENITOURINARY: Deferred. RECTAL: Deferred. LYMPHATICS: There is no evidence of adenopathy in the neck, axilla or groin. MEDICATIONS: The patient's medications were reviewed. She is currently on Carafate 1 g twice a day for significant odynophagia, Coreg 3.125 mg twice a day, Amitiza 24 mcg twice a day, insulin coverage, Lyrica 25 mg twice a day, Magic mouthwash p.r.n., Megace 200 mg once a day, morphine sulfate 1 mg q. 3 hours p.r.n., Mucinex DM q. 8 hours, oxycodone immediate release 15 mg q. 6 hours p.r.n., Solu-Medrol 20 mg IV q. 8 hours, Synthroid 125 mcg daily, Tessalon Perles 100 mg 3 times a day, Tylenol p.r.n., Xopenex 0.63 mg q. 8 hours, and Zestril 2.5 mg daily. LABORATORY DATA: Reveals blood sugar ranging between 157 and 168. Chest x-ray shows cardiomegaly. Yesterday's CAT done shows the disease compressing the right upper lobe bronchus intermedius and right lower lobe is about the same, in fact there is worsening obstruction in the right lower lobe bronchus, probably accounting for some of the compressive atelectasis seen on the left chest x-ray. There is no evidence of PE on the CAT scan. ASSESSMENT NOTES AND PLAN: The patient has stage IV metastatic [id number] adenocarcinoma of the lung, progressive disease involving the right hilar compressing the right bronchus intermedius, right lower lobe bronchus, right upper lobe bronchus, very close to the main hilum, with compression of the bronchi. The patient has completed radiation therapy and there might be a component of chronic lung disease, along with obstruction that is causing most of her symptoms. The patient still continues to require high-flow oxygen and could not tolerate anything less than that and this would probably explain the need for the fact that even though her right lung is perfusing, she is still dependent on the ventilation of the right lung for her overall performance status with the possibility now since we see on the CAT scan there is significant narrowing, placement of a stent will be most conducive for her, so she does not have to stay on the high-flow oxygen and we can proceed with systemic therapy. The patient is due for Keytruda, unfortunately could not be delivered in an inpatient setting. We are trying to see how we can set her up to get the treatment as an outpatient. Most recent MUGA scan shows good ventricular function. I will check with Dr. Alejo regarding timing and placing of the stent. In preparation of this, we will also plan on setting her up for Keytruda as well, which may have to be given as an outpatient. The patient is on gastric prophylaxis and deep vein thrombosis prophylaxis with Lovenox. In view of the pain in the right shoulder and right scapula, I have ordered the patient to continue on morphine taking 1 mg every 3 hours and in addition to that, I have ordered lidocaine gel 5% topically to the affected area on the right scapular region, which I believe is a referred pain from the right lung, which hopefully will get better as the days go by. In the meantime, we increased the Carafate from 1 g twice a day to 1 g four times a day. Along with this, I have added the lidocaine patch and she is taking the morphine IV for the pain. Time spent with the patient, talking to the patient's family, daughter, marketing database consultant is more than 90 minutes. We also reviewed the CAT scan and discussed the findings with Dr. Alejo and Dr. Flores, the scalp specialist, who might be a person assessing the patient for placement of a stent. Routine post-exam instructions have been given to the patient. Labs for a.m. have been requested. This is a complex medically necessary visit for this very sick patient with multiple comorbid medical issues. Julio Bustamante MD
[2017-05-30] MEDS: Levothyroxine 125 MCG TAB PO SCH (06:24)
[2017-05-30] MEDS: Pantoprazole 20 mg EC Tab PO SCH (06:24)
[2017-05-30] MEDS: MethylPREDNISolone 40 mg Vial IVP SCH ×3 (06:25→21:52)
[2017-05-30 07:24] LABS: GRAN # 22.65 (1.4-6.5); GRAN % 94.9 % (50.0-68.0); HEMOGLOBIN 10.7 g/dL (12.0-16.0); LYMPH # 0.5 (1.2-3.4); MEAN CELL VOLUME 86.7 fl (80.0-105.0); MEAN CORPUSCULAR HEMOGLOBIN 26.9 pg (25.0-35.0); MEAN PLATELET VOLUME 9.2 fl (7.0-11.0); MONO # 0.7 (0.1-0.6); MONO % 3.1 % (1.0-6.0); PLATELET COUNT 354 10^3/uL (120.0-450.0); RBC 3.98 10^6/uL (3.5-6.1); RED CELL DISTRIBUTION WIDTH 19.8 % (11.5-14.5); WHITE BLOOD COUNT 23.9 10^3/ul (4.5-11.0)
[2017-05-30 07:52] LABS: ALB/GLOB RATIO 0.9 (1.1-1.8); ALBUMIN 3.2 g/dL (3.0-4.8); ALT/SGPT 114 U/L (7-56); AST/SGOT 32 U/L (14-36); BLOOD UREA NITROGEN 31 mg/dL (7-21); CALCIUM 8.9 mg/dL (8.4-10.5); GFR AFRICAN-AMERICAN > 60; GFR NON-AFRICAN AMERICAN > 60
[2017-05-30 08:12] LABS: BAND 2 % (0-2); LYMPHOCYTE 7 % (22.0-35.0); MONOCYTE 2 % (1.0-6.0); NEUTROPHIL 89 % (50.0-70.0)
[2017-05-30 08:14] LABS: ANISOCYTOSIS SLIGHT; PLATELET CLUMPS PRESENT; TARGET CELLS SLIGHT
[2017-05-30] MEDS: Sucralfate 1 gm/10 ml Oral Susp UD PO SCH ×4 (09:45→21:52)
[2017-05-30] MEDS: Enoxaparin 30 mg Syringe SC SCH (09:47)
[2017-05-30] MEDS: Insulin Reg-LOW-Coverage SC SCH ×4 (09:47→22:17)
[2017-05-30] MEDS: Megestrol Acetate 40 mg/ml Cup PO SCH (09:48)
--- NOTE | 2017-05-30 11:04 | CP.PCM.PCO ---
Physician Communication Note - Physician Communication Note Physician Communication Note: spoke to Dr Alejo re:plan. per , for NBI for Y bronchus stent saturday
--- NOTE | 2017-05-30 15:56 | CP.PCM.PN ---
Subjective - Date & Time of Evaluation Date of Evaluation: 05/30/17 Time of Evaluation: 11:25 - Subjective Subjective: Comfortable in bed, swallowing better, less throat irritation. No fevers. Objective - Vital Signs/Intake and Output Vital Signs (last 24 hours): Temp Pulse Resp BP Pulse Ox 97.5 F L 73 20 112/62 98 05/30/17 09:13 05/30/17 09:49 05/30/17 11:10 05/30/17 09:49 05/30/17 09:13 Intake and Output: 05/30/17 05/30/17 06:59 18:59 Intake Total 420 720 Output Total 2 Balance 420 718 - Medications Medications: Current Medications Acetaminophen (Tylenol 325mg Tab) 650 mg PO Q6H PRN PRN Reason: Pain, Mild (1-3) Benzonatate (Tessalon Perles) 100 mg PO TID [facility] Last Admin: 05/30/17 14:20 Dose: 100 mg Carvedilol (Coreg) 6.25 mg PO BID [facility] Last Admin: 05/30/17 09:45 Dose: 6.25 mg Al Hydrox/Mg Hydrox/Simethicone 30 ml/Diphenhydramine HCl 75 mg/Lidocaine 30 ml 0 ml PO Q4H PRN PRN Reason: Mouth/Throat Pain Enoxaparin Sodium (Lovenox) 30 mg SC DAILY [facility] PRN Reason: Protocol Last Admin: 05/30/17 09:47 Dose: 30 mg Fluconazole (Diflucan) 200 mg PO DAILY [facility] PRN Reason: Protocol Last Admin: 05/30/17 09:46 Dose: 200 mg Guaifenesin/Dextromethorphan (Mucinex-Dm 600-30 Mg) 1 tab PO Q8 PRN PRN Reason: Cough and congestion Last Admin: 05/29/17 11:52 Dose: 1 tab Insulin Human Regular (Humulin R Low) 0 units SC ACHS [facility] PRN Reason: Protocol Last Admin: 05/30/17 12:16 Dose: 2 units Levalbuterol HCl (Xopenex) 0.63 mg IH Q4 [facility] Last Admin: 05/30/17 11:08 Dose: 0.63 mg Levalbuterol HCl (Xopenex) 0.63 mg IH [id number] PRN PRN Reason: Shortness of Breath Last Admin: 05/29/17 09:47 Dose: 0.63 mg Levothyroxine Sodium (Synthroid) 125 mcg PO 0600 [facility] Last Admin: 05/30/17 06:24 Dose: 125 mcg Lidocaine (Lidocaine 5%) 1 gm TOP Q6H PRN PRN Reason: Pain, Mild (1-3) Last Admin: 05/29/17 14:41 Dose: 1 applic Lisinopril (Zestril) 2.5 mg PO DAILY [facility] Last Admin: 05/30/17 09:49 Dose: 2.5 mg Megestrol Acetate (Megace) 200 mg PO DAILY [facility] Last Admin: 05/30/17 09:48 Dose: 200 mg Methylprednisolone (Solu-Medrol) 40 mg IVP Q8 [facility] Last Admin: 05/30/17 14:20 Dose: 40 mg Morphine Sulfate (Morphine) 1 mg IVP Q3H PRN PRN Reason: Pain, moderate (4-7) Last Admin: 05/29/17 20:35 Dose: 1 mg Home Med - Amitiza (24 Mcg) 24 mcg PO BID [facility] Last Admin: 05/29/17 17:43 Dose: Not Given Oxycodone HCl (Oxycodone Immediate Release Tab) 15 mg PO Q6H PRN PRN Reason: Pain, Mild (1-3) Last Admin: 05/29/17 23:40 Dose: 15 mg Pantoprazole Sodium (Protonix Ec Tab) 20 mg PO 0600 [facility] Last Admin: 05/30/17 06:24 Dose: 20 mg Pregabalin (Lyrica) 25 mg PO BID [facility] Last Admin: 05/30/17 09:48 Dose: 25 mg Sucralfate (Carafate Oral Susp) 1 gm PO QID [facility] Last Admin: 05/30/17 14:20 Dose: 1 gm - Labs Labs: 05/30/17 06:30 05/30/17 06:30 - Constitutional Appears: Chronically Ill - Head Exam Head Exam: NORMAL INSPECTION - ENT Exam ENT Exam: Mucous Membranes Moist - Neck Exam Neck Exam: absent: Lymphadenopathy, Meningismus - Respiratory Exam Respiratory Exam: Decreased Breath Sounds - Cardiovascular Exam Cardiovascular Exam: +S1, +S2 - GI/Abdominal Exam GI & Abdominal Exam: Soft. absent: Tenderness Assessment and Plan - Assessment and Plan (Free Text) Plan: Assessment SIRS probable due to malignancy, currently no evidence of infection lung CA with metastases HTN COPD DM dyslipidemia obesity with BMI 34 history of colon CA history of cervical CA Plan Continue to monitor off antibiotics since he is at risk for hsopital-acquired infections patient is on Diflucan for presumed oral candidiasis overall prognosis is poor
[2017-05-30 17:28] LABS: BASO # 0.01 K/mm3 (0.0-2.0); GRAN # 23.98 (1.4-6.5); GRAN % 94.8 % (50.0-68.0); HEMOGLOBIN 10.5 g/dL (12.0-16.0); LYMPH # 0.4 (1.2-3.4); LYMPH % 1.6 % (22.0-35.0); MEAN CELL VOLUME 86.7 fl (80.0-105.0); MEAN CORPUSCULAR HEMOGLOBIN 26.4 pg (25.0-35.0); MEAN CORPUSCULAR HGB CONC 30.4 g/dl (31.0-37.0); MEAN PLATELET VOLUME 9.5 fl (7.0-11.0); MONO # 0.9 (0.1-0.6); MONO % 3.6 % (1.0-6.0); RBC 3.98 10^6/uL (3.5-6.1); RED CELL DISTRIBUTION WIDTH 19.8 % (11.5-14.5)
[2017-05-30 17:31] LABS: WHITE BLOOD COUNT 25.3 10^3/ul (4.5-11.0)
[2017-05-30 17:33] LABS: INR 1.48 (0.93-1.08)
[2017-05-30 17:42] LABS: ALBUMIN 3.2 g/dL (3.0-4.8); ALT/SGPT 103 U/L (7-56); AST/SGOT 49 U/L (14-36); BLOOD UREA NITROGEN 30 mg/dL (7-21); CALCIUM 8.9 mg/dL (8.4-10.5); GFR AFRICAN-AMERICAN > 60; GFR NON-AFRICAN AMERICAN > 60
[2017-05-30 17:46] LABS: PARTIAL THROMBOPLASTIN TIME 28.5 Seconds (25.1-36.5)
[2017-05-30] MEDS: Morphine 2 mg/ml ISec IVP PRN (20:23)
--- NOTE | 2017-05-30 21:46 | PN ---
DATE: 05/30/2017 LOCATION: The patient is in room 370, bed 2. REASON FOR CONSULTATION AND FOLLOWUP: Metastatic carcinoma of the lung, status post radiation, status post chemo, sinus tachycardia, shortness of breath, cardiac evaluation. SUBJECTIVE: Patient denies any chest pain or palpitation. Her breathing is getting better. PHYSICAL EXAMINATION: VITAL SIGNS: Blood pressure is 115/71, respirations 20, pulse 90, temperature 97.6, earlier pulse was 73. HEENT: Head is normocephalic. Eyes, pupils normal. Conjunctivae slightly pale. NECK: JVP low. Carotids are equal. THORAX: AP diameter normal. LUNGS: Slightly diminished breath sounds on the right base, otherwise, no significant rales or rhonchi. CARDIOVASCULAR: S1, S2. ABDOMEN: Soft. No tenderness. No organomegaly. EXTREMITIES: No clubbing. No cyanosis. LABORATORY DATA: WBC 25.3, hemoglobin 10.5, hematocrit 34.5, platelets 361. Sodium 133, potassium 4.5, BUN 30, creatinine 0.8, random glucose 272, calcium 8.9, AST 49, ALT 103, total protein 6.5, albumin 3.2. DIAGNOSES: Metastatic lung carcinoma and decrease left ventricle function, most likely related to chemo, status post MUGA scan, which showed ejection fraction of 50%, ejection fraction by echo 35% to 40%, trace pericardial effusion, trace mitral regurgitation, trace tricuspid regurgitation. CT scan of the chest already mentioned, but negative for pulmonary embolism, tumor involvement and encasement of the right main stem bronchus, which is nearly completely rooted resulting in postobstructive atelectasis, oblique pneumonitis, primarily in the right lower lobe, also metastasis to C7 incompletely visualizing C6. PLAN: Patient's tachycardia was multifactorial most likely predominantly due to underlying pulmonary status. Yesterday, I increased the carvedilol to 6.25 b.i.d. and today's heart rate is within normal range. Patient is on Lovenox 30 mg subcu daily, Lyrica 25 b.i.d., Megace 200 mg p.o. daily, Protonix 20 mg daily, Solu-Medrol 40 mg IV q. 8 hour, Synthroid 125 mcg p.o. daily, lisinopril 2.5 mg daily. We will continue present therapy. We will follow with you. Ashlie Mayberry MD
[2017-05-31] MEDS: Levalbuterol 0.63 MG/3 ML Inhal Soln UD IH SCH ×6 (00:04→20:54)
--- NOTE | 2017-05-31 00:31 | US ---
HISTORY: Leg pain and swelling. Evaluate for DVT PHYSICIAN(S): Simón Blank MD. TECHNIQUE: Duplex sonography and color-flow Doppler with graded compression were used to evaluate the deep venous systems of both lower extremities. FINDINGS: The visualized deep venous systems of both lower extremities are sonographically normal and compressible. Normal wave forms and augmentation are seen. There is no sonographic evidence for deep venous thrombosis in the visualized segments of both lower extremities. IMPRESSION: No sonographic evidence for deep venous thrombosis in the visualized segments of both lower extremities.
--- NOTE | 2017-05-31 01:53 | PN ---
DATE: 05/30/2017 LOCATION: This is [facility] visit on the medical floor. For Dr. Bustamante. SUBJECTIVE: The patient is a 66-year-old female seen lying awake in bed with BiPAP on. Family at the bedside in anticipation of eventual transfer tomorrow to [facility] in [place] for endobronchial stent placement to reduce her tumor burden of her respiratory system as the patient suffers from stage IV metastatic non-small cell CA of the lung with progress disease involving the right hilar area compressing the right bronchus intermedius. With this, the patient had completed radiation with a component of COPD compromising her condition. With this, the patient is otherwise reporting hiccups for the past 12 hours or so for which we will recommend treatment as per Dr. Bustamante's recommendations. The patient is, otherwise, reporting her cough is still bothering her; however, it is mildly suppressed. With this, the patient is otherwise in no acute distress. Family is at the bedside. OBJECTIVE AND PHYSICAL EXAMINATION: VITAL SIGNS: Temperature is 97.5, pulse is 90, respirations are 20. Blood pressure 115/71, and pulse ox of 95% on BiPAP. HEENT: Unremarkable with the BiPAP on. Tongue is moist. NECK: Supple. HEART: Regular rate. LUNGS: Rhonchi, occasional, with scattered wheeze. ABDOMEN: Obese, soft, nontender. EXTREMITIES: No edema. SKIN: Warm and dry. NEUROLOGIC: Awake and alert. LABORATORY DATA: Patient's labs were done. White blood cell count of 25.3, hemoglobin of 10.5, hematocrit 34.5, platelet count of 361,000 with a chem metabolic panel showing a BUN of 30 with a normal creatinine of 0.8, non-fasting glucose of 196 with an AST of 49, ALT of 103, otherwise normal chem metabolic panel. Patient had an ultrasound of her lower extremities done yesterday, the results are pending. ASSESSMENT: For this patient is that of stage IV metastatic non-small cell cancer of the lung with progressive disease involving the hilum, compressing the bronchus intermedius, status post radiation; chronic obstructive pulmonary disease; cough secondary to stage IV metastatic non-small cell cancer of the lung; documented brain metastases, liver and bone metastases; hypertension; diabetes; constipation; hypothyroidism; history of colon cancer; squamous cell cancer of the cervix history. PLAN: For this patient, after conversation with Dr. Bustamante, who spoke with Dr. Flores where she will be transferred tomorrow at some point when a bed is available and is the patient's on-call, is to have an evaluation for endobronchial/tracheal tube stent placement for her tumor burden. With this, the patient is to continue her present medical regimen with her treatment eventually to continue once she has her stents placed as per Dr. Bustamante's protocols with [facility]tr[facility]. This is a complex patient with a comprehensive medically necessary and appropriate exam carried out in excess of 40 minutes [id number] time with family and the patient at the bedside with their questions answered to their satisfaction with Dr. Bustamante speaking with Dr. Flores and Dr. Alejo on her behalf with the prognosis for this patient guarded. Rogelio Reed MD
[2017-05-31] MEDS: Morphine 2 mg/ml ISec IVP PRN ×3 (01:59→17:16)
[2017-05-31] MEDS: Pantoprazole 20 mg EC Tab PO SCH (05:40)
[2017-05-31] MEDS: MethylPREDNISolone 40 mg Vial IVP SCH ×3 (05:40→21:17)
[2017-05-31] MEDS: Levothyroxine 125 MCG TAB PO SCH (05:40)
--- NOTE | 2017-05-31 07:19 | PN ---
DATE: 05/30/2017 PULMONARY PROGRESS NOTE REFERRING PHYSICIAN: Rogelio Reed MD SUBJECTIVE: The patient is lying in the bed, head at 45 degree, family at the bedside, on high-flow nasal oxygen. Feels okay; on and off mild cough; gets short of breath with minimal exertion. No nausea, vomiting, diarrhea, leg pain, or leg swelling. OBJECTIVE: GENERAL: In no acute distress. VITAL SIGNS: Temperature is 98, heart rate is 90, respiratory rate is 20, blood pressure is 115/71, pulse ox is 95% on high-flow nasal cannula. HEENT: Moist mucous membranes. NECK: Carotid is very short, thick neck. LUNGS: Has a decreased breath sound at the right lung. No stridor. HEART: S1 and S2. ABDOMEN: Soft and nontender. No organomegaly. EXTREMITIES: There is no edema. NEUROLOGIC: Awake, alert, and follows simple commands. MEDICATIONS: She is on Carafate 1 g p.o. four times a day, Coreg 6.25 mg twice a day, Diflucan 200 mg daily, insulin coverage, Lovenox 30 mg subcu daily, Lyrica 25 mg twice a day, Megace 200 mg daily, morphine 1 mg q. 3 hours p.r.n., Mucinex DM 1 tab q. 8 hours p.r.n., oxycodone immediate release 15 mg q. 6 hours p.r.n., Protonix 20 mg daily, Solu-Medrol 40 mg q. 8 hours, Synthroid 125 mcg daily, Tessalon Perles 100 mg three times a day, Tylenol p.r.n., Xopenex 0.63 q. 4 hours, Zestril 2.5 mg daily. LABORATORY DATA: Shows hemoglobin 10.5, hematocrit 34.5, WBC 25,000, platelet is 361. INR 1.48. PTT 29. Sodium 132, potassium 4.5, chloride 99, bicarbonate 26, BUN 30, creatinine 0.8, glucose 272, calcium 8.9. AST 49, ALT 103, alk phos is 110. Albumin is 3.2. IMPRESSION AND PLAN: Metastatic lung cancer with progressive disease, has a hilar mass compressing the right bronchus intermedius, right upper lobe bronchus also encasing the pulmonary artery, chronic obstructive lung disease, respiratory failure on high-flow oxygen. I spoke to Dr. Bustamante today. Patient will be traveling to [facility] tomorrow morning for possible stenting of the bronchus intermedius and right upper lobe bronchus. She will be traveling with noninvasive ventilation with full face mask with a rate of 10, tidal volume 400, pressure support of 10 and 100% oxygen. I spoke to family at bedside. All the questions answered. Risks and benefits discussed about the procedure. Family expressed understanding and agree with the plan. Thank you and we will follow with you. Ashlie Alejo MD
[2017-05-31] MEDS: Insulin Reg-LOW-Coverage SC SCH ×4 (08:33→20:00)
[2017-05-31] MEDS: Sucralfate 1 gm/10 ml Oral Susp UD PO SCH ×4 (09:49→21:14)
[2017-05-31] MEDS: Enoxaparin 30 mg Syringe SC SCH (09:50)
[2017-05-31] MEDS: Megestrol Acetate 40 mg/ml Cup PO SCH (09:52)
--- NOTE | 2017-05-31 12:25 | CP.PCM.PN ---
Subjective - Date & Time of Evaluation Date of Evaluation: 05/31/17 Time of Evaluation: 11:15 - Subjective Subjective: Still with occasional shortness of breath and cough, no fevers overnight. Less pain in the mouth. Objective - Vital Signs/Intake and Output Vital Signs (last 24 hours): Temp Pulse Resp BP Pulse Ox 98.4 F 67 20 169/64 H 99 05/31/17 00:00 05/31/17 09:52 05/31/17 07:50 05/31/17 09:52 05/31/17 00:00 Intake and Output: 05/31/17 05/31/17 06:59 18:59 Intake Total 300 Balance 300 - Medications Medications: Current Medications Acetaminophen (Tylenol 325mg Tab) 650 mg PO Q6H PRN PRN Reason: Pain, Mild (1-3) Benzonatate (Tessalon Perles) 100 mg PO TID [facility] Last Admin: 05/31/17 09:52 Dose: 100 mg Carvedilol (Coreg) 6.25 mg PO BID [facility] Last Admin: 05/31/17 09:49 Dose: 6.25 mg Al Hydrox/Mg Hydrox/Simethicone 30 ml/Diphenhydramine HCl 75 mg/Lidocaine 30 ml 0 ml PO Q4H PRN PRN Reason: Mouth/Throat Pain Enoxaparin Sodium (Lovenox) 30 mg SC DAILY [facility] PRN Reason: Protocol Last Admin: 05/31/17 09:50 Dose: 30 mg Fluconazole (Diflucan) 200 mg PO DAILY [facility] PRN Reason: Protocol Last Admin: 05/31/17 09:50 Dose: 200 mg Guaifenesin/Dextromethorphan (Mucinex-Dm 600-30 Mg) 1 tab PO Q8 PRN PRN Reason: Cough and congestion Last Admin: 05/29/17 11:52 Dose: 1 tab Insulin Human Regular (Humulin R Low) 0 units SC ACHS [facility] PRN Reason: Protocol Last Admin: 05/31/17 08:33 Dose: Not Given Levalbuterol HCl (Xopenex) 0.63 mg IH Q4 [facility] Last Admin: 05/31/17 07:50 Dose: 0.63 mg Levalbuterol HCl (Xopenex) 0.63 mg IH [id number] PRN PRN Reason: Shortness of Breath Last Admin: 05/29/17 09:47 Dose: 0.63 mg Levothyroxine Sodium (Synthroid) 125 mcg PO 0600 [facility] Last Admin: 05/31/17 05:40 Dose: 125 mcg Lidocaine (Lidocaine 5%) 1 gm TOP Q6H PRN PRN Reason: Pain, Mild (1-3) Last Admin: 05/29/17 14:41 Dose: 1 applic Lisinopril (Zestril) 2.5 mg PO DAILY [facility] Last Admin: 05/31/17 09:52 Dose: 2.5 mg Megestrol Acetate (Megace) 200 mg PO DAILY [facility] Last Admin: 05/31/17 09:52 Dose: 200 mg Methylprednisolone (Solu-Medrol) 40 mg IVP Q8 [facility] Last Admin: 05/31/17 05:40 Dose: 40 mg Morphine Sulfate (Morphine) 1 mg IVP Q3H PRN PRN Reason: Pain, moderate (4-7) Last Admin: 05/31/17 05:54 Dose: 1 mg Home Med - Amitiza (24 Mcg) 24 mcg PO BID [facility] Last Admin: 05/31/17 09:49 Dose: Not Given Oxycodone HCl (Oxycodone Immediate Release Tab) 15 mg PO Q6H PRN PRN Reason: Pain, Mild (1-3) Last Admin: 05/29/17 23:40 Dose: 15 mg Pantoprazole Sodium (Protonix Ec Tab) 20 mg PO 0600 [facility] Last Admin: 05/31/17 05:40 Dose: 20 mg Pregabalin (Lyrica) 25 mg PO BID [facility] Last Admin: 05/31/17 09:51 Dose: 25 mg Prochlorperazine (Compazine Tab) 10 mg PO TID PRN PRN Reason: Hiccups Last Admin: 05/31/17 05:55 Dose: 10 mg Sucralfate (Carafate Oral Susp) 1 gm PO QID [facility] Last Admin: 05/31/17 09:49 Dose: 1 gm - Labs Labs: 05/30/17 17:00 05/30/17 17:00 PT 17.0 SECONDS (9.4-12.5) H 05/30/17 17:00 INR 1.48 (0.93-1.08) H 05/30/17 17:00 APTT 28.5 Seconds (25.1-36.5) 05/30/17 17:00 - Constitutional Appears: Chronically Ill - Head Exam Head Exam: NORMAL INSPECTION - ENT Exam ENT Exam: Mucous Membranes Moist - Neck Exam Neck Exam: absent: Meningismus - Respiratory Exam Respiratory Exam: Decreased Breath Sounds - Cardiovascular Exam Cardiovascular Exam: +S1, +S2 - GI/Abdominal Exam GI & Abdominal Exam: Soft. absent: Tenderness Assessment and Plan - Assessment and Plan (Free Text) Plan: Assessment SIRS probable due to malignancy, currently no evidence of infection probable oral candidiasis, improving lung CA with metastases HTN COPD DM dyslipidemia obesity with BMI 34 history of colon CA history of cervical CA Plan Continue to monitor off antibiotics since he is at risk for healthcare- associated infections Diflucan (day 3) to complete 5-7 days overall prognosis is poor
[2017-05-31] MEDS ORDERED: Morphine 2 mg/ml ISec IVP SCH (18:00)
--- NOTE | 2017-05-31 19:11 | PN ---
DATE: 05/31/2017 LOCATION: The patient is in room 370, bed 2. REASON FOR CONSULTATION AND FOLLOWUP: Metastatic carcinoma of the lungs, status post radiation, status post chemo, sinus tachycardia, and shortness of breath. SUBJECTIVE: The patient is lying comfortably in bed without any chest pain or palpitation. Breathing is stable. PHYSICAL EXAMINATION: VITAL SIGNS: Blood pressure 169/64, earlier blood pressure was 124/75, respirations 20, and pulse 67. The patient is afebrile. HEENT: Head is normocephalic. Eyes; pupils normal. Conjunctivae slightly pale. NECK: JVP low. Carotids equal. THORAX: AP diameter normal. LUNGS: No significant rales. CARDIOVASCULAR: S1 and S2. ABDOMEN: Soft. No tenderness. No organomegaly. EXTREMITIES: No clubbing or cyanosis. LABORATORY DATA: WBC 25.3, hemoglobin 10.5, hematocrit 34.5, and platelets 361. Random sugar 227. Sodium 133, potassium 4.5, BUN 30, and creatinine 0.8. AST 49, ALT 103, total protein 6.5, and albumin 3.2. DIAGNOSES: Metastatic lung carcinoma, decreased left ventricular function most likely related to chemotherapy, status post MUGA scan which showed ejection fraction of 50%, but by echo, ejection fraction was 35% to 40%, trace pericardial effusion, trace mitral regurgitation, and trace tricuspid regurgitation. CT scan of the chest negative for pulmonary embolism, tumor involvement and encasement of the right main bronchus, which is nearly completely occluded resulting in post-obstructive atelectasis and pneumonitis primarily of the right lower lobe, also metastases to C7 and C6. PLAN: The patient's sinus tachycardia, which was related to underlying pulmonary condition, anemia, and infection. It is under control now. The patient's Coreg was increased to 6.25 b.i.d. 2 days ago, because at that time, the patient's heart rate was increased since 6.25 b.i.d. heart rate has been stable. So, we will continue the same dose. The patient is also getting Solu-Medrol 40 mg IV q.8 hours, Synthroid 125 mcg p.o. daily, lisinopril 2.5 mg p.o. daily, Lyrica 25 b.i.d., and Lovenox 30 mg subcutaneously daily. We will continue to follow with you. Ashlie Mayberry MD
[2017-06-01] MEDS: Lidocaine 5% Oint(35 gm) TOP SCH ×4 (00:11→17:23)
--- NOTE | 2017-06-01 00:37 | PN ---
DATE: 05/31/2017 PULMONARY PROGRESS NOTE REFERRING PHYSICIAN: Rogelio Reed MD SUBJECTIVE: She is lying in the bed. Night was unremarkable on high-flow oxygen with a high dose of steroids. She feels a little better. Has some right shoulder discomfort. No nausea, vomiting, diarrhea, leg pain, or leg swelling. OBJECTIVE: GENERAL: In no acute distress. VITAL SIGNS: Temperature is 98, heart rate is 81, respiratory rate is 20, blood pressure is 123/70, pulse ox is 96% on high-flow nasal cannula. HEENT: Moist mucous membranes. Crowded airway. NECK: Supple. No JVD. LUNGS: Has a fair airflow with few rhonchi. Decreased breath sound on the right base. HEART: S1 and S2. ABDOMEN: Soft and nontender. No organomegaly. EXTREMITIES: No edema. Right shoulder area is tender to touch. NEUROLOGIC: Awake, alert, and follows simple commands. MEDICATIONS: She is on Carafate 1 g four times a day, Compazine 10 mg three times a day p.r.n., Coreg 6.25 mg twice a day, Diflucan 200 mg daily, insulin coverage, lidocaine 5% at affected area q. 6 hours, lidocaine patch at affected area, Lovenox 30 mg daily, Lyrica 25 mg twice a day, Magic mouthwash swish and spit q. 4 hours p.r.n., Megace 200 mg daily, morphine 1 mg q. 3 hours p.r.n., Mucinex DM 600/30 one tab q. 8 hours p.r.n., Protonix 20 mg daily, Solu-Medrol 40 mg q. 8 hours, Synthroid 125 mcg daily, Tessalon Perles 100 mg three times a day, Tylenol p.r.n. basis, Xopenex 0.63 q. 6 hours p.r.n., and Zestril 2.5 mg daily. LABORATORY DATA: Reviewed and noted. Blood sugar was 190. IMPRESSION AND PLAN: Metastatic lung cancer with progressive disease, hilar mass compressing the right bronchus intermedius, as well as right upper lobe bronchus also encasing the pulmonary artery, chronic obstructive lung disease, right shoulder vascular type discomfort. She is supposed to go to [facility], apparently did not happen, no schedule for Saturday to have a stent done, but the patient will be transferred Saturday afternoon to [facility] for possible stent. For now, continue high dose of steroids, high-flow nasal cannula oxygen, pain management, antibiotics, bronchodilator, bedrest, gastric and deep vein thrombosis prophylaxis. Spoke to family at bedside. All the questions answered. Requested the nursing staff to use aqua heating pad on the right shoulder. Thank you and we will follow with you. Ashlie Alejo MD
[2017-06-01] MEDS: Levalbuterol 0.63 MG/3 ML Inhal Soln UD IH SCH ×7 (01:15→23:11)
[2017-06-01] MEDS: Morphine 2 mg/ml ISec IVP PRN ×3 (03:11→09:58)
--- NOTE | 2017-06-01 04:55 | PN ---
ONCOLOGY PROGRESS NOTE: DATE: LOCATION: The patient is in room 370, bed 2. SUBJECTIVE: This patient is seen lying in bed, head at 45 degrees, family at the bedside. The patient is on high-flow nasal oxygen, feels okay, except that she has been having lower right shoulder and right scapular pain now. Pain scale on a scale of 0 to 10 is at least 6 or 7 requiring narcotics. The patient has not been using the lidocaine gel as often I have prescribed, told her to do so. The patient also has been complaining of hiccups especially when she tries to talk a lot. She feels okay on and off with mid cough, gets shortness of breath on minimal exertion, especially when she tries to get up and go to the bathroom. Appetite is reasonable. Odynophagia is slightly better on the concoction of the Magic mouthwash and the liquid Carafate. No nausea, no vomiting, no diarrhea. No leg pain or leg swelling. Right shoulder pain is of concern specifically over the scapular area. PHYSICAL EXAMINATION: GENERAL: The patient is in no acute distress. She appears comfortable in bed. We waked her up; her daughter was with her. We would raise the patient's head in with the sheet that she was lying on, and she felt more comfortable after that. VITAL SIGNS: Stable. T-max is 98.4, heart rate is 90, respirations 20. blood pressure is 110/71, pulse ox is 96% on high-flow nasal oxygen. HEENT: Head is normocephalic and atraumatic. Conjunctivae pale. Sclerae anicteric. Pupils are equally reactive to light and accommodation. Examination of the oropharynx reveals no oropharyngeal lesions. Tongue is moist. No ulcerations are noted. Posterior back of the throat, the patient definitely has starting of grade 2 mucositis extending from the oropharynx all the way down into the cervical esophagus which may be the reason for her odynophagia related to the radiation. NECK: Supple. There is no adenopathy, no jugular venous distention is noted. LUNGS: Revealed decreased breath sounds in the right upper lobe of lung posteriorly. There is good air entry on both lungs with scattered wheeze. No stridor is noted. HEART: Reveals S1 and S2 to be normal. No gallop or murmur is heard. ABDOMEN: Soft and nontender. Liver and spleen are not palpable. There is no rebound, rigidity, or guarding is noted. EXTREMITIES: Reveal no cyanosis, clubbing, or edema. Heart functions are normal. NEUROLOGICAL: No focal deficits are noted on neurologic exam. The pain that the patient is complaining is on the scapula region of the shoulder on the right side posteriorly without any identifiable tenderness at this time. My feeling is that the pain is the referred pain coming from the lung itself. MEDICATIONS: The patient's medications were reviewed. She is on Carafate 1 gm four times a day, Coreg 6.25 mg twice a day, Diflucan 200 mg daily, she is on insulin coverage, Lovenox 30 mg subcutaneous daily, Lyrica 25 mg twice a day, Megace 200 mg daily, morphine 1 mg q. 3 hours p.r.n., Mucinex DM one tablet q. 8 hours p.r.n., oxycodone immediate release 15 mg q. 6 hours p.r.n. She is on Protonix 20 mg daily. She is on Solu-Medrol 40 mg q. 8 hours, Synthroid 125 mcg daily, Tessalon Perles 100 mg three times a day, Tylenol p.r.n., Xopenex 0.63 mg q. 4 hours, and Zestril 2.5 mg daily. LABORATORY DATA: Reveals hemoglobin of 10.5, hematocrit of 34, and white count of 25,000 with platelet count of 361. PT and PTT are normal. Sodium is 138, potassium is 4.5, chloride 99, bicarbonate is 26, BUN 30, and creatinine 0.8, glucose 272, calcium is 8.9. AST and ALT are within normal limits, alkaline phosphatase is 110, and albumin is 3.2. ASSESSMENT NOTES AND PLAN: The patient currently having hiccups and shoulder pain which is of concern in the backgrounds of having stage IV metastatic [id number] carcinoma with compressive atelectasis of the right upper lobe, right bronchus intermedius, and right lower lobe. The CAT showing complete obstruction of the right lower lobe bronchus. The patient is being assessed right now for placement of a stent which is going to be placed in [facility] as soon as OR time is available in the near future. In the meantime, we will continue narcotics for now. Etiology of the shoulder pain is of concern to us. Most likely, feels like the referred pain from the lung is the cause of the pain; and if the current hiccups continue we may have to rethink our position and probably redo another imaging. Probably at this time, again another CAT scan with contrast, not a CT angio to look at the lung and the chest wall including to see if there is any mechanical reason for the worsening pain and for the cough which could hiccups which could be related to the diaphragm, though the LFTs have been grossly normal. PLAN: The patient is going to get Compazine 10 mg q. 8 hours for the hiccups. She is going to use the lidocaine patches, lidocaine gel 5% topically every six hours to the scapular area and the shoulder and if the pain does not get better and the pain score is still around 7 or 8, we plan to do a CT of the chest with IV contrast to ascertain what is happening in the right upper lobe of the lungs, right middle lobe, right lower lobe extending into the diaphragm to see if that may be the cause for the ongoing pain. In the meantime, continue high-flow oxygen, PPI prophylaxis, DVT prophylaxis. The patient is on both preload and afterload medications to ease the problem with the pump failure and diastolic dysfunction of the heart as well. A long discussion with the patient and the daughter, explained to her what our plans are, and the patient could be transferred to [facility]. Routine post-exam instructions have been given to the patient. Time spent with the patient correlating all the information, talking to the nurses, making sure the orders are being carried out the way we want to, time taken for all of these is 90 minutes, out of which more than 50% of the time was spent in [id number] contact with the patient. Please make a note this is a complex patient with multiple comorbid issues, it is a medically necessity and appropriate visit. Julio Bustamante MD
[2017-06-01] MEDS ORDERED: Morphine 2 mg/ml ISec IVP STA (05:10)
[2017-06-01] MEDS: Pantoprazole 20 mg EC Tab PO SCH (05:24)
[2017-06-01] MEDS: Levothyroxine 125 MCG TAB PO SCH (05:24)
[2017-06-01] MEDS: MethylPREDNISolone 40 mg Vial IVP SCH ×3 (05:24→23:03)
[2017-06-01] MEDS: Insulin Reg-LOW-Coverage SC SCH ×4 (08:31→22:00)
[2017-06-01] MEDS: Megestrol Acetate 40 mg/ml Cup PO SCH (09:48)
[2017-06-01] MEDS: Enoxaparin 30 mg Syringe SC SCH (09:48)
[2017-06-01] MEDS: Sucralfate 1 gm/10 ml Oral Susp UD PO SCH ×4 (09:48→23:03)
--- NOTE | 2017-06-01 14:31 | PN ---
DATE: LOCATION: The patient is in room 370, bed 2. REASON FOR CONSULTATION AND FOLLOWUP: Metastatic carcinoma of the lungs, status post radiation, status post chemo; sinus tachycardia; and shortness of breath. SUBJECTIVE: The patient is lying comfortably in bed without chest pain. Denies any palpitation. Breathing also has been stable. PHYSICAL EXAMINATION: VITAL SIGNS: Blood pressure 132/79, respirations 20, pulse 74, and temperature 97.7. HEENT: Head is normocephalic. Eyes, pupils normal. Conjunctivae, slightly pale. NECK: JVP low. Carotids equal. THORAX: AP diameter normal. LUNGS: No significant rales. CARDIOVASCULAR: S1, S2. ABDOMEN: Soft and nontender. No organomegaly. Bowel sounds normal. EXTREMITIES: No clubbing. No cyanosis. LABORATORY DATA: WBC 25.3, hemoglobin 10.5, hematocrit 34.5, and platelets 361. Random sugar 231. CT chest already mentioned, which shows that tumor involvement and encasement of the right stem bronchus, which is nearly completely occluding resulting in post-obstructive atelectasis and pneumonitis affecting primarily the right lower lobe. DIAGNOSES: Metastatic lung carcinoma, decreased left ventricular function most likely related to chemotherapy, status post MUGA scan, which showed ejection fraction of 50%. Echo had shown ejection fraction of 35-40%, trace pericardial effusion, trace mitral regurgitation, trace tricuspid regurgitation. This patient's sinus tachycardia is under control, which is related to underlying pulmonary condition and anemia and infection. Heart rate is stable now. Coreg was increased to 6.25 b.i.d. Initially, he was taking 3.125 b.i.d. Patient is also getting Solu-Medrol 40 mg IV q.8 hours, Synthroid 125 mcg p.o. daily, lisinopril 25 mg p.o. daily, Lyrica 25 b.i.d. We will increase the Coreg. The heart rate is stable, so we will continue present therapy. Ashlie Mayberry MD
--- NOTE | 2017-06-01 17:23 | PN ---
DATE: 06/01/2017 SUBJECTIVE: The patient is in bed in no acute distress, nontoxic. PHYSICAL EXAMINATION: VITAL SIGNS: Temperature is 97, blood pressure is 130/70, respiratory rate of 18. HEENT: Unremarkable. NECK: Supple. LUNGS: Have decreased breath sounds. HEART: Normal S1, S2. ABDOMEN: Soft, nontender. LABORATORY EXAMINATION: Reveals a white count is 25.3, hemoglobin is 10, platelets of 361. Chemistries are noted and BUN of 30, creatinine of 0.8. Urinalysis is noted. Blood cultures are negative, and review of orders reveals the patient to be on Solu-Medrol, off of antibiotics. ASSESSMENT/PLAN: This is a 66-year-old female seen earlier today in 370, bed 2. States that she has systemic inflammatory response syndrome probably secondary to malignancy, and workup thus far has not shown any evidence of infection with probable oral candidiasis in a patient with lung cancer with metastases, hypertension, chronic obstructive lung disease, diabetes, dyslipidemia, obesity with a body mass index of 34, history of colon cancer, history of cervical cancer. We will continue to monitor the patient off of antibiotics. She is at risk for developing nosocomial infections. The patient was on Diflucan for the oral thrush. Today is day #4 and would complete 7 days of therapy. Bennie García MD
--- NOTE | 2017-06-01 22:30 | PN ---
PULMONARY PROGRESS NOTE DATE: 06/01/2017 REFERRING PHYSICIAN: Rogelio Reed MD SUBJECTIVE: The patient is lying in the bed, head at 45 degrees. Family at bedside. Night was unremarkable. Right shoulder discomfort is little better. On and off mild cough, still on high-flow oxygen. No nausea. No vomiting, diarrhea, leg pain or leg swelling. PHYSICAL EXAMINATION GENERAL: No acute distress. VITAL SIGNS: Temperature is 98, heart rate is 74, respiratory rate is 20, blood pressure is 132/79 and pulse oximetry is 97% on high-flow nasal cannula. HEENT: Moist mucous membrane. Crowded airway. NECK: Supple. No JVD. LUNGS: Has a decreased breath sounds in the right lung. HEART: S1 and S2. ABDOMEN: Soft and nontender. No organomegaly. EXTREMITIES: There is no edema. NEUROLOGIC: Awake, alert and follow simple commands. MEDICATIONS: She is on Carafate 1 g q.i.d., Compazine 10 mg three times a day p.r.n., Coreg 6.25 mg twice a day, Diflucan 200 mg daily, Amitiza 24 mcg twice a day, insulin coverage, lidocaine patch at affected area, Lovenox 30 mg daily, Lyrica 25 mg twice a day, Magic mouthwash q.4 hours p.r.n., Megace 200 mg daily, morphine 1 mg three times a day p.r.n., Mucinex DM one tab q.8 hours p.r.n., Protonix 20 mg daily, Solu-Medrol 40 mg q.8 hours, Synthroid 125 mcg daily, Tessalon Perles 100 mg three times a day, Tylenol p.r.n., Xopenex inhaled q.4 hours and Zestril 2.5 mg daily. LABORATORY DATA: Reviewed and noted. Blood sugar is 231. Microbiology; blood cultures and sputum culture, there is no growth. IMPRESSION AND PLAN: Metastatic lung cancer with progressive disease involving the hilum with compression of the right bronchus intermedius and right upper lobe bronchus also tumor encasing the right pulmonary artery, chronic obstructive lung disease requiring high-flow nasal cannula oxygen, which cannot be weaned out. Awaiting to be transferred to [facility] for possible stenting of the right bronchus intermedius and right upper lobe bronchus. For now, continue IV and inhaled bronchodilators. Keep head at 45 degrees. Spoke to nursing staff and requested that if we can give heating pad on the right shoulder, should be aqua pad with controlled heat. Gastric prophylaxis. Sequential compression device to lower extremities. Spoke to family at bedside. All the question answered. Thank you and we will follow with you. Ashlie Alejo MD
[2017-06-02] MEDS: Levalbuterol 0.63 MG/3 ML Inhal Soln UD IH SCH ×6 (03:19→23:58)
[2017-06-02] MEDS: MethylPREDNISolone 40 mg Vial IVP SCH ×3 (05:48→22:54)
[2017-06-02] MEDS: Levothyroxine 125 MCG TAB PO SCH (05:49)
[2017-06-02] MEDS: Pantoprazole 20 mg EC Tab PO SCH (05:49)
[2017-06-02] MEDS: Insulin Reg-LOW-Coverage SC SCH ×4 (08:56→22:05)
[2017-06-02] MEDS: Megestrol Acetate 40 mg/ml Cup PO SCH (09:21)
[2017-06-02] MEDS: Sucralfate 1 gm/10 ml Oral Susp UD PO SCH ×4 (09:22→22:22)
[2017-06-02] MEDS: Enoxaparin 30 mg Syringe SC SCH (09:22)
[2017-06-02] MEDS: Lidocaine 5% Oint(35 gm) TOP SCH ×3 (12:58→17:57)
--- NOTE | 2017-06-02 15:57 | CP.PCM.PN ---
Subjective - Date & Time of Evaluation Date of Evaluation: 06/01/17 Time of Evaluation: 19:00 - Subjective Subjective: Episodic hiccups and right shoulder pains. Latter taken care of with prn morphine. Breathing unchanged. Sometimes has some difficulty with swallowing. ROS: 12 ROS otherwise negative Pain: denies Objective - Vital Signs/Intake and Output Vital Signs (last 24 hours): Temp Pulse Resp BP Pulse Ox 98.4 F 100 H 19 133/88 94 L 06/02/17 07:54 06/02/17 09:24 06/02/17 07:54 06/02/17 09:24 06/02/17 07:54 - Medications Medications: Current Medications Acetaminophen (Tylenol 325mg Tab) 650 mg PO Q6H PRN PRN Reason: Pain, Mild (1-3) Last Admin: 06/02/17 05:50 Dose: 650 mg Benzonatate (Tessalon Perles) 100 mg PO TID [facility] Last Admin: 06/02/17 14:31 Dose: 100 mg Carvedilol (Coreg) 6.25 mg PO BID [facility] Last Admin: 06/02/17 09:23 Dose: 6.25 mg Al Hydrox/Mg Hydrox/Simethicone 30 ml/Diphenhydramine HCl 75 mg/Lidocaine 30 ml 0 ml PO Q4H PRN PRN Reason: Mouth/Throat Pain Enoxaparin Sodium (Lovenox) 30 mg SC DAILY [facility] PRN Reason: Protocol Last Admin: 06/02/17 09:22 Dose: 30 mg Fluconazole (Diflucan) 200 mg PO DAILY [facility] PRN Reason: Protocol Last Admin: 06/02/17 09:24 Dose: 200 mg Guaifenesin/Dextromethorphan (Mucinex-Dm 600-30 Mg) 1 tab PO Q8 PRN PRN Reason: Cough and congestion Last Admin: 05/29/17 11:52 Dose: 1 tab Insulin Human Regular (Humulin R Low) 0 units SC ACHS [facility] PRN Reason: Protocol Last Admin: 06/02/17 12:58 Dose: 1 units Levalbuterol HCl (Xopenex) 0.63 mg IH Q4 [facility] Last Admin: 06/02/17 15:01 Dose: 0.63 mg Levalbuterol HCl (Xopenex) 0.63 mg IH [id number] PRN PRN Reason: Shortness of Breath Last Admin: 05/29/17 09:47 Dose: 0.63 mg Levothyroxine Sodium (Synthroid) 125 mcg PO 0600 [facility] Last Admin: 06/02/17 05:49 Dose: 125 mcg Lidocaine (Lidocaine 5%) 1 gm TOP Q6H PRN PRN Reason: Pain, Mild (1-3) Last Admin: 05/29/17 14:41 Dose: 1 applic Lidocaine (Lidocaine 5%) 0 gm TOP Q6 [facility] Last Admin: 06/02/17 12:58 Dose: 1 applic Lisinopril (Zestril) 2.5 mg PO DAILY [facility] Last Admin: 06/02/17 09:24 Dose: 2.5 mg Megestrol Acetate (Megace) 200 mg PO DAILY [facility] Last Admin: 06/02/17 09:21 Dose: 200 mg Methylprednisolone (Solu-Medrol) 40 mg IVP Q8 [facility] Last Admin: 06/02/17 14:32 Dose: 40 mg Morphine Sulfate (Morphine) 1 mg IVP Q3 PRN PRN Reason: Pain, severe (8-10) Last Admin: 06/01/17 09:58 Dose: 1 mg Home Med - Amitiza (24 Mcg) 24 mcg PO BID [facility] Last Admin: 06/02/17 09:21 Dose: Not Given Pantoprazole Sodium (Protonix Ec Tab) 20 mg PO 0600 [facility] Last Admin: 06/02/17 05:49 Dose: 20 mg Pregabalin (Lyrica) 25 mg PO BID [facility] Last Admin: 06/02/17 09:23 Dose: 25 mg Prochlorperazine (Compazine Tab) 10 mg PO TID PRN PRN Reason: Hiccups Last Admin: 05/31/17 05:55 Dose: 10 mg Prochlorperazine (Compazine Tab) 10 mg PO Q8 [facility] Last Admin: 06/02/17 14:31 Dose: 10 mg Sucralfate (Carafate Oral Susp) 1 gm PO QID [facility] Last Admin: 06/02/17 14:31 Dose: 1 gm - Labs Labs: 05/30/17 17:00 05/30/17 17:00 PT 17.0 SECONDS (9.4-12.5) H 05/30/17 17:00 INR 1.48 (0.93-1.08) H 05/30/17 17:00 APTT 28.5 Seconds (25.1-36.5) 05/30/17 17:00 - Constitutional Appears: Non-toxic - Head Exam Head Exam: ATRAUMATIC - Eye Exam Eye Exam: Normal appearance - Respiratory Exam Respiratory Exam: Accessory Muscle Use, Wheezes. absent: Chest Wall Tenderness , Decreased Breath Sounds Additional comments: stable on high flow NC of 60% FIO2 - Cardiovascular Exam Cardiovascular Exam: REGULAR RHYTHM, +S1, +S2. absent: Murmur - GI/Abdominal Exam GI & Abdominal Exam: Soft, Normal Bowel Sounds. absent: Tenderness - Extremities Exam Extremities Exam: Full ROM, Normal Capillary Refill, Normal Inspection. absent : Joint Swelling, Pedal Edema Assessment and Plan - Assessment and Plan (Free Text) Assessment: Ms. Han torey 66 y/o woman with pmhx signficiant for stage IV metastatic non- small cell lung cancer currently being treated with pembroluzimab whose medical course has been cmoplicated by compressive obstructive ateletasis of the RUL, necessting radiation and now palliative stenting which is to be done at [facility] early this coming week. Patient currenty hemodynamically stable and continues to remain onj highflow of 60% with prn morphine requirements. Discussed with patient to try tyleonol in stead of morphine for shoulder pain first and that morphine was primarily for breathing should she have difficulty. Chris Bustamante MD Oncology Service.
--- NOTE | 2017-06-02 16:00 | CP.PCM.PN ---
Subjective - Date & Time of Evaluation Date of Evaluation: 06/02/17 Time of Evaluation: 18:00 - Subjective Subjective: No acute issues over night. [facility] transfer to [facility] tomorrow at 5 AM. Mediport occluded requiring cath flow administration. Breathing unchanged. Still on high flow at 60% FIO2 ROS: 12 ROS otherwise negative Pain: denies at present; tylenol sufficient for occasional right shoulder pain. Objective - Vital Signs/Intake and Output Vital Signs (last 24 hours): Temp Pulse Resp BP Pulse Ox 98.4 F 100 H 19 133/88 94 L 06/02/17 07:54 06/02/17 09:24 06/02/17 07:54 06/02/17 09:24 06/02/17 07:54 - Medications Medications: Current Medications Acetaminophen (Tylenol 325mg Tab) 650 mg PO Q6H PRN PRN Reason: Pain, Mild (1-3) Last Admin: 06/02/17 05:50 Dose: 650 mg Benzonatate (Tessalon Perles) 100 mg PO TID [facility] Last Admin: 06/02/17 14:31 Dose: 100 mg Carvedilol (Coreg) 6.25 mg PO BID [facility] Last Admin: 06/02/17 09:23 Dose: 6.25 mg Al Hydrox/Mg Hydrox/Simethicone 30 ml/Diphenhydramine HCl 75 mg/Lidocaine 30 ml 0 ml PO Q4H PRN PRN Reason: Mouth/Throat Pain Enoxaparin Sodium (Lovenox) 30 mg SC DAILY [facility] PRN Reason: Protocol Last Admin: 06/02/17 09:22 Dose: 30 mg Fluconazole (Diflucan) 200 mg PO DAILY [facility] PRN Reason: Protocol Last Admin: 06/02/17 09:24 Dose: 200 mg Guaifenesin/Dextromethorphan (Mucinex-Dm 600-30 Mg) 1 tab PO Q8 PRN PRN Reason: Cough and congestion Last Admin: 05/29/17 11:52 Dose: 1 tab Insulin Human Regular (Humulin R Low) 0 units SC ACHS [facility] PRN Reason: Protocol Last Admin: 06/02/17 12:58 Dose: 1 units Levalbuterol HCl (Xopenex) 0.63 mg IH Q4 [facility] Last Admin: 06/02/17 15:01 Dose: 0.63 mg Levalbuterol HCl (Xopenex) 0.63 mg IH [id number] PRN PRN Reason: Shortness of Breath Last Admin: 05/29/17 09:47 Dose: 0.63 mg Levothyroxine Sodium (Synthroid) 125 mcg PO 0600 [facility] Last Admin: 06/02/17 05:49 Dose: 125 mcg Lidocaine (Lidocaine 5%) 1 gm TOP Q6H PRN PRN Reason: Pain, Mild (1-3) Last Admin: 05/29/17 14:41 Dose: 1 applic Lidocaine (Lidocaine 5%) 0 gm TOP Q6 [facility] Last Admin: 06/02/17 12:58 Dose: 1 applic Lisinopril (Zestril) 2.5 mg PO DAILY [facility] Last Admin: 06/02/17 09:24 Dose: 2.5 mg Megestrol Acetate (Megace) 200 mg PO DAILY [facility] Last Admin: 06/02/17 09:21 Dose: 200 mg Methylprednisolone (Solu-Medrol) 40 mg IVP Q8 [facility] Last Admin: 06/02/17 14:32 Dose: 40 mg Morphine Sulfate (Morphine) 1 mg IVP Q3 PRN PRN Reason: Pain, severe (8-10) Last Admin: 06/01/17 09:58 Dose: 1 mg Home Med - Amitiza (24 Mcg) 24 mcg PO BID [facility] Last Admin: 06/02/17 09:21 Dose: Not Given Pantoprazole Sodium (Protonix Ec Tab) 20 mg PO 0600 [facility] Last Admin: 06/02/17 05:49 Dose: 20 mg Pregabalin (Lyrica) 25 mg PO BID [facility] Last Admin: 06/02/17 09:23 Dose: 25 mg Prochlorperazine (Compazine Tab) 10 mg PO TID PRN PRN Reason: Hiccups Last Admin: 05/31/17 05:55 Dose: 10 mg Prochlorperazine (Compazine Tab) 10 mg PO Q8 [facility] Last Admin: 06/02/17 14:31 Dose: 10 mg Sucralfate (Carafate Oral Susp) 1 gm PO QID [facility] Last Admin: 06/02/17 14:31 Dose: 1 gm - Labs Labs: 05/30/17 17:00 05/30/17 17:00 PT 17.0 SECONDS (9.4-12.5) H 05/30/17 17:00 INR 1.48 (0.93-1.08) H 05/30/17 17:00 APTT 28.5 Seconds (25.1-36.5) 05/30/17 17:00 - Constitutional Appears: Non-toxic - Respiratory Exam Respiratory Exam: Accessory Muscle Use, Wheezes, NORMAL BREATHING PATTERN Additional comments: stable on HI flow; with occasional expiratory wheezes. decreased breath sounds in RUL - Cardiovascular Exam Cardiovascular Exam: REGULAR RHYTHM, +S1, +S2. absent: Murmur - GI/Abdominal Exam GI & Abdominal Exam: Soft, Normal Bowel Sounds. absent: Tenderness - Extremities Exam Extremities Exam: Full ROM, Normal Capillary Refill, Normal Inspection. absent : Joint Swelling, Pedal Edema Assessment and Plan - Assessment and Plan (Free Text) Assessment: Ms. Han torey 66 y/o woman with pmhx signficiant for stage IV metastatic non- small cell lung cancer currently being treated with pembroluzimab whose medical course has been cmoplicated by compressive obstructive ateletasis of the RUL, necessting radiation and now palliative stenting which is to be done at [facility] early this coming week. Patient currenty hemodynamically stable and continues to remain onj highflow of 60% with prn morphine requirements. Plan on transfer tomorrow AM to [facility] for palliative pulmonary stenting Chris Bustamante MD Oncology Service.
[2017-06-02 18:25] LABS: EOS % 0.1 % (1.5-5.0); GRAN # 23.45 (1.4-6.5); GRAN % 95.2 % (50.0-68.0); HEMOGLOBIN 10.7 g/dL (12.0-16.0); LYMPH % 1.2 % (22.0-35.0); MEAN CELL VOLUME 86.1 fl (80.0-105.0); MEAN CORPUSCULAR HEMOGLOBIN 27.1 pg (25.0-35.0); MEAN CORPUSCULAR HGB CONC 31.5 g/dl (31.0-37.0); MONO % 3.5 % (1.0-6.0); PLATELET COUNT 306 10^3/uL (120.0-450.0); RBC 3.95 10^6/uL (3.5-6.1); RED CELL DISTRIBUTION WIDTH 21.1 % (11.5-14.5); WHITE BLOOD COUNT 24.6 10^3/ul (4.5-11.0)
--- NOTE | 2017-06-02 18:25 | PN ---
DATE: 06/02/2017 LOCATION: The patient is in room 370, bed 2. REASON FOR CONSULTATION: Follow up metastatic carcinoma of the lungs, status post radiation, status post chemotherapy, sinus tachycardia, and shortness of breath. SUBJECTIVE: The patient denies any chest pain. At times, she has shortness of breath. Denies any palpitation. The patient at this moment is lying comfortably in bed. PHYSICAL EXAMINATION: VITAL SIGNS: Blood pressure 133/88, respirations 19, although pulse recorded is 100, I just examined the patient and pulse myself is 88 per minute and temperature 98.4. HEENT: Head is normocephalic. Eyes, pupils normal. Conjunctivae slightly pale. LUNGS: No significant rales. CARDIOVASCULAR: S1, S2. ABDOMEN: Soft. No tenderness. No organomegaly. Bowel sounds normal. EXTREMITIES: No clubbing. No cyanosis. LABORATORY DATA: WBC 25.3, hemoglobin 10.5, hematocrit 34.5, and platelets 361. Sugar 195. Sodium 133, potassium 4.5, BUN 30, creatinine 0.8, calcium 8.9. AST 49 and ALT 103. Total protein 6.5, albumin 3.2. CT chest shows tumor involvement and encasement of the right stem bronchus, which is nearly completely occluding resulting in post-obstructive atelectasis and pneumonitis affecting primarily the right lower lobe. DIAGNOSES: Metastatic lung carcinoma, decreased left ventricular ejection fraction most likely related to chemotherapy, status post MUGA scan, which showed ejection fraction of 50%. Echo showed ejection fraction of 35-40%, trace pericardial effusion, trace mitral regurgitation, trace tricuspid regurgitation. The patient's sinus tachycardia, which is multifactorial related to underlying pulmonary status and metastatic disease, anemia is under control with Coreg therapy. Coreg 6.25 b.i.d., Lovenox 30 subcutaneous daily, Lyrica 25 p.o. b.i.d., megestrol 200 mg daily, Protonix 20 daily, Solu-Medrol 40 mg IV q.8 hours, levothyroxine 125 mcg daily, lisinopril 2.5 p.o. daily. We will follow with you. Ashlie Mayberry MD
[2017-06-02 18:26] LABS: LYMPH # 0.3 (1.2-3.4); MONO # 0.9 (0.1-0.6)
[2017-06-02 19:09] LABS: ALBUMIN 3.1 g/dL (3.0-4.8); ALT/SGPT 92 U/L (7-56); AST/SGOT 34 U/L (14-36); BLOOD UREA NITROGEN 27 mg/dL (7-21); CALCIUM 9.3 mg/dL (8.4-10.5); GFR AFRICAN-AMERICAN > 60; GFR NON-AFRICAN AMERICAN > 60
[2017-06-02 20:25] LABS: BAND 4 % (0-2); EOSINOPHIL 2 % (0.0-3.0); LYMPHOCYTE 2 % (22.0-35.0); MONOCYTE 3 % (1.0-6.0); NEUTROPHIL 89 % (50.0-70.0); PLATELET ESTIMATE NORMAL (NORMAL)
--- NOTE | 2017-06-02 23:29 | PN ---
PULMONARY PROGRESS NOTE DATE: 06/02/2017 REFERRING PHYSICIAN: Rogelio Reed MD SUBJECTIVE: She is lying in the bed. Feels much better. Decreased cough. Decreased shortness of breath. No nausea, vomiting, diarrhea, leg pain, or leg swelling. OBJECTIVE: GENERAL: In no acute distress. VITAL SIGNS: Temperature is 98, heart rate is 100, respiratory rate is 20, blood pressure is 133/88 and pulse ox is 96% on high-flow oxygen. HEENT: Moist mucous membranes. No ulcer or thrush noted. NECK: Supple. No JVD. LUNGS: Has a fair airflow with few rhonchi. HEART: S1 and S2. ABDOMEN: Soft and nontender. No organomegaly. EXTREMITIES: There is no edema. NEUROLOGIC: Awake, alert, and follows simple commands. MEDICATIONS: She is on Carafate 1 g q.i.d., Compazine 10 mg three times a day, Coreg 6.25 mg twice a day, Diflucan 200 mg daily, insulin coverage, lidocaine 5% at affected area, Lovenox 30 mg daily, Lyrica 25 mg twice a day, Magic mouthwash as needed basis, Megace 200 mg daily, morphine 1 mg q. 3 hour p.r.n., Mucinex DM 600/30 one tab q. 8 hours, Protonix 20 mg daily, Solu-Medrol 40 mg q. 8 hours, Synthroid 125 mcg daily, Tessalon Perles 100 mg three times a day, Tylenol p.r.n. basis, Xopenex mg q. 4 hours and Zestril 2.5 mg daily. LABORATORY DATA: Reviewed. Blood sugar this morning was 202. IMPRESSION AND PLAN: Metastatic lung cancer with progressive disease involving the hilum with compression of the right bronchus intermedius and right upper lobe bronchus, tumor also encasing the right pulmonary artery, and chronic obstructive lung disease on high-flow nasal cannula oxygen. From pulmonary point of view, she is much improved, I believe. Spoke to therapist and requested to decrease high-flow to 40 L. We will decrease Solu-Medrol to 40 mg q. 12 hours from q. 8 hours. Continue inhaled bronchodilator. Gastric prophylaxis. Deep venous thrombosis prophylaxis. Thank you and we will follow with you. Ashlie Alejo MD
--- NOTE | 2017-06-02 23:41 | PN ---
DATE: 06/02/2017 SUBJECTIVE: The patient is in bed in no acute distress, nontoxic. PHYSICAL EXAMINATION: VITAL SIGNS: Temperature is 98, blood pressure is 120/80, respiratory rate of 18, heart rate of 102. HEENT: Unremarkable. NECK: Supple. LUNGS: Have decreased breath sounds. HEART: Normal S1, S2. ABDOMEN: Soft, nontender. MEDICATIONS: Review of medications reveals the patient to be off of antibiotics. ASSESSMENT AND PLAN: This is a 66-year-old female seen earlier this morning with systemic inflammatory response syndrome secondary to malignancy, thus far no evidence of infection, currently off of antibiotics and the patient with oral candidiasis, lung cancer with metastases, hypertension, chronic obstructive lung disease, dyslipidemia, obesity with a body mass index of 34, history of colon cancer, cervical cancer. Day number 5 of Diflucan would complete 7 days of p.o. Diflucan. Bennie García MD
[2017-06-03] MEDS: Lidocaine 5% Oint(35 gm) TOP SCH ×5 (00:30→18:04)
[2017-06-03] MEDS: Levalbuterol 0.63 MG/3 ML Inhal Soln UD IH SCH ×3 (03:13→11:10)
[2017-06-03] MEDS: Morphine 2 mg/ml ISec IVP PRN (03:46)
[2017-06-03] MEDS: Pantoprazole 20 mg EC Tab PO SCH (06:14)
[2017-06-03] MEDS: Levothyroxine 125 MCG TAB PO SCH (06:14)
[2017-06-03] MEDS: guaiFENesin-DM 600-30 mg ER Tab PO PRN (06:26)
[2017-06-03 07:53] VITALS: RESP 20; TEMP 98.3
[2017-06-03] MEDS: Insulin Reg-LOW-Coverage SC SCH ×4 (09:18→18:04)
--- NOTE | 2017-06-03 09:42 | CP.PCM.PN ---
Subjective - Date & Time of Evaluation Date of Evaluation: 06/03/17 Time of Evaluation: 09:45 - Subjective Subjective: Patient seen and examined at bedside. Patient accompanied by family member. Patient with no issues overnight. Patient is awaiting transfer for pulmonary stenting. Denies chest pain, shortness of breath, nausea, vomiting, diarrhea, headache. Objective - Vital Signs/Intake and Output Vital Signs (last 24 hours): Temp Pulse Resp BP Pulse Ox 98.3 F 90 20 139/87 94 L 06/03/17 07:52 06/03/17 07:52 06/03/17 07:52 06/03/17 07:52 06/03/17 07:52 Intake and Output: 06/03/17 06/03/17 06:59 18:59 Intake Total 120 Balance 120 - Medications Medications: Current Medications Acetaminophen (Tylenol 325mg Tab) 650 mg PO Q6H PRN PRN Reason: Pain, Mild (1-3) Last Admin: 06/02/17 05:50 Dose: 650 mg Benzonatate (Tessalon Perles) 100 mg PO TID [facility] Last Admin: 06/02/17 17:56 Dose: 100 mg Carvedilol (Coreg) 6.25 mg PO BID [facility] Last Admin: 06/02/17 17:56 Dose: 6.25 mg Al Hydrox/Mg Hydrox/Simethicone 30 ml/Diphenhydramine HCl 75 mg/Lidocaine 30 ml 0 ml PO Q4H PRN PRN Reason: Mouth/Throat Pain Enoxaparin Sodium (Lovenox) 30 mg SC DAILY NORMA PRN Reason: Protocol Last Admin: 06/02/17 09:22 Dose: 30 mg Fluconazole (Diflucan) 200 mg PO DAILY [facility] PRN Reason: Protocol Last Admin: 06/02/17 09:24 Dose: 200 mg Guaifenesin/Dextromethorphan (Mucinex-Dm 600-30 Mg) 1 tab PO Q8 PRN PRN Reason: Cough and congestion Last Admin: 06/03/17 06:26 Dose: 1 tab Insulin Human Regular (Humulin R Low) 0 units SC ACHS NORMA PRN Reason: Protocol Last Admin: 06/03/17 09:18 Dose: 1 units Levalbuterol HCl (Xopenex) 0.63 mg IH Q4 [facility] Last Admin: 06/03/17 07:44 Dose: 0.63 mg Levalbuterol HCl (Xopenex) 0.63 mg IH [id number] PRN PRN Reason: Shortness of Breath Last Admin: 05/29/17 09:47 Dose: 0.63 mg Levothyroxine Sodium (Synthroid) 125 mcg PO 0600 [facility] Last Admin: 06/03/17 06:14 Dose: 125 mcg Lidocaine (Lidocaine 5%) 1 gm TOP Q6H PRN PRN Reason: Pain, Mild (1-3) Last Admin: 05/29/17 14:41 Dose: 1 applic Lidocaine (Lidocaine 5%) 0 gm TOP Q6 [facility] Last Admin: 06/03/17 06:12 Dose: 1 applic Lisinopril (Zestril) 2.5 mg PO DAILY [facility] Last Admin: 06/02/17 09:24 Dose: 2.5 mg Megestrol Acetate (Megace) 200 mg PO DAILY [facility] Last Admin: 06/02/17 09:21 Dose: 200 mg Methylprednisolone (Solu-Medrol) 40 mg IVP Q12 [facility] Last Admin: 06/02/17 22:54 Dose: 40 mg Morphine Sulfate (Morphine) 1 mg IVP Q3 PRN PRN Reason: Pain, severe (8-10) Last Admin: 06/03/17 03:46 Dose: 1 mg Home Med - Amitiza (24 Mcg) 24 mcg PO BID [facility] Last Admin: 06/02/17 17:57 Dose: Not Given Pantoprazole Sodium (Protonix Ec Tab) 20 mg PO 0600 [facility] Last Admin: 06/03/17 06:14 Dose: 20 mg Pregabalin (Lyrica) 25 mg PO BID [facility] Last Admin: 06/02/17 17:56 Dose: 25 mg Prochlorperazine (Compazine Tab) 10 mg PO TID PRN PRN Reason: Hiccups Last Admin: 05/31/17 05:55 Dose: 10 mg Prochlorperazine (Compazine Tab) 10 mg PO Q8 [facility] Last Admin: 06/03/17 06:13 Dose: 10 mg Sucralfate (Carafate Oral Susp) 1 gm PO QID [facility] Last Admin: 06/02/17 22:22 Dose: 1 gm - Labs Labs: 06/02/17 17:45 06/02/17 17:45 PT 17.0 SECONDS (9.4-12.5) H 05/30/17 17:00 INR 1.48 (0.93-1.08) H 05/30/17 17:00 APTT 28.5 Seconds (25.1-36.5) 05/30/17 17:00 - Constitutional Appears: Non-toxic, No Acute Distress - Head Exam Head Exam: ATRAUMATIC, NORMAL INSPECTION, NORMOCEPHALIC - ENT Exam ENT Exam: Mucous Membranes Moist - Respiratory Exam Respiratory Exam: Decreased Breath Sounds, NORMAL BREATHING PATTERN. absent: Rales, Rhonchi, Wheezes - Cardiovascular Exam Cardiovascular Exam: RRR, +S1, +S2 Additional comments: Port in place - GI/Abdominal Exam GI & Abdominal Exam: Soft, Normal Bowel Sounds. absent: Tenderness - Extremities Exam Extremities Exam: Normal Inspection. absent: Pedal Edema, Tenderness - Neurological Exam Neurological Exam: Alert, Awake, Oriented x3 - Psychiatric Exam Psychiatric exam: Normal Affect, Normal Mood - Skin Skin Exam: Intact, Normal Color, Warm Assessment and Plan - Assessment and Plan (Free Text) Plan: 66 y/o woman with past medical history of stage IV metastatic non-small cell lung cancer on pembroluzimab complicated by RUL atelectasis. Patient will now require palliative pulmonary stenting. Patient is awaiting available bed at [facility]. Plan is for transfer today once bed becomes available. Highflow was tapered down by pulmonology in addition to tapering of Solumedrol. Will also continue Diflucan for one more day for oral thrush as per ID. Patient remains on Morphine prn for pain. Will continue to follow until transfer. Will discuss plan with Dr. Bustamante.
[2017-06-03] MEDS: Enoxaparin 30 mg Syringe SC SCH (10:10)
[2017-06-03] MEDS: MethylPREDNISolone 40 mg Vial IVP SCH (10:10)
[2017-06-03] MEDS: Sucralfate 1 gm/10 ml Oral Susp UD PO SCH ×3 (10:14→18:04)
[2017-06-03] MEDS: Megestrol Acetate 40 mg/ml Cup PO SCH (10:14)
[2017-06-03 12:31] LABS: HEMOGLOBIN 9.7 g/dL (12.0-16.0); MEAN CELL VOLUME 86.1 fl (80.0-105.0); MEAN CORPUSCULAR HGB CONC 31.4 g/dl (31.0-37.0); MEAN PLATELET VOLUME 9.6 fl (7.0-11.0); RBC 3.59 10^6/uL (3.5-6.1); RED CELL DISTRIBUTION WIDTH 19.8 % (11.5-14.5); WHITE BLOOD COUNT 22.4 10^3/ul (4.5-11.0)
[2017-06-03 12:39] LABS: ALBUMIN 2.8 g/dL (3.0-4.8); ALT/SGPT 75 U/L (7-56); AST/SGOT 20 U/L (14-36); BLOOD UREA NITROGEN 24 mg/dL (7-21); CALCIUM 8.3 mg/dL (8.4-10.5); GFR AFRICAN-AMERICAN > 60; GFR NON-AFRICAN AMERICAN > 60
[2017-06-03 18:09] VITALS: BP 131/82; PULSE 81
[2017-06-03] MEDS ORDERED: MethylPREDNISolone 40 mg Vial IVP SCH (18:39)
[2017-06-03 19:34] VITALS: O2SAT 95
--- NOTE | 2017-06-03 20:07 | PN ---
DATE: 06/03/2017 REASON FOR CONSULTATION: Followup, metastatic carcinoma of the lung, status post radiation, status post chemo, status post sinus tachycardia, and shortness of breath. SUBJECTIVE: The patient denies any chest pain and denies any palpitation, complains of mild shortness of breath. PHYSICAL EXAMINATION: GENERAL: Not in apparent distress. Family sitting at the bedside. very high flow oxygen, and willing to transfer to [facility]. VITAL SIGNS: Temperature afebrile, heart rate 90, and blood pressure 139/87. HEENT: PERRLA intact. Extraocular muscles intact. NECK: Supple. No carotid bruits or thyromegaly. CHEST: Clear to auscultation. HEART: S1, S2. Regular. ABDOMEN: Soft. EXTREMITIES: Clubbing and cyanosis negative. LABORATORY DATA: Blood workup as follows: WBC 22.5, hemoglobin 9, hematocrit 30.9, and platelet count 242. Chemistry shows sodium 138, potassium of 3.9, chloride of 102, carbon dioxide of 25, anion gap of 14, BUN of 24, and creatinine of 0.6. Total protein 6, albumin 2.8, and albumin-globulin ratio 1. IMPRESSION: Hypoalbuminemia, protein-calorie malnutrition, which was not present on admission, leukocytosis, anemia, lung cancer with metastasis, decreased left ventricular function, most likely secondary to chemotherapy, MUGA scan showed ejection fraction of 51%, by echocardiogram 35% to 40%, trace pericardial effusion, trace mitral regurgitation, and trace tricuspid regurgitation, tachycardia is multifactorial secondary to underlying pulmonary disease as well as anemia. Continue Coreg. Continue low-dose YESIKA inhibitor 0149 . Continue DVT prophylaxis. Continue lisinopril. The patient awaiting transfer to [facility]. RECOMMENDATIONS: Further recommendations as per Dr. Bustamante. I discussed with Dr. Bustamante last week. I will hold the chemo for at least a week to recuperate the heart ejection fraction. We will monitor periodically. Thank you Dr. Bustamante for providing us the opportunity in taking care of the patient. Ashlie Castellanos MD [facility] # [id number]
--- NOTE | 2017-06-03 21:49 | PN ---
DATE: 06/03/2017 SUBJECTIVE: The patient is seen in bed, in no acute distress, nontoxic. No fevers. The patient was seen earlier this morning, still short of breath. OBJECTIVE: VITAL SIGNS: On exam, temperature is 98, blood pressure is 130/80, respiratory rate is 20, heart rate of 90. HEENT: Examination of HEENT is unremarkable. NECK: Supple. LUNGS: Have decreased breath sounds. HEART: Normal S1 and S2. ABDOMEN: Soft. LABORATORY EXAMINATION: Reveals a white count of 22,000, hemoglobin of 9. Chemistries are noted. Urinalysis is noted. Microbiology is reviewed and blood cultures have no growth. ASSESSMENT AND PLAN: This is a 66-year-old female with systemic inflammatory response syndrome, malignancy, no evidence of infection currently and on day #6 of Diflucan for an oral thrush, off antibacterial therapy. Overall prognosis is quite poor for this patient who is awaiting for pulmonary stenting and stage IV metastatic non-small cell lung cancer. Bennie García MD
--- NOTE | 2017-06-03 23:17 | PN ---
PULMONARY PROGRESS NOTE DATE: 06/03/2017 REFERRING PHYSICIAN: Rogelio Reed MD SUBJECTIVE: She is lying in the bed, head at 45 degrees. Feels much better on lower oxygen and flow with a nasal cannula. Cough is better. No nausea. No vomiting, diarrhea, leg pain or leg swelling. OBJECTIVE: GENERAL: No acute distress. VITAL SIGNS: Temperature is 98, heart rate is 81, respiratory rate is 20, blood pressure is 131/82 and pulse oximetry is 95% on high-flow nasal cannula. HEENT: Moist mucous membrane. Crowded airway. NECK: Supple. No JVD. LUNGS: Has a fair airflow with decreased breath sounds on the right base. HEART: S1 and S2. ABDOMEN: Soft and nontender. No organomegaly. EXTREMITIES: No edema. NEUROLOGIC: Awake, alert and follow simple commands. MEDICATIONS: She is on Carafate 1 g q.i.d., Compazine 10 mg three times a day p.r.n., Coreg 6.25 mg twice a day, Diflucan 200 mg daily, insulin coverage, lidocaine 5% at affected area q. 6 hours p.r.n., Lovenox 30 mg daily, Lyrica 25 mg twice a day, Magic mouthwash q. 4 hours p.r.n., Megace 200 mg daily, morphine 1 mg q. 3 hours p.r.n., Mucinex DM one tab q. 8 hours p.r.n., Protonix 40 mg daily, Solu-Medrol 40 mg q. 12 hours, Synthroid 125 mcg daily, Tessalon Perles three times a day, Tylenol p.r.n., Xopenex inhaled q. 4 hours and Zestril 2.5 mg daily. LABORATORY DATA: Shows hemoglobin 9.7, hematocrit 30.9, WBC 22,000 and platelet is 245. Sodium 138, potassium 3.9, chloride 103, bicarbonate 25, BUN 24, creatinine 0.6, glucose 208 and calcium is 8.3. AST 20, ALT 75, alkaline phosphatase is 79 and albumin is 2.8. Microbiology; blood cultures and sputum culture, there is no growth. IMPRESSION AND PLAN: Metastatic lung cancer with progressive disease involving the hilum with compression of the right bronchus intermedius and right upper lobe bronchus, tumor also encasing the right pulmonary artery, chronic obstructive lung disease on high-flow oxygen. Clinically, she is better require less flow, she is on 40 liter at present time. We will decrease Solu-Medrol to 30 q. 12 hours. She is awaiting to be transferred to [facility] for possible right bronchus intermedius stent and also right upper lobe stent. Spoke to family at bedside. All the question answered. Gastric prophylaxis and deep vein thrombosis prophylaxis. Thank you and we will follow with you. Ashlie Alejo MD
--- NOTE | 2017-06-04 15:33 | CP.PCM.DIS ---
Provider - Provider Date of Admission: 05/17/17 21:09 Attending physician: Rogelio Reed MD Primary care physician: Damián James MD Consults: Cardio - Dr. Castellanos Pulm - Dr. Melo Keller/Onc - Dr. Peters Time Spent in preparation of Discharge (in minutes): 60 Diagnosis - Discharge Diagnosis (1) Anemia Status: Chronic (2) Hemoptysis Status: Chronic (3) Lung mass Status: Chronic (4) Pneumonia Status: Acute Hospital Course - Lab Results Lab Results: Micro Results 05/22/17 18:23 Sputum Induced Gram Stain - Final 05/22/17 18:23 Sputum Induced Sputum Culture - Final NORMAL ORAL KATHARINE Most Recent Lab Values WBC 22.4 10^3/ul (4.5-11.0) H 06/03/17 12:20 RBC 3.59 10^6/uL (3.5-6.1) 06/03/17 12:20 Hgb 9.7 g/dL (12.0-16.0) L 06/03/17 12:20 Hct 30.9 % (36.0-48.0) L 06/03/17 12:20 MCV 86.1 fl (80.0-105.0) 06/03/17 12:20 MCH 27.0 pg (25.0-35.0) 06/03/17 12:20 MCHC 31.4 g/dl (31.0-37.0) 06/03/17 12:20 RDW 19.8 % (11.5-14.5) H 06/03/17 12:20 Plt Count 245 10^3/uL (120.0-450.0) 06/03/17 12:20 MPV 9.6 fl (7.0-11.0) 06/03/17 12:20 Gran % 95.2 % (50.0-68.0) H 06/02/17 17:45 Lymph % (Auto) 1.2 % (22.0-35.0) L 06/02/17 17:45 Wirt % (Auto) 3.5 % (1.0-6.0) 06/02/17 17:45 Eos % (Auto) 0.1 % (1.5-5.0) L 06/02/17 17:45 Baso % (Auto) 0.0 % (0.0-3.0) 06/02/17 17:45 Gran # 23.45 (1.4-6.5) H 06/02/17 17:45 Lymph # 0.3 (1.2-3.4) L 06/02/17 17:45 Wirt # 0.9 (0.1-0.6) H 06/02/17 17:45 Eos # 0.0 (0.0-0.7) 06/02/17 17:45 Baso # 0.00 K/mm3 (0.0-2.0) 06/02/17 17:45 Neutrophils % (Manual) 89 % (50.0-70.0) H 06/02/17 17:45 Band Neutrophils % 4 % (0-2) H 06/02/17 17:45 Lymphocytes % (Manual) 2 % (22.0-35.0) L 06/02/17 17:45 Monocytes % (Manual) 3 % (1.0-6.0) 06/02/17 17:45 Eosinophils % (Manual) 2 % (0.0-3.0) 06/02/17 17:45 Toxic Granulation 1+ 05/21/17 06:30 Platelet Evaluation Normal (NORMAL) 06/02/17 17:45 Plt Clumps, EDTA Present 05/30/17 06:30 Large Platelets Present 05/21/17 06:30 Polychromasia Slight 05/21/17 06:30 Hypochromasia 1+ 05/21/17 06:30 Anisocytosis (manual) Slight 05/30/17 06:30 Microcytosis (manual) 1+ 05/21/17 06:30 Target Cells Slight 05/30/17 06:30 Tear Drop Cells Slight 05/21/17 06:30 Ovalocytes Slight 05/21/17 06:30 PT 17.0 SECONDS (9.4-12.5) H 05/30/17 17:00 INR 1.48 (0.93-1.08) H 05/30/17 17:00 APTT 28.5 Seconds (25.1-36.5) 05/30/17 17:00 pO2 127 mm/Hg (30-55) H 05/17/17 20:30 VBG pH 7.41 (7.32-7.43) 05/17/17 20:30 VBG pCO2 31.0 (40-60) L 05/17/17 20:30 VBG HCO3 19.6 mmol/l (21-28) L 05/17/17 20:30 VBG Total CO2 20.6 mmol.L (22-28) L 05/17/17 20:30 VBG O2 Sat (Calc) 99.1 % (40-65) H 05/17/17 20:30 VBG Base Excess -4.0 mmol/L (0.0-2.0) L 05/17/17 20:30 VBG Potassium 5.0 mmol/L (3.6-5.2) 05/17/17 20:30 Sodium 133.0 mmol/L (132-148) 05/17/17 20:30 Chloride 102.0 mmol/L (98-107) 05/17/17 20:30 Glucose 180 mg/dl (65-105) H 05/17/17 20:30 Lactate 1.7 mmol/L (0.7-2.1) 05/17/17 20:30 FiO2 21.0 % 05/17/17 20:30 Sodium 138 mmol/L (132-148) 06/03/17 12:20 Potassium 3.9 mmol/L (3.6-5.0) 06/03/17 12:20 Chloride 103 mmol/L (98-107) 06/03/17 12:20 Carbon Dioxide 25 mmol/L (21-33) 06/03/17 12:20 Anion Gap 14 (10-20) 06/03/17 12:20 BUN 24 mg/dL (7-21) H 06/03/17 12:20 Creatinine 0.6 mg/dl (0.7-1.2) L 06/03/17 12:20 Est GFR ( Amer) > 60 06/03/17 12:20 Est GFR (Non-Af Amer) > 60 06/03/17 12:20 POC Glucose (mg/dL) 166 mg/dL (65-110) H 06/03/17 16:27 Random Glucose 208 mg/dL (70-110) H 06/03/17 12:20 Calcium 8.3 mg/dL (8.4-10.5) L 06/03/17 12:20 Phosphorus 3.4 mg/dL (2.5-4.5) 05/27/17 06:15 Magnesium 2.4 mg/dL (1.7-2.2) H 05/27/17 06:15 Total Bilirubin 0.3 mg/dL (0.2-1.3) 06/03/17 12:20 AST 20 U/L (14-36) 06/03/17 12:20 ALT 75 U/L (7-56) H 06/03/17 12:20 Alkaline Phosphatase 79 U/L (38-126) 06/03/17 12:20 Troponin I < 0.01 ng/mL 05/23/17 16:38 NT-Pro-B Natriuret Pep 233 pg/mL (0-450) 05/23/17 16:38 Total Protein 5.6 g/dL (5.8-8.3) L 06/03/17 12:20 Albumin 2.8 g/dL (3.0-4.8) L 06/03/17 12:20 Globulin 2.8 gm/dL 06/03/17 12:20 Albumin/Globulin Ratio 1.0 (1.1-1.8) L 06/03/17 12:20 Procalcitonin 0.28 NG/ML (0.19-0.49) 05/19/17 10:00 TSH 3rd Generation 16.80 mIU/mL (0.46-4.68) H 05/18/17 07:00 Venous Blood Potassium 5.0 mmol/L (3.6-5.2) 05/17/17 20:30 Urine Color Yellow (YELLOW) 05/18/17 01:15 Urine Appearance Sl cloudy (CLEAR) 05/18/17 01:15 Urine pH 6.0 (4.7-8.0) 05/18/17 01:15 Ur Specific [place] 1.025 (1.005-1.035) 05/18/17 01:15 Urine Protein Trace mg/dL (<30 mg/dL) H 05/18/17 01:15 Urine Glucose (UA) Negative mg/dL (NEGATIVE) 05/18/17 01:15 Urine Ketones Negative mg/dL (NEGATIVE) 05/18/17 01:15 Urine Blood Trace-intact (NEGATIVE) H 05/18/17 01:15 Urine Nitrate Negative (NEGATIVE) 05/18/17 01:15 Urine Bilirubin Negative (NEGATIVE) 05/18/17 01:15 Urine Urobilinogen 0.2 E.U./dL (<1 E.U./dL) 05/18/17 01:15 Ur Leukocyte Esterase Moderate Zl[place]yka/uL (NEGATIVE) H 05/18/17 01:15 Urine RBC 0 - 2 /hpf (0-2) 05/18/17 01:15 Urine WBC 10 - 15 /hpf (0-6) 05/18/17 01:15 Ur Epithelial Cells 0 - 2 /hpf (0-5) 05/18/17 01:15 Urine Bacteria Many (NEG) 05/18/17 01:15 - Hospital Course Hospital Course: 66 y/o F with PMH of DM, HTN, hypothyroidism, cervical cancer, bronchitis, and non-small cell cancer with mets to the brain, lung, and bone who initially presented to the hospital for hemoptysis. Patient received chest CT scan which revealed compression of the right upper, middle, and lower lobe bronchus from known tumor that had enlarged. Patient received radiation therapy for her condition and was also due for dose of Keytruda while in the hospital, but patient did not receive it due to possibility of exacerbating current cardiac conditions. Patient also developed shoulder pain which was thought to be from irritation of the diaphragm, secondary to worsening of mets. Patient also developed hiccups during this time which were alleviated with Compazine. Patient was eventually transferred to [facility] for placement of pulmonary stent to aid in compression of multiple bronchus. Patient will follow up in the office upon discharge from hospital for possible further treatment with keytruda. Discharge Exam - Head Exam Head Exam: ATRAUMATIC, NORMAL INSPECTION, NORMOCEPHALIC - ENT Exam ENT Exam: Mucous Membranes Moist, Normal Exam - Respiratory Exam Respiratory Exam: Decreased Breath Sounds. absent: Rales, Rhonchi, Wheezes - Cardiovascular Exam Cardiovascular Exam: RRR, +S1, +S2 - GI/Abdominal Exam GI & Abdominal Exam: Normal Bowel Sounds, Unremarkable. absent: Tenderness - Extremities Exam Extremities exam: pedal edema - Neurological Exam Neurological exam: Alert, Oriented x3 - Psychiatric Exam Psychiatric exam: Normal Affect, Normal Mood - Skin Skin Exam: Intact, Normal Color, Warm Discharge Plan - Follow Up Plan Condition: FAIR Disposition: Trans to Other Acute Care Hosp Additional Instructions: assisted as needed Referrals: Amadou Flores MDE [[employer]] -
== END 2017-06-03 19:42 | disposition short-term general hospital (02) | DRG 180 ==
LOC: ED 18:52 → ERH 21:09 → 3RSO 22:32
PROVIDERS: ADMIT Family Medicine; ATTEND Family Medicine
PROC: DB023ZZ Beam Radiation of Lung using Electrons (ICD-10-PCS; principal; 2017-05-17)
PROC: DPYC7ZZ Contact Radiation of Other Bone (ICD-10-PCS; 2017-05-17)
PROC: 5A09357 Assistance with Respiratory Ventilation, Less than 24 Consecutive Hours, Continuous Positive Airway Pressure (ICD-10-PCS; 2017-05-20)
DX: C34.01 Malignant neoplasm of right main bronchus (principal); J18.9 Pneumonia, unspecified organism; J96.91 Respiratory failure, unspecified with hypoxia; E46 Unspecified protein-calorie malnutrition; B37.0 Candidal stomatitis; C78.7 Secondary malignant neoplasm of liver and intrahepatic bile duct; C79.31 Secondary malignant neoplasm of brain; C79.51 Secondary malignant neoplasm of bone; C34.11 Malignant neoplasm of upper lobe, right bronchus or lung; J44.0 Chronic obstructive pulmonary disease with (acute) lower respiratory infection; I42.9 Cardiomyopathy, unspecified; J98.11 Atelectasis; Z85.038 Personal history of other malignant neoplasm of large intestine; Z85.41 Personal history of malignant neoplasm of cervix uteri; D64.9 Anemia, unspecified; E11.9 Type 2 diabetes mellitus without complications; E66.9 Obesity, unspecified; Z68.34 Body mass index [BMI] 34.0-34.9, adult; E78.5 Hyperlipidemia, unspecified; E89.0 Postprocedural hypothyroidism; F40.240 Claustrophobia; I10 Essential (primary) hypertension; I27.20 Pulmonary hypertension, unspecified; J98.09 Other diseases of bronchus, not elsewhere classified; K59.00 Constipation, unspecified; T45.1X5A Adverse effect of antineoplastic and immunosuppressive drugs, initial encounter; Y84.2 Radiological procedure and radiotherapy as the cause of abnormal reaction of the patient, or of later complication, without mention of misadventure at the time of the procedure; Z66 Do not resuscitate; Z79.899 Other long term (current) drug therapy; Z83.3 Family history of diabetes mellitus; Z87.01 Personal history of pneumonia (recurrent); Z87.891 Personal history of nicotine dependence; Z90.49 Acquired absence of other specified parts of digestive tract; Z90.710 Acquired absence of both cervix and uterus; Z92.3 Personal history of irradiation

== ENCOUNTER 2017-06-07 17:22 | Inpatient (IN) | payer MEDICARE, OTHER ==
[2017-06-08 10:49] VITALS: BMI 27.5
[2017-06-08] MEDS ORDERED: Morphine 2 mg/ml ISec IVP PRN (12:43)
[2017-06-08] MEDS ORDERED: Aluminum Hydroxide/Magnesium 30 ML, DiphenhydrAMINE 75 MG, Lidocaine 2% Viscous 30 ML PO PRN (12:51)
[2017-06-08] MEDS: Lidocaine 5% Patch TD SCH (13:37)
[2017-06-08] MEDS: MethylPREDNISolone 40 mg Vial IVP SCH (13:47)
[2017-06-08] MEDS: Nystatin 100,000 Units/ml Oral Susp 5 ml UD PO SCH ×3 (14:32→22:42)
[2017-06-08] MEDS ORDERED: SODIUM CHLORIDE 7% IH SCH (15:30)
[2017-06-08] MEDS: Insulin Reg-LOW-Coverage SC SCH ×2 (18:50→22:43)
[2017-06-08] MEDS: Albuterol 0.042% Inhal Sol (1.25 mg/3 mL) UD IH SCH (20:41)
--- NOTE | 2017-06-09 02:10 | HP ---
This is Aurora Han's admission history and physical. For Dr. Bustamante. CHIEF COMPLAINT: Lung cancer. HISTORY OF PRESENT ILLNESS: The patient is a 66-year-old female, admitted after a stent placement and tumor debulking at [facility], one is referred to notes now, reporting that she has left shoulder discomfort, difficulty swallowing and some difficulty breathing. With this, her family is at the bedside, and she is sitting up in a chair, having a Whopper sandwich that her daughter has brought from [facility] for her at her request with diabetic diet to be implemented for her. The patient is known to have stage 4 non-small cell CA of the lung with metastasis to the brain, liver, and having had active radiation treatment with Dr. Sherice Peters with the progression of disease. She is to be treated in the near future with Keytruda after her insurance company permits this treatment and cost will be covered after intervention by Dr. Bustamante. With this, the patient reports that hemoptysis is no longer an issue as well as when she was admitted on 05/17/2017. With this, the patient has an increase in size in her tumor in the right upper chest with mediastinal lymphadenopathy, hilar lymphadenopathy, left lobe hepatic metaphysis with metastatic changes to the C7 vertebra, epidural soft tissue extension to the spinal canal with sclerotic metastases to L1-L4 vertebral bodies. On 05/10/2017, she had a destructive enhancing bony lesion noted at the T7 vertebral body. With this, the patient also is status post radiation treatment for metastatic disease to her brain with an MRI on 01/02/2017 showing probable metastatic lesion left frontal lobe with right posterior temporal lobe with the most recent MRI on 04/23/2017 showing no evidence of metastatic disease. ALLERGIES: NO KNOWN ALLERGIES. The patient is DNR and DNI at her request. MEDICATIONS: From [facility] in [place] are Protonix, Solu-Medrol, Hyper-Wayne 7% inhalation solution, Diflucan which we will hold, Synthroid, Magic mouth wash, subcu insulin sliding scale, midazolam which we will hold, carvedilol, Lovenox, topical lidocaine patch, lisinopril, Megace, Lyrica, albuterol inhaler, morphine, oxycodone, and Tessalon Perles. We will add nystatin swish and swallow and saline gargles at the bedside for now with the finger stick blood sugar to be done twice a day with insulin coverage as indicated. 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 Matt Blank in 2013, cancer to colon and chemotherapy in 2008, tympanostomy tube placement in the recent past. FAMILY HISTORY AND SOCIAL HISTORY: Smoker for 20 years. Denies alcohol use. 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 Four daughters and two sons, alive and well. Two brothers and two sisters, one brother with diabetes, all alive and well. REVIEW OF SYSTEMS: The patient's 12-point review of systems was done, which is negative except for items mentioned in the history of the present illness as above. OBJECTIVE AND PHYSICAL EXAMINATION: VITAL SIGNS: Temperature 97.8, pulse 91, respirations 20, blood pressure 144/98, and pulse ox of 94%. HEENT: Unremarkable. TONGUE: Moist but it is coated. No obvious thrush noted. NECK: Supple. HEART: Regular rate. LUNGS: Clear in the left. Minimal decreased breath sounds in the right. ABDOMEN: Obese, soft, and nontender. EXTREMITIES: No edema. SKIN: Warm and dry. NEUROLOGIC: Awake and alert with decreased range of motion to the left shoulder. LABORATORY DATA: The patient's labs were reviewed from [facility] with a white blood cell count of 25.3, the patient is on steroids, hemoglobin of 10.5, and platelet count of 361,000. Sodium 132 with potassium of 2.5 with these values acted upon by the [facility] medical staff. Values to be drawn in the morning for her. ASSESSMENT: For this patient is that of stage 4 metastatic non-small cell carcinoma of the lung with progressive disease involving the hilum, compressing bronchus, status post stenting with tumor debulking at [facility] in [place] by Dr. Flores, status post radiation, chronic obstructive pulmonary disease, cough secondary to above, documented brain metastases, liver metastasis, bony metastasis, hypertension, diabetes, constipation, hypothyroidism, history of colon cancer, squamous cell cancer of the cervix, deconditioning. PLAN: For this patient, after conversation with Dr. Bustamante is to continue present medical regimen. We will ask for consult with Dr. Alejo, Pulmonary, also with Dr. Castellanos, Cardiology, as the patient had to have her Keytruda placed on hold due to a decreased left ventricular function with MUGA scan showing ejection fraction of 51%, echo 35% to 40%. With this, the patient is to continue present medical regimen. Labs will be monitored, and patient monitored clinically, was eventually transferred to the TCU floor so that Dr. Bustamante may resume her chemotherapy as indicated. We will monitor clinically with labs. This is a complex patient with the comprehensive medical exam done at the bedside in excess of 1 hours [id number] time with the patient and her family, then discussion with medical staff including nursing and review of her medications with consultants appreciated. Rogelio Reed MD
[2017-06-09] MEDS ORDERED: Levothyroxine 125 MCG TAB PO SCH (06:00)
[2017-06-09] MEDS: Pantoprazole 40 mg EC Tab PO SCH (06:15)
[2017-06-09] MEDS: Albuterol 0.042% Inhal Sol (1.25 mg/3 mL) UD IH SCH ×3 (07:55→19:52)
[2017-06-09] MEDS: Acetylcysteine 20% Inhal Soln (4ml) IH SCH ×4 (07:55→19:52)
[2017-06-09 08:22] LABS: GRAN % 97.8 % (50.0-68.0); HEMOGLOBIN 10.1 g/dL (12.0-16.0); LYMPH # 0.2 (1.2-3.4); LYMPH % 0.8 % (22.0-35.0); MEAN CELL VOLUME 86.4 fl (80.0-105.0); MEAN CORPUSCULAR HEMOGLOBIN 26.5 pg (25.0-35.0); MEAN CORPUSCULAR HGB CONC 30.7 g/dl (31.0-37.0); MEAN PLATELET VOLUME 9.7 fl (7.0-11.0); MONO # 0.3 (0.1-0.6); MONO % 1.4 % (1.0-6.0); PLATELET COUNT 133 10^3/uL (120.0-450.0); RBC 3.81 10^6/uL (3.5-6.1); RED CELL DISTRIBUTION WIDTH 20.3 % (11.5-14.5)
[2017-06-09] MEDS: Insulin Reg-LOW-Coverage SC SCH ×4 (08:35→21:18)
[2017-06-09 09:03] LABS: ALBUMIN 2.9 g/dL (3.0-4.8); ALT/SGPT 60 U/L (7-56); AST/SGOT 22 U/L (14-36); BLOOD UREA NITROGEN 16 mg/dL (7-21); CALCIUM 8.9 mg/dL (8.4-10.5); GFR AFRICAN-AMERICAN > 60; GFR NON-AFRICAN AMERICAN > 60
[2017-06-09] MEDS: Lidocaine 5% Patch TD SCH (10:18)
[2017-06-09] MEDS: Enoxaparin 60 mg Syringe SC SCH (10:19)
[2017-06-09] MEDS: Megestrol Acetate 40 mg/ml Cup PO SCH (10:20)
[2017-06-09] MEDS: oxyCODONE 10 mg Immediate Release Tab PO PRN (10:21)
[2017-06-09] MEDS: Nystatin 100,000 Units/ml Oral Susp 5 ml UD PO SCH ×4 (10:21→21:19)
[2017-06-09] MEDS: MethylPREDNISolone 40 mg Vial IVP SCH (10:22)
[2017-06-09 10:49] LABS: LYMPHOCYTE 2 % (22.0-35.0); NEUTROPHIL 98 % (50.0-70.0); PLATELET ESTIMATE NORMAL (NORMAL)
[2017-06-09 10:50] LABS: ANISOCYTOSIS 1+; HYPOCHROMIA 1+
--- NOTE | 2017-06-09 11:08 | RAD ---
HISTORY: tumor COMPARISON: Chest x-ray performed 05/28/17 TECHNIQUE: Chest, one view. FINDINGS: Right-sided central venous catheter extends the cavoatrial junction. LUNGS: Left basilar atelectasis/ infiltrate. Re- demonstrated right hilar/ suprahilar mass. PLEURA: No significant pleural effusion identified. No definite pneumothorax . CARDIOVASCULAR: Cardiomegaly. OSSEOUS STRUCTURES: Degenerative changes. VISUALIZED UPPER ABDOMEN: Mild elevation of the right hemidiaphragm. OTHER FINDINGS: None. IMPRESSION: Right-sided MediPort. Cardiomegaly. Left basilar atelectasis/infiltrate. Re-identified right hilar/suprahilar mass.
--- NOTE | 2017-06-09 20:25 | PN ---
DATE: 06/09/2017 This is [facility] visit on the medical floor. For Dr. Bustamante. SUBJECTIVE: The patient is a 66-year-old female, seen lying, somnolent in bed with family at the bedside having just fallen asleep. With the patient now readmitted to [facility] after tumor debulking stent placement at [facility] in [facility] for stage IV non-small cell CA of the lung with metastases to the brain and liver with the patient is now to have treatment in the near future with Keytruda as per Dr. Bustamante once she is stable. The patient had increased size of her tumor mass in the right upper chest with debulking and stent placement as per Dr. Flores at [facility] in [place]. With this, the patient is also status post radiation treatment for her metastasis to her brain with good effect. At present, the patient is comfortable, now awake. The patient is reporting that her sore throat is minimally better and her left shoulder discomfort is also relieved with the analgesics being given. She does not have BiPAP on at present; however, this is as per pulse ox as per Dr. Alejo her Supervisor [employer]. This a complex patient with a medically necessary comprehensive evaluation carried out at the bedside for this patient in excess of 30 minutes [id number] time. The patient also asks for when she will be able to exercise with Physiotherapy to be allowed as per Dr. Alejo and Dr. Castellanos, her Onion Farmer. OBJECTIVE/PHYSICAL EXAMINATION: VITAL SIGNS: Temperature 98.4, pulse 83, respirations 20, blood pressure 132/79, with a pulse ox of 96%. HEENT: Unremarkable. TONGUE: Moist and midline. NECK: Supple. HEART: Regular rate. LUNGS: Minimal decreased breath sounds in the right. ABDOMEN: Obese, soft, and nontender. EXTREMITIES: Faint 1+ edema of the feet bilaterally. NEUROLOGIC: Awake and alert with minimal decreased range of motion to the left upper extremity. SKIN: Warm and dry. LABORATORY DATA: The patient's labs were done white blood cell count of 19,000, hemoglobin 10.1, hematocrit 32.0, and platelet count of 133,000. Chem metabolic panel within normal limits except for non-fasting glucose of 166 with an ALT of 60, normal AST of 22, albumin of 2.9 and TSH of 0.05. The patient's chest x-ray was done, it was read as right-sided MediPort, cardiomegaly, left basilar atelectasis infiltrate, re-identified right suprahilar mass. ASSESSMENT: Stage IV metastatic non-small cell carcinoma of the lung with progressive disease involving the hilum, compressing bronchus, status post stenting with tumor debulking, debridement at [facility] by Dr. 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 PLAN: For this patient after conversation with Dr. Bustamante, is to await consult with Dr. Alejo and Dr. Castellanos with the patient to begin reconditioning with physical therapy at first and then to increase on TCU once she is transferred with improvement of her condition. Also her treatment with Keytruda as per Dr. Bustamante's recommendation once she is stable. We will also cut back on her Synthroid from 125 mcg daily to 100 mcg daily with monitoring clinically and with labs. The prognosis for this patient guarded. She is DNR/DNI as per her previous request with the family in agreement at this point. for hospice would be done should her condition deteriorate. Rogelio Reed MD
--- NOTE | 2017-06-10 01:26 | PN ---
PULMONARY PROGRESS NOTE DATE: 06/09/2017 REFERRING PHYSICIAN: Rogelio Reed MD SUBJECTIVE: The patient is lying on the bed, head at 45 degrees. Family at the bedside, sleepy, arousable, feels better, could not tolerate BiPAP last night. She is claustrophobic nasal cannula, pulse ox is 94% to 95%. Had some cough, clear sputum. No nausea, no vomiting, or diarrhea. No leg pain or leg swelling. OBJECTIVE: GENERAL: In no acute distress. VITAL SIGNS: Temperature is 98, heart rate is 70, respiratory rate is 20, blood pressure is 126/66 and pulse ox is 92% on 3 liters nasal cannula. HEENT: Moist mucous membranes. Crowded airway. NECK: Supple. No JVD. LUNGS: Have a scattered rhonchi. HEART: S1 and S2. ABDOMEN: Soft and nontender. No organomegaly. EXTREMITIES: There is no edema. NEUROLOGIC: Awake, alert and follow simple commands. MEDICATIONS: She is on Mucomyst 20% 4 mL three times a day, albuterol and Atrovent nebulizer q. 8 hours, Coreg 6.25 mg twice a day, insulin coverage, Lidoderm patch daily, Lovenox 40 mg daily, Lyrica 25 mg twice a day, Magic mouthwash swish and spit q. 12 hours p.r.n., Megace 200 mg daily, morphine 1 mg q. 4 hours p.r.n., nystatin orally 5 mL q.i.d., oxycodone immediate release 50 mg q. 4 hours, Protonix 40 mg daily, hypertonic saline inhaler q.i.d., Solu-Medrol 30 mg daily, Synthroid 100 daily, Tessalon Perles three times a day p.r.n., Tylenol p.r.n. and Zestril 2.5 mg daily. LABORATORY DATA: Shows hemoglobin 10.1, hematocrit 32.9, WBC 19.0 and platelet is 133. Sodium 139, potassium 3.9, chloride 103, bicarbonate 29, BUN 16, creatinine 0.5, glucose is 124, calcium is 8.9, total bili 0.5, AST 22, ALT 60, alkaline phosphatase is 93 and TSH 0.05. IMPRESSION AND PLAN: Metastatic lung carcinoma involving endobronchial tree, especially right mainstem bronchus requiring debulking of tumor and stenting of the right bronchus intermedius with blocking the right upper lobe bronchus, chronic obstructive lung disease, has a metastatic disease to bone, also have hypertension, diabetes, hypothyroid, may have a component of sleep apnea syndrome and also has history of cervical cancer in the past. Spoke to the patient and family at bedside. All the question answered. Spoke to nursing staff, suggested to start incentive spirometer. Keep head at 45 degree. Continue supplement oxygen. Also spoke to respiratory therapist. We will transfer to TCU as soon as bed available to start chemotherapy as soon as possible. Pulmonary toilet. Thank you and we will follow with you. Ashlie Alejo MD
[2017-06-10] MEDS: Levothyroxine 100 MCG TAB PO SCH (05:38)
[2017-06-10] MEDS: Pantoprazole 40 mg EC Tab PO SCH (05:39)
[2017-06-10] MEDS: oxyCODONE 10 mg Immediate Release Tab PO PRN (05:46)
[2017-06-10 06:48] LABS: BASO # 0.01 K/mm3 (0.0-2.0); BASO % 0.1 % (0.0-3.0); EOS % 0.1 % (1.5-5.0); GRAN # 16.16 (1.4-6.5); GRAN % 96.9 % (50.0-68.0); HEMOGLOBIN 9.3 g/dL (12.0-16.0); LYMPH # 0.2 (1.2-3.4); LYMPH % 1.3 % (22.0-35.0); MEAN CELL VOLUME 86.3 fl (80.0-105.0); MEAN CORPUSCULAR HEMOGLOBIN 26.5 pg (25.0-35.0); MEAN CORPUSCULAR HGB CONC 30.7 g/dl (31.0-37.0); MEAN PLATELET VOLUME 10.3 fl (7.0-11.0); MONO # 0.3 (0.1-0.6); MONO % 1.6 % (1.0-6.0); RBC 3.51 10^6/uL (3.5-6.1); RED CELL DISTRIBUTION WIDTH 20.5 % (11.5-14.5); WHITE BLOOD COUNT 16.7 10^3/ul (4.5-11.0)
[2017-06-10 07:12] LABS: ALB/GLOB RATIO 0.9 (1.1-1.8); ALBUMIN 2.7 g/dL (3.0-4.8); ALT/SGPT 66 U/L (7-56); AST/SGOT 27 U/L (14-36); BLOOD UREA NITROGEN 16 mg/dL (7-21); CALCIUM 8.7 mg/dL (8.4-10.5); GFR AFRICAN-AMERICAN > 60; GFR NON-AFRICAN AMERICAN > 60
[2017-06-10] MEDS: Albuterol 0.042% Inhal Sol (1.25 mg/3 mL) UD IH SCH ×2 (07:34→13:29)
[2017-06-10] MEDS: Insulin Reg-LOW-Coverage SC SCH ×4 (08:13→21:40)
[2017-06-10] MEDS: Enoxaparin 60 mg Syringe SC SCH (09:28)
[2017-06-10] MEDS: Lidocaine 5% Patch TD SCH (09:28)
[2017-06-10] MEDS: Nystatin 100,000 Units/ml Oral Susp 5 ml UD PO SCH ×4 (09:30→21:26)
[2017-06-10] MEDS: Megestrol Acetate 40 mg/ml Cup PO SCH (09:30)
[2017-06-10] MEDS: MethylPREDNISolone 40 mg Vial IVP SCH (09:31)
--- NOTE | 2017-06-10 09:45 | CON ---
PULMONARY NOTE DATE: 06/08/2017 REFERRING PHYSICIAN: Rogelio Reed MD REASON FOR CONSULTATION: Metastatic lung cancer status post right bronchial stent, chronic lung disease, may have sleep apnea syndrome. HISTORY OF PRESENT ILLNESS: This is a 66-year-old female well known to me for the non-small cell lung cancer, unresectable involving endobronchial tree also have metastatic disease to the bone and liver, metastases to the brain, been on radiation therapy on the lung, end up with endobronchial extension with of lower lobe. She was transferred to [facility] status post bronchus intermedius stent by sacrificing the right upper lobe, able to open right middle and lower lobe. She was on high-flow oxygen, presently on supplemental oxygen sitting up in a chair, admitted back from [facility]. Family is at bedside complaining mild shortness of breath. Also have nocturnal shortness of breath, mild cough, not much sputum. No nausea. No vomiting. No diarrhea. No leg pain or leg swelling. PAST MEDICAL HISTORY: Hypertension, diabetes, hypothyroid, history of cervical cancer, history of colon cancer, chronic obstructive lung disease, may have sleep apnea syndrome and as per history of present illness. ALLERGIES: NONE KNOWN. SOCIAL HISTORY: Positive history of smoking. No history of alcohol abuse. FAMILY HISTORY: Positive for diabetes. MEDICATIONS: She is on albuterol and Atrovent nebulizer q.3 hours, Coreg 6.25 mg twice a day, insulin coverage, lidocaine patch affected area, Lovenox 40 mg subq daily, Lyrica 25 mg twice a day, Magic mouthwash q.2 hours swish and spit, Megace 200 mg daily, morphine 1 mg q.4 hours p.r.n., Nystatin oral suspension 5 mL four times a day, oxycodone immediate release 15 mg q.4 hours p.r.n., Protonix 40 mg daily IV, getting sodium inhalation therapy q.i.d., Solu-Medrol 30 mg IV, Synthroid 125 daily, Tessalon Perles 100 mg three times a day p.r.n., Tylenol p.r.n. and Zestril 2.5 mg daily. REVIEW OF SYSTEMS: No headache. No rhinitis. Has mild shortness of breath. Cough. Clear sputum. No nausea. No vomiting. No diarrhea. No leg pain or leg swelling. PHYSICAL EXAMINATION GENERAL: Sitting up in a chair. Mild short of breath. VITAL SIGNS: Temperature is 98, heart rate 103, respiratory rate is 20, blood pressure 142/92 and pulse oximetry 96% on 6 L nasal cannula. HEENT: Moist mucous membrane. Crowded airway. NECK: Supple. No JVD. LUNGS: Has a fair airflow with few rhonchi. HEART: S1 and S2. ABDOMEN: Soft and nontender. No organomegaly. EXTREMITIES: There is no edema. NEUROLOGIC: Awake, alert and follow simple commands. LABORATORY DATA: Shows last hemoglobin on 06/03/2017 was 9.7 and hematocrit was 30.9. Blood sugar today 246. IMPRESSION AND PLAN: Metastatic lung cancer with progressive disease involving the hilum with compression of the right bronchus intermedius and right upper lobe bronchus, chronic obstructive lung disease, may have component of sleep apnea syndrome, metastatic disease to the bone, liver and brain. May have component of sleep apnea syndrome. Case discussed with family at bedside. All the questions answered. Spoke to nursing staff. We will place her on the bilevel positive airway pressure 10/7 with 35% of oxygen while sleeping with nasal mask. Had inhaled bronchodilator with Mucomyst. Gastric prophylaxis. Deep venous thrombosis prophylaxis. Hopefully, we can start chemotherapy by Saturday or so. Thank you and we will follow with you. Ashlie Alejo MD
--- NOTE | 2017-06-10 10:24 | CP.PCM.PN ---
Subjective - Date & Time of Evaluation Date of Evaluation: 06/10/17 Time of Evaluation: 10:21 - Subjective Subjective: Patient seen and examined at bedside. Family member accompanying patient. Patient doing well with no acute events overnight. Patient admits to having no pain, but receiving pain medication this morning. Patient is on 4L nasal cannula resting comfortably. Denies chest pain, shortness of breath, nausea, vomiting, diarrhea, fever, chills. Objective - Vital Signs/Intake and Output Vital Signs (last 24 hours): Temp Pulse Resp BP Pulse Ox 98 F 67 20 97/55 L 92 L 06/10/17 08:27 06/10/17 09:27 06/10/17 08:27 06/10/17 09:27 06/10/17 08:27 Intake and Output: 06/10/17 06/10/17 06:59 18:59 Intake Total 360 Output Total 0 Balance 360 - Medications Medications: Current Medications Acetaminophen (Tylenol 325mg Tab) 650 mg PO Q4H PRN PRN Reason: Mild pain (1-3) or temp > 100F Last Admin: 06/08/17 13:39 Dose: 650 mg Acetylcysteine (Acetylcysteine 20%) 4 ml IH TID [facility] Last Admin: 06/09/17 19:52 Dose: Not Given Albuterol Sulfate (Albuterol 0.042% Inhal Ashley (1.25mg/3ml) Ud) 1.25 mg IH TIDRESP [facility] Last Admin: 06/10/17 07:34 Dose: 1.25 mg Benzonatate (Tessalon Perles) 100 mg PO TID PRN PRN Reason: Cough Carvedilol (Coreg) 6.25 mg PO BID [facility] Last Admin: 06/10/17 09:27 Dose: Not Given Al Hydrox/Mg Hydrox/Simethicone 30 ml/Diphenhydramine HCl 75 mg/Lidocaine 30 ml 0 ml PO Q2H PRN PRN Reason: Mouth/Throat Pain Enoxaparin Sodium (Lovenox) 40 mg SC DAILY [facility] PRN Reason: Protocol Last Admin: 06/10/17 09:28 Dose: 40 mg Insulin Human Regular (Humulin R Low) 0 units SC ACHS [facility] PRN Reason: Protocol Last Admin: 06/10/17 08:13 Dose: Not Given Levothyroxine Sodium (Synthroid) 100 mcg PO 0600 [facility] Last Admin: 06/10/17 05:38 Dose: 100 mcg Lidocaine (Lidoderm) 1 ea TD DAILY [facility] Last Admin: 06/10/17 09:28 Dose: 1 ea Lisinopril (Zestril) 2.5 mg PO DAILY [facility] Last Admin: 06/10/17 09:34 Dose: Not Given Loratadine (Claritin) 10 mg PO DAILY [facility] Last Admin: 06/10/17 09:26 Dose: 10 mg Megestrol Acetate (Megace) 200 mg PO DAILY [facility] Last Admin: 06/10/17 09:30 Dose: 200 mg Methylprednisolone (Solu-Medrol) 30 mg IVP DAILY [facility] Last Admin: 06/10/17 09:31 Dose: 30 mg Montelukast Sodium (Singulair) 10 mg PO HS [facility] Last Admin: 06/09/17 21:21 Dose: 10 mg Morphine Sulfate (Morphine) 1 mg IVP Q4H PRN PRN Reason: Pain, moderate (4-7) Last Admin: 06/08/17 16:53 Dose: 1 mg Nystatin (Nystatin Oral Susp) 5 ml PO QID [facility] Last Admin: 06/10/17 09:30 Dose: 5 ml Oxycodone HCl (Oxycodone Immediate Release Tab) 15 mg PO Q4H PRN PRN Reason: Pain, severe (8-10) Last Admin: 06/10/17 05:46 Dose: 15 mg Pantoprazole Sodium (Protonix Ec Tab) 40 mg PO 0600 [facility] Last Admin: 06/10/17 05:39 Dose: 40 mg Pregabalin (Lyrica) 25 mg PO BID [facility] Last Admin: 06/10/17 09:29 Dose: 25 mg Sodium Chloride (Sodium Chloride 7% Inhalation) 4 ml IH QIDRESP [facility] - Labs Labs: 06/10/17 06:30 06/10/17 06:30 - Constitutional Appears: Non-toxic, No Acute Distress - Head Exam Head Exam: ATRAUMATIC, NORMAL INSPECTION, NORMOCEPHALIC - ENT Exam ENT Exam: Mucous Membranes Moist - Respiratory Exam Respiratory Exam: Clear to Ausculation Bilateral, NORMAL BREATHING PATTERN - Cardiovascular Exam Cardiovascular Exam: RRR, +S1, +S2 - GI/Abdominal Exam GI & Abdominal Exam: Soft, Normal Bowel Sounds. absent: Tenderness - Extremities Exam Extremities Exam: Normal Inspection. absent: Calf Tenderness, Pedal Edema - Neurological Exam Neurological Exam: Alert, Awake, Oriented x3 - Psychiatric Exam Psychiatric exam: Normal Affect, Normal Mood - Skin Skin Exam: Intact, Normal Color, Warm Assessment and Plan - Assessment and Plan (Free Text) Plan: 66 y/o woman with past medical history of stage IV metastatic non-small cell lung cancer previously on pembroluzimab presents s/p pulmonary stent placement at [facility]. Patient's respiratory status is much improved after stenting, no longer requiring high flow oxygen. Pattient currently on 4L nasal cannula and will be titrated down as tolerated. She is also being followed by pulmonary, Dr. Alejo, who recommends continuing current medical course. Will taper steroids as per pulmonary. Patient will likely need further treatment with Keytruda and will be evaluated for TCU admission to continue her chemotherapy. We will continue to monitor her closely. Plan discussed with Dr. Bustamante. Shawn, PGY-2
[2017-06-10] MEDS: Acetylcysteine 20% Inhal Soln (4ml) IH SCH (13:30)
--- NOTE | 2017-06-11 02:10 | PN ---
DATE: 06/10/2017 PULMONARY PROGRESS NOTE REFERRING PHYSICIAN: Dr. Rogelio Reed. SUBJECTIVE: She is sitting in side of the bed. Night was unremarkable. Not very compliant with the CPAP and BiPAP but breathing is better. Still has some cough, clear sputum production. No hemoptysis. No hematemesis. No hematuria. No diarrhea reported. OBJECTIVE: GENERAL: In no acute distress. VITAL SIGNS: Temperature 98, heart rate is 66, respiratory rate is 20, blood pressure 138/77, pulse ox 98% on 4 L nasal cannula. HEENT: Moist mucous membranes. Crowded airway. Mallampati score is IV. NECK: Supple. No JVD. LUNGS: Has a scattered rhonchi. HEART: S1 and S2. ABDOMEN: Soft and nontender. No organomegaly. EXTREMITIES: There is no edema. NEUROLOGIC: Awake and alert. Follow simple commands. MEDICATIONS: She is on Mucomyst twice a day, albuterol and Atrovent nebulizer q.8 hours, Claritin 10 mg daily, Coreg 6.25 mg twice a day, insulin coverage, Lidocaine patch to the affected area, Lovenox 40 mg subcu daily, Lyrica 25 mg twice a day, Magic Mouthwash swish and spit q.12 hours p.r.n., Megace 200 mg daily, morphine 1 mg q.4 hours p.r.n.,nystatin oral suspension 5 mL q.i.d., oxycodone immediate release 50 mg q.4 hours p.r.n., Protonix 40 mg daily, Singulair 10 mg daily, hypertonic saline inhalation q.8 hours, Tessalon Perles 100 mg three times a day p.r.n., Tylenol p.r.n., Zestril 2.5 mg daily. LABORATORY DATA: Shows hemoglobin 9.3, hematocrit 30.3, WBC 16.7, platelet is 119. Sodium 135, potassium 4.3, chloride 99, bicarbonate 29, BUN 16, creatinine 0.5, glucose 121, calcium is 8.7. AST 27, ALT 66, alkaline phosphatase is 106, albumin is 2.7. IMPRESSION AND PLAN: Metastatic lung carcinoma involving the endobronchial tree requiring debulking and placing of the stent in the right bronchial intermedius, chronic obstructive lung disease, metastatic disease to bone and also have hypertension, diabetes, hypothyroid, may have a sleep apnea syndrome, history of cervical cancer in the past. Spoke to the patient and family. Answered all the question. Patient waiting to be transferred [facility] to start chemotherapy. Continue pulmonary toilet, inhaled bronchodilator. May add Singulair and Zyrtec at bedtime. Thank you, and we will follow with you. Ashlie Alejo MD
[2017-06-11] MEDS: Pantoprazole 40 mg EC Tab PO SCH (05:52)
[2017-06-11] MEDS: Levothyroxine 100 MCG TAB PO SCH (05:52)
[2017-06-11 07:46] LABS: HEMOGLOBIN 9.8 g/dL (12.0-16.0); MEAN CELL VOLUME 85.8 fl (80.0-105.0); MEAN CORPUSCULAR HEMOGLOBIN 26.3 pg (25.0-35.0); MEAN CORPUSCULAR HGB CONC 30.6 g/dl (31.0-37.0); MEAN PLATELET VOLUME 10.6 fl (7.0-11.0); RBC 3.73 10^6/uL (3.5-6.1); RED CELL DISTRIBUTION WIDTH 20.2 % (11.5-14.5); WHITE BLOOD COUNT 14.8 10^3/ul (4.5-11.0)
[2017-06-11] MEDS: oxyCODONE 10 mg Immediate Release Tab PO PRN (07:46)
[2017-06-11] MEDS: Insulin Reg-LOW-Coverage SC SCH ×4 (08:03→21:24)
[2017-06-11 08:10] LABS: ALBUMIN 3.1 g/dL (3.0-4.8); ALT/SGPT 61 U/L (7-56); AST/SGOT 24 U/L (14-36); BLOOD UREA NITROGEN 14 mg/dL (7-21); CALCIUM 9.2 mg/dL (8.4-10.5); GFR AFRICAN-AMERICAN > 60; GFR NON-AFRICAN AMERICAN > 60
[2017-06-11] MEDS: Albuterol 0.042% Inhal Sol (1.25 mg/3 mL) UD IH SCH ×3 (08:13→20:07)
--- NOTE | 2017-06-11 08:29 | CON ---
DATE: 06/10/2017 CONSULT SERVICE: Cardiology. REASON FOR CONSULTATION: Clearance to go to TCU, status post stent in the lung for metastatic lung cancer, tachycardia, cardiomyopathy, status post chemo. BRIEF CLINICAL HISTORY: This is a 66-year-old female with a past medical history of non-small cell metastasis to the endobronchial tree bone and liver, metastasis of the brain, getting chemotherapy and radiation therapy. Had a stent which fell off and now went to [facility] came back transferred to [facility], room 365, bed 1. Now, the patient needs a clearance to go to TCU. The patient denies any chest pain, shortness of breath, or any palpitation. PAST MEDICAL HISTORY: Significant for hypertension, diabetes, thyroid disease, cervical cancer in the past, history of colon cancer in the past, history of chronic bronchitis, and history of non-small cell lung cancer with metastasis. ALLERGIES: NO KNOWN DRUG ALLERGY. SOCIAL HISTORY: History of positive smoking in the past. Denies any history of alcohol abuse. PREVIOUS CARDIAC WORKUP: As follows, the patient had echocardiography done dated 05/22/2017 that showed ejection fraction 35% to 40%, trace mitral regurgitation, tricuspid regurgitation. Technical difficult study, suggest MUGA scan, the patient following had MUGA scan done dated 05/24/2017 that showed ejection fraction, preserved LV, reported 56% normal RV. CURRENT MEDICATIONS: The patient is taking metformin, promethazine, omeprazole, methylprednisolone, lisinopril, levothyroxine, ketotifen, and folic acid. REVIEW OF SYSTEMS: As per HPI. PHYSICAL EXAMINATION: VITAL SIGNS: As follows; temperature afebrile, heart rate 66, and blood pressure 97/55. HEENT: PERRLA. Extraocular muscles intact. NECK: Supple. No carotid bruits or thyromegaly. CHEST: Clear to auscultation. HEART: S1 and S2 regular. ABDOMEN: Soft. EXTREMITIES: Clubbing and cyanosis negative. LABORATORY DATA: Blood workup as follows; WBC 16.7, hemoglobin , hematocrit 30.3, and platelet count 119. Chemistry shows sodium 135, potassium 4.3, chloride 99, carbon dioxide 29, anion gap of 11, BUN 16, and creatinine 0.5. Total protein 5.6 and albumin 2.7. 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 RECOMMENDATIONS: We will resume back Coreg, low-dose of YESIKA inhibitors to prevent chemo toxicity from chemotherapy. Lisinopril 2.5 mg and Coreg 6.25 mg as blood pressure is tolerated, we will monitor. The patient is cleared from cardiac point of view, to go to TCU. Thank you Dr. Bustamante for providing us the opportunity in taking care of the patient, Aurora Han. The patient is cleared to go to TCU. We will follow with you. Ashlie Castellanos MD cc: Dr. Bustamante
[2017-06-11] MEDS: Acetylcysteine 20% Inhal Soln (4ml) IH SCH ×3 (10:00→20:06)
[2017-06-11] MEDS: Lidocaine 5% Patch TD SCH (10:00)
[2017-06-11] MEDS: Enoxaparin 60 mg Syringe SC SCH (10:15)
[2017-06-11] MEDS: Megestrol Acetate 40 mg/ml Cup PO SCH (10:16)
[2017-06-11] MEDS: Nystatin 100,000 Units/ml Oral Susp 5 ml UD PO SCH ×4 (10:16→21:24)
[2017-06-11] MEDS: MethylPREDNISolone 40 mg Vial IVP SCH (10:20)
--- NOTE | 2017-06-11 13:12 | CP.PCM.DIS ---
Provider - Provider Date of Admission: 06/08/17 10:03 Attending physician: Rogelio Reed MD Primary care physician: Damián James MD Consults: Kayla Alejo Time Spent in preparation of Discharge (in minutes): 45 Diagnosis - Discharge Diagnosis (1) Fever Status: Resolved (2) Pneumonia Status: Resolved (3) Anemia Status: Chronic (4) Lung mass Status: Chronic Hospital Course - Lab Results Lab Results: Most Recent Lab Values WBC 14.8 10^3/ul (4.5-11.0) H 06/11/17 07:37 RBC 3.73 10^6/uL (3.5-6.1) 06/11/17 07:37 Hgb 9.8 g/dL (12.0-16.0) L 06/11/17 07:37 Hct 32.0 % (36.0-48.0) L 06/11/17 07:37 MCV 85.8 fl (80.0-105.0) 06/11/17 07:37 MCH 26.3 pg (25.0-35.0) 06/11/17 07:37 MCHC 30.6 g/dl (31.0-37.0) L 06/11/17 07:37 RDW 20.2 % (11.5-14.5) H 06/11/17 07:37 Plt Count 134 10^3/uL (120.0-450.0) 06/11/17 07:37 MPV 10.6 fl (7.0-11.0) 06/11/17 07:37 Gran % 96.9 % (50.0-68.0) H 06/10/17 06:30 Lymph % (Auto) 1.3 % (22.0-35.0) L 06/10/17 06:30 Maury % (Auto) 1.6 % (1.0-6.0) 06/10/17 06:30 Eos % (Auto) 0.1 % (1.5-5.0) L 06/10/17 06:30 Baso % (Auto) 0.1 % (0.0-3.0) 06/10/17 06:30 Gran # 16.16 (1.4-6.5) H 06/10/17 06:30 Lymph # 0.2 (1.2-3.4) L 06/10/17 06:30 Maury # 0.3 (0.1-0.6) 06/10/17 06:30 Eos # 0.0 (0.0-0.7) 06/10/17 06:30 Baso # 0.01 K/mm3 (0.0-2.0) 06/10/17 06:30 Neutrophils % (Manual) 98 % (50.0-70.0) H 06/09/17 08:00 Lymphocytes % (Manual) 2 % (22.0-35.0) L 06/09/17 08:00 Monocytes % (Manual) TEST NOT PERFORMED 06/09/17 08:00 Platelet Evaluation Normal (NORMAL) 06/09/17 08:00 Hypochromasia 1+ 06/09/17 08:00 Anisocytosis (manual) 1+ 06/09/17 08:00 Sodium 136 mmol/L (132-148) 06/11/17 07:37 Potassium 4.1 mmol/L (3.6-5.0) 06/11/17 07:37 Chloride 100 mmol/L (98-107) 06/11/17 07:37 Carbon Dioxide 30 mmol/L (21-33) 06/11/17 07:37 Anion Gap 11 (10-20) 06/11/17 07:37 BUN 14 mg/dL (7-21) 06/11/17 07:37 Creatinine 0.6 mg/dl (0.7-1.2) L 06/11/17 07:37 Est GFR ( Amer) > 60 06/11/17 07:37 Est GFR (Non-Af Amer) > 60 06/11/17 07:37 POC Glucose (mg/dL) 175 mg/dL (65-110) H 06/11/17 11:09 Random Glucose 126 mg/dL (70-110) H 06/11/17 07:37 Calcium 9.2 mg/dL (8.4-10.5) 06/11/17 07:37 Total Bilirubin 0.4 mg/dL (0.2-1.3) 06/11/17 07:37 AST 24 U/L (14-36) 06/11/17 07:37 ALT 61 U/L (7-56) H 06/11/17 07:37 Alkaline Phosphatase 94 U/L (38-126) 06/11/17 07:37 Total Protein 6.1 g/dL (5.8-8.3) 06/11/17 07:37 Albumin 3.1 g/dL (3.0-4.8) 06/11/17 07:37 Globulin 3.0 gm/dL 06/11/17 07:37 Albumin/Globulin Ratio 1.0 (1.1-1.8) L 06/11/17 07:37 TSH 3rd Generation 0.05 mIU/mL (0.46-4.68) L 06/09/17 08:00 - Hospital Course Hospital Course: 66 y/o woman with past medical history of stage IV metastatic non-small cell lung cancer previously on pembroluzimab presented s/p pulmonary stent placement at [facility]. Patient's respiratory status improved a great deal after stenting, no longer requiring high flow oxygen. Patient currently on 4L nasal cannula. She is also being followed by pulmonary, Dr. Alejo, who recommends continuing current medical course. Will taper steroids as per pulmonary. Patient will receive Keytruda on 06/13/16. Patient may also receive Aredia, as she is overdue for her last dose. Patient will be transferred to the TCU for deconditioning and chemotherapy. Discharge Exam - Head Exam Head Exam: ATRAUMATIC, NORMAL INSPECTION, NORMOCEPHALIC - ENT Exam ENT Exam: Mucous Membranes Moist - Respiratory Exam Respiratory Exam: Decreased Breath Sounds, NORMAL BREATHING PATTERN. absent: Rales, Rhonchi, Wheezes - Cardiovascular Exam Cardiovascular Exam: Tachycardia, +S1, +S2 - GI/Abdominal Exam GI & Abdominal Exam: Normal Bowel Sounds, Soft. absent: Tenderness - Extremities Exam Extremities exam: normal inspection - Neurological Exam Neurological exam: Alert, CN II-XII Intact, Oriented x3 - Psychiatric Exam Psychiatric exam: Normal Affect, Normal Mood - Skin Skin Exam: Intact, Normal Color, Warm Discharge Plan - Follow Up Plan Condition: GOOD Disposition: REHAB FACILITY/REHAB UNIT Instructions: Anemia (DC), Dyspnea Scale and Exercise (DC) Referrals: Damián James [Primary Care Provider] -
--- NOTE | 2017-06-11 14:09 | PN ---
DATE: REASON FOR CONSULTATION AND FOLLOWUP: Cardiac clearance to TCU, status post stent in the lung for metastatic lung CA, tachycardia, cardiomyopathy, status post chemo. SUBJECTIVE: The patient denies any chest pain, shortness of breath or any palpitation. Daughter is at the bedside. The patient feels a lot better after stenting in the bronchial tree. Transferred from [facility]. Awaiting to go to TCU. PHYSICAL EXAMINATION: GENERAL: Not in distress. Sitting at the bedside. VITAL SIGNS: Temperature afebrile, heart rate 80, and blood pressure 144/80. HEENT: PERRLA. Extraocular muscles intact. NECK: Supple. No carotid bruits. No thyromegaly. CHEST: Clear to auscultation. HEART: S1 and S2, regular. ABDOMEN: Soft. EXTREMITIES: Clubbing and cyanosis negative. LABORATORY DATA: Blood workup as follows: WBC 14.8, hemoglobin 9.8, hematocrit 32, and platelet count 134. Chemistry shows sodium , chloride 100, carbon dioxide 30, anion gap of 11, BUN 14, and creatinine 0.6. IMPRESSION: A 66-year-old female with past medical history significant for [id number] cancer with lung metastasis to the endobronchial tree compressing the airway, status post stent, which fell down, repeat stenting of Y stent at [facility] the day before yesterday. Transferred back for continuation of the care. History of metastasis to the brain, history of metastasis to the liver. Getting chemotherapy and radiation. Post-chemo ejection fraction is slightly decreased. MUGA scan that showed ejection fraction preserved. The patient is on Coreg and YESIKA. History of diabetes and hypertension. RECOMMENDATIONS: Continue Coreg. Continue YESIKA inhibitors. Continue levothyroxine for hypothyroidism. Continue analgesia. Continue DVT prophylaxis. The patient is stable to go to TCU. Discussed with the patient's family. Overall, the patient's condition is critical. Long-term prognosis is guarded. Code status is DNR/DNI. Ashlie Castellanos MD cc: Rogelio Reed MD
--- NOTE | 2017-06-11 23:57 | PN ---
PULMONARY PROGRESS NOTE DATE: 06/11/2017 REFERRING PHYSICIAN: Dr. Rogelio Reed. SUBJECTIVE: She is out of bed to chair, feels much better. Family at bedside. Decreased cough. Decreased shortness of breath. No nausea, vomiting or diarrhea. No leg pain or leg swelling. OBJECTIVE: GENERAL: No acute distress. VITAL SIGNS: Temperature is 98, heart rate 77, respiratory is 20, blood pressure 110/67 and pulse ox 96% on 4 liters nasal cannula. HEENT: Moist mucous membrane. Crowded airway. Mallampati score is IV. NECK: Supple. No JVD. LUNGS: Has fair airflow with few rhonchi. HEART: S1 and S2. ABDOMEN: Soft and nontender. No organomegaly. EXTREMITIES: There is no edema. NEUROLOGIC: Awake, alert and follows simple command. MEDICATIONS: She is on Mucomyst 20% inhaled three times a day, albuterol inhaled q.8 hours, Claritin 10 mg daily, Coreg 6.25 mg twice a day, insulin coverage, lidocaine patch affected area daily, Lovenox 40 mg daily, Lyrica 25 mg twice a day, Magic solution mouth swish and spit q.2 hours p.r.n., Megace 200 mg daily, morphine 1 mg q.4 hour p.r.n., Oxycodone immediate release 50 mg q.4 hours p.r.n., Protonix 40 mg daily, Singulair 20 mg daily, hypertonic saline inhaled q.i.d., Solu-Medrol 30 mg daily, Synthroid 100 mcg daily, Tessalon Perles 100 mg three times a day p.r.n., Tylenol p.r.n. and Zestril 2.5 mg daily. LABORATORY DATA: Shows hemoglobin 9.8, hematocrit 32.0, WBC 14.8 and platelet is 134. Sodium 136, potassium 4.1, chloride 100, bicarbonate 30, BUN 14, creatinine 0.6, glucose 126, calcium 9.2, AST 24, ALT 61, alk phos is 94 and albumin is 3.1. IMPRESSION AND PLAN: Metastatic lung cancer involving the endobronchial tree, requiring debulking and placing of stent, which is placed in right bronchus intermedius, chronic obstructive lung disease, also metastatic disease to the bone, hypertension, diabetes, hypothyroid, may have sleep apnea syndrome, history of cervical cancer. Case discussed with Dr. Bustamante in detail. Spoke to family at bedside. All the questions answered, awaiting to be transferred to start chemotherapy. Pulmonary point of view, continue IV and inhaled bronchodilator, gastric prophylaxis, deep venous thrombosis prophylaxis, antihistamine and leukotriene inhibitor. Thank you and we will follow with you. Ashlie Alejo MD
[2017-06-12] MEDS: Pantoprazole 40 mg EC Tab PO SCH (05:16)
[2017-06-12] MEDS: Levothyroxine 100 MCG TAB PO SCH (05:16)
[2017-06-12 06:04] LABS: EOS % 0.1 % (1.5-5.0); GRAN # 12.86 (1.4-6.5); GRAN % 96.1 % (50.0-68.0); HEMOGLOBIN 9.2 g/dL (12.0-16.0); LYMPH # 0.2 (1.2-3.4); LYMPH % 1.5 % (22.0-35.0); MEAN CELL VOLUME 84.5 fl (80.0-105.0); MEAN CORPUSCULAR HEMOGLOBIN 26.4 pg (25.0-35.0); MEAN CORPUSCULAR HGB CONC 31.3 g/dl (31.0-37.0); MEAN PLATELET VOLUME 9.6 fl (7.0-11.0); MONO # 0.3 (0.1-0.6); MONO % 2.3 % (1.0-6.0); RBC 3.48 10^6/uL (3.5-6.1); RED CELL DISTRIBUTION WIDTH 20.5 % (11.5-14.5); WHITE BLOOD COUNT 13.4 10^3/ul (4.5-11.0)
[2017-06-12 06:21] LABS: ALBUMIN 2.8 g/dL (3.0-4.8); ALT/SGPT 70 U/L (7-56); AST/SGOT 28 U/L (14-36); BLOOD UREA NITROGEN 11 mg/dL (7-21); CALCIUM 8.8 mg/dL (8.4-10.5); GFR AFRICAN-AMERICAN > 60; GFR NON-AFRICAN AMERICAN > 60
[2017-06-12] MEDS: Acetylcysteine 20% Inhal Soln (4ml) IH SCH ×3 (07:39→20:19)
[2017-06-12] MEDS: Albuterol 0.042% Inhal Sol (1.25 mg/3 mL) UD IH SCH ×3 (07:39→20:19)
[2017-06-12] MEDS: Insulin Reg-LOW-Coverage SC SCH ×4 (08:50→21:41)
[2017-06-12] MEDS: Nystatin 100,000 Units/ml Oral Susp 5 ml UD PO SCH ×4 (10:19→21:06)
[2017-06-12] MEDS: Megestrol Acetate 40 mg/ml Cup PO SCH (10:22)
[2017-06-12] MEDS: MethylPREDNISolone 40 mg Vial IVP SCH (10:23)
[2017-06-12] MEDS: Enoxaparin 60 mg Syringe SC SCH (10:23)
--- NOTE | 2017-06-12 10:24 | CP.PCM.PN ---
Subjective - Date & Time of Evaluation Date of Evaluation: 06/12/17 Time of Evaluation: 10:20 - Subjective Subjective: Patient seen and examined at bedside. Family member at bedside. Patient complaining of mild cough overnight. Last bowel movement was 2 days ago. Denies chest pain, shortness of breath, nausea, vomiting, diarrhea, fever, chills. Objective - Vital Signs/Intake and Output Vital Signs (last 24 hours): Temp Pulse Resp BP Pulse Ox 98.2 F 74 18 106/61 94 L 06/12/17 08:38 06/12/17 08:38 06/12/17 08:38 06/12/17 08:38 06/12/17 08:38 Intake and Output: 06/12/17 06/12/17 06:59 18:59 Intake Total 420 Balance 420 - Medications Medications: Current Medications Acetaminophen (Tylenol 325mg Tab) 650 mg PO Q4H PRN PRN Reason: Mild pain (1-3) or temp > 100F Last Admin: 06/08/17 13:39 Dose: 650 mg Acetylcysteine (Acetylcysteine 20%) 4 ml IH TIDRESP [facility] Last Admin: 06/12/17 07:39 Dose: 4 ml Albuterol Sulfate (Albuterol 0.042% Inhal Ashley (1.25mg/3ml) Ud) 1.25 mg IH TIDRESP [facility] Last Admin: 06/12/17 07:39 Dose: 1.25 mg Benzonatate (Tessalon Perles) 100 mg PO TID PRN PRN Reason: Cough Carvedilol (Coreg) 6.25 mg PO BID [facility] Last Admin: 06/11/17 18:06 Dose: 6.25 mg Al Hydrox/Mg Hydrox/Simethicone 30 ml/Diphenhydramine HCl 75 mg/Lidocaine 30 ml 0 ml PO Q2H PRN PRN Reason: Mouth/Throat Pain Enoxaparin Sodium (Lovenox) 40 mg SC DAILY [facility] PRN Reason: Protocol Last Admin: 06/11/17 10:15 Dose: 40 mg Insulin Human Regular (Humulin R Low) 0 units SC ACHS [facility] PRN Reason: Protocol Last Admin: 06/12/17 08:50 Dose: Not Given Levothyroxine Sodium (Synthroid) 100 mcg PO 0600 [facility] Last Admin: 06/12/17 05:16 Dose: 100 mcg Lidocaine (Lidoderm) 1 ea TD DAILY [facility] Last Admin: 06/11/17 10:00 Dose: 1 ea Lisinopril (Zestril) 2.5 mg PO DAILY [facility] Last Admin: 06/11/17 10:14 Dose: 2.5 mg Loratadine (Claritin) 10 mg PO DAILY [facility] Last Admin: 06/11/17 10:15 Dose: 10 mg Megestrol Acetate (Megace) 200 mg PO DAILY [facility] Last Admin: 06/11/17 10:16 Dose: 200 mg Methylprednisolone (Solu-Medrol) 30 mg IVP DAILY [facility] Last Admin: 06/11/17 10:20 Dose: 30 mg Montelukast Sodium (Singulair) 10 mg PO HS [facility] Last Admin: 06/11/17 21:24 Dose: 10 mg Morphine Sulfate (Morphine) 1 mg IVP Q4H PRN PRN Reason: Pain, moderate (4-7) Last Admin: 06/08/17 16:53 Dose: 1 mg Nystatin (Nystatin Oral Susp) 5 ml PO QID [facility] Last Admin: 06/11/17 21:24 Dose: 5 ml Oxycodone HCl (Oxycodone Immediate Release Tab) 15 mg PO Q4H PRN PRN Reason: Pain, severe (8-10) Last Admin: 06/11/17 07:46 Dose: 15 mg Pantoprazole Sodium (Protonix Ec Tab) 40 mg PO 0600 [facility] Last Admin: 06/12/17 05:16 Dose: 40 mg Pregabalin (Lyrica) 25 mg PO BID [facility] Last Admin: 06/11/17 18:06 Dose: 25 mg Sodium Chloride (Sodium Chloride 7% Inhalation) 4 ml IH QIDRESP [facility] - Labs Labs: 06/12/17 05:30 06/12/17 05:30 - Constitutional Appears: Non-toxic, No Acute Distress - Head Exam Head Exam: ATRAUMATIC, NORMAL INSPECTION, NORMOCEPHALIC - ENT Exam ENT Exam: Mucous Membranes Moist - Respiratory Exam Respiratory Exam: Clear to Ausculation Bilateral, NORMAL BREATHING PATTERN - Cardiovascular Exam Cardiovascular Exam: RRR, +S1, +S2 - GI/Abdominal Exam GI & Abdominal Exam: Soft, Normal Bowel Sounds. absent: Tenderness - Extremities Exam Extremities Exam: Normal Inspection. absent: Calf Tenderness, Pedal Edema - Neurological Exam Neurological Exam: Alert, Awake, Oriented x3 - Psychiatric Exam Psychiatric exam: Normal Affect, Normal Mood - Skin Skin Exam: Intact, Normal Color, Warm Assessment and Plan - Assessment and Plan (Free Text) Plan: 66 y/o woman with past medical history of stage IV metastatic non-small cell lung cancer previously on pembroluzimab presents s/p pulmonary stent placement at [facility]. Patient's respiratory status is much improved after stenting, no longer requiring high flow oxygen. Patient currently on 4L nasal cannula with no respiratory distress and acceptable O2 saturations. She is also being followed by pulmonary, Dr. Alejo, who recommends continuing current medical course. Will taper steroids as per pulmonary. Patient will start therapy with Keytruda later this week. Patient is currently accepted for TCU admission and awaiting an open bed. Patient has adequate pain management with Oxycodone. Will add colace for constipation. She will need home O2 once discharged. We will continue to monitor her closely. Plan discussed with Dr. Bustamante. Shawn, PGY-2
[2017-06-12] MEDS: Lidocaine 5% Patch TD SCH (10:25)
--- NOTE | 2017-06-12 10:37 | PQF PNEUMO ---
This form is a permanent part of the medical record Brianna Mayberry, Discharge Summary was done on 06/[address] Axel Escobar in which pneumonia is listed as a diagnosis. Patient did have CXR which showed a left basilar atelectasis/infiltrate, elevated wbc. No mention of pneumonia was noted in H&P or subsequent documentation. Please clarify if this diagnosis was present on this admission, ruled out, only has history of pneumonia. Clarification of your documentation is requested to better reflect the severity of illness and intensity of treatment of your patient. Indicators present [] Documented diagnosis of pneumonia [x] X-ray findings: [] Positive Sputum cultures [] Cough w/ fever [x] Abnormal lungs sounds [] Poor gag reflex [] Speech consults/swallow evaluation [] Vent dependence [] Other: [] Location in the medical record that reflects the above clinical findings: [] Treatment Provided: [] PHYSICIAN'S RESPONSE Based on your medical judgment of the clinical indicators outlined above, are you treating this patient for a known or suspected: [] Aspiration pneumonia [] Community acquired pneumonia [] Ventilator associated pneumonia [] Viral pneumonia [] Bacterial pneumonia Please specify organism: [] [x] Other, please indicate Pt treated for pneumonia prior to transfer for bronchial tumor debulking and stent placement. [] If Unable to Determine, please check the box, sign and date. Present On Admission (POA) Indicator: [] Present at the time of admission [x] Not present at the time of admission [] Clinically Undetermined In responding to this query, please exercise your independent professional judgment. The fact that a question is asked does not imply that any particular answer is desired or expected. Thank you for your clarification on this documentation. If you have any questions please call:[ ] * Thank you, [ ]Lacey Reynolds [facility] #[id number] jelly maker OVI
--- NOTE | 2017-06-12 14:37 | PN ---
DATE: CONSULTING PHYSICIAN: Dr. Ashlie Castellanos. REASON FOR CONSULTATION AND FOLLOWUP: Cardiac clearance to transfer to TCU, is status post stent in the lung for metastatic lung CA, tachycardia, cardiomyopathy, status post chemo. SUBJECTIVE: The patient denies any chest pain, shortness of breath, or any palpitation. Feels better than before, is still mildly short of breath. Family is at the bedside. PHYSICAL EXAMINATION: VITAL SIGNS: Temperature afebrile, heart rate 84, and blood pressure . HEENT: PERRLA. Extraocular muscles intact. NECK: Supple. No carotid bruits. No thyromegaly. CHEST: Clear to auscultation. HEART: S1 and S2, regular. ABDOMEN: Soft. EXTREMITIES: Clubbing and cyanosis negative. LABORATORY DATA: Blood workup as follows. WBC 13.4, hemoglobin 9.8, hematocrit 29.4, and platelet count 122. Chemistries shows sodium 132, potassium 4.1, chloride 100, carbon dioxide 27, anion gap of 14, BUN 11, and creatinine 0.5, albumin 2.8. 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 RECOMMENDATIONS: Continue low-dose of YESIKA inhibitors, continue beta bhakti. Awaiting new transfer to TCU. Increase nutritional support. Continue DVT prophylaxis. Thank you Dr. Bustamante for providing us the opportunity in taking care of the patient, Guille Schneider. We will follow with you. Ashlie Castellanos MD
[2017-06-12 19:34] VITALS: RESP 20
--- NOTE | 2017-06-13 04:36 | PN ---
DATE: 06/12/2017 PULMONARY PROGRESS NOTE REFERRING PHYSICIAN: Rogelio Reed MD SUBJECTIVE: She is lying in the bed, night was unremarkable, feels okay, on nasal cannula, decreased cough, decreased shortness of breath. No nausea. No vomiting. No diarrhea. No leg pain. No leg swelling. OBJECTIVE: GENERAL: In no acute distress. VITAL SIGNS: Temperature is 98, heart rate is 92, respiratory rate is 18 to 20, blood pressure is 134/93, pulse oximetry is 94% on nasal cannula. HEENT: Moist mucous membranes. Crowded airway. NECK: Supple. No JVD. LUNGS: Have a few scattered rhonchi. HEART: S1 and S2. ABDOMEN: Soft, nontender. No organomegaly. EXTREMITIES: No edema. NEUROLOGICAL: Awake and alert, follows simple commands. MEDICATIONS: She is on Mucomyst 20% inhaled three times a day, albuterol and Atrovent nebulizer q.6 hours, Claritin 10 mg daily, Colace 100 mg daily, Coreg 6.25 mg twice a day, insulin coverage, Lidoderm patch daily, Lovenox 40 mg daily, Lyrica 25 mg twice a day, Magic mouthwash swish and spit q.12 hours p.r.n., Megace 200 mg daily, Nystatin 5 mL q.i.d. oxycodone immediate release 50 mg q.4 hour p.r.n. Protonix 40 mg daily, Singulair 10 mg daily, hypertonic saline inhaled q.i.d., Solu-Medrol 30 mg daily, Synthroid 100 mcg daily, Tessalon Perles 100 mg three times a day, Tylenol p.r.n., Zestril 2.5 mg daily. LABORATORY DATA: Shows hemoglobin 9.2, hematocrit 29.4, WBC 13.4, platelet count is 122. Sodium 137, potassium 4.1, chloride 100, bicarbonate 27, BUN 11, creatinine 0.5, glucose 194, calcium 8.8, AST 28, ALT 70, alkaline phosphatase is 101, albumin is 2.8. IMPRESSION AND PLAN: Metastatic lung cancer involving the endobronchial tree, requiring debulking of tumor and placing of stent which is right bronchus intermedius, chronic obstructive lung disease, metastatic disease to the bone, hypertension, diabetes, hypothyroid, may have sleep apnea syndrome, claustrophobic, does not use CPAP, history of cervical cancer. I spoke to the patient and family at the bedside, all the questions answered, we will decrease Solu-Medrol to 20 mg daily, continue inhaled bronchodilator, pulmonary toilet, gastric prophylaxis, SCD to lower extremity, awaiting to be transferred to [facility] to start chemotherapy. Thank you and we will follow with you. Ashlie Alejo MD
[2017-06-13] MEDS: Pantoprazole 40 mg EC Tab PO SCH (06:03)
[2017-06-13] MEDS: Levothyroxine 100 MCG TAB PO SCH (06:04)
[2017-06-13 06:46] LABS: ALT/SGPT 76 U/L (7-56); AST/SGOT 24 U/L (14-36); BLOOD UREA NITROGEN 13 mg/dL (7-21); CALCIUM 9.4 mg/dL (8.4-10.5); GFR AFRICAN-AMERICAN > 60; GFR NON-AFRICAN AMERICAN > 60
[2017-06-13 07:33] LABS: EOS % 0.1 % (1.5-5.0); GRAN # 13.72 (1.4-6.5); GRAN % 94.8 % (50.0-68.0); HEMOGLOBIN 9.8 g/dL (12.0-16.0); LYMPH # 0.3 (1.2-3.4); LYMPH % 2.3 % (22.0-35.0); MEAN CELL VOLUME 87.3 fl (80.0-105.0); MEAN CORPUSCULAR HEMOGLOBIN 26.6 pg (25.0-35.0); MEAN CORPUSCULAR HGB CONC 30.4 g/dl (31.0-37.0); MEAN PLATELET VOLUME 10.3 fl (7.0-11.0); MONO # 0.4 (0.1-0.6); MONO % 2.8 % (1.0-6.0); PLATELET COUNT 147 10^3/uL (120.0-450.0); RBC 3.69 10^6/uL (3.5-6.1); RED CELL DISTRIBUTION WIDTH 20.2 % (11.5-14.5); WHITE BLOOD COUNT 14.5 10^3/ul (4.5-11.0)
[2017-06-13] MEDS: Albuterol 0.042% Inhal Sol (1.25 mg/3 mL) UD IH SCH ×3 (07:39→19:51)
[2017-06-13] MEDS: Acetylcysteine 20% Inhal Soln (4ml) IH SCH ×3 (07:39→19:51)
[2017-06-13] MEDS: Insulin Reg-LOW-Coverage SC SCH ×3 (08:05→17:04)
[2017-06-13 08:14] LABS: LYMPHOCYTE 4 % (22.0-35.0); MONOCYTE 1 % (1.0-6.0); NEUTROPHIL 95 % (50.0-70.0); PLATELET ESTIMATE NORMAL (NORMAL)
[2017-06-13] MEDS: Enoxaparin 60 mg Syringe SC SCH (09:24)
[2017-06-13] MEDS: Lidocaine 5% Patch TD SCH (09:24)
[2017-06-13] MEDS: Nystatin 100,000 Units/ml Oral Susp 5 ml UD PO SCH ×4 (09:26→22:01)
[2017-06-13] MEDS: Megestrol Acetate 40 mg/ml Cup PO SCH (09:26)
[2017-06-13] MEDS: MethylPREDNISolone 40 mg Vial IVP SCH (09:27)
[2017-06-13] MEDS ORDERED: Morphine 2 mg/ml ISec IVP PRN ×2 (10:43→10:51)
[2017-06-13] MEDS ORDERED: guaiFENesin-Codeine 100-10mg/5ml Syrup (5 ml) UD PO PRN (10:43)
[2017-06-13] MEDS: POLYETHYLENE GLYCOL 3350 17 GM/Dose PACKET PO SCH (12:21)
--- NOTE | 2017-06-13 12:30 | CP.PCM.PN ---
Subjective - Date & Time of Evaluation Date of Evaluation: 06/13/17 Time of Evaluation: 12:28 - Subjective Subjective: Patient seen and examined at bedside with family at bedside. Patient doing well overnight. Patient states she coughed up blood tinged sputum overnight. Her cough is the same as yesterday and not helped by current medications. No bowel movement yesterday. Denies chest pain, shortness of breath, nausea, vomiting, diarrhea, headache. Objective - Vital Signs/Intake and Output Vital Signs (last 24 hours): Temp Pulse Resp BP Pulse Ox 98.3 F 75 20 138/79 98 06/13/17 08:21 06/13/17 09:28 06/13/17 08:21 06/13/17 09:28 06/13/17 08:21 Intake and Output: 06/13/17 06/13/17 06:59 18:59 Intake Total 540 0 Balance 540 0 - Medications Medications: Current Medications Acetaminophen (Tylenol 325mg Tab) 650 mg PO Q4H PRN PRN Reason: Mild pain (1-3) or temp > 100F Last Admin: 06/12/17 18:52 Dose: 650 mg Acetylcysteine (Acetylcysteine 20%) 4 ml IH TIDRESP [facility] Last Admin: 06/13/17 07:39 Dose: 4 ml Albuterol Sulfate (Albuterol 0.042% Inhal Ashley (1.25mg/3ml) Ud) 1.25 mg IH TIDRESP [facility] Last Admin: 06/13/17 07:39 Dose: 1.25 mg Benzonatate (Tessalon Perles) 100 mg PO TID PRN PRN Reason: Cough Last Admin: 06/13/17 00:41 Dose: 100 mg Carvedilol (Coreg) 6.25 mg PO BID [facility] Last Admin: 06/13/17 09:23 Dose: 6.25 mg Al Hydrox/Mg Hydrox/Simethicone 30 ml/Diphenhydramine HCl 75 mg/Lidocaine 30 ml 0 ml PO Q2H PRN PRN Reason: Mouth/Throat Pain Docusate Sodium (Colace) 100 mg PO DAILY [facility] Last Admin: 06/13/17 09:22 Dose: 100 mg Enoxaparin Sodium (Lovenox) 40 mg SC DAILY [facility] PRN Reason: Protocol Last Admin: 06/13/17 09:24 Dose: 40 mg Guaifenesin/Codeine Phosphate (Robitussin W/Codeine) 5 ml PO Q4H PRN PRN Reason: Cough and congestion Insulin Human Regular (Humulin R Low) 0 units SC [facility] PRN Reason: Protocol Last Admin: 06/13/17 08:05 Dose: Not Given Levothyroxine Sodium (Synthroid) 100 mcg PO 0600 [facility] Last Admin: 06/13/17 06:04 Dose: 100 mcg Lidocaine (Lidoderm) 1 ea TD DAILY [facility] Last Admin: 06/13/17 09:24 Dose: 1 ea Lisinopril (Zestril) 2.5 mg PO DAILY [facility] Last Admin: 06/13/17 09:28 Dose: 2.5 mg Loratadine (Claritin) 10 mg PO DAILY [facility] Last Admin: 06/13/17 09:22 Dose: 10 mg Megestrol Acetate (Megace) 200 mg PO DAILY [facility] Last Admin: 06/13/17 09:26 Dose: 200 mg Methylprednisolone (Solu-Medrol) 20 mg IVP DAILY [facility] Last Admin: 06/13/17 09:27 Dose: 20 mg Montelukast Sodium (Singulair) 10 mg PO HS [facility] Last Admin: 06/12/17 21:07 Dose: 10 mg Morphine Sulfate (Morphine) 1 mg IVP Q4H PRN PRN Reason: Pain, moderate (4-7) Last Admin: 06/13/17 12:21 Dose: 1 mg Nystatin (Nystatin Oral Susp) 5 ml PO QID [facility] Last Admin: 06/13/17 09:26 Dose: 5 ml Oxycodone HCl (Oxycodone Immediate Release Tab) 15 mg PO Q4H PRN PRN Reason: Pain, severe (8-10) Last Admin: 06/11/17 07:46 Dose: 15 mg Pantoprazole Sodium (Protonix Ec Tab) 40 mg PO 0600 [facility] Last Admin: 06/13/17 06:03 Dose: 40 mg Polyethylene Glycol (Miralax) 17 gm PO DAILY [facility] Last Admin: 06/13/17 12:21 Dose: 17 gm Pregabalin (Lyrica) 25 mg PO BID [facility] Last Admin: 06/13/17 09:25 Dose: 25 mg Sodium Chloride (Sodium Chloride 7% Inhalation) 4 ml IH QIDRESP [facility] - Labs Labs: 06/13/17 06:15 06/13/17 06:15 - Constitutional Appears: Non-toxic, No Acute Distress - Head Exam Head Exam: ATRAUMATIC, NORMAL INSPECTION, NORMOCEPHALIC - ENT Exam ENT Exam: Mucous Membranes Moist - Respiratory Exam Respiratory Exam: Clear to Ausculation Bilateral, NORMAL BREATHING PATTERN - Cardiovascular Exam Cardiovascular Exam: Tachycardia, REGULAR RHYTHM, +S1, +S2 - GI/Abdominal Exam GI & Abdominal Exam: Soft, Normal Bowel Sounds. absent: Tenderness - Extremities Exam Extremities Exam: Normal Inspection. absent: Calf Tenderness, Pedal Edema, Tenderness - Neurological Exam Neurological Exam: Alert, Awake, Oriented x3 - Psychiatric Exam Psychiatric exam: Normal Affect, Normal Mood - Skin Skin Exam: Intact, Normal Color, Warm Assessment and Plan - Assessment and Plan (Free Text) Plan: 66 y/o woman with past medical history of stage IV metastatic non-small cell lung cancer previously on pembroluzimab presents s/p pulmonary stent placement at [facility]. Patient's respiratory status is much improved after stenting, no longer requiring high flow oxygen. Patient currently on 4L nasal cannula with no respiratory distress. Patient will have chest x-ray to evaluate increased blood tinged sputumShe is also being followed by pulmonary, Dr. Alejo , who recommends continuing current medical course. Will taper steroids as per pulmonary. Patient will start therapy with Keytruda later this week. Patient is currently accepted for TCU admission and awaiting an open bed, most likely will be transferred later today. Patient has adequate pain management with Oxycodone and will renew Morphine. Will also add miralax, in addition to colace for constipation. She will need home O2 once discharged. Patient received treatment with Aredia last on 05/23/17. We will continue to monitor her closely. Plan discussed with Dr. Bustamante. Shawn, PGY-2
--- NOTE | 2017-06-13 12:54 | RAD ---
HISTORY: COMPARISON: 06/08/2017 TECHNIQUE: Chest PA and lateral FINDINGS: LINES AND TUBES: The right MediPort terminates at the cavoatrial junction. LUNG AND PLEURA: There is redemonstration of right hilar mass and postobstructive atelectasis in the lower lobes. . There is subsegmental atelectasis in the left mid lung. HEART AND MEDIASTINUM: The heart is not enlarged. There is stable position of prosthetic valve. The hilar and mediastinal contours are within normal limits. SKELETAL STRUCTURES: The bony structures are within normal limits for the patient's age. VISUALIZED UPPER ABDOMEN: Normal. OTHER FINDINGS: None. IMPRESSION: Right hilar mass and postobstructive atelectasis in the right lower lobe.
--- NOTE | 2017-06-13 16:17 | PN ---
DATE: 06/13/2017 REASON FOR CONSULTATION AND FOLLOWUP: Cardiac clearance for TCU, metastatic lung CA, tachycardia, cardiomyopathy, status post chemo, status post stent in the bronchial tree. SUBJECTIVE: The patient denies any chest pain, shortness of breath, or any palpitation. Daughter is at the bedside. Not in any apparent distress, but coughing up some blood. PHYSICAL EXAMINATION: VITAL SIGNS: Temperature afebrile, heart rate 75, and blood pressure 138/79. HEENT: PERRLA. Extraocular muscles intact. NECK: Supple. No carotid bruits. No thyromegaly. CHEST: Clear to auscultation. HEART: S1 and S2, regular. ABDOMEN: Soft. EXTREMITIES: Clubbing and cyanosis negative. LABORATORY DATA: Blood workup as follows: WBC 14.5, hemoglobin , hematocrit 32.2, and platelet count 147. Chemistry shows sodium 130, potassium , chloride 102, carbon dioxide 29, anion gap of 12, BUN 13, and creatinine 0.85. Total protein , albumin 3.0. Albumin/globulin ratio 1. 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 RECOMMENDATIONS: Increase nutritional support. Continue Coreg. Continue YESIKA inhibitor. Chemo as per Dr. Bustamante. The patient is coughing up blood. We will tell Dr. Bustamante as well as Pulmonary to follow up. CVS status is stable. Thank you Dr. Bustamante for providing us the opportunity in taking care of the patient, Aurora Han. Ashlie Castellanos MD
[2017-06-13] MEDS: oxyCODONE 10 mg Immediate Release Tab PO PRN (21:58)
[2017-06-13 22:00] VITALS: O2SAT 96
[2017-06-14] MEDS: Insulin Reg-LOW-Coverage SC SCH ×3 (00:23→11:34)
--- NOTE | 2017-06-14 01:08 | PN ---
DATE: 06/13/2017 REFERRING PHYSICIAN: Dr. Bustamante/ SUBJECTIVE: She is lying in the bed, head at 45 degrees, night was remarkable. Mild cough, had some bloody secretions, which is old blood, no nausea or vomiting. No leg pain or leg swelling. PHYSICAL EXAMINATION VITAL SIGNS: Temperature 98, heart rate is 75, respiratory rate is 20, blood pressure 138/79, pulse ox 96% on 4 L nasal cannula. HEENT: Moist mucous membranes, crowded airway. NECK: Supple, no JVD. CARDIOPULMONARY: Heart; S1 and S2. LUNGS: Has fair airflow with few rhonchi. ABDOMEN: Soft, nontender, no organomegaly. EXTREMITIES: No edema. NEUROLOGIC: Awake, alert, follow simple commands. LABORATORY DATA: Showed hemoglobin 9.8, hematocrit 32.2, WBC 14.5, platelets 147. Sodium 138, potassium 4.3, chloride 102, bicarbonate 29, BUN 13, creatinine 0.5, glucose 124, calcium is 9.4, AST 24, ALT 76, albumin is 3.0. RADIOLOGICAL DATA: Chest x-ray done today showed right hilar mass and postobstructive atelectasis in the right lower lobe. MEDICATIONS: She is on Mucomyst 20% inhaled 3 times a day, albuterol and Atrovent nebulizer every 8 hour, Claritin 10 mg daily, Colace 100 mg daily, Coreg 6.25 mg twice a day, insulin coverage, Lidoderm patch to the affected area daily, Lovenox 40 mg daily, Lyrica 25 mg twice a day, Magic mouth solution q.12 hour p.r.n., Megace 200 mg daily, MiraLax 17 g daily, morphine 1 mg q.4 hour p.r.n., oxycodone immediate release 50 mg q.4 hour p.r.n., Protonix 40 mg daily, Robitussin with Codeine 5 mL q.4 hour p.r.n., Singulair 10 mg daily, sodium chloride 7% inhaled q.i.d. p.r.n. , Solu-Medrol 20 mg daily, Synthroid 100 mcg daily, Tessalon Perles three times a day p.r.n, Tylenol p.r.n., Zestril 2.5 mg daily. ASSESSMENT AND PLAN: Metastatic lung cancer involving the endobronchial tree requiring debulking of tumor and stenting right bronchus intermedius, tumor metastasized to the liver and the bones, also a chronic obstructive lung disease, may have a component of sleep apnea syndrome, hypertension, diabetes, hypothyroid. May be a component of sleep apnea syndrome, claustrophobic, does not use CPAP. History of cervical cancer in the past. Case discussed with Dr. Bustamante. Hopefully, the patient will be transferred to [facility] tomorrow and will be getting chemotherapy, medically condition optimized. Thank you and we will follow with you. Ashlie Alejo MD
[2017-06-14] MEDS: Pantoprazole 40 mg EC Tab PO SCH (06:08)
[2017-06-14] MEDS: Levothyroxine 100 MCG TAB PO SCH (06:08)
[2017-06-14 07:27] LABS: ALBUMIN 2.8 g/dL (3.0-4.8); ALT/SGPT 73 U/L (7-56); AST/SGOT 24 U/L (14-36); BLOOD UREA NITROGEN 19 mg/dL (7-21); CALCIUM 8.7 mg/dL (8.4-10.5); EOS % 0.3 % (1.5-5.0); GFR AFRICAN-AMERICAN > 60; GFR NON-AFRICAN AMERICAN > 60; GRAN # 12.43 (1.4-6.5); GRAN % 94.9 % (50.0-68.0); HEMOGLOBIN 9.2 g/dL (12.0-16.0); LYMPH # 0.3 (1.2-3.4); LYMPH % 2.1 % (22.0-35.0); MEAN CELL VOLUME 88.7 fl (80.0-105.0); MEAN CORPUSCULAR HEMOGLOBIN 26.7 pg (25.0-35.0); MEAN CORPUSCULAR HGB CONC 30.1 g/dl (31.0-37.0); MEAN PLATELET VOLUME 10.5 fl (7.0-11.0); MONO # 0.4 (0.1-0.6); MONO % 2.7 % (1.0-6.0); RBC 3.45 10^6/uL (3.5-6.1); RED CELL DISTRIBUTION WIDTH 20.6 % (11.5-14.5); WHITE BLOOD COUNT 13.1 10^3/ul (4.5-11.0)
[2017-06-14] MEDS: Acetylcysteine 20% Inhal Soln (4ml) IH SCH ×2 (07:40→13:42)
[2017-06-14] MEDS: Albuterol 0.042% Inhal Sol (1.25 mg/3 mL) UD IH SCH ×2 (07:41→13:45)
[2017-06-14] MEDS: Lidocaine 5% Patch TD SCH (09:10)
[2017-06-14] MEDS: Enoxaparin 60 mg Syringe SC SCH (09:10)
[2017-06-14] MEDS: Megestrol Acetate 40 mg/ml Cup PO SCH (09:12)
[2017-06-14] MEDS: POLYETHYLENE GLYCOL 3350 17 GM/Dose PACKET PO SCH (09:13)
[2017-06-14] MEDS: MethylPREDNISolone 40 mg Vial IVP SCH (09:13)
[2017-06-14] MEDS: Nystatin 100,000 Units/ml Oral Susp 5 ml UD PO SCH (09:13)
[2017-06-14 09:25] VITALS: BP 114/72; PULSE 76
[2017-06-14 10:31] VITALS: TEMP 97.7
--- NOTE | 2017-06-14 14:05 | PN ---
DATE: REASON FOR CONSULTATION AND FOLLOWUP: Cardiac clearance awaiting to go for TCU, metastatic lung CA, endobronchial lesion, status post stent in the bronchial tree. SUBJECTIVE: Denies any chest pain or shortness of breath. Yesterday, the patient had hemoptysis, which has now completely stopped. Coughing up some blood, now completely stopped. PHYSICAL EXAMINATION: VITAL SIGNS: As follows: Temperature afebrile, heart rate 75, blood pressure 120/80. HEENT: PERRLA. Extraocular muscles intact. NECK: Supple. No carotid bruits or thyromegaly. CHEST: Clear to auscultation. HEART: S1 and S2, regular. ABDOMEN: Soft. EXTREMITIES: Clubbing and cyanosis negative. LABORATORY DATA: Blood workup as follows: WBC , hemoglobin , hematocrit 30.6, platelet count 149. Chemistry shows sodium 137, potassium 4.3, chloride 103, carbon dioxide , anion gap of 11, BUN 9, creatinine 0.6, albumin 2.8. 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 RECOMMENDATION: Aggressive medical treatment, continue Coreg, continue YESIKA inhibitors, possible transfer to TCU and then the patient discussed with Dr. Bustamante discussed with the family. Thank you Dr. Bustamante for providing us the opportunity in taking care of Aurora Han. We will follow with you. Cardiovascular status is stable. Increase nutritional support, patient is on a supplement diet for increased nutritional support and Glucerna shake 2 per day. Ashlie Castellanos MD
--- NOTE | 2017-06-14 15:11 | CP.PCM.DIS ---
Provider - Provider Date of Admission: 06/08/17 10:03 Attending physician: Rogelio Reed MD Primary care physician: Damián James MD Consults: Pulm - Dr. Alejo Cardio - Dr. Castellanos Time Spent in preparation of Discharge (in minutes): 45 Diagnosis - Discharge Diagnosis (1) Anemia Status: Chronic Priority: Medium (2) Hemoptysis Status: Chronic Priority: Low (3) Lung mass Status: Chronic Priority: High Hospital Course - Lab Results Lab Results: Most Recent Lab Values WBC 13.1 10^3/ul (4.5-11.0) H 06/14/17 06:00 RBC 3.45 10^6/uL (3.5-6.1) L 06/14/17 06:00 Hgb 9.2 g/dL (12.0-16.0) L 06/14/17 06:00 Hct 30.6 % (36.0-48.0) L 06/14/17 06:00 MCV 88.7 fl (80.0-105.0) 06/14/17 06:00 MCH 26.7 pg (25.0-35.0) 06/14/17 06:00 MCHC 30.1 g/dl (31.0-37.0) L 06/14/17 06:00 RDW 20.6 % (11.5-14.5) H 06/14/17 06:00 Plt Count 149 10^3/uL (120.0-450.0) 06/14/17 06:00 MPV 10.5 fl (7.0-11.0) 06/14/17 06:00 Gran % 94.9 % (50.0-68.0) H 06/14/17 06:00 Lymph % (Auto) 2.1 % (22.0-35.0) L 06/14/17 06:00 Gosper % (Auto) 2.7 % (1.0-6.0) 06/14/17 06:00 Eos % (Auto) 0.3 % (1.5-5.0) L 06/14/17 06:00 Baso % (Auto) 0.0 % (0.0-3.0) 06/14/17 06:00 Gran # 12.43 (1.4-6.5) H 06/14/17 06:00 Lymph # 0.3 (1.2-3.4) L 06/14/17 06:00 Gosper # 0.4 (0.1-0.6) 06/14/17 06:00 Eos # 0.0 (0.0-0.7) 06/14/17 06:00 Baso # 0.00 K/mm3 (0.0-2.0) 06/14/17 06:00 Neutrophils % (Manual) 95 % (50.0-70.0) H 06/13/17 06:15 Lymphocytes % (Manual) 4 % (22.0-35.0) L 06/13/17 06:15 Monocytes % (Manual) 1 % (1.0-6.0) 06/13/17 06:15 Platelet Evaluation Normal (NORMAL) 06/13/17 06:15 Hypochromasia 1+ 06/09/17 08:00 Anisocytosis (manual) 1+ 06/09/17 08:00 Sodium 137 mmol/L (132-148) 06/14/17 06:00 Potassium 4.3 mmol/L (3.6-5.0) 06/14/17 06:00 Chloride 103 mmol/L (98-107) 06/14/17 06:00 Carbon Dioxide 27 mmol/L (21-33) 06/14/17 06:00 Anion Gap 11 (10-20) 06/14/17 06:00 BUN 19 mg/dL (7-21) 06/14/17 06:00 Creatinine 0.6 mg/dl (0.7-1.2) L 06/14/17 06:00 Est GFR ( Amer) > 60 06/14/17 06:00 Est GFR (Non-Af Amer) > 60 06/14/17 06:00 POC Glucose (mg/dL) 197 mg/dL (65-110) H 06/14/17 11:11 Random Glucose 155 mg/dL (70-110) H 06/14/17 06:00 Calcium 8.7 mg/dL (8.4-10.5) 06/14/17 06:00 Total Bilirubin 0.4 mg/dL (0.2-1.3) 06/14/17 06:00 AST 24 U/L (14-36) 06/14/17 06:00 ALT 73 U/L (7-56) H 06/14/17 06:00 Alkaline Phosphatase 103 U/L (38-126) 06/14/17 06:00 Total Protein 5.8 g/dL (5.8-8.3) 06/14/17 06:00 Albumin 2.8 g/dL (3.0-4.8) L 06/14/17 06:00 Globulin 3.0 gm/dL 06/14/17 06:00 Albumin/Globulin Ratio 1.0 (1.1-1.8) L 06/14/17 06:00 TSH 3rd Generation 0.05 mIU/mL (0.46-4.68) L 06/09/17 08:00 - Hospital Course Hospital Course: 66 y/o woman with past medical history of stage IV metastatic non-small cell lung cancer previously on pembroluzimab presented s/p pulmonary stent placement at [facility]. Patient's respiratory status improved greatly after stenting, no longer requiring high flow oxygen. Patient currently on nasal cannula. She is also being followed by pulmonary, Dr. Alejo, who recommends continuing current medical course and will continue to taper streoids. Patient will be transferred to the TCU for deconditioning and chemotherapy. There she will receive her first dose of chemotherapy. Patient will continue to be followed in the TCU. Will continue all medications and orders. Plan discussed with Dr. Bustamante. Shawn, PGY-2 Discharge Exam - Head Exam Head Exam: ATRAUMATIC, NORMAL INSPECTION, NORMOCEPHALIC - ENT Exam ENT Exam: Mucous Membranes Moist - Respiratory Exam Respiratory Exam: NORMAL BREATHING PATTERN, UNREMARKABLE - GI/Abdominal Exam GI & Abdominal Exam: Normal Bowel Sounds, Soft, Unremarkable. absent: Tenderness - Extremities Exam Extremities exam: normal inspection - Neurological Exam Neurological exam: Alert, CN II-XII Intact, Oriented x3 - Psychiatric Exam Psychiatric exam: Normal Affect, Normal Mood - Skin Skin Exam: Intact, Normal Color, Warm Discharge Plan - Follow Up Plan Condition: GOOD Disposition: TRANSF TO SNF Instructions: Anemia (DC), Dyspnea Scale and Exercise (DC) Referrals: Damián James [Primary Care Provider] -
== END 2017-06-14 14:16 | DRG 181 ==
LOC: 3RNO 06-08 10:03
PROVIDERS: ADMIT Family Medicine; ATTEND Family Medicine
PROC: 3E0F7GC Introduction of Other Therapeutic Substance into Respiratory Tract, Via Natural or Artificial Opening (ICD-10-PCS; principal; 2017-06-08)
DX: C34.11 Malignant neoplasm of upper lobe, right bronchus or lung (principal); E46 Unspecified protein-calorie malnutrition; C79.31 Secondary malignant neoplasm of brain; C78.7 Secondary malignant neoplasm of liver and intrahepatic bile duct; C79.51 Secondary malignant neoplasm of bone; D69.6 Thrombocytopenia, unspecified; R13.10 Dysphagia, unspecified; I42.7 Cardiomyopathy due to drug and external agent; R04.2 Hemoptysis; D64.9 Anemia, unspecified; E09.9 Drug or chemical induced diabetes mellitus without complications; I10 Essential (primary) hypertension; K59.00 Constipation, unspecified; E78.5 Hyperlipidemia, unspecified; T45.1X5A Adverse effect of antineoplastic and immunosuppressive drugs, initial encounter; F40.240 Claustrophobia; J44.9 Chronic obstructive pulmonary disease, unspecified; G47.30 Sleep apnea, unspecified; E03.9 Hypothyroidism, unspecified; Z68.27 Body mass index [BMI] 27.0-27.9, adult; Z92.21 Personal history of antineoplastic chemotherapy; Z92.3 Personal history of irradiation; Z87.01 Personal history of pneumonia (recurrent); Z85.41 Personal history of malignant neoplasm of cervix uteri; Z85.038 Personal history of other malignant neoplasm of large intestine; Z87.891 Personal history of nicotine dependence

== ENCOUNTER 2017-07-17 17:52 | Inpatient (IN) | payer MEDICARE, OTHER ==
[2017-07-17 18:54] LABS: BASO # 0.05 K/mm3 (0.0-2.0); BASO % 0.1 % (0.0-3.0); EOS # 0.6 (0.0-0.7); EOS % 1.1 % (1.5-5.0); GRAN # 51.01 (1.4-6.5); GRAN % 92.5 % (50.0-68.0); HEMOGLOBIN 9.2 g/dL (12.0-16.0); LYMPH # 1.4 (1.2-3.4); LYMPH % 2.5 % (22.0-35.0); MEAN CELL VOLUME 89.8 fl (80.0-105.0); MEAN CORPUSCULAR HEMOGLOBIN 28.3 pg (25.0-35.0); MEAN CORPUSCULAR HGB CONC 31.5 g/dl (31.0-37.0); MEAN PLATELET VOLUME 9.6 fl (7.0-11.0); MONO # 2.1 (0.1-0.6); MONO % 3.8 % (1.0-6.0); RBC 3.25 10^6/uL (3.5-6.1); RED CELL DISTRIBUTION WIDTH 18.8 % (11.5-14.5)
[2017-07-17 18:55] LABS: VENOUS BLOOD GAS BASE EXCESS 1.5 mmol/L (0.0-2.0); VENOUS BLOOD GAS PO2 68 mm/Hg (30-55); VENOUS BLOOD PH 7.38 (7.32-7.43)
[2017-07-17 19:03] LABS: INR 1.88 (0.93-1.08); PARTIAL THROMBOPLASTIN TIME 57.3 Seconds (25.1-36.5); PROTHROMBIN TIME 21.7 SECONDS (9.4-12.5)
[2017-07-17 19:07] LABS: WHITE BLOOD COUNT 55.2 10^3/ul (4.5-11.0)
[2017-07-17 19:10] LABS: ALB/GLOB RATIO 0.8 (1.1-1.8); ALBUMIN 2.7 g/dL (3.0-4.8); ALT/SGPT 31 U/L (7-56); AST/SGOT 41 U/L (14-36); BLOOD UREA NITROGEN 12 mg/dL (7-21); CALCIUM 8.6 mg/dL (8.4-10.5); GFR AFRICAN-AMERICAN > 60; GFR NON-AFRICAN AMERICAN > 60
[2017-07-17 19:15] LABS: TROPONIN I < 0.01 ng/mL
--- NOTE | 2017-07-17 19:17 | ED PDOC ---
Arrival/HPI - General Chief Complaint: Female Genitourinary Time Seen by Provider: 07/17/17 18:11 Historian: Family - History of Present Illness Narrative History of Present Illness (Text): 07/17/17 19:16 66yo female with PMHx of Lung CA with metastatic disease present with complaint of hematuria since last night. The daughter by the bedside also report worsening cough, generalized weakness since last night. States patient was treated last week for Flu with Tamiflu. She denies fever, nausea,vomiting, diarrhea, sick contact, chest pain, any other complaint. Past Medical History - Provider Review Nursing Documentation Reviewed: Yes - Past History Past History: No Previous - Infectious Disease Hx of Infectious Diseases: None - Tetanus Immunization Tetanus Immunization: Unknown - Cardiac Hx Cardiac Disorders: Yes Hx Hypertension: Yes - Pulmonary Hx Respiratory Disorders: Yes Hx Pneumonia: Yes Other/Comment: lung mass found on cxr - Neurological Hx Neurological Disorder: No - HEENT Hx HEENT Disorder: Yes (glasses, itchy eyes) - Renal Hx Renal Disorder: No - Endocrine/Metabolic Hx Endocrine Disorders: Yes Hx Diabetes Mellitus Type 2: Yes Hx Hypothyroidism: Yes - Hematological/Oncological Hx Blood Disorders: Yes Hx Cancer: Yes (COLON 2009, colectomy; Lung) Hx Chemotherapy: Yes (05/07/2017) Other/Comment: recently dx with lung ca, lung bx done. radiation done today - Integumentary Hx Dermatological Disorder: No - Musculoskeletal/Rheumatological Hx Musculoskeletal Disorders: No Hx Falls: No - Gastrointestinal Hx Gastrointestinal Disorders: Yes Other/Comment: colon ca in remission as of 2018 - Genitourinary/Gynecological Hx Genitourinary Disorders: Yes Other/Comment: HX OVARIAN CYSTECTOMY OPEN 1997 HYSTERECTOMY OCTOBER 2013 - Psychiatric Hx Psychophysiologic Disorder: No Hx Substance Use: No - Surgical History Hx Cholecystectomy: Yes Hx Hysterectomy: Yes Other/Comment: Ovarian Cyst sx, lcw pac in and out, c section, tubal. Colon Sx. Lung biopsy. s/p stent right bronchus placement. R chest port - Anesthesia Hx Anesthesia: Yes Hx Anesthesia Reactions: Yes (NAUSEA VOMITTING) Hx Malignant Hyperthermia: No - Suicidal Assessment Feels Threatened In Home Enviroment: No Family/Social History - Physician Review Nursing Documentation Reviewed: Yes Family/Social History: Unknown Family HX Smoking Status: Former Smoker Hx Alcohol Use: No Hx Substance Use: No Hx Substance Use Treatment: No Allergies/Home Meds Allergies/Adverse Reactions: Allergies No Known Allergies Allergy (Verified 07/17/17 17:58) Review of Systems - Physician Review All systems were reviewed & negative as marked: Yes - Review of Systems Constitutional: Fatigue Eyes: Normal ENT: Normal Respiratory: Cough Cardiovascular: Normal Gastrointestinal: Normal Genitourinary Female: Hematuria. absent: Dysuria, Frequency, Vaginal Bleeding, Vaginal Discharge Musculoskeletal: Normal Skin: Normal Neurological: Normal Endocrine: Normal Hemo/Lymphatic: Normal Psychiatric: Normal Physical Exam Vital Signs Reviewed: Yes Vital Signs Temp Pulse Resp BP Pulse Ox 07/17/17 21:54 100 H 21 125/79 94 L 07/17/17 18:02 98.0 F 110 H 30 H 124/68 95 Temperature: Afebrile Blood Pressure: Normal Pulse: Tachycardic Respiratory Rate: Tachypneic Appearance: Positive for: Well-Appearing, Non-Toxic, Comfortable Pain Distress: None Mental Status: Positive for: Alert and Oriented X 3 - Systems Exam Head: Present: Atraumatic, Normocephalic Pupils: Present: PERRL Extroacular Muscles: Present: EOMI Conjunctiva: Present: Normal Mouth: Present: Moist Mucous Membranes Neck: Present: Normal Range of Motion Respiratory/Chest: Present: Clear to Auscultation, Good Air Exchange, Tachypneic. No: Respiratory Distress, Accessory Muscle Use, Wheezes, Decreased Breath Sounds, Rales, Retracting, Rhonchi Cardiovascular: Present: Regular Rate and Rhythm, Normal S1, S2. No: Murmurs Abdomen: Present: Normal Bowel Sounds, Other (Soft). No: Tenderness, Distention , Peritoneal Signs, Rebound, Guarding, McBurney's Point Tender, Rovsing's Sign Present Back: Present: Normal Inspection Upper Extremity: Present: Normal Inspection. No: Cyanosis, Edema Lower Extremity: Present: Normal Inspection. No: Edema Neurological: Present: GCS=15, CN II-XII Intact, Speech Normal Skin: Present: Warm, Dry, Normal Color. No: Rashes Psychiatric: Present: Alert, Oriented x 3, Normal Insight, Normal Concentration Medical Decision Making ED Course and Treatment: 07/17/17 22:16 PT in ED for stated history. Pt was mildly tachy on presentation. she was otherwise hemodynamically stable. Leukocytosis was noted which trended from the last lab on 07/15/17. This is likely secondary to the medication pt is taking. Lactic acid was however elevated and UTI noted. EKG Sinus tachy with short LA @109bpm. CXR NAD. Cardiomegaly Case was DW Dr. Neumann and pt was admitted to his service. He saw pt in the ED by the bedside. He recommended Zosyn and Vanco which was given. He requested Drs. Alejo and Ricky consult. - Lab Interpretations Lab Results: 07/17/17 18:38 07/17/17 18:38 Lab Results 07/17/17 19:30: Urine Color Yellow, Urine Appearance Sl cloudy, Urine pH 6.0, Ur Specific [place] 1.025, Urine Protein 30 H, Urine Glucose (UA) Negative, Urine Ketones Negative, Urine Blood Moderate H, Urine Nitrate Negative, Urine Bilirubin Small H, Urine Urobilinogen 4.0 H, Ur Leukocyte Esterase Moderate H, Urine RBC 15 - 20, Urine WBC 20 - 25, Ur Epithelial Cells Many, Urine Bacteria Mod 07/17/17 18:38: pO2 68 H, VBG pH 7.38, VBG pCO2 46.0, VBG HCO3 27.2, VBG Total CO2 28.6 H, VBG O2 Sat (Calc) 96.8 H, VBG Base Excess 1.5, VBG Potassium 3.1 L, Sodium 134.0, Chloride 102.0, Glucose 167 H, Lactate 2.5 H, FiO2 21.0, Venous Blood Potassium 3.1 L 07/17/17 18:38: Sodium 136, Chloride 98, Potassium 3.1 L, Carbon Dioxide 25, Anion Gap 15, BUN 12, Creatinine 0.6 L, Est GFR ( Amer) > 60, Est GFR ( Non-Af Amer) > 60, Random Glucose 168 H, Calcium 8.6, Phosphorus 3.7, Magnesium 1.6 L, Total Bilirubin 0.9, AST 41 H D, ALT 31, Alkaline Phosphatase 287 H D, Lactate Dehydrogenase 755 H, Total Creatine Kinase < 20 L, Troponin I < 0.01, Total Protein 6.1, Albumin 2.7 L, Globulin 3.4, Albumin/Globulin Ratio 0.8 L 07/17/17 18:38: PT 21.7 H, INR 1.88 H, APTT 57.3 H 07/17/17 18:38: WBC 55.2 H*, RBC 3.25 L, Hgb 9.2 L, Hct 29.2 L, MCV 89.8, MCH 28.3, MCHC 31.5, RDW 18.8 H, Plt Count 370, MPV 9.6, Gran % 92.5 H, Lymph % ( Auto) 2.5 L, [place] % (Auto) 3.8, Eos % (Auto) 1.1 L, Baso % (Auto) 0.1, Gran # 51.01 H, Lymph # (Auto) 1.4, [place] # (Auto) 2.1 H, Eos # (Auto) 0.6, Baso # (Auto ) 0.05 - RAD Interpretation Radiology Orders: 07/17/17 18:14 CHEST PORTABLE [RAD] Stat - Medication Orders Current Medication Orders: Acetylcysteine (Acetylcysteine 20%) 4 ml IH Q6H [facility] Albuterol/Ipratropium (Duoneb 3 Mg/0.5 Mg (3 Ml) Ud) 3 ml IH Q6H NORMA Stop: 07/20/17 14:31 Last Admin: 07/17/17 21:05 Dose: 3 ml Clotrimazole (Mycelex Zeina) 10 mg MT 5XD [facility] Famotidine (Pepcid) 40 mg PO HS ON LICENSE OF [facility] Insulin Human Regular (Humulin R Low) 0 units SC ACHS NORMA PRN Reason: Protocol Levothyroxine Sodium (Synthroid) 100 mcg PO 0600 ON LICENSE OF [facility] Lisinopril (Zestril) 5 mg PO DAILY ON LICENSE OF [facility] Megestrol Acetate (Megace) 200 mg PO DAILY ON LICENSE OF [facility] Methylprednisolone (Solu-Medrol) 20 mg IVP Q8H ON LICENSE OF [facility] Non-Formulary Medication (Amitiza) 24 mcg PO BID PRN PRN Reason: Constipation Nystatin (Nystatin Oral Susp) 5 ml PO QID ON LICENSE OF [facility] Oxycodone HCl (Oxycodone Immediate Release Tab) 15 mg PO Q8H PRN PRN Reason: Pain, severe (8-10) Potassium Chloride (K-Dur 20 Meq Er Tab) 20 meq PO DAILY ON LICENSE OF [facility] Promethazine HCl/Codeine (Phenergan/Codeine Oral Syrup) 5 ml PO Q6H PRN PRN Reason: Cough Last Admin: 07/17/17 21:04 Dose: 5 ml Discontinued Medications Albuterol/Ipratropium (Duoneb 3 Mg/0.5 Mg (3 Ml) Ud) 3 ml IH STAT STA Stop: 07/17/17 20:36 Last Admin: 07/17/17 20:45 Dose: 3 ml Vancomycin HCl (Vancomycin 1gm) 1 gm in 250 mls @ 167 mls/hr IVPB STAT STA PRN Reason: Protocol Stop: 07/17/17 21:23 Last Admin: 07/17/17 21:00 Dose: 167 mls/hr eMAR Start Stop Document 07/17/17 21:00 RD (Rec: 07/17/17 21:01 RD [id number]) Intravenous Solution Start Date 07/17/17 Start Time 21:01 End Date 07/17/17 End time 22:31 Total Infusion Time 90 Piperacillin Sod/Tazobactam Sod (Zosyn 3.375 In Ns 100ml) 100 mls @ 200 mls/hr IVPB STAT STA PRN Reason: Protocol Stop: 07/17/17 20:22 Last Admin: 07/17/17 20:26 Dose: 200 mls/hr eMAR Start Stop Document 07/17/17 20:26 RD (Rec: 07/17/17 20:27 RD [id number]) Intravenous Solution Start Date 07/17/17 Start Time 20:26 End Date 07/17/17 End time 20:56 Total Infusion Time 30 Methylprednisolone (Solu-Medrol) 40 mg IVP STAT STA Stop: 07/17/17 19:55 Last Admin: 07/17/17 20:27 Dose: 40 mg IVP Administration Document 07/17/17 20:27 RD (Rec: 07/17/17 20:27 RD [id number]) Charges for Administration # of IVP Administrations 1 Potassium Chloride (K-Dur 20 Meq Er Tab) 40 meq PO STAT STA Stop: 07/17/17 19:19 Last Admin: 07/17/17 20:27 Dose: 40 meq Disposition/Present on Arrival - Present on Arrival Any Indicators Present on Arrival: No History of DVT/PE: No History of Uncontrolled Diabetes: No Urinary Catheter: No History of Decub. Ulcer: No History Surgical Site Infection Following: None - Disposition Have Diagnosis and Disposition been Completed?: Yes Diagnosis: UTI (urinary tract infection), Leukocytosis Disposition: HOSPITALIZED Disposition Time: 20:00 Patient Plan: Admission Patient Problems: Current Active Problems Problem Status Onset Leukocytosis Acute UTI (urinary tract infection) Acute Condition: FAIR
[2017-07-17] MEDS ORDERED: Potassium Chloride 20 mEq ER Tab PO STA (19:18)
[2017-07-17] MEDS ORDERED: Cefepime IV 2 gm in NS 2 GM/100 ML BAG IVPB STA (19:21)
[2017-07-17 19:52] LABS: URINE BILIRUBIN SMALL (NEGATIVE); URINE BLOOD MODERATE (NEGATIVE); URINE GLUCOSE (UA) NEGATIVE (NEGATIVE); URINE LEUKOCYTE ESTERASE MODERATE Leu/uL (NEGATIVE); URINE PROTEIN 30 mg/dL (<30 mg/dL)
[2017-07-17] MEDS ORDERED: Piperacillin/Tazobact 3.375 gm 100 ML IVPB STA (19:53)
[2017-07-17] MEDS ORDERED: MethylPREDNISolone 40 mg Vial IVP STA (19:54)
[2017-07-17] MEDS ORDERED: Vancomycin 1gm in NS 250ml 1 GM/250 ML BAG IVPB STA (19:54)
[2017-07-17 19:55] LABS: URINE APPEARANCE SL CLOUDY (CLEAR); URINE COLOR YELLOW (YELLOW)
[2017-07-17 20:03] LABS: URINE RBC 15 - 20 /hpf (0-2)
[2017-07-17 20:04] LABS: URINE EPITHELIAL CELLS MANY /hpf (0-5); URINE WBC 20 - 25 /hpf (0-6)
[2017-07-17 20:05] LABS: URINE BACTERIA MOD (NEG)
[2017-07-17] MEDS ORDERED: AMITIZA 24 MCG PO PRN (20:19)
[2017-07-17] MEDS ORDERED: Albuterol-Ipratrop 3 mg / 0.5 (3 ml) UD IH STA (20:35)
[2017-07-17] MEDS: Promethazine/Cod 6.25mg-10mg/5ml Syr UD PO PRN (21:04)
[2017-07-17] MEDS: Albuterol-Ipratrop 3 mg / 0.5 (3 ml) UD IH SCH (21:05)
[2017-07-17 22:20] LABS: VENOUS BLOOD GAS BASE EXCESS 0.8 mmol/L (0.0-2.0); VENOUS BLOOD GAS PO2 53 mm/Hg (30-55); VENOUS BLOOD PH 7.35 (7.32-7.43)
[2017-07-17] MEDS: Nystatin 100,000 Units/ml Oral Susp 5 ml UD PO SCH (22:41)
[2017-07-17] MEDS: Insulin Reg-LOW-Coverage SC SCH (22:51)
[2017-07-17] MEDS: Acetylcysteine 20% Inhal Soln (4ml) IH SCH (23:00)
[2017-07-18 01:20] VITALS: BMI 28.0
[2017-07-18] MEDS ORDERED: Promethazine/Cod 6.25mg-10mg/5ml Syr UD PO STA (01:50)
--- NOTE | 2017-07-18 01:52 | CP.PCM.PN ---
Subjective - Date & Time of Evaluation Date of Evaluation: 07/18/17 Time of Evaluation: 01:51 - Subjective Subjective: Patient was seen at bedside. Patient has been complaining of cough and cough medication is not due yet. Medical record was reviewed. This 66 year old male was admitted for hematuria and increasing shortness of breath,urosepsis. Has PMH of colon cancer,non small cell cancer of lung colectomy in 2008, hystrectomy. Has an order for phenergan with codeine PO q6h. Last time it was given was at 9pm. It is not due yet. 05:50 I received a call again from nurse that she is still having cough/sob. Objective - Vital Signs/Intake and Output Vital Signs (last 24 hours): Temp Pulse Resp BP Pulse Ox 97.6 F 95 H 22 128/81 94 L 07/18/17 00:24 07/18/17 00:24 07/18/17 00:24 07/18/17 00:24 07/17/17 21:54 - Medications Medications: Current Medications Acetylcysteine (Acetylcysteine 20%) 4 ml IH Q6H [facility] Albuterol/Ipratropium (Duoneb 3 Mg/0.5 Mg (3 Ml) Ud) 3 ml IH Q6H [facility] Stop: 07/20/17 14:31 Last Admin: 07/17/17 21:05 Dose: 3 ml Clotrimazole (Mycelex Zeina) 10 mg MT 5XD [facility] Last Admin: 07/17/17 22:41 Dose: 10 mg Famotidine (Pepcid) 40 mg PO HS [facility] Last Admin: 07/17/17 22:41 Dose: 40 mg Insulin Human Regular (Humulin R Low) 0 units SC ACHS [facility] PRN Reason: Protocol Last Admin: 07/17/17 22:51 Dose: Not Given Levothyroxine Sodium (Synthroid) 100 mcg PO 0600 [facility] Lisinopril (Zestril) 5 mg PO DAILY [facility] Megestrol Acetate (Megace) 200 mg PO DAILY [facility] Methylprednisolone (Solu-Medrol) 20 mg IVP Q8H [facility] Non-Formulary Medication (Amitiza) 24 mcg PO BID PRN PRN Reason: Constipation Nystatin (Nystatin Oral Susp) 5 ml PO QID [facility] Last Admin: 07/17/17 22:41 Dose: 5 ml Oxycodone HCl (Oxycodone Immediate Release Tab) 15 mg PO Q8H PRN PRN Reason: Pain, severe (8-10) Potassium Chloride (K-Dur 20 Meq Er Tab) 20 meq PO DAILY [facility] Promethazine HCl/Codeine (Phenergan/Codeine Oral Syrup) 5 ml PO Q6H PRN PRN Reason: Cough Last Admin: 07/17/17 21:04 Dose: 5 ml - Labs Labs: PT 21.7 SECONDS (9.4-12.5) H 07/17/17 18:38 INR 1.88 (0.93-1.08) H 07/17/17 18:38 APTT 57.3 Seconds (25.1-36.5) H 07/17/17 18:38 - Constitutional Appears: Well, No Acute Distress - Head Exam Head Exam: ATRAUMATIC, NORMAL INSPECTION, NORMOCEPHALIC - Eye Exam Eye Exam: Normal appearance - ENT Exam ENT Exam: Normal External Ear Exam - Neck Exam Neck Exam: Normal Inspection - Respiratory Exam Respiratory Exam: NORMAL BREATHING PATTERN - Cardiovascular Exam Cardiovascular Exam: absent: JVD - GI/Abdominal Exam GI & Abdominal Exam: absent: Distended - Rectal Exam Rectal Exam: Deferred - Exam Additional comments: Deferred. - Extremities Exam Extremities Exam: Normal Inspection - Back Exam Back Exam: NORMAL INSPECTION - Neurological Exam Neurological Exam: Alert, Oriented x3 - Psychiatric Exam Psychiatric exam: Normal Affect, Normal Mood - Skin Skin Exam: Normal Color Assessment and Plan - Assessment and Plan (Free Text) Assessment: Cough. Dyspnea. Urosepsis. Lung cancer. Colon cancer. Plan: Phenargan with codeine stat. Duoneb neb treatment stat. Codeine phosphate stat. Continue present management.
[2017-07-18] MEDS: Albuterol-Ipratrop 3 mg / 0.5 (3 ml) UD IH SCH ×4 (02:05→20:10)
[2017-07-18] MEDS: Acetylcysteine 20% Inhal Soln (4ml) IH SCH ×4 (02:05→20:10)
--- NOTE | 2017-07-18 05:34 | HP ---
ADMISSION HISTORY AND PHYSICAL TO THE [facility] FLOOR DATE OF EXAM: 07/17/2017 CHIEF COMPLAINT: Hematuria, shortness of breath. HISTORY OF PRESENT ILLNESS: The patient is a 66-year-old female with family members at the bedside seen in the Emergency Department to be admitted for evaluation of hematuria and also increasing shortness of breath. The patient is being evaluated after her family members reported that she became more short of breath with blood in her urine since last night with worsening cough and generalized weakness. She was recently treated with Tamiflu and doxycycline along with transfusion of 2 units of packed red blood cells by the outpatient clinic for hemoglobin of 7.6 on 07/11/2017. The patient is known to suffer from stage IV non-small cell CA of the lung with diabetes and failure to thrive. ALLERGIES: NO KNOWN ALLERGIES. MEDICATIONS: Include metformin, folic acid, Amitiza, lisinopril, Synthroid, meclizine, Colace, Megace, potassium, oxycodone, Medrol, promethazine with codeine, Flintstones with iron, vitamins. She also uses nebulizers at home including DuoNeb, she also continues oxygen as per Dr. Alejo. She also received Keytruda every [address] Bustamante's protocol. The patient also has a history of anemia of chronic disease for which she was recently transfused, with leukocytosis possibly secondary to underlying disease process. PAST MEDICAL HISTORY: Significant for history of cancer of the colon with colectomy in 2008 status post hysterectomy [place] [address] Matt Blank for squamous cell CA of the cervix with ovarian cystectomy in 1997 with her colectomy in 2008 for colon CA status post chemotherapy. Her stage IV non-small cell CA of the lung is treated with radiation, most recently 04/2017. The patient had metastasis to her brain, bone and liver with radiation begun by Dr. Sherice Peters at that time, also probably the lung radiation. She has hepatic metastasis, mediastinal lymphadenopathy with lytic lesions to T7 suggestive of a metastasis. The patient also suffers from hypothyroidism, diabetes mellitus, hypertension with a persistent cough, failure to thrive on Megace, and constipation for which she is taking Amitiza with good effect. Patient was also recently treated for influenza with Tamiflu and with doxycycline. She is also status post placement of a stent to the right upper lobe bronchus, right middle lobe intermedius secondary to tumor intervention done at [facility] with debulking then by Dr. Flores. FAMILY HISTORY AND SOCIAL HISTORY: The patient has a history of smoking a pack a day for approximately 20 years, quitting in 2008. Denies alcohol use. 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 Four daughters, two sons alive and well. Two brothers and three sisters; one brother has diabetes; all alive. REVIEW OF SYSTEMS: A 12-point review of system was done, which was negative to questioning except as per items mentioned in history of present illness. OBJECTIVE/PHYSICAL EXAMINATION: VITAL SIGNS: Temperature 98, pulse 110, respirations 30, blood pressure 124/68, pulse ox 95% on 2 L nasal cannula oxygen. HEENT: The tongue is black possibly secondary to oropharyngeal candidiasis for which we will treat with Mycelex Zeina and nystatin suspension. NECK: Supple. Oxygen is on. HEART: Tachy rate, regular rhythm. LUNGS: Decreased breath sounds, scattered occasional rhonchi. ABDOMEN: Obese, soft, nontender. EXTREMITIES: Faint +1 edema bilateral. NEUROLOGIC: The patient is awake and alert, but lethargic and fatigued. SKIN: Warm, dry, and clear. LABORATORY DATA: The patient's labs were done to include a white blood cell count of 55.2 thousand, hemoglobin 9.2, this is after transfusion of 2 units of packed red blood cells via the outpatient clinic recently with a hemoglobin at 7.6 on 07/11/2017, her white blood cell count then was 53.5, with a white blood cell count of 45.0 on 07/03/2017. She has been on steroids for significant period of time. Her hemoglobin again 9.2, hematocrit 29.2, platelet count of 370,000. Her INR today is 1.88 with an INR of 1.48 on 05/30. Her ABG shows pO2 of 68; this was before oxygen was placed. Her chem metabolic panel shows potassium of 3.1, nonfasting glucose of 168, magnesium of 1.6, AST of 41, alk phos 287, LDH of 755. Urinalysis shows moderate amount of blood, small amount of bilirubin, moderate amount of leukocyte esterase. Patient did have a chest x-ray. It has to be read. A Doppler ultrasound of her lower extremities was done on 07/13/2017. The Doppler of lower extremities showed no sonographic evidence of DVT in both lower extremities. ASSESSMENT: Urosepsis; hematuria; severe chronic obstructive pulmonary disease secondary to metastatic stage IV adenocarcinoma; non-small cell cancer; diabetes mellitus; metastasis to the brain, bone, and liver; hypertension; failure to thrive; persistent cough; status post stenting for the right upper lobe stent; oropharyngeal candidiasis. PLAN: After conversation with Dr. Bustamante, Dr. Alejo and the Emergency Room clinician and also after conversation with the daughter and the patient, we will admit to the Med-Surg Floor. We will ask for a consult with Dr. Alejo, Pulmonary; Dr. García and Dr. Garza, Infectious Disease with sliding scale insulin coverage with resumption of many of her medications; however, we will give IV Solu-Medrol 20 q. 8 hours. We will check procalcitonin and BNP testing. We will treat with DuoNeb and Mucinex via nebulizer. We will give one dose of vancomycin and Zosyn. With further antibiotic treatment as per Infectious Disease consultants, we will give nystatin oral suspension and Mycelex Zeina for her oropharyngeal candidiasis with the patient requesting to be DNI only. Otherwise, full code except for intubation at her request. We will monitor clinically and with labs. This is a complex patient with a comprehensive medically necessary and appropriate visit carried out in excess of 90 minutes in [id number] time and conversation with clinicians as above. Patient also has diagnosis of leukocytosis with anemia of chronic disease which we will monitor and treat as indicated. Rogelio Reed MD
[2017-07-18] MEDS ORDERED: Albuterol-Ipratrop 3 mg / 0.5 (3 ml) UD IH STA (05:53)
[2017-07-18] MEDS: Levothyroxine 100 MCG TAB PO SCH (06:03)
[2017-07-18] MEDS: MethylPREDNISolone 40 mg Vial IVP SCH ×3 (06:07→21:36)
--- NOTE | 2017-07-18 06:39 | CON ---
DATE: CHIEF COMPLAINT: Shortness of breath, female genitourinary problems. HISTORY OF PRESENT ILLNESS: Ms. Aurora Han is 66-year-old, my private patient with past medical history of lung cancer with metastatic disease with the complaint of hematuria this last night, came with coughing, shortness of breath. The daughter and sister was on the bedside. I saw patient in the emergency room. Reported worsening coughing, generalized weakness since last night. States the patient was treated last week for flu with Tamiflu. She denies fever or chills. Today, no nausea, vomiting or diarrhea, was hungry. No sick contact. No chest pain. Discussion done with Dr. Alejo. The patient was hungry. I ordered food and gave stat treatment in the emergency room. PAST MEDICAL HISTORY: Hypertension, pneumonia, lung mass, CA with metastasis, diabetes mellitus type 2, hypothyroidism, history of colon cancer in 2008, colectomy, history of chemotherapy, recently diagnosed with lung cancer with metastasis to the bones, got radiation therapy, colon CA in remission as of 2018, history of ovarian surgery and hysterectomy, cholecystectomy. FAMILY HISTORY: Father and mother noncontributory. HABITS: Former smoker. No smoking. No drugs. No ethanol. ALLERGIES: THE PATIENT IS NOT ALLERGIC WITH ANY MEDICATIONS. HOME MEDICATIONS: Reviewed by me. REVIEW OF SYSTEMS: The patient is seen and examined at the bedside in the emergency room. She is coughing with shortness of breath. Lungs are wheezing. Has hematuria. No vaginal bleeding or discharge. Feeling fatigued and tired. PHYSICAL EXAMINATION: VITAL SIGNS: Temperature 98, pulse 100, blood pressure 124/68, respiratory rate 21. HEENT: Head normocephalic, atraumatic. Eyes PERRLA. Extraocular muscles intact. Conjunctivae clear. Nose patent. Mucous membrane moist. NECK: Supple. No carotid bruit, JVD, or thyromegaly. CHEST: Bilaterally symmetrical. LUNGS: Positive wheezing bilaterally. HEART: S1 and S2 positive. ABDOMEN: Soft. Bowel sounds present. No organomegaly. EXTREMITIES: No edema. No cyanosis. NEUROLOGIC: Awake, alert, moving all four extremities. LABORATORY DATA: White blood cell is 55.2, hemoglobin 9.2, hematocrit 29.2, platelets 370. Sodium 136, potassium 3.1, BUN 12, creatinine 0.6, glucose 168. ASSESSMENT AND PLAN: Ms. Aurora Han is a 66-year-old female with leukocytosis, anemia, hypokalemia, hyperglycemia, came with leukocytosis, urinary tract infection. Patient admitted. Consult called with Dr. García. Length of time with the patient and with Dr. Alejo. Given DuoNeb treatment. Started patient on heart-healthy diet. Patient has a history of lung cancer with metastasis to the bones, has hairy tongue status post flu and bronchitis, history of colectomy, colon cancer. We will continue our treatment. Gastrointestinal and deep venous thrombosis prophylaxis. Repeat labs. We will follow up. Kathy Thakur MD
[2017-07-18 07:12] LABS: BASO # 0.06 K/mm3 (0.0-2.0); BASO % 0.1 % (0.0-3.0); GRAN % 96.2 % (50.0-68.0); HEMOGLOBIN 9.2 g/dL (12.0-16.0); LYMPH # 1.1 (1.2-3.4); LYMPH % 1.8 % (22.0-35.0); MEAN CELL VOLUME 90.6 fl (80.0-105.0); MEAN CORPUSCULAR HEMOGLOBIN 27.8 pg (25.0-35.0); MEAN CORPUSCULAR HGB CONC 30.7 g/dl (31.0-37.0); MEAN PLATELET VOLUME 9.6 fl (7.0-11.0); MONO # 1.2 (0.1-0.6); MONO % 1.9 % (1.0-6.0); PLATELET COUNT 336 10^3/uL (120.0-450.0); RBC 3.31 10^6/uL (3.5-6.1); RED CELL DISTRIBUTION WIDTH 18.9 % (11.5-14.5)
[2017-07-18 07:20] LABS: WHITE BLOOD COUNT 61.1 10^3/ul (4.5-11.0)
[2017-07-18 07:28] LABS: INR 1.75 (0.93-1.08); PROTHROMBIN TIME 20.3 SECONDS (9.4-12.5)
[2017-07-18 07:53] LABS: ALB/GLOB RATIO 0.8 (1.1-1.8); ALBUMIN 2.7 g/dL (3.0-4.8); ALT/SGPT 33 U/L (7-56); AST/SGOT 52 U/L (14-36); BLOOD UREA NITROGEN 15 mg/dL (7-21); CALCIUM 8.6 mg/dL (8.4-10.5); GFR AFRICAN-AMERICAN > 60; GFR NON-AFRICAN AMERICAN > 60
[2017-07-18] MEDS: Insulin Reg-LOW-Coverage SC SCH ×4 (08:10→22:46)
--- NOTE | 2017-07-18 09:42 | RAD ---
HISTORY: Sepsis Patient COMPARISON: 07/03/2017. FINDINGS: The right MediPort terminates in the SVC. LUNGS: There is low lung volume on the right and perihilar and lower lobe consolidation, worse since the prior examination. The left lung is well inflated and clear. PLEURA: No significant pleural effusion identified, no pneumothorax apparent. CARDIOVASCULAR: Stable. OSSEOUS STRUCTURES: No significant abnormalities. VISUALIZED UPPER ABDOMEN: Normal. OTHER FINDINGS: There is elevation of the right hemidiaphragm. IMPRESSION: Presumable postobstructive partial collapse and worsening postobstructive pneumonia in the perihilar and the lower lobe this patient with known right lung carcinoma.
[2017-07-18] MEDS ORDERED: Barium Sulfate Susp 2.1% w/v, 2.0% w/w 450 mL Bottle PO ONE (09:50)
[2017-07-18 10:43] LABS: BAND 5 % (0-2); LYMPHOCYTE 2 % (22.0-35.0); MONOCYTE 2 % (1.0-6.0); MYELOCYTE 2 %; NEUTROPHIL 89 % (50.0-70.0)
--- NOTE | 2017-07-18 10:50 | CARD ---
APPROVED REPORT EKG Measurement Heart [id number] [place] 100P25 [id number] <Conclusion> Sinus tachycardia with short [place] R Progression V1-V3.
[2017-07-18] MEDS: Megestrol Acetate 40 mg/ml Cup PO SCH (11:10)
[2017-07-18] MEDS: Nystatin 100,000 Units/ml Oral Susp 5 ml UD PO SCH ×3 (11:12→19:09)
[2017-07-18] MEDS: Potassium Chloride 20 mEq ER Tab PO SCH (11:12)
--- NOTE | 2017-07-18 11:46 | CP.PCM.CON ---
History of Present Illness - History of Present Illness History of Present Illness: 66 year old female with PMH of lung CA with metastases, HTN, COPD, DM, dyslipidemia, , history of colon CA, history of cervical CA was brought in to [facility] [place] because of hematuria and flank pain since a day prior to admission. She was also having generalized weakness and cough for the past 2-3 days. She was treated last week for flu with Tamiflu. She denies diarrhea, no abdominal pain, no sore throat, no rhinorrhea, no nausea or vomiting, no headache or dizziness. WBC count is markedly elevated. Infectious diseases consult is requested to further evaluate and manage. Review of Systems - Review of Systems All systems: reviewed and no additional remarkable complaints except (as per HPI ) Past Patient History - Infectious Disease Hx of Infectious Diseases: None - Tetanus Immunizations Tetanus Immunization: Unknown - Past Medical History & Family History Past Medical History?: Yes - Past Social History Smoking Status: Former Smoker - CARDIAC Hx Cardiac Disorders: Yes Hx Hypertension: Yes - PULMONARY Hx Respiratory Disorders: Yes Hx Pneumonia: Yes Other/Comment: lung mass found on cxr - NEUROLOGICAL Hx Neurological Disorder: No - HEENT Hx HEENT Problems: Yes (glasses, itchy eyes) - RENAL Hx Chronic Kidney Disease: No - ENDOCRINE/METABOLIC Hx Endocrine Disorders: Yes Hx Diabetes Mellitus Type 2: Yes Hx Hypothyroidism: Yes - HEMATOLOGICAL/ONCOLOGICAL Hx Blood Disorders: Yes Hx Cancer: Yes (COLON 2009, colectomy; Lung) Hx Chemotherapy: Yes (05/07/2017) Other/Comment: recently dx with lung ca, lung bx done. radiation done today - INTEGUMENTARY Hx Dermatological Problems: No - MUSCULOSKELETAL/RHEUMATOLOGICAL Hx Musculoskeletal Disorders: No Hx Falls: Yes - GASTROINTESTINAL Hx Gastrointestinal Disorders: Yes Other/Comment: colon ca in remission as of 2018 - GENITOURINARY/GYNECOLOGICAL Hx Genitourinary Disorders: Yes Other/Comment: HX OVARIAN CYSTECTOMY OPEN 1997 HYSTERECTOMY OCTOBER 2013 - PSYCHIATRIC Hx Psychophysiologic Disorder: No Hx Substance Use: No - SURGICAL HISTORY Hx Cholecystectomy: Yes Hx Hysterectomy: Yes Other/Comment: Ovarian Cyst sx, lcw pac in and out, c section, tubal. Colon Sx. Lung biopsy. s/p stent right bronchus placement. R chest port - ANESTHESIA Hx Anesthesia: Yes Hx Anesthesia Reactions: Yes (NAUSEA VOMITTING) Hx Malignant Hyperthermia: No Meds Allergies/Adverse Reactions: Allergies Allergy/AdvReac Type Severity Reaction Status Date / Time No Known Allergies Allergy Verified 07/17/17 17:58 - Medications Medications: Current Medications Acetylcysteine (Acetylcysteine 20%) 4 ml IH Q6H [facility] Last Admin: 07/18/17 02:05 Dose: 4 ml Albuterol/Ipratropium (Duoneb 3 Mg/0.5 Mg (3 Ml) Ud) 3 ml IH Q6H [facility] Stop: 07/20/17 14:31 Last Admin: 07/18/17 02:05 Dose: 3 ml Clotrimazole (Mycelex Zeina) 10 mg MT 5XD [facility] Last Admin: 07/17/17 22:41 Dose: 10 mg Famotidine (Pepcid) 40 mg PO HS [facility] Last Admin: 07/17/17 22:41 Dose: 40 mg Insulin Human Regular (Humulin R Low) 0 units SC ACHS [facility] PRN Reason: Protocol Last Admin: 07/17/17 22:51 Dose: Not Given Levothyroxine Sodium (Synthroid) 100 mcg PO 0600 [facility] Lisinopril (Zestril) 5 mg PO DAILY [facility] Megestrol Acetate (Megace) 200 mg PO DAILY [facility] Methylprednisolone (Solu-Medrol) 20 mg IVP Q8H [facility] Non-Formulary Medication (Amitiza) 24 mcg PO BID PRN PRN Reason: Constipation Nystatin (Nystatin Oral Susp) 5 ml PO QID [facility] Last Admin: 07/17/17 22:41 Dose: 5 ml Oxycodone HCl (Oxycodone Immediate Release Tab) 15 mg PO Q8H PRN PRN Reason: Pain, severe (8-10) Potassium Chloride (K-Dur 20 Meq Er Tab) 20 meq PO DAILY [facility] Promethazine HCl/Codeine (Phenergan/Codeine Oral Syrup) 5 ml PO Q6H PRN PRN Reason: Cough Last Admin: 07/17/17 21:04 Dose: 5 ml Physical Exam - Constitutional Appears: Chronically Ill - Head Exam Head Exam: NORMAL INSPECTION - ENT Exam ENT Exam: Mucous Membranes Moist - Neck Exam Neck exam: Negative for: Meningismus - Respiratory Exam Respiratory Exam: Decreased Breath Sounds - Cardiovascular Exam Cardiovascular Exam: +S1, +S2 - GI/Abdominal Exam GI & Abdominal Exam: Soft. absent: Tenderness Results - Vital Signs Recent Vital Signs: Last Vital Signs Temp 97.6 F 07/18/17 00:24 Pulse 95 H 07/18/17 00:24 Resp 22 07/18/17 00:24 BP 128/81 07/18/17 00:24 Pulse Ox 91 L 07/17/17 22:10 - Labs Result Diagrams: 07/18/17 06:30 07/18/17 06:30 Labs: Laboratory Results - last 24 hr 07/17/17 07/17/17 07/17/17 20:10 20:20 21:45 pO2 53 VBG pH 7.35 VBG pCO2 49.0 VBG HCO3 27.1 VBG Total CO2 28.6 H VBG O2 Sat (Calc) 89.8 H VBG Base Excess 0.8 VBG Potassium 3.5 L Sodium 133.0 Chloride 102.0 Glucose 173 H Lactate 1.6 FiO2 21.0 POC Glucose (mg/dL) NT-Pro-B Natriuret Pep 1080 H Venous Blood Potassium 3.5 L Influenza Typ A,B (EIA) Negative for flu a/b 07/17/17 22:44 pO2 VBG pH VBG pCO2 VBG HCO3 VBG Total CO2 VBG O2 Sat (Calc) VBG Base Excess VBG Potassium Sodium Chloride Glucose Lactate FiO2 POC Glucose (mg/dL) 182 H NT-Pro-B Natriuret Pep Venous Blood Potassium Influenza Typ A,B (EIA) Assessment & Plan - Assessment and Plan (Free Text) Plan: Assessment SIRS R/O sepsis from UTI R/O intra-abdominal infection, R/O due to malignancy history of oral candidiasis lung CA with metastases HTN COPD DM dyslipidemia obesity with BMI 34 history of colon CA history of cervical CA Plan given a dose of IV Vanco and started on Zosyn pending blood cx, urine cx, PCT, CT C/A/P will monitor clinically overall prognosis is poor
--- NOTE | 2017-07-18 12:27 | CP.PCM.PN ---
Subjective - Date & Time of Evaluation Date of Evaluation: 07/18/17 Time of Evaluation: 07:45 - Subjective Subjective: Pacheco Flores D.O. PGY-2, Progress Note 66 year old female with a PMH of Stage IV non-small cell lung CA, HTN, COPD, DM , and a history of previous colon and cervical CA s/p resections who presented to [facility] [place] because of hematuria for 1 day. Patient was seen and examined at bedside with daughter present. States that she overall is still somewhat tired. Has not yet urinated so doesn't know if she still has hematuria. No burning with urination. Objective - Vital Signs/Intake and Output Vital Signs (last 24 hours): Temp Pulse Resp BP Pulse Ox 97.8 F 90 19 132/85 95 07/18/17 07:39 07/18/17 11:13 07/18/17 07:39 07/18/17 11:13 07/18/17 07:39 Intake and Output: 07/18/17 07/18/17 06:59 18:59 Intake Total 120 Output Total 0 Balance 120 - Medications Medications: Current Medications Acetylcysteine (Acetylcysteine 20%) 4 ml IH Q6H [facility] Last Admin: 07/18/17 08:39 Dose: 4 ml Albuterol/Ipratropium (Duoneb 3 Mg/0.5 Mg (3 Ml) Ud) 3 ml IH Q6H [facility] Stop: 07/20/17 14:31 Last Admin: 07/18/17 08:38 Dose: 3 ml Benzonatate (Tessalon Perles) 100 mg PO TID [facility] Last Admin: 07/18/17 11:13 Dose: 100 mg Clotrimazole (Mycelex Zeina) 10 mg MT 5XD [facility] Last Admin: 07/18/17 11:12 Dose: 10 mg Famotidine (Pepcid) 40 mg PO HS [facility] Last Admin: 07/17/17 22:41 Dose: 40 mg Piperacillin Sod/Tazobactam Sod (Zosyn 3.375 In Ns 100ml) 100 mls @ 200 mls/hr IVPB Q6 [facility] PRN Reason: Protocol Stop: 07/25/17 06:16 Insulin Human Regular (Humulin R Low) 0 units SC ACHS [facility] PRN Reason: Protocol Last Admin: 07/18/17 08:10 Dose: 1 units Levothyroxine Sodium (Synthroid) 100 mcg PO 0600 [facility] Last Admin: 07/18/17 06:03 Dose: 100 mcg Lisinopril (Zestril) 5 mg PO DAILY [facility] Last Admin: 07/18/17 11:13 Dose: 5 mg Megestrol Acetate (Megace) 200 mg PO DAILY [facility] Last Admin: 07/18/17 11:10 Dose: 200 mg Methylprednisolone (Solu-Medrol) 20 mg IVP Q8H [facility] Last Admin: 07/18/17 06:07 Dose: 20 mg Amitiza 24 Mcg ((Home Med)) 24 mcg PO BID PRN PRN Reason: Constipation Nystatin (Nystatin Oral Susp) 5 ml PO QID [facility] Last Admin: 07/18/17 11:12 Dose: 5 ml Oxycodone HCl (Oxycodone Immediate Release Tab) 15 mg PO Q8H [facility]N PRN Reason: Pain, severe (8-10) Potassium Chloride (K-Dur 20 Meq Er Tab) 20 meq PO DAILY [facility] Last Admin: 07/18/17 11:12 Dose: 20 meq Promethazine HCl/Codeine (Phenergan/Codeine Oral Syrup) 5 ml PO Q6H PRN PRN Reason: Cough Last Admin: 07/17/17 21:04 Dose: 5 ml - Labs Labs: 07/18/17 06:30 07/18/17 06:30 PT 20.3 SECONDS (9.4-12.5) H 07/18/17 06:30 INR 1.75 (0.93-1.08) H 07/18/17 06:30 APTT 57.3 Seconds (25.1-36.5) H 07/17/17 18:38 - Constitutional Appears: Non-toxic, No Acute Distress, Chronically Ill - Head Exam Head Exam: ATRAUMATIC, NORMOCEPHALIC - Eye Exam Eye Exam: EOMI, PERRL - ENT Exam ENT Exam: Mucous Membranes Dry - Neck Exam Neck Exam: Normal Inspection - Respiratory Exam Respiratory Exam: Clear to Ausculation Bilateral, Rhonchi, Wheezes - Cardiovascular Exam Cardiovascular Exam: RRR, +S1, +S2 - GI/Abdominal Exam GI & Abdominal Exam: Soft, Normal Bowel Sounds. absent: Distended, Tenderness - Neurological Exam Neurological Exam: Alert, Awake, Oriented x3 - Psychiatric Exam Psychiatric exam: Normal Affect, Normal Mood - Skin Skin Exam: Dry, Warm Assessment and Plan - Assessment and Plan (Free Text) Assessment: 66 year old female with a PMH of Stage IV non-small cell lung CA with metastases , HTN, COPD, DM, and a history of previous colon and cervical CA s/p resections who presented to [facility] [place] because of hematuria for 1 day. Plan: Hematuria Urinary tract infection ?Confusion Severe leukocytosis Oral candidaisis Stage IV lung CA with intrabronchial lesion s/p intrabronchial stent at [facility] HTN COPD DM Low appetite Hx colon and cervical CA s/p resection Possible leukomoid reaction, will get peripheral smear Given vanco/zosyn empirically, ID consulted, procalcitonin pending Panculture Will get MRI of the brain to evaluate for any metastases given that family states sometimes confused more than usual Will consult neurology Pulm consulted Given intrabronchial stent mucous production expected, continue duonebs and mucocymust to aid in getting mucous out Started tessalon perles and continue phernegan/codeine cough syrup PRN Continue RISS/accuchecks Continue megace Continue home antihypertensive Continue pain control Patient was seen and examined and case was discussed at length with attending physician.
[2017-07-18 13:16] LABS: BASO # 0.03 K/mm3 (0.0-2.0); GRAN # 58.88 (1.4-6.5); HEMOGLOBIN 9.4 g/dL (12.0-16.0); LYMPH # 1.1 (1.2-3.4); LYMPH % 1.9 % (22.0-35.0); MEAN CELL VOLUME 92.7 fl (80.0-105.0); MEAN CORPUSCULAR HEMOGLOBIN 28.7 pg (25.0-35.0); MEAN CORPUSCULAR HGB CONC 30.9 g/dl (31.0-37.0); MEAN PLATELET VOLUME 9.9 fl (7.0-11.0); MONO # 1.3 (0.1-0.6); MONO % 2.1 % (1.0-6.0); RBC 3.28 10^6/uL (3.5-6.1); RED CELL DISTRIBUTION WIDTH 19.3 % (11.5-14.5)
[2017-07-18 13:20] LABS: WHITE BLOOD COUNT 61.4 10^3/ul (4.5-11.0)
[2017-07-18] MEDS ORDERED: Iohexol 350 MG/100 ML VIAL ONE (14:36)
[2017-07-18] MEDS: Piperacillin/Tazobact 3.375 gm 100 ML IVPB SCH ×2 (15:10→19:10)
[2017-07-18] MEDS ORDERED: AMITIZA 24 MG PO PRN (18:00)
--- NOTE | 2017-07-18 21:15 | CT ---
EXAM: CT Chest With Intravenous Contrast CT Abdomen and Pelvis With Intravenous Contrast EXAM DATE/TIME: 07/18/2017 9:41 AM CLINICAL HISTORY: 66 years old, female; Screening exam; Other: Eval mets from colon ca; Other screening; Prior surgery; Surgery type: Cholecystectomy - hysterectomy - colon SX TECHNIQUE: Axial computed tomography images of the chest, abdomen and pelvis with intravenous contrast. All CT scans at this facility use one or more dose reduction techniques, viz.: automated exposure control; ma/kV adjustment per patient size (including targeted exams where dose is matched to indication; i.e. head); or iterative reconstruction technique. All CT scans at this facility use one or more dose reduction techniques, viz.: automated exposure control; ma/kV adjustment per patient size (including targeted exams where dose is matched to indication; i.e. head); or iterative reconstruction technique. Coronal and sagittal reformatted images were created and reviewed. CONTRAST: 96 mL of OMNI 350 administered intravenously. COMPARISON: Prior CT chest of 2017-05-29 FINDINGS: LIMITATIONS: Moderate streak/motion artifact. CHEST: LUNGS: Stent in the right mainstem bronchus. Large rounded mass in the right upper lobe medially, paramediastinal in location, measuring at least 5 cm. This is low in density with enhancing margins, suspicious for a necrotic mass. There is a similar-appearing but smaller mass in the right upper lobe more anteriorly, measuring 1.3 cm. Adjacent dense consolidation is seen throughout the right upper lobe, suspicious for diffuse atelectasis/collapse of the right upper lobe. Dense consolidation in the right lung base, most likely representing compressive atelectasis, related to elevation of the right diaphragm. PLEURAL SPACE: Moderate right pleural effusion, a new finding. HEART: No evidence of significant pericardial effusion. ABDOMEN: LIVER: Extensive liver lesions, mostly small in size, too numerous to count, highly suspicious for diffuse liver metastases. GALLBLADDER AND BILE DUCTS: Cholecystectomy clips. Biliary stent in place. There is persistent biliary ductal dilatation, with the common bile duct measuring up to 2 cm in diameter. Pneumobilia/air in the biliary tree, most likely related to the indwelling biliary stent. No radiopaque common bile duct stones seen. PANCREAS: No CT evidence of acute pancreatitis. SPLEEN: No acute abnormality of the spleen identified. ADRENALS: No acute abnormality of the adrenal glands. KIDNEYS AND URETERS: Diffusely heterogeneous enhancement pattern of the kidneys bilaterally, suspicious for development of extensive (too numerous to count) small bilateral ill-defined low-density renal lesions. Findings are highly suspicious for bilateral renal metastases. Low density cysts also noted in the right kidney. STOMACH AND BOWEL: Surgical suture line/surgical anatomosis is noted in the proximal sigmoid colon. Retained stool noted throughout the colon, with no evidence of a significant large bowel obstruction or fecal impaction. Otherwise, no significant abnormality of the bowel is identified. No evidence of small bowel obstruction. APPENDIX: Appendix is seen, and is within normal limits in appearance. PELVIS: BLADDER: No acute abnormality of the bladder identified. REPRODUCTIVE: Uterus is surgically absent. No evidence of large cystic adnexal masses. CHEST, ABDOMEN and PELVIS: INTRAPERITONEAL SPACE: No evidence of free intraperitoneal air or fluid. BONES/JOINTS: Large, heterogeneously enhancing soft tissue mass in the right anterior chest wall soft tissues, a new finding, measuring 6 cm maximally. This involves the right seventh rib anteriorly, which is partially destroyed by the mass. No evidence of diffuse bony metastatic lesions. SOFT TISSUES: Skin thickening involving the right breast. VASCULATURE: No evidence of aortic dissection. LYMPH NODES: Significant right axillary lymphadenopathy, a new finding, highly suspicious for metastatic lymphadenopathy. No evidence of diffuse pathologic lymphadenopathy. TUBES, LINES AND DEVICES: Right Mediport catheter and biliary stent in place. IMPRESSION: - Findings highly suspicious for diffuse metastatic disease. - Extensive lesions in the liver and kidneys bilaterally, suspicious for diffuse liver and bilateral renal metastases. - 6 cm mass in the right anterior chest wall soft tissues causing destruction of the right seventh rib, highly suspicious for a chest wall metastasis. - 2 paramediastinal masses in the right upper lobe, the larger measuring 5 cm, suspicious for neoplasm. Surrounding these masses, there is diffuse collapse of the right upper lobe. - Extensive right axillary lymphadenopathy. - Although the patient has a history of colon cancer, there is a right breast thickening, and the pattern of metastasis is suggestive of metastatic breast cancer rather than colon cancer. Recommend clinical correlation. - Biliary ductal dilatation, despite the presence of a biliary stent, cause not identified. - See above for remaining findings.
[2017-07-18] MEDS: Promethazine/Cod 6.25mg-10mg/5ml Syr UD PO PRN (21:46)
[2017-07-19] MEDS: Piperacillin/Tazobact 3.375 gm 100 ML IVPB SCH ×4 (00:08→18:51)
[2017-07-19] MEDS: Nystatin 100,000 Units/ml Oral Susp 5 ml UD PO SCH ×5 (00:09→22:06)
[2017-07-19] MEDS: Acetylcysteine 20% Inhal Soln (4ml) IH SCH ×6 (01:42→20:00)
[2017-07-19] MEDS: Albuterol-Ipratrop 3 mg / 0.5 (3 ml) UD IH SCH ×4 (01:42→19:30)
[2017-07-19] MEDS: MethylPREDNISolone 40 mg Vial IVP SCH ×3 (04:35→20:48)
--- NOTE | 2017-07-19 04:51 | CON ---
DATE: 07/18/2017 PULMONARY CONSULTATION REFERRING PHYSICIAN: Dr. Bustamante. REASON FOR CONSULTATION: Cough, shortness of breath, right lung infiltrate. HISTORY OF PRESENT ILLNESS: This is a 66-year-old female, well known to me, has multiple medical issues including metastatic lung cancer involving the endobronchial tree requiring bronchial stent, history of colon cancer in the past, also had a history of cervical cancer in the remote past, been on chemotherapy at that time, last one is a lung cancer, been on radiation therapy for hilar mass, endobronchial lesion, ended up getting bronchial stent, also has a chronic lung disease, anemia, admitted because of increased cough and shortness of breath, found to have a right lung infiltrate, seen by Infectious Diseases, also been having black hairy tongue. No nausea. No vomiting. No diarrhea. Few days ago had bilateral leg swelling and Lasix for few days was given, which improved the leg swelling. Her lung cancer is wrapping around the pulmonary artery. PAST MEDICAL HISTORY: As per history of present illness. ALLERGIES: NONE KNOWN. SOCIAL HISTORY: Denies smoking or alcohol use. FAMILY HISTORY: No significant cardiopulmonary disease reported. MEDICATIONS: She is on Mucomyst 4 mL q.6 hours, Amitiza 24 mcg twice a day p.r.n., DuoNeb q.6 hours, potassium is 20 mEq daily, Megace 200 mg daily, Mycelex Zeina 10 mg five times a day, nystatin oral suspension four times daily, oxycodone immediate release 50 mg q.8 hours p.r.n., Pepcid 40 mg at bedtime, Phenergan with Codeine 5 mL q.6 hours p.r.n., Solu-Medrol 20 mg q.8 hours, Synthroid 100 mcg daily, Tessalon Perles 100 mg three times a day, Zestril 5 mg daily, Zofran p.r.n. basis, also on Zosyn 3.375 g q.6 hours. REVIEW OF SYSTEMS: Denying any headache, no rhinitis. Has a cough, sputum production. No hemoptysis. No hematemesis. Does have hematuria. No leg pain or leg swelling. PHYSICAL EXAMINATION: GENERAL: Sitting up, in no acute distress. VITAL SIGNS: Temperature is 98, heart rate is 90, respiratory rate is 20, blood pressure 132/85, pulse ox 95% on 2 L nasal cannula. HEENT: Moist mucous membrane. Has a black hairy tongue. NECK: Supple. No JVD. LUNGS: Has two-third of crackles in the right lung, some crackles in the left base. HEART: S1 and S2. ABDOMEN: Soft, nontender. No organomegaly. EXTREMITIES: There is no edema. NEUROLOGIC: Awake, alert. Follows simple command. LABORATORY DATA: Shows hemoglobin 9.4, hematocrit 30.4, WBC 61,000, platelet count is 348. INR 1.75. VBG showed pH 7.35, pCO2 of 49, O2 of 53 on room air. Blood sugar 202, magnesium 1.8, procalcitonin 2.56. TSH is 1.73. Sodium 139, potassium 3.7, chloride 100, bicarbonate 26, BUN 15, creatinine 0.6, calcium is 8.6. AST 52, ALT 33, alk phos is 365. Albumin is 2.7. ProBNP 1080. Urine shows rbc's 15 to 20, wbc's 15 to 25, moderate blood. Influenza is negative. Sputum culture and blood culture, so far there is no growth. Chest x-ray done yesterday shows right lung infiltrate versus atelectasis, probably collapsed lung secondary to tumor and mucus plugging with a hilar mass. IMPRESSION AND PLAN: Metastatic lung cancer involving the endobronchial tree, requiring debulking, radiation and finally placing the stent in the right bronchus intermedius, been on chemotherapy, radiation therapy, chronic obstructive lung disease, has a metastatic disease to liver and bones, hypertension, diabetes, hypothyroid, may have sleep apnea syndrome, refused CPAP/BiPAP, may be component of heart failure with leg swelling and increased proBNP. She did receive some Lasix for about 3 to 4 days, also has a history of colon cancer in the remote past, cervical cancer in the remote past. Case discussed with the family in detail, has a new issue with hematuria. Patient is started on broad-spectrum antibiotics covering healthcare-associated organism. IV steroids started, need to be more aggressive of pulmonary toilet, high risk for mucus plugging with stent. We will continue Mucomyst and DuoNeb. Continue steroids. Repeat chest x-ray in the morning. If persistent atelectasis in right lower lobe, may need bronchoscopy to clear the secretion. Being followed by Oncology, also followed by Dr. Blaze, and Infectious Diseases. Spoke to daughter at bedside. All the questions answered. Concerning for hairy tongue, continue to brush 2 to 3 times a day, try to takeoff the tissue to clear up the hairy tongue. Thank you and we will follow with you. Ashlie Alejo MD
--- NOTE | 2017-07-19 05:07 | PN ---
DATE: SUBJECTIVE: Patient is a 66-year-old female. Patient was seen and examined at the bedside, daughter was sitting on the bedside also, stated having blood in the urine. Complaining about shortness of breath,but it is getting a little bit better. No headache. No dizziness. No swelling of the leg. PHYSICAL EXAMINATION: VITAL SIGNS: Temperature 97.6, pulse 95, respiratory rate 22, blood pressure 128/81. HEENT: Head normocephalic, atraumatic. Eyes: PERRLA. Extraocular muscles intact. Conjunctivae clear. Nose patent. NECK: Supple. No carotid bruit, JVD, or thyromegaly. CHEST: Bilaterally symmetrical. HEART: S1 and S2 positive. LUNGS: Clear to auscultation. ABDOMEN: Soft. Bowel sounds present. No organomegaly. EXTREMITIES: No edema. No cyanosis. NEUROLOGIC: Patient is awake, alert, moving all four extremities. No focal deficit. MEDICATIONS: Acetylcysteine, Mycelex, Pepcid, insulin, Synthroid, Megace, nystatin oral solution, oxycodone, potassium. LABORATORY DATA: White blood cell 61.4, hemoglobin 9.4, hematocrit 30.4, platelets 348. Glucose 159, 202, 144, 162. ASSESSMENT AND PLAN: Ms. Aurora Han is a 66-year-old female with leukocytosis, anemia, hyperglycemia, proteinuria, hematuria. Patient has history of stage IV non-small cell lung cancer, hypertension, chronic obstructive pulmonary disease, diabetes mellitus, history of previous colon and cervical cancer, status post resection, who presented to [facility] because of hematuria for 1 day, urinary tract infection, sometimes getting confusion, severe leukocytosis, oral candidiasis. It is like hairy tongue, chronic obstructive pulmonary disease, low appetite, may be leukemoid reaction. We will get peripheral smear as per Hematology. Given vancomycin, Zosyn empirically. Infectious Disease is on the case, waiting for culture and sensitivity. We will get MRI of the brain to evaluate for any metastasis given that sometimes confusion can cause. Pulmonary consult is called. Start Tessalon Perles and codeine , suspension p.r.n. Gastrointestinal and deep vein thrombosis prophylaxis. Repeat labs. Kathy Thakur MD MTDLeonor
[2017-07-19] MEDS: Levothyroxine 100 MCG TAB PO SCH (06:03)
[2017-07-19 07:20] LABS: BASO # 0.05 K/mm3 (0.0-2.0); BASO % 0.1 % (0.0-3.0); GRAN # 60.46 (1.4-6.5); GRAN % 96.5 % (50.0-68.0); HEMOGLOBIN 8.4 g/dL (12.0-16.0); LYMPH # 0.8 (1.2-3.4); LYMPH % 1.3 % (22.0-35.0); MEAN CELL VOLUME 89.8 fl (80.0-105.0); MEAN CORPUSCULAR HEMOGLOBIN 27.5 pg (25.0-35.0); MEAN CORPUSCULAR HGB CONC 30.7 g/dl (31.0-37.0); MEAN PLATELET VOLUME 9.9 fl (7.0-11.0); MONO # 1.3 (0.1-0.6); MONO % 2.1 % (1.0-6.0); RBC 3.05 10^6/uL (3.5-6.1); RED CELL DISTRIBUTION WIDTH 18.8 % (11.5-14.5)
[2017-07-19 07:25] LABS: ALB/GLOB RATIO 0.8 (1.1-1.8); ALBUMIN 2.5 g/dL (3.0-4.8); ALT/SGPT 39 U/L (7-56); AMYLASE < 30 U/L (35-125); AST/SGOT 41 U/L (14-36); BLOOD UREA NITROGEN 14 mg/dL (7-21); CALCIUM 7.9 mg/dL (8.4-10.5); GFR AFRICAN-AMERICAN > 60; GFR NON-AFRICAN AMERICAN > 60; LIPASE 29 U/L (23-300)
[2017-07-19 07:30] LABS: WHITE BLOOD COUNT 62.7 10^3/ul (4.5-11.0)
[2017-07-19] MEDS: Insulin Reg-LOW-Coverage SC SCH ×4 (08:33→21:49)
[2017-07-19] MEDS: oxyCODONE 15 mg Immediate Release Tab PO PRN ×2 (08:36→16:29)
[2017-07-19] MEDS ORDERED: Gadodiamide 287 MG/ML VIAL (15ML) IV ONE (09:21)
--- NOTE | 2017-07-19 10:06 | MRI ---
PROCEDURE: MRI BRAIN WITH AND WITHOUT CONTRAST HISTORY: eval ?mets from colon CA COMPARISON: MRI 04/23/2017 TECHNIQUE: Multiplanar, multisequence MR images of the brain were obtained with and without intravenous contrast enhancement. 15 cc of Omniscan FINDINGS: HEMORRHAGE: None DWI: No evidence of an acute or early subacute infarction. BRAIN PARENCHYMA: No mass,mass effect or edema. Minimal microvascular changes are seen in the periventricular white matter. There is no evidence of metastatic disease ENHANCEMENT: No abnormal intracranial enhancement. VENTRICLES: Unremarkable. No hydrocephalus. CRANIUM: Unremarkable. ORBITS: Grossly unremarkable. PARANASAL SINUSES/MASTOIDS: Clear VASCULAR SYSTEM: Skull base flow voids intact. OTHER FINDINGS: None . IMPRESSION: No evidence of metastatic disease
--- NOTE | 2017-07-19 10:22 | RAD ---
HISTORY: COMPARISON: 07/17/2017. TECHNIQUE: Chest PA and lateral FINDINGS: LINES AND TUBES: The right MediPort terminates at the cavoatrial junction. LUNG AND PLEURA: Low lung volumes there is low lung volume on the right and stable appearance of perihilar and infrahilar larynx mass. There is new subsegmental atelectasis in the left mid lung. There is a small right pleural effusion. HEART AND MEDIASTINUM: The heart is not enlarged. The hilar and mediastinal contours are within normal limits. SKELETAL STRUCTURES: The bony structures are within normal limits for the patient's age. VISUALIZED UPPER ABDOMEN: Normal. OTHER FINDINGS: None. IMPRESSION: Interval development of left mid lung atelectasis. Stable appearance of a right perihilar and infrahilar mass lesion with partial atelectasis of the right lung and small pleural effusion.
[2017-07-19] MEDS: Megestrol Acetate 40 mg/ml Cup PO SCH (10:56)
[2017-07-19] MEDS: Promethazine/Cod 6.25mg-10mg/5ml Syr UD PO PRN ×2 (10:56→16:29)
[2017-07-19] MEDS: Potassium Chloride 20 mEq ER Tab PO SCH (10:57)
--- NOTE | 2017-07-19 21:41 | CP.PCM.PN ---
Subjective - Date & Time of Evaluation Date of Evaluation: 07/19/17 Time of Evaluation: 12:25 - Subjective Subjective: Feels weak and tired, no fevers. Objective - Vital Signs/Intake and Output Vital Signs (last 24 hours): Temp Pulse Resp BP Pulse Ox 97.8 F 90 19 132/85 95 07/18/17 07:39 07/18/17 11:13 07/18/17 07:39 07/18/17 11:13 07/18/17 07:39 Intake and Output: 07/18/17 07/18/17 06:59 18:59 Intake Total 120 Output Total 0 Balance 120 - Medications Medications: Current Medications Acetylcysteine (Acetylcysteine 20%) 4 ml IH Q6H [facility] Last Admin: 07/18/17 08:39 Dose: 4 ml Albuterol/Ipratropium (Duoneb 3 Mg/0.5 Mg (3 Ml) Ud) 3 ml IH Q6H [facility] Stop: 07/20/17 14:31 Last Admin: 07/18/17 08:38 Dose: 3 ml Benzonatate (Tessalon Perles) 100 mg PO TID [facility] Last Admin: 07/18/17 11:13 Dose: 100 mg Clotrimazole (Mycelex Zeina) 10 mg MT 5XD [facility] Last Admin: 07/18/17 11:12 Dose: 10 mg Famotidine (Pepcid) 40 mg PO HS [facility] Last Admin: 07/17/17 22:41 Dose: 40 mg Piperacillin Sod/Tazobactam Sod (Zosyn 3.375 In Ns 100ml) 100 mls @ 200 mls/hr IVPB Q6 [facility] PRN Reason: Protocol Stop: 07/25/17 06:16 Insulin Human Regular (Humulin R Low) 0 units SC ACHS [facility] PRN Reason: Protocol Last Admin: 07/18/17 08:10 Dose: 1 units Levothyroxine Sodium (Synthroid) 100 mcg PO 0600 [facility] Last Admin: 07/18/17 06:03 Dose: 100 mcg Lisinopril (Zestril) 5 mg PO DAILY [facility] Last Admin: 07/18/17 11:13 Dose: 5 mg Megestrol Acetate (Megace) 200 mg PO DAILY [facility] Last Admin: 07/18/17 11:10 Dose: 200 mg Methylprednisolone (Solu-Medrol) 20 mg IVP Q8H [facility] Last Admin: 07/18/17 06:07 Dose: 20 mg Amitiza 24 Mcg ((Home Med)) 24 mcg PO BID PRN PRN Reason: Constipation Nystatin (Nystatin Oral Susp) 5 ml PO QID [facility] Last Admin: 07/18/17 11:12 Dose: 5 ml Oxycodone HCl (Oxycodone Immediate Release Tab) 15 mg PO Q8H PRN PRN Reason: Pain, severe (8-10) Potassium Chloride (K-Dur 20 Meq Er Tab) 20 meq PO DAILY [facility] Last Admin: 07/18/17 11:12 Dose: 20 meq Promethazine HCl/Codeine (Phenergan/Codeine Oral Syrup) 5 ml PO Q6H PRN PRN Reason: Cough Last Admin: 07/17/17 21:04 Dose: 5 ml - Labs Labs: 07/18/17 06:30 07/18/17 06:30 PT 20.3 SECONDS (9.4-12.5) H 07/18/17 06:30 INR 1.75 (0.93-1.08) H 07/18/17 06:30 APTT 57.3 Seconds (25.1-36.5) H 07/17/17 18:38 - Constitutional Appears: Chronically Ill - Head Exam Head Exam: NORMAL INSPECTION - Respiratory Exam Respiratory Exam: Decreased Breath Sounds - Cardiovascular Exam Cardiovascular Exam: +S1, +S2 - GI/Abdominal Exam GI & Abdominal Exam: Soft. absent: Tenderness Assessment and Plan - Assessment and Plan (Free Text) Plan: Assessment SIRS R/O sepsis from UTI with gram positive cocci R/O due to malignancy history of oral candidiasis lung CA with metastases HTN COPD DM dyslipidemia obesity with BMI 34 history of colon CA history of cervical CA Plan given a dose of IV Vanco and continue Zosyn day 2 pending identification and sensitivities of the gram positive cocci in the urine will monitor clinically noted CT C/A/P showing multiple areas of metastases overall prognosis is poor
[2017-07-20] MEDS: Piperacillin/Tazobact 3.375 gm 100 ML IVPB SCH ×4 (00:30→23:49)
--- NOTE | 2017-07-20 00:42 | PN ---
DATE: 07/19/2017 REFERRING PHYSICIAN: Dr. Bustamante/ Kathy Thakur MD. SUBJECTIVE: She is lying in the bed, sleepy, arousable, on supplement oxygen. Pulse ox about 94%. She had some cough, unable to clear secretion. No hemoptysis. No hematemesis. No hematuria. No diarrhea reported. OBJECTIVE: GENERAL: In no acute distress. VITAL SIGNS: Temperature is 98, heart is 86, respiratory rate is 22, blood pressure 136/83, pulse ox 94% on nasal cannula. HEENT: Moist mucous membranes. Black hairy tongue has improved. NECK: Supple. No JVD. LUNGS: Have decreased breath sounds on the right lung one-third up, scattered rhonchi. HEART: S1 and S2. ABDOMEN: Soft, nontender. No organomegaly. EXTREMITIES: There is not much edema. NEUROLOGIC: Sleepy, arousable, follow simple command. MEDICATIONS: She is on Mucomyst 20% inhaled q. 6 hours, Amitiza 25 mcg p.o. twice a day p.r.n., DuoNeb q. 6 hour round the clock, insulin coverage, also getting potassium 20 mEq daily, Megace 200 mg daily, Mycelex Zeina 10 mg 5 times a day, nystatin 5 mL q.i.d., oxycodone immediate release 15 mg q. 8 hours p.r.n., Pepcid 40 mg daily, Phenergan with Codeine 5 mL q. 6 hours p.r.n., Solu-Medrol 40 mg daily, Synthroid 100 mcg daily, Tessalon Perles 100 mg 3 times a day, Zestril 5 mg daily, Zofran p.r.n., Zosyn 3.375 g q. 6 hours. LABORATORY DATA: Shows hemoglobin of 8.4, hematocrit 27.4, WBC 62,000, and platelet is 337. Sodium 139, potassium 2.8, chloride 105, bicarbonate 26, BUN 14, creatinine 0.7, glucose 116, and calcium is 7.9. Phosphorous 3.2, magnesium 1.8. AST 41, ALT 39, alk phos is 245. Albumin is 2.5. Microbiology: Urine culture, some gram-positive cocci; sputum culture, normal mynor; blood culture, there is no growth. CAT scan of the chest done yesterday shows diffuse metastatic disease, extensive lesion in the liver and kidney bilaterally suspicious for diffuse liver and bilateral renal metastasis. There is also a 6 cm mass in the right anterior chest wall soft tissue causing destruction of the right seventh rib highly suspicious for chest wall metastasis. There is paramedian mass in the right upper lobe, large, measuring 5 cm, suspicious for neoplasm. Surrounding this mass, there is a diffuse collapse at the right upper lobe. There is extensive right axillary lymphadenopathy. There is also right breast thickening in the pattern of metastasis, suggestive of metastatic breast cancer? The peripheral smear shows leukemoid reaction. IMPRESSION AND PLAN: Metastatic lung cancer involving the endobronchial tree requiring stenting, also been on radiation therapy to the lungs, presently metastatic disease to liver as well as renal causing hematuria, chronic obstructive lung disease, anemia, hypertension, diabetes, hypothyroidism, may have a sleep apnea syndrome, but does not tolerate CPAP/BiPAP. I had a long discussion with patient's son at bedside. I also spoke to Oncology, Dr. Montaño in detail. I personally reviewed CAT scan of the chest, seemed like her stent in the right bronchus intermedius is patent, but as the stent is ending, there seems like a tumor mass blocking almost whole right lower lobe. Right middle lobe is open, but also right upper lobe is collapsed, that was secondary to stent originally, but seems like her metastatic disease is getting worse. She did not get chemotherapy almost 3 to 4 weeks because of her other comorbidities. Case need to be discussed with the family, especially daughters. Dr. Montaño will speak to the daughters about further option available. At present, she seems like infected, her white count is very high, we should continue to treat with antibiotics as per Infectious Diseases and continue pulmonary toilet and continue supplement oxygen. The choices are understanding the high morbidity and mortality, it will not be a bad idea to take hospice and patient can go soon on hospice care and supplement oxygen, but if the family wanted to be aggressive, want to try further chemotherapy, which may deteriorate acutely to the level of her . Patient could be stabilized also to type services and receive chemotherapy as per Dr. Montaño. For now, continue antibiotics IV and inhaled bronchodilator, supplement oxygen, p.r.n. mouth suction, follow up labs in the morning. Ashlie Alejo MD [facility] # [phone]
[2017-07-20] MEDS: Albuterol-Ipratrop 3 mg / 0.5 (3 ml) UD IH SCH ×5 (01:07→13:42)
[2017-07-20] MEDS: Acetylcysteine 20% Inhal Soln (4ml) IH SCH ×6 (01:07→20:50)
[2017-07-20] MEDS: MethylPREDNISolone 40 mg Vial IVP SCH ×4 (05:36→23:48)
[2017-07-20] MEDS: Levothyroxine 100 MCG TAB PO SCH (05:36)
--- NOTE | 2017-07-20 05:36 | PN ---
DATE: 07/19/2017 ONCOLOGY PROGRESS NOTE: LOCATION: The patient is in room 573, bed 1. PROBLEMS: This is a 66-year-old white female with a diagnoses of metastatic progressive stage IV non small cell carcinoma of the lung, adenocarcinoma with documented brain metastasis status post whole brain radiation, documented bone metastasis status post radiation to the thoracic spine and left shoulder, status post endobronchial placement of the stent in the right upper lobe at [facility], status post several cycles of chemotherapy with carboplatin, trimetrexate, Keytruda, maintained on Keytruda analgesia, last dose given few weeks ago, had a bout with the flu about two weeks ago, gradually recovering. Admitted to the hospital recently over three days ago with progressive weakness, failure to thrive and what appears to be symptoms of urinary tract infection, recent anemia treated with blood transfusion, just less than a week ago, had lower extremity edema, but it was thought to be a combination of hypoproteinemia from lack of appetite and poor oral caloric intake, was given blood transfusions and improved transiently, and now currently in the hospital. The patient had an MRI of the brain and CAT scan of the chest, abdomen, and pelvis which will be discussed below. SUBJECTIVE: The patient feels weak. She is short of breath on minimal exertion, and hearing gurgling sounds when she tries to exert herself, getting from the chair to the bed. The patient appears to be mentally awake and alert, is able to recognize me at this time on subjective questioning. Feels weak and tired, but she was able to eat. No significant nausea or vomiting. Very minimal pain. The patient edema or swelling has decreased. Bowels have been moving. No significant abdominal cramps at this time. PHYSICAL EXAMINATION: VITAL SIGNS: The patient is examined at the bedside. Vital signs are stable, T-max is 98.4, pulse is 90, blood pressure is 132/85, pulse oximetry is 95% on 2 L of nasal cannula. GENERAL: Reveals the patient to be alert, oriented, though the family tells me that she has confusion with the date and the time. Some of the medications which could be mentation issues related to cognitive decline from her underlying malignancy, and recent radiation completed about 2 to 3 months ago. HEENT: Head is normocephalic and atraumatic. Conjunctivae are pale. Sclerae are anicteric. Examination of the oropharynx reveals tongue to be moist. No oropharyngeal lesions are noted. No fungal infection is noted. NECK: Supple. There is no adenopathy. Accessory muscles in the neck are not in use. LUNGS: Scattered wheezes bilaterally with decreased breath sounds on the right side posteriorly. Bronchial breath sounds in the right upper lobe posteriorly. CARDIOVASCULAR: Reveals PMI to be in the fifth intercostal space inside the midclavicular line. S1 and S2 are normal. No gallop is heard. Tachycardia is noted. ABDOMEN: Soft, protuberant, nontender. Liver and spleen not palpable. Bowel sounds are present. No rebound, rigidity, or guarding is noted. EXTREMITIES: Reveals minimal ankle edema in both lower extremities, but edema appears to be significantly improved. GENITOURINARY AND RECTAL: Deferred. LYMPHATICS: There is no evidence of adenopathy in the neck, axilla, or groin. LABORATORY DATA: Reviewed. INR is 1.75. White count is 61,000, hemoglobin 9.2, hematocrit is 30, platelet count of 336,000. Sodium is 139, K is 3.7, chloride 100, CO2 is 26, BUN is 15, creatinine 0.6. Blood sugar is 159. MEDICATIONS: The patient's medications were reviewed. She is on multiple medications at this time. She is on Mucomyst 4 mL inhaled q. 6 hours, DuoNeb 3 mL q. 6 hours via nebulizer, benzonatate perles 100 mg t.i.d., Mycelex Zeina 10 mg five times a day, famotidine 40 mg at bedtime, Zosyn 3.375 mg IV piggyback q.6 hours, insulin coverage low dose algorithm, levothyroxine 100 mcg daily, lisinopril 5 mg p.o. daily, Megace 200 mg daily, Solu-Medrol 20 mg IV q. 8 hours, Amitiza 24 mg b.i.d., nystatin 5 mL four times a day, oxycodone 15 mL p.o. q. 8 hours, K-Dur 20 mEq daily, promethazine with codeine 5 mL p.o. q. 6 hours p.r.n. for coughing. ASSESSMENT NOTES AND PLAN: The patient has progressively worsening stage IV metastatic non-small cell carcinoma of the lung. The patient has systemic inflammatory response syndrome. Rule out sepsis from urinary tract infection as well as gram positive cocci. Rule out leukemoid reactions from underlying progressive metastatic cancer, history of oral candidiasis, hypertension, chronic obstructive pulmonary disease, diabetes mellitus, dyslipidemia, obesity with body mass index of 34, history of colon carcinoma, history of cervical carcinoma. Review of the tests done with the radiologist. Spoke to Dr. Alejo as well. MRI of the brain does not show any new disease or progression of old disease. She is in clinical remission on the MRI. Examination of the chest, abdomen and pelvis; however, shows progressive disease in the lungs both in the upper lobe, middle lobe, new infiltrate in the left lower lobe, right pleural effusion, in addition to that, multiple liver mets are noted plus hyperdense lesions in both the kidneys, significance of which is unclear, unlikely to be metastatic disease, but has to be considered in this particular setting. A long discussion with Dr. Alejo, despite the stent being in place with so much of disease coming back so rapidly, tumor appears to be actually mushrooming even though the chemotherapy is just overdue by a week, I am not really sure the area of proceeding at this time. I had long discussion with the patient's daughter, Anni, who is a nurse over the phone and we discussed about just comfort measures alone. My opinion at this point in time, with a rapid progression of disease despite the tumor being PD-L1 positive, disease is progressing, and I personally feel that addition of any other drug combination to the Keytruda such as Abraxane may be futile, and comfort measures alone are in high order at this point in time. Family is in agreement. Family is going to get together with me tomorrow morning, and we going to make a decision of comfort measures alone or hospice, either here in the hospital or home hospice. The patient talked to Kelsi Neely, our palliative care nurse for hospice, with these issues. Time spent with the patient is greater than 90 minutes, out of which more than 50% of the time was spent with the patient [id number] and the rest of the time was spent in talking to the family members, correlating all the information, discussing with the various attendings regarding our treatment plans. Please make a note, this is a medically necessary, appropriate and important visit for this patient in multiple comorbid medical issues who is currently progressively failing. Critical care time is in order at this point in time. Julio Bustamante MD
[2017-07-20 06:12] LABS: HEMOGLOBIN 8.9 g/dL (12.0-16.0); MEAN CELL VOLUME 92.1 fl (80.0-105.0); MEAN CORPUSCULAR HGB CONC 30.4 g/dl (31.0-37.0); RBC 3.18 10^6/uL (3.5-6.1); RED CELL DISTRIBUTION WIDTH 19.1 % (11.5-14.5)
[2017-07-20 06:23] LABS: WHITE BLOOD COUNT 75.1 10^3/ul (4.5-11.0)
[2017-07-20 06:33] LABS: ALB/GLOB RATIO 0.8 (1.1-1.8); ALBUMIN 2.8 g/dL (3.0-4.8); ALT/SGPT 45 U/L (7-56); AST/SGOT 46 U/L (14-36); BLOOD UREA NITROGEN 21 mg/dL (7-21); CALCIUM 8.6 mg/dL (8.4-10.5); GFR AFRICAN-AMERICAN > 60; GFR NON-AFRICAN AMERICAN > 60
[2017-07-20] MEDS: Insulin Reg-LOW-Coverage SC SCH ×4 (07:55→22:30)
[2017-07-20] MEDS: Potassium Chloride 20 mEq ER Tab PO SCH (10:21)
[2017-07-20] MEDS: Megestrol Acetate 40 mg/ml Cup PO SCH (10:22)
[2017-07-20] MEDS: Nystatin 100,000 Units/ml Oral Susp 5 ml UD PO SCH ×3 (10:23→18:40)
--- NOTE | 2017-07-20 15:39 | CP.PCM.PN ---
Subjective - Date & Time of Evaluation Date of Evaluation: 07/20/17 Time of Evaluation: 12:45 - Subjective Subjective: Patient with occasional SOB at rest, no fevers. Objective - Vital Signs/Intake and Output Vital Signs (last 24 hours): Temp Pulse Resp BP Pulse Ox 97.9 F 86 22 136/83 94 L 07/19/17 16:03 07/19/17 16:03 07/19/17 16:03 07/19/17 16:03 07/19/17 16:03 Intake and Output: 07/19/17 07/20/17 18:59 06:59 Intake Total 240 540 Balance 240 540 - Medications Medications: Current Medications Acetylcysteine (Acetylcysteine 20%) 4 ml IH Q6H [facility] Last Admin: 07/19/17 19:30 Dose: 4 ml Albuterol/Ipratropium (Duoneb 3 Mg/0.5 Mg (3 Ml) Ud) 3 ml IH Q6H [facility] Stop: 07/20/17 14:31 Last Admin: 07/19/17 19:30 Dose: 3 ml Benzonatate (Tessalon Perles) 100 mg PO TID [facility] Last Admin: 07/19/17 17:17 Dose: 100 mg Clotrimazole (Mycelex Zeina) 10 mg MT 5XD [facility] Last Admin: 07/19/17 18:42 Dose: Not Given Famotidine (Pepcid) 40 mg PO HS [facility] Last Admin: 07/18/17 21:37 Dose: 40 mg Home Med (Home Med) 1 unit PO BID PRN PRN Reason: Constipation Piperacillin Sod/Tazobactam Sod (Zosyn 3.375 In Ns 100ml) 100 mls @ 200 mls/hr IVPB Q6 [facility] PRN Reason: Protocol Stop: 07/25/17 06:16 Last Admin: 07/19/17 18:51 Dose: 200 mls/hr Insulin Human Regular (Humulin R Low) 0 units SC ACHS [facility] PRN Reason: Protocol Last Admin: 07/19/17 16:50 Dose: 1 units Levothyroxine Sodium (Synthroid) 100 mcg PO 0600 [facility] Last Admin: 07/19/17 06:03 Dose: 100 mcg Lisinopril (Zestril) 5 mg PO DAILY [facility] Last Admin: 07/19/17 10:58 Dose: 5 mg Megestrol Acetate (Megace) 200 mg PO DAILY [facility] Last Admin: 07/19/17 10:56 Dose: 200 mg Methylprednisolone (Solu-Medrol) 40 mg IVP Q8H [facility] Last Admin: 07/19/17 20:48 Dose: 40 mg Amitiza 24 Mcg ((Home Med)) 24 mcg PO BID PRN PRN Reason: Constipation Nystatin (Nystatin Oral Susp) 5 ml PO QID [facility] Last Admin: 07/19/17 17:17 Dose: 5 ml Ondansetron HCl (Zofran Inj) 4 mg IVP Q6H PRN PRN Reason: Nausea/Vomiting Oxycodone HCl (Oxycodone Immediate Release Tab) 15 mg PO Q8H PRN PRN Reason: Pain, severe (8-10) Last Admin: 07/19/17 16:29 Dose: 15 mg Potassium Chloride (K-Dur 20 Meq Er Tab) 20 meq PO DAILY [facility] Last Admin: 07/19/17 10:57 Dose: 20 meq Promethazine HCl/Codeine (Phenergan/Codeine Oral Syrup) 5 ml PO Q6H PRN PRN Reason: Cough Last Admin: 07/19/17 16:29 Dose: 5 ml - Labs Labs: 07/19/17 06:30 07/19/17 06:30 PT 20.3 SECONDS (9.4-12.5) H 07/18/17 06:30 INR 1.75 (0.93-1.08) H 07/18/17 06:30 APTT 57.3 Seconds (25.1-36.5) H 07/17/17 18:38 - Constitutional Appears: Chronically Ill - Head Exam Head Exam: NORMAL INSPECTION - Respiratory Exam Respiratory Exam: Decreased Breath Sounds - Cardiovascular Exam Cardiovascular Exam: +S1, +S2 - GI/Abdominal Exam GI & Abdominal Exam: Soft. absent: Tenderness Assessment and Plan - Assessment and Plan (Free Text) Plan: Assessment SIRS R/O sepsis from UTI with E. faecalis R/O due to malignancy history of oral candidiasis lung CA with metastases HTN COPD DM dyslipidemia obesity with BMI 34 history of colon CA history of cervical CA Plan continue Zosyn day 3 - complete 7-10 days of antibiotics will continue monitor clinically noted CT C/A/P showing multiple areas of metastases overall prognosis is poor
[2017-07-20] MEDS ORDERED: Albuterol-Ipratrop 3 mg / 0.5 (3 ml) UD IH ONE (16:28)
[2017-07-20] MEDS ORDERED: Albuterol-Ipratrop 3 mg / 0.5 (3 ml) UD ONE (16:31)
[2017-07-20] MEDS: Promethazine/Cod 6.25mg-10mg/5ml Syr UD PO PRN (18:42)
[2017-07-20] MEDS: oxyCODONE 15 mg Immediate Release Tab PO PRN (19:04)
[2017-07-20] MEDS: Albuterol-Ipratrop 3 mg / 0.5 (3 ml) UD IH PRN (20:50)
--- NOTE | 2017-07-20 22:40 | PN ---
DATE: REFERRING PHYSICIAN: Dr. Bustamante. SUBJECTIVE: She is out of bed to chair, seems better than yesterday. Still has a cough, some sputum production. No hemoptysis, no hematemesis, no hematuria, no diarrhea reported. OBJECTIVE: GENERAL: Mild distress secondary to cough and shortness of breath. VITAL SIGNS: Temperature is 98, heart rate is 107, respiratory rate is 20, blood pressure 136/75, pulse ox 95% on nasal cannula. HEENT: Moist mucous membrane. Tongue color is much better. NECK: Supple. No JVD. LUNGS: Have a basilar crackles and scattered rhonchi. HEART: S1 and S2. ABDOMEN: Soft, nontender. No organomegaly. EXTREMITIES: There is no edema. NEUROLOGIC: Awake and follows simple command. MEDICATIONS: She is on Mucomyst 20%, 4 mL inhale q.6 hour; Amitiza 25 mcg twice a day; DuoNeb q.4 hour p.r.n.; potassium supplement; Megace 20 mg daily, Mycelex Zeina 10 mg five times a day; nystatin oral suspension 5 mL four times a day, oxycodone immediate release 15 mg q.8 hour p.r.n.; Pepcid 40 mg at bedtime; promethazine with codeine 5 mL q.6 hour p.r.n; Solu-Medrol 40 mg q.6 hour; Synthroid 100 mcg daily; Tessalon Perles 100 mg three times a day; Zestril 5 mg daily; Zofran p.r.n. basis; Zosyn 3.375 g q.6 hour. LABORATORY DATA: Shows hemoglobin 8.9, hematocrit 29.3, WBC 75,000, platelet is 319. Sodium 141, potassium 3.8, chloride 103, bicarbonate 27, BUN 21, creatinine 0.9, glucose 199, calcium 8.6. AST 46, ALT 45, alk phos is 299, albumin is 2.8. Microbiology: Sputum culture, there is normal mynor. Blood culture, there is no growth. Urine culture, has Enterococcus faecalis which is sensitive to ampicillin. IMPRESSION: Metastatic lung cancer involving the endobronchial tree, hilar mass wrapping around the pulmonary artery, also has metastatic disease to liver and kidney, chronic obstructive lung disease, anemia, hypertension, diabetes, hypothyroid, may have sleep apnea syndrome and noncompliant with CPAP and she is claustrophobic, recurrent pneumonia. She received radiation therapy to right hilar area, ended up with obstruction of the right mainstem bronchus requiring stenting of the right mainstem bronchus sacrificing the right upper lobe and debulking of the tumor. The latest CAT scan suggested aggressive tumor involving multiple organs and has urinary tract infection with leukocytosis. Sputum culture, there is no growth. Blood culture, there is no growth. Patient is seen by Infectious Diseases, on appropriate antibiotics. I had a long discussion yesterday and today with Dr. Bustamante for further treatments. Options given to the family about poor prognosis and supportive care versus aggressive care of further chemotherapy, which seems like at this stage may not be beneficial to the patient, so family is in discussion among themselves. For now, I will continue IV and inhaled bronchodilator. We will try to taper down steroids by tomorrow. Continue antibiotics, pulmonary toilet, gastric prophylaxis, deep venous thrombosis prophylaxis. Fall precaution. We will continue communicating with the family, support through this hard time. Thank you and we will follow with you. Ashlie Alejo MD
--- NOTE | 2017-07-20 22:44 | PN ---
DATE: SUBJECTIVE: The patient seen and examined at the bedside. Daughters and sister are sitting on the bedside also. Night was uncomfortable as per patient's daughter who stayed with her whole night. Patient was having shortness of breath, and was sitting whole night. No fever and no chills. No nausea, vomiting or diarrhea. Hematuria is getting better. PHYSICAL EXAMINATION: VITAL SIGNS: Temperature 97.9, pulse 86, respirations 22, blood pressure 130/83, pulse oximetry 94. HEENT: Head: Normocephalic, atraumatic. Eyes: PERRLA. Extraocular muscles intact. Conjunctivae clear. Nose patent. Mucous membranes moist. NECK: Supple. No carotid bruit. No JVD, no thyromegaly. CHEST: Bilaterally symmetrical. HEART: S1, S2 positive. LUNGS: Clear to auscultation. ABDOMEN: Soft. Bowel sounds present. No organomegaly. EXTREMITIES: No edema, no cyanosis. NEUROLOGIC: Patient is awake and alert. Moving all four extremities. No focal deficits. MEDICATIONS: Acetylcysteine, DuoNeb, Tessalon Perles, Mycelex Troches, Pepcid, Zosyn, insulin, Synthroid, Zestril, Megace, Solu-Medrol, Zofran, oxycodone, potassium, and promethazine. LABORATORY DATA: White blood cells 52.7, hemoglobin 8.4, hematocrit 27.4, platelets 337. Sodium 139, potassium 3.8, BUN 14, creatinine 0.7, glucose 169. ASSESSMENT AND PLAN: Ms. Aurora Han is a pleasant 66-year-old female with leukocytosis, anemia, hyperglycemia, systemic inflammatory response syndrome, sepsis from urinary tract infection with Escherichia coli, has malignancy, pain of malignancy, history of oral candidiasis, hairy tongue, lung cancer with metastasis, hypertension, chronic obstructive pulmonary disease, diabetes mellitus, dyslipidemia, obesity with body mass index of 34, history of colon cancer, and history of cervical cancer. Continue Zosyn , discussion done with the patient's sister and her daughters [id number]. Patient has multiple comorbidities and she is progressively falling. Gastrointestinal and deep venous thrombosis prophylaxis, repeat labs. We will follow her. Kathy Thakur MD [facility] # [id number] MTDLeonor
--- NOTE | 2017-07-21 01:26 | PN ---
DATE: ONCOLOGY PROGRESS NOTE LOCATION: The patient is in room 573, bed 1. The patient is currently being moved to room 365. 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 She was admitted to the hospital recently with three days of progressive weakness, failure to thrive and what appears to be symptoms of urinary tract infections, recent anemia, treated with blood transfusion just less than a week ago, had lower extremity edema, was thought to be a combination of hypoproteinemia from lack of appetite and poor oral caloric intake, was given blood transfusions, improved transiently, now back in the hospital. The patient with failure to thrive. The patient had an MRI of the brain and CAT scan of the chest, abdomen, and pelvis which will be discussed below. SUBJECTIVE: The patient feels weak. She is getting out of bed, in the chair. Her daughter who stays with her throughout the night is with her. I am expecting to see the other daughters today within the next few minutes. We are going to have a family discussion about her management. The patient tells me she feels weak, short of breath on minimal exertion, and when she moves, she does hear gurgling sounds herself when she tries to exert herself from getting up from the chair to go to the bathroom. The patient appears to be mentally awake and alert, but has problems with forgetfulness. The patient has been able to eat. No nausea or vomiting. Very minimal pain, on a scale of 0 to 10, it is around 3/10. Pain is mostly in the back, radiating anteriorly. Denies any pain over the right rib cage area. Recent CAT scan was abnormal. The patient's leg edema is noted, but appears to have decreased. Bowels are moving. No significant abdominal cramps. No chills at this time. PHYSICAL EXAMINATION: VITAL SIGNS: The patient was examined at the bedside. Vital signs appear to be stable. T-max is 98.4, pulse rate is 107, blood pressure is 136/75, respirations are 20, O2 saturation is 95% on nasal cannula 3 liters/minute. HEENT: Head is normocephalic, atraumatic. Conjunctivae are pale. Sclerae are anicteric. Pupils are equally reactive to light and accommodation. Examination of the oropharynx reveals no oropharyngeal lesion. Tongue is moist. No ulcerations are noted. NECK: Supple. There is no adenopathy. No jugular venous distention. LUNGS: Examination of the lungs with decreased breath sounds on the right side posteriorly. Bronchial breath sounds are heard in the right upper lobe. Scattered rhonchi heard bilaterally. Decreased breath sounds are noted in the right lower lobe as well as in the left base as well. CARDIOVASCULAR: Reveals PMI to be in the fifth intercostal space. Tachycardia is noted. S1 and S2 are normal. No definite gallop is heard. ABDOMEN: Mildly distended, nontender. Liver and spleen are not palpable. No rebound, rigidity, or guarding is noted. GENITOURINARY AND RECTAL: Deferred. NEUROLOGIC: Reveals no gross focal deficits. The patient is able to recognize me. She is awake, alert and oriented. Able to recognize all her children who were there, but does have problems with forgetfulness. Lower extremity edema is noted in both lower extremities, 2+, though it appears better than when she came into the hospital. There is no evidence of adenopathy in the neck, axilla or groin. MEDICATIONS: The patient's medications were reviewed. She is on acetylcysteine 4 mL inhaled q. 6 hours, Amitiza 24 mg p.o. b.i.d., DuoNeb 3 mL q. 4 hours. She is on Humulin insulin coverage, potassium 20 mEq daily, Megace 200 mg daily, Mycelex Zeina 10 mg five times a day, nystatin 5 mL four times a day, oxycodone 15 mg p.o. q. 8 hours p.r.n., famotidine 50 mg p.o. at bedtime, Phenergan with Codeine 5 mL q. 6 hours, Solu-Medrol 40 mg q. 8 hours which will be increased to q. 6, levothyroxine 100 mcg p.o. daily, Tessalon 100 mg t.i.d., Zestril 5 mg p.o. daily, Zofran 4 mg IV q. 6 hours p.r.n., piperacillin 3.375 g IV q. 6 hours. LABORATORY DATA: The patient's lab data was reviewed. White count is 75,000, hemoglobin 8.9, hematocrit is 29, platelet count is 319,000. Chemistries were reviewed. Electrolytes are within normal limits. AST is 46, ALT is 45. Alkaline phosphatase is 299, total protein is 6.4, with an albumin of 2.8, which is going down as the patient's appetite has been fair to poor. ASSESSMENT: The patient has progressive metastatic stage IV carcinoma of the lung. Current MRI shows no evidence of recurrent or progressive disease. CAT scan of the chest, abdomen and pelvis, however, shows disease progression in the lung despite the bronchial stenting there, the tumor is going around the bronchus with complete occlusion with now new evidence seen on the CAT scan, progressive disease in the upper lobe, middle lobe and new infiltrate in the left lower lobe and right pleural effusion along with multiple liver metastases plus hyperdense lesions in both kidneys, significance of which is unclear, but could be clearly related to metastatic cancer. The patient is currently being treated for possible urinary tract infection as she had urine that was suggestive of infection based on the number of cells and blood in the urine. The patient definitely has a systemic inflammatory response syndrome. Sepsis is in the differential though the white count could be a leukemoid reaction. Peripheral smear, flow cytometric analysis have all been negative for a primary neoplastic process such as evolving leukemia or lymphoma. I had a detailed discussion with the patient's 4 daughters, who sat down. I also got in a conversation after reaching out to Kelsi Neely. I reached out to from [facility], and we had him on speaker phone and all the daughters could ask all the questions that they needed to ask. At this point in time, they are exploring the possibility. Since mom is getting worse, they requested me to make her do not resuscitate/do not intubate, which I am going to do. They also asked me and requested me to put her back on Namenda or its equivalent for her early confusion while they are exploring the possibility of either inpatient hospice at this point in time or home hospice or a facility hospice which is going to be determined after we discuss in detail tomorrow morning. In the meantime, we are going to be aggressive with her management despite she is do not resuscitate/do not intubate. We are going to aggressively treat her with IV antibiotics, bronchial toilet, aggressive respiratory therapy and hope that some of these are probably infection related. If it is related to Keytruda itself causing some of these changes, then increasing the doses of steroid will also make a difference, so the steroids have been up from 40 mg q. 8 to 40 mg q. 6 while monitoring her blood sugar. Overall, the prognosis of the patient is guarded and family is quite aware of this, and they are appreciative of whatever we are doing for her. The patient herself asked me a lot of pertinent questions and she asked me that if we do stop the treatments directed towards her cancer, would I still be her doctor and would I take care of the pain medicine as she did not want to suffer like her did who apparently had also from cancer and was in significant amount of pain towards the very end. I assured the patient that I will do my very best and that I would be her doctor till the very end. Time spent with the patient and the family more than an hour and half, out of which 50% of the time was spent in face to face contact by talking to the patient; in addition to that, talking to the family, discussing with them all the options that I have aforementioned. Please make a note, this was medically necessary and appropriate visit for this patient. Dr. Alejo is aware of this and he is going to be talking to the family independently from his Pulmonary point of view as well. Julio Bustamante MD
[2017-07-21] MEDS: Acetylcysteine 20% Inhal Soln (4ml) IH SCH ×3 (02:40→20:10)
[2017-07-21] MEDS: Nystatin 100,000 Units/ml Oral Susp 5 ml UD PO SCH ×5 (05:08→22:36)
[2017-07-21] MEDS: Piperacillin/Tazobact 3.375 gm 100 ML IVPB SCH ×3 (05:54→18:01)
[2017-07-21] MEDS: Levothyroxine 100 MCG TAB PO SCH (05:54)
[2017-07-21] MEDS: MethylPREDNISolone 40 mg Vial IVP SCH ×4 (06:25→22:40)
[2017-07-21 06:29] LABS: BASO # 0.07 K/mm3 (0.0-2.0); BASO % 0.1 % (0.0-3.0); GRAN # 72.15 (1.4-6.5); GRAN % 96.3 % (50.0-68.0); HEMOGLOBIN 8.4 g/dL (12.0-16.0); LYMPH # 0.8 (1.2-3.4); LYMPH % 1.1 % (22.0-35.0); MEAN CELL VOLUME 90.9 fl (80.0-105.0); MEAN CORPUSCULAR HEMOGLOBIN 28.2 pg (25.0-35.0); MEAN PLATELET VOLUME 10.2 fl (7.0-11.0); MONO # 1.9 (0.1-0.6); MONO % 2.5 % (1.0-6.0); RBC 2.98 10^6/uL (3.5-6.1); RED CELL DISTRIBUTION WIDTH 19.1 % (11.5-14.5)
[2017-07-21 06:35] LABS: WHITE BLOOD COUNT 74.9 10^3/ul (4.5-11.0)
[2017-07-21 06:48] LABS: ALB/GLOB RATIO 0.8 (1.1-1.8); ALBUMIN 2.7 g/dL (3.0-4.8); ALT/SGPT 48 U/L (7-56); AST/SGOT 44 U/L (14-36); BLOOD UREA NITROGEN 26 mg/dL (7-21); CALCIUM 8.6 mg/dL (8.4-10.5); GFR AFRICAN-AMERICAN > 60; GFR NON-AFRICAN AMERICAN > 60
[2017-07-21] MEDS: Albuterol-Ipratrop 3 mg / 0.5 (3 ml) UD IH PRN (07:59)
[2017-07-21] MEDS: Megestrol Acetate 40 mg/ml Cup PO SCH (09:33)
[2017-07-21] MEDS: Potassium Chloride 20 mEq ER Tab PO SCH (09:33)
[2017-07-21] MEDS: Insulin Reg-LOW-Coverage SC SCH ×4 (09:34→22:41)
[2017-07-21] MEDS: Morphine 2 mg/ml ISec IVP PRN ×2 (12:24→16:18)
[2017-07-21] MEDS ORDERED: oxyCODONE 15 mg Immediate Release Tab PO PRN (12:25)
[2017-07-21 16:48] VITALS: RESP 20
[2017-07-21] MEDS: DiphenhydrAMINE 50 mg/ml Inj IVP SCH (18:00)
--- NOTE | 2017-07-21 19:16 | PN ---
DATE: ONCOLOGY PROGRESS NOTE LOCATION: The patient is in room 365, bed 1. 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 She was admitted to the hospital recently with 3 days of progressive weakness, failure to thrive, and what appears to be symptoms and signs of urinary tract infection. Recent anemia was treated with blood transfusion just less than a week ago, had lower extremity edema, was thought to be a combination of hypoproteinemia from lack of appetite and poor oral caloric intake, was given blood transfusions, improved transiently, now back in the hospital. The patient with failure to thrive. The patient had an MRI of the brain and CAT scan of the chest, abdomen, and pelvis, which will be discussed below. SUBJECTIVE: Subjectively, the patient is able to recognize me, so was able to get some subjective questions answered. The patient is intermittently confused. The family, especially her daughter who was with her throughout the night tells me that mother was very restless throughout the night and she was thinking and talking about the things that did not exist and was doing lot of purposeless movements with fingers suggestive of early onset of progressive change in mental status or involving progressive dementia. The patient was trying to get up to go to the bathroom on her own and had to be calmed down, but she was able to recognize me. She recognized the day and she was able to pronounce my name. The patient has been able to eat and apparently had a decent breakfast this morning. No nausea, no vomiting, very minimal pain in a scale of 0 to 10, at least 3, mostly in the back radiating anteriorly. The patient's leg edema, leg swelling appear to be better. Bowels are moving. No significant abdominal cramps at this time. PHYSICAL EXAMINATION: GENERAL: The patient was examined at the bedside. VITAL SIGNS: Stable. T-max is 98.4, heart rate is 111, blood pressure is 130/72, respirations are 22, O2 sat is 93% on nasal cannula at 3 L/min. HEENT: Head is normocephalic, atraumatic. Conjunctivae are pale. Sclerae are anicteric. Pupils are equally reactive to light and accommodation. Examination of the oropharynx reveals no oropharyngeal lesion. Tongue is moist. No ulcerations are noted. No fungal infection is noted. NECK: Supple. There is no adenopathy. No jugular venous distention noted. LUNGS: Examination of the lungs revealed decreased breath sounds on the right side posteriorly. Bronchial breath sounds are heard in the right upper lobe. Scattered rhonchi heard bilaterally. Decreased breath sounds are noted in the right lower lobe as well as in the left base as well. CARDIOVASCULAR: Examination of the cardiovascular system reveals PMI to be in the fifth intercostal space. Tachycardia is noted. S1 and S2 are normal. No definite gallop is heard. ABDOMEN: Mildly distended. Liver and spleen are not palpable. No rebound, rigidity, or guarding is noted. GENITOURINARY AND RECTAL: Deferred. NEUROLOGIC: The patient has no gross focal deficit. She is able to recognize me. She is awake, alert, and oriented. Able to recognize her children who are there, but does have problems with forgetfulness. EXTREMITIES: Lower extremity edema was noted, but the patient is able to move all 4 extremities. MEDICATIONS: The patient's medications were reviewed. She is on acetylcysteine 4 mL inhaled q. 6 hours, Amitiza 24 mcg b.i.d., DuoNeb 3 mL q. 4 hours, she is on Humulin insulin coverage, potassium 20 mEq daily, Megace 200 mg daily, Mycelex Zeina 10 mg five times a day, nystatin 5 mL four times a day, oxycodone 15 mg q. 8 hours, famotidine 40 mg at bedtime, Phenergan with Codeine 5 mL q. 6 hours, Solu-Medrol 40 mg IV q. 6 hours, levothyroxine 100 mcg daily, Tessalon 100 mg t.i.d., Zestril 5 mg daily, Zofran 4 mg IV every q. 6 hours p.r.n., piperacillin 3.375 g IV q. 6 hours. LABORATORY DATA: Lab data reveals an elevated white count, most likely leukemoid reaction. Peripheral blood flow cytometric is negative for primary neoplastic process of the bone marrow. Labs revealed AST and ALT to be slightly abnormal. Alkaline phosphatase is elevated. Albumin is drifting down , although the patient's appetite has been fair to poor. ASSESSMENT NOTES AND PLAN: The patient has progressive metastatic stage IV adenocarcinoma of the lung. Current MRI of the brain shows no evidence of recurrent or progressive disease. CAT scan of the chest, abdomen, and pelvis shows progressive disease in the lung. Despite the bronchial stenting, the tumor is going around the bronchus with complete occlusion and the new evidence seen on the CAT scan, progressive disease in the right upper lobe, right middle lobe, new infiltrate in the left lower lobe, and right pleural effusion along with multiple liver metastases plus hyperdense lesions in both kidneys, significance of which is unclear, but could clearly be related to metastatic cancer. The patient is currently being treated for possible urinary tract infection as she had urine that was suggestive of infection based on the number of cells and blood in the urine. The patient definitely has a systemic inflammatory response syndrome. Sepsis is in the differential diagnosis, although the white count could be a leukemoid reaction. I had a detailed discussion with the patient's 4 daughters yesterday when I sat down with them and got into a conversation and after that reaching Kelsi Neely. I have spoken to [facility]. The patient's name is Leland who is in-charge of coordinating hospice. The patient is going to be seen by Leland along with the kids. The kids do not want us to tell the mother what the situation was, but the patient asked me specifically what I would do for her and whether I would care for her despite being put on hospice and I told her that we would continue to care for her and make sure she gets whatever she needs medication subramanian except treatment directed towards her cancer. Family is going to decide after talking to them. We also wanted copies of some of the reports, so they can present it to one of the oncologist they know down . I was happy to provide them with that information, so that they could feel comfortable that they were doing the right thing for their mother. In the meantime, we are going to be aggressive with her management despite her being do not resuscitate/do not intubate. We are going to treat her with IV antibiotics, bronchial toilet, aggressive respiratory therapy, and hope that some of these are infection related. It will help her. If it is related to Keytruda causing some of these changes, increasing the dose of steroid will also make a difference. Overall, the prognosis of the patient is guarded and the family is quite aware of this, and they are appreciative of whatever we are doing for her. The patient herself asked me a lot of pertinent questions and I have answered all of it to the best of my ability. She did not want to suffer like her who apparently had also from cancer and was in significant amount of pain towards the very end. I assured her that I will do my very best and that I would be her doctor till the very end. Time spent with the patient and the family was more than an hour and half, out of which more than 50% of the time was spent in [id number] contact talking to the patient; correlating all the information, talking to the other family members, speaking to Dr. Alejo as well, who is the animal care supervisor on the case as well. The patient's family has gotten an input from him as well, as far as the prognosis of the cancer is concerned. Prognosis for the patient is poor and we will wait for further input from the family in which action to proceed. Time spent again more than one and a half hours. Julio Bustamante MD
[2017-07-21] MEDS: Morphine 4 mg/ml ISec IVP PRN (20:30)
--- NOTE | 2017-07-21 23:55 | PN ---
DATE: PULMONARY PROGRESS NOTE REFERRING PHYSICIAN: Rogelio Reed MD. SUBJECTIVE: Patient is sitting up in a chair. Whole family is at bedside. Overnight events noted. Dr. Bustamante had a long discussion with the family, also family met with hospice franchise sales representative. She is having pain, but unable to describe it. On nasal cannula, pulse ox is 94. Mild cough. No sputum production. No hemoptysis. No hematemesis. No hematuria. No diarrhea. Does have leg swelling. PHYSICAL EXAMINATION: GENERAL: In no acute distress. VITAL SIGNS: Temperature is 98, heart rate is 95, respiratory rate is 20, blood pressure 144/98, pulse ox 96% on 3 liters nasal cannula. HEENT: Moist mucous membranes. Crowded airway. NECK: Supple. No JVD. LUNGS: Have decreased breath sounds at the bases, scattered rhonchi. HEART: S1 and S2. ABDOMEN: Soft, nontender. No organomegaly. EXTREMITIES: There is no edema. NEUROLOGIC: Awake and alert. Follows simple commands, but confused at the present time. MEDICATIONS: She is on Mucomyst 20% inhaled q.6 hours, Ambien 5 mg at bedtime p.r.n., Amitiza 25 mcg twice a day p.r.n., Aricept 10 mg at bedtime, Ativan 1 mg q.6 hours, Benadryl 25 mg q.6 hours, DuoNeb q.4 hours p.r.n., potassium 20 mEq daily, Megace 20 mg daily, morphine 2 mg IV q.3 hours p.r.n., Mycelex Zeina 10 mg five times a day, nystatin 5 mL four times a day, oxycodone immediate release 15 mg q.8 hours p.r.n., Pepcid 40 mg daily, promethazine with codeine 5 mL q.6 hours p.r.n., Solu-Medrol 40 mg q.6 hours, Synthroid 100 mcg daily, Tessalon Perles 100 mg three times a day, Zestril 5 mg daily, Zofran p.r.n. basis, and Zosyn 3.375 g q. 6 hours. LABORATORY DATA: Shows hemoglobin 8.4, hematocrit 27.1, WBC 75, platelet count is 287. Sodium 140, potassium 4.1, chloride 102, bicarbonate 29, BUN 26, creatinine 0.8, glucose 165, calcium 8.6. AST 44, ALT 48, alk phos is 325, albumin is 2.7. Microbiology: Blood culture, there is no growth. Urine has Enterococcus faecalis. IMPRESSION AND PLAN: Metastatic lung cancer involving the endobronchial tree, hilar region, liver and kidney, had a bronchial obstruction requiring bronchial stent. Received radiation therapy to right hilar region. Received one cycle of chemotherapy. Also with obstructive lung disease, anemia, hypertension, diabetes, hypothyroid, may have sleep apnea syndrome, has claustrophobia, refused to use continuous positive airway pressure, history of cervical cancer, history of colon cancer in the remote past, recurrent pneumonia. I spoke to Dr. Bustamante this morning. Also, spoke to family at bedside. All their questions answered. Family is in discussion among themselves for further care including possibility of hospice. I spoke to nursing staff in detail. We will give Ativan 1 mg q.6 hours p.r.n. for agitation and anxiety. Continue morphine for the pain. Supplement oxygen. Gastric prophylaxis. Sequential compression devices to lower extremities. Continue supportive care. Overall, poor prognosis. Thank you and we will follow with you. Ashlie Alejo MD
[2017-07-22] MEDS: DiphenhydrAMINE 50 mg/ml Inj IVP SCH ×3 (00:01→12:34)
[2017-07-22] MEDS: Piperacillin/Tazobact 3.375 gm 100 ML IVPB SCH ×5 (00:05→15:46)
--- NOTE | 2017-07-22 01:12 | PN ---
DATE: SUBJECTIVE: The patient is a 66-year-old female. The patient was seen and examined at the bedside, sitting on the chair. Sister was sitting on the bedside. Nurse was standing at the bedside also. This night was a little bit better than previous night. Still coughing, having shortness of breath, but wheezing is less. No hematuria or hematochezia. No fever, no chills. No headache, no dizziness. No dysuria. PHYSICAL EXAMINATION: VITAL SIGNS: Temperature 97.7, pulse 95, blood pressure 144/98, respiratory rate 20. HEENT: Head: Normocephalic and atraumatic. Eyes: PERRLA. Extraocular muscles intact. Conjunctivae clear. Nose: Patent. Mucous membranes moist. NECK: Supple. No carotid bruit, JVD, or thyromegaly. CHEST: Bilaterally symmetrical. HEART: S1, S2 positive. LUNGS: Positive wheezing bilaterally. ABDOMEN: Soft. Bowel sounds present. No organomegaly. EXTREMITIES: No edema, no cyanosis. NEUROLOGIC: The patient is awake, alert. Moving all 4 extremities. No focal deficits. MEDICATIONS: Ambien, Amitiza, Aricept, Ativan, Benadryl, potassium, Megace, morphine, Mycelex. LABORATORY DATA: White blood cell is 74.9, hemoglobin 8.4, hematocrit 27.1, platelet is 287. Sodium 140, potassium 4.1, BUN 26, creatinine 0.8, glucose 155. AST 44, ALT 48. ASSESSMENT AND PLAN: Ms. Aurora Han is a 66-year-old female with leukocytosis, anemia, increased BUN, hyperglycemia, abnormal liver function tests, urinary tract infection, hematuria, had metastatic lung cancer involving the endotracheal tube, hilar mass wrapping around the pulmonary artery, metastatic disease of the liver and kidney, chronic obstructive lung disease, history of smoking, hypertension, hypothyroidism, sleep apnea syndrome, noncompliant with continuous positive airway pressure as the patient is claustrophobic, recurrent pneumonia, history of flu in the past. The patient got radiation therapy to the right hilar area and is having obstruction of the right mainstem bronchus requiring stenting of the right mainstem bronchus sacrifices the right upper lobe and debulking of the tumor. The latest CAT scan suggestive of aggressive tumor involving the multiple organs and urinary tract infection with leukocytosis. In the sputum culture, there is no growth. Blood culture, there is no growth. Infectious Disease is on the case. Today many from [facility] have meeting with the family. Family is talking among themselves. I have length of time discussion done with Dr. Alejo and Dr. Bustamante. Gastrointestinal and deep venous thrombosis prophylaxis, out of bed, physical therapy. We will repeat labs. We will follow up. Kathy Thakur MD
[2017-07-22] MEDS: Acetylcysteine 20% Inhal Soln (4ml) IH SCH ×3 (02:20→13:17)
[2017-07-22] MEDS: Nystatin 100,000 Units/ml Oral Susp 5 ml UD PO SCH ×3 (03:19→15:30)
[2017-07-22] MEDS: Morphine 4 mg/ml ISec IVP PRN ×4 (04:21→15:23)
[2017-07-22] MEDS: MethylPREDNISolone 40 mg Vial IVP SCH ×2 (05:56→14:00)
[2017-07-22] MEDS: Albuterol-Ipratrop 3 mg / 0.5 (3 ml) UD IH PRN ×2 (07:24→13:17)
[2017-07-22] MEDS: Insulin Reg-LOW-Coverage SC SCH ×2 (07:30→15:29)
[2017-07-22] MEDS: Levothyroxine 100 MCG TAB PO SCH (08:14)
[2017-07-22 08:40] LABS: BASO # 0.05 K/mm3 (0.0-2.0); BASO % 0.1 % (0.0-3.0); GRAN # 69.68 (1.4-6.5); GRAN % 96.3 % (50.0-68.0); HEMOGLOBIN 7.8 g/dL (12.0-16.0); LYMPH # 0.7 (1.2-3.4); MEAN CELL VOLUME 90.7 fl (80.0-105.0); MEAN CORPUSCULAR HGB CONC 30.8 g/dl (31.0-37.0); MEAN PLATELET VOLUME 10.4 fl (7.0-11.0); MONO # 1.9 (0.1-0.6); MONO % 2.6 % (1.0-6.0); PLATELET COUNT 248 10^3/uL (120.0-450.0); RBC 2.79 10^6/uL (3.5-6.1); RED CELL DISTRIBUTION WIDTH 18.9 % (11.5-14.5)
[2017-07-22 08:45] LABS: WHITE BLOOD COUNT 72.3 10^3/ul (4.5-11.0)
[2017-07-22 08:58] LABS: ALB/GLOB RATIO 0.8 (1.1-1.8); ALBUMIN 2.5 g/dL (3.0-4.8); ALT/SGPT 47 U/L (7-56); AST/SGOT 46 U/L (14-36); BLOOD UREA NITROGEN 23 mg/dL (7-21); CALCIUM 8.2 mg/dL (8.4-10.5); GFR AFRICAN-AMERICAN > 60; GFR NON-AFRICAN AMERICAN > 60
[2017-07-22 09:09] VITALS: BP 151/100; PULSE 109; TEMP 98.2; O2SAT 95
[2017-07-22 09:23] LABS: BAND 2 % (0-2); LYMPHOCYTE 2 % (22.0-35.0); MONOCYTE 2 % (1.0-6.0); MYELOCYTE 2 %; NEUTROPHIL 92 % (50.0-70.0)
[2017-07-22 09:24] LABS: HYPOCHROMIA 2+; PLATELET ESTIMATE NORMAL (NORMAL); ROULEAU 2+; TOXIC GRANULATION 1+
--- NOTE | 2017-07-22 09:44 | CP.PCM.CON ---
History of Present Illness - History of Present Illness History of Present Illness: Palliative consult requested by Dr Leonor Bustamante Reason : Goals of care 66 year old female with history of metastatic lung cancer, s/p endo bronchial stent who presented with increasing shortness of breath and non productive cough. She denied nausea, vomiting, chills,diarrhea and fever. Chest x ray showed right lung infiltrate.Labs, leukocytosis, anemia, elevated LFT's. PMHx: metastatic lung cancer, s/p endo bronchial stent, s/p chemo and radiation therapy, COPD, anemia, Social History: Former smoker, no alcohol or drug use. Lives with family Family History: Non contributory Advance Care Planning: She does not have an Advanced Directive. She is DNR/DNI Review of Systems: As per HPI, otherwise negative Past Patient History - Infectious Disease Hx of Infectious Diseases: None - Tetanus Immunizations Tetanus Immunization: Unknown - Past Medical History & Family History Past Medical History?: Yes - Past Social History Smoking Status: Former Smoker - CARDIAC Hx Cardiac Disorders: Yes Hx Hypertension: Yes - PULMONARY Hx Respiratory Disorders: Yes Hx Pneumonia: Yes Other/Comment: lung mass found on cxr - NEUROLOGICAL Hx Neurological Disorder: No - HEENT Hx HEENT Problems: Yes (glasses, itchy eyes) - RENAL Hx Chronic Kidney Disease: No - ENDOCRINE/METABOLIC Hx Diabetes Mellitus Type 2: Yes Hx Hypothyroidism: Yes - HEMATOLOGICAL/ONCOLOGICAL Hx Blood Disorders: Yes Hx Cancer: Yes (COLON 2009, colectomy; Lung) Hx Chemotherapy: Yes (05/07/2017) Other/Comment: recently dx with lung ca, lung bx done. radiation done today - INTEGUMENTARY Hx Dermatological Problems: No - MUSCULOSKELETAL/RHEUMATOLOGICAL Hx Musculoskeletal Disorders: No Hx Falls: Yes - GASTROINTESTINAL Hx Gastrointestinal Disorders: Yes Other/Comment: colon ca in remission as of 2018 - GENITOURINARY/GYNECOLOGICAL Hx Genitourinary Disorders: Yes Other/Comment: HX OVARIAN CYSTECTOMY OPEN 1997 HYSTERECTOMY OCTOBER 2013 - PSYCHIATRIC Hx Psychophysiologic Disorder: No Hx Substance Use: No - SURGICAL HISTORY Hx Cholecystectomy: Yes Hx Hysterectomy: Yes Other/Comment: Ovarian Cyst sx, lcw pac in and out, c section, tubal. Colon Sx. Lung biopsy. s/p stent right bronchus placement. R chest port - ANESTHESIA Hx Anesthesia: Yes Hx Anesthesia Reactions: Yes (NAUSEA VOMITTING) Hx Malignant Hyperthermia: No Meds Allergies/Adverse Reactions: Allergies Allergy/AdvReac Type Severity Reaction Status Date / Time No Known Allergies Allergy Verified 07/17/17 17:58 - Medications Medications: Current Medications Acetylcysteine (Acetylcysteine 20%) 4 ml IH Q6H [facility] Last Admin: 07/22/17 07:24 Dose: 4 ml Albuterol/Ipratropium (Duoneb 3 Mg/0.5 Mg (3 Ml) Ud) 3 ml IH [id number] PRN PRN Reason: Shortness of Breath Last Admin: 07/22/17 07:24 Dose: 3 ml Benzonatate (Tessalon Perles) 100 mg PO TID [facility] Last Admin: 07/21/17 18:00 Dose: 100 mg Clotrimazole (Mycelex Zeina) 10 mg MT 5XD [facility] Last Admin: 07/22/17 08:13 Dose: Not Given Diphenhydramine HCl (Benadryl) 25 mg IVP Q6 [facility] Last Admin: 07/22/17 05:57 Dose: 25 mg Donepezil HCl (Aricept) 10 mg PO HS [facility] Last Admin: 07/22/17 03:17 Dose: Not Given Famotidine (Pepcid) 40 mg PO HS [facility] Last Admin: 07/22/17 03:19 Dose: Not Given Home Med (Home Med) 1 unit PO BID PRN PRN Reason: Constipation Piperacillin Sod/Tazobactam Sod (Zosyn 3.375 In Ns 100ml) 100 mls @ 200 mls/hr IVPB Q6 [facility] PRN Reason: Protocol Stop: 07/25/17 06:16 Last Admin: 07/22/17 05:59 Dose: 200 mls/hr Insulin Human Regular (Humulin R Low) 0 units SC ACHS [facility] PRN Reason: Protocol Last Admin: 07/21/17 22:41 Dose: Not Given Levothyroxine Sodium (Synthroid) 100 mcg PO 0600 [facility] Last Admin: 07/22/17 08:14 Dose: Not Given Lisinopril (Zestril) 5 mg PO DAILY [facility] Last Admin: 07/21/17 09:34 Dose: 5 mg Lorazepam (Ativan) 1 mg IVP Q6H [facility] PRN Reason: Protocol Last Admin: 07/22/17 05:54 Dose: 1 mg Megestrol Acetate (Megace) 200 mg PO DAILY [facility] Last Admin: 07/21/17 09:33 Dose: 200 mg Methylprednisolone (Solu-Medrol) 40 mg IVP Q8 [facility] Last Admin: 07/22/17 05:56 Dose: 40 mg Morphine Sulfate (Morphine) 2 mg IVP Q3H PRN PRN Reason: Pain, severe (8-10) Last Admin: 07/22/17 08:08 Dose: 2 mg Amitiza 24 Mcg ((Home Med)) 24 mcg PO BID PRN PRN Reason: Constipation Nystatin (Nystatin Oral Susp) 5 ml PO QID [facility] Last Admin: 07/22/17 03:19 Dose: Not Given Ondansetron HCl (Zofran Inj) 4 mg IVP Q6H PRN PRN Reason: Nausea/Vomiting Oxycodone HCl (Oxycodone Immediate Release Tab) 15 mg PO Q8H PRN PRN Reason: Pain, moderate (4-7) Potassium Chloride (K-Dur 20 Meq Er Tab) 20 meq PO DAILY [facility] Last Admin: 07/21/17 09:33 Dose: 20 meq Promethazine HCl/Codeine (Phenergan/Codeine Oral Syrup) 5 ml PO Q6H PRN PRN Reason: Cough Last Admin: 07/20/17 18:42 Dose: 5 ml Zolpidem Tartrate (Ambien) 5 mg PO HS PRN; Protocol PRN Reason: Insomnia Last Admin: 07/20/17 22:30 Dose: 5 mg Physical Exam - Constitutional Appears: Cachectic, Chronically Ill - Head Exam Head Exam: NORMAL INSPECTION - Eye Exam Eye Exam: Normal appearance, PERRL - ENT Exam ENT Exam: Mucous Membranes Moist - Neck Exam Neck exam: Positive for: Normal Inspection - Respiratory Exam Respiratory Exam: Accessory Muscle Use, Decreased Breath Sounds, Rhonchi - Cardiovascular Exam Cardiovascular Exam: REGULAR RHYTHM, +S1, +S2 - GI/Abdominal Exam GI & Abdominal Exam: Diminished Bowel Sounds, Soft - Extremities Exam Extremities exam: Positive for: pedal edema, pedal pulses present - Back Exam Back exam: NORMAL INSPECTION - Neurological Exam Neurological exam: Altered - Skin Skin Exam: Dry, Pallor - Additional Findings Additional findings: Palliative performance scale rating 30 % Results - Vital Signs Recent Vital Signs: Last Vital Signs Temp 98.2 F 07/22/17 09:09 Pulse 109 H 07/22/17 09:09 Resp 20 07/22/17 09:09 BP 151/100 H 07/22/17 09:09 Pulse Ox 95 07/22/17 09:09 - Labs Result Diagrams: 07/22/17 08:18 07/22/17 08:18 Labs: Laboratory Results - last 24 hr 07/21/17 07/21/17 07/21/17 12:07 16:31 21:26 WBC RBC Hgb Hct MCV MCH MCHC RDW Plt Count MPV Gran % Lymph % (Auto) Potter % (Auto) Eos % (Auto) Baso % (Auto) Gran # Lymph # (Auto) Potter # (Auto) Eos # (Auto) Baso # (Auto) Neutrophils % (Manual) Band Neutrophils % Lymphocytes % (Manual) Monocytes % (Manual) Myelocytes % Toxic Granulation Platelet Evaluation Hypochromasia Rouleaux Sodium Potassium Chloride Carbon Dioxide Anion Gap BUN Creatinine Est GFR ( Amer) Est GFR (Non-Af Amer) POC Glucose (mg/dL) 228 H 165 H 170 H Random Glucose Calcium Total Bilirubin AST ALT Alkaline Phosphatase Total Protein Albumin Globulin Albumin/Globulin Ratio 07/22/17 07/22/17 07/22/17 07:40 08:18 08:18 WBC 72.3 H* RBC 2.79 L Hgb 7.8 L Hct 25.3 L MCV 90.7 MCH 28.0 MCHC 30.8 L RDW 18.9 H Plt Count 248 MPV 10.4 Gran % 96.3 H Lymph % (Auto) 1.0 L Potter % (Auto) 2.6 Eos % (Auto) 0.0 L Baso % (Auto) 0.1 Gran # 69.68 H Lymph # (Auto) 0.7 L Potter # (Auto) 1.9 H Eos # (Auto) 0.0 Baso # (Auto) 0.05 Neutrophils % (Manual) 92 H Band Neutrophils % 2 Lymphocytes % (Manual) 2 L Monocytes % (Manual) 2 Myelocytes % 2 Toxic Granulation 1+ Platelet Evaluation Normal Hypochromasia 2+ Rouleaux 2+ Sodium 143 Potassium 4.0 Chloride 106 Carbon Dioxide 28 Anion Gap 13 BUN 23 H Creatinine 0.8 Est GFR ( Amer) > 60 Est GFR (Non-Af Amer) > 60 POC Glucose (mg/dL) 185 H Random Glucose 177 H Calcium 8.2 L Total Bilirubin 0.8 AST 46 H ALT 47 Alkaline Phosphatase 297 H Total Protein 5.6 L Albumin 2.5 L Globulin 3.1 Albumin/Globulin Ratio 0.8 L Assessment & Plan - Assessment and Plan (Free Text) Assessment: 66 year old female with history of metastatic lung cancer s/p end bronchial stent, chemo and radiation who was admitted with sepsis, right lung infiltrate, dyspnea, diffuse generalized body pain. The patient is extremely lethargic.She is dyspneic. Upper airway congestion with non productive cough.She is refusing High flow O2 therapy. She complains of diffuse body pain. She rates pain at level of 9. Her appetite is poor. Patients family at bedside.The family has been in discussion with [facility] distance education faculty liaison over the weekend. Family is concerned at patient increasing debility, shortness of breath and pain. They wish to proceed with hospice care. Requesting that patient be evaluated for [facility] hospice services for symptom management. Psychosocial.support provided. Time spent in goals of care and end of life discussion with family, 45 minutes Plan: Hospice evaluation for [facility] services Pain management: Would start Morphine PERINATAL DIRECTOR at 2 mg/hr continuos IV infusion. Discontinue Oxycodone IR and Morphine IV PRN dosing Restlessness: Ativan 0.5 mg IV as needed every 6 hours Dyspnea : O2 nasal cannula. Nebulizers. Psychosocial support
--- NOTE | 2017-07-22 09:49 | PN ---
DATE: 07/19/2017 SUBJECTIVE: The patient is a 66-year-old female. The patient was seen and examined at the bedside. Looking comfortable. No nausea, vomiting or diarrhea. No hematuria or hematochezia. No swelling of the leg. No chest pain. No palpitation. No headache. No dizziness. The patient went for MRA of the head, reviewed by me. PHYSICAL EXAMINATION: VITAL SIGNS: Temperature 97.9, pulse 86, blood pressure 136/83, respiratory rate 20. HEENT: Head normocephalic, atraumatic. Eyes PERRLA. Extraocular muscles intact. Conjunctivae clear. Nose patent. Mucous membrane moist. NECK: Supple. No carotid bruit. No JVD or thyromegaly. CHEST: Bilaterally symmetrical. HEART: S1 and S2 positive. LUNGS: Clear to auscultation. ABDOMEN: Soft. Bowel sounds positive. No organomegaly. EXTREMITIES: No edema. No cyanosis. NEUROLOGIC: The patient is awake and alert. Moving all 4 extremities. No focal deficits. LABORATORY DATA: White blood cell is 62.7, hemoglobin 8.4, hematocrit 27.4, platelets 337. Sodium 139, potassium 3.8, BUN 14, creatinine 0.7, glucose 178, calcium 7.9. AST 41, alkaline phosphatase 245. MEDICATIONS: Amitiza ,DuoNeb, insulin, K-Dur, Megace, clotrimazole, nystatin, oxycodone, Pepcid, promethazine, Solu-Medrol, Synthroid, Zestril, Zofran, Zosyn. ASSESSMENT AND PLAN: Patient is a 66-year-old lady with leukocytosis, anemia, hyperglycemia, hypocalcemia, abnormal liver function test, proteinuria, hematuria, went for MRA of the brain, reviewed by me. She asked for x-rays. According to Dr. Kemp, interval development of the left mid lung atelectasis, stable appearance of the right perihilar and infrahilar mass lesion with partial atelectasis of the right lung and small pleural effusion. The patient has metastatic lung cancer involving the endotracheal tree requiring bronchial stent, history of colon cancer in the past, history of cervical cancer in the remote past. She is on chemotherapy at the time. History of radiation therapy for hilar mass, endotracheal lesion, ended up getting bronchial stent. Also, has chronic obstructive lung disease, now has urinary tract infection, black hairy tongue. Dr. Alejo is on the case. Continue steroid. According to Dr. Alejo, if atelectasis persists, will need bronchoscopy to clear the secretions. Length of time discussion done with the family at different times. All questions answered. Gastrointestinal, deep venous thrombosis prophylaxis. Repeat labs. We will follow up. Kathy Thakur MD [facility]
[2017-07-22] MEDS: Potassium Chloride 20 mEq ER Tab PO SCH (10:00)
[2017-07-22] MEDS: Megestrol Acetate 40 mg/ml Cup PO SCH (10:00)
[2017-07-22] MEDS ORDERED: Thiamine 100 mg/ml Inj IV SCH (13:30)
--- NOTE | 2017-07-22 13:36 | CP.PCM.PN ---
<Pacheco Flores - Last Filed: 07/22/17 13:29> Subjective - Date & Time of Evaluation Date of Evaluation: 07/22/17 Time of Evaluation: 07:30 - Subjective Subjective: Pacheco Flores D.O. PGY-2, Progress Note 66 year old female with a PMH of Stage IV non-small cell lung CA, HTN, COPD, DM , and a history of previous colon and cervical CA s/p resections who presented to [facility] because of hematuria for 1 day. Patient was seen and examined at bedside with daughters present. Patient agitated, uncomfortable appearing, not verbal. Discussion has been had with hospice and patient will be evaluated. Objective - Vital Signs/Intake and Output Vital Signs (last 24 hours): Temp Pulse Resp BP Pulse Ox 98.2 F 109 H 20 151/100 H 95 07/22/17 09:09 07/22/17 09:09 07/22/17 09:09 07/22/17 09:09 07/22/17 09:09 Intake and Output: 07/22/17 07/22/17 06:59 18:59 Intake Total 120 Balance 120 - Medications Medications: Current Medications Acetylcysteine (Acetylcysteine 20%) 4 ml IH Q6H [facility] Last Admin: 07/22/17 13:17 Dose: 4 ml Albuterol/Ipratropium (Duoneb 3 Mg/0.5 Mg (3 Ml) Ud) 3 ml IH [id number] PRN PRN Reason: Shortness of Breath Last Admin: 07/22/17 13:17 Dose: 3 ml Benzonatate (Tessalon Perles) 100 mg PO TID [facility] Last Admin: 07/21/17 18:00 Dose: 100 mg Clotrimazole (Mycelex Zeina) 10 mg MT 5XD [facility] Last Admin: 07/22/17 08:13 Dose: Not Given Diphenhydramine HCl (Benadryl) 25 mg IVP Q6 [facility] Last Admin: 07/22/17 12:34 Dose: 25 mg Donepezil HCl (Aricept) 10 mg PO HS [facility] Last Admin: 07/22/17 03:17 Dose: Not Given Famotidine (Pepcid) 40 mg PO HS [facility] Last Admin: 07/22/17 03:19 Dose: Not Given Home Med (Home Med) 1 unit PO BID PRN PRN Reason: Constipation Piperacillin Sod/Tazobactam Sod (Zosyn 3.375 In Ns 100ml) 100 mls @ 200 mls/hr IVPB Q6 [facility] PRN Reason: Protocol Stop: 07/25/17 06:16 Last Admin: 07/22/17 05:59 Dose: 200 mls/hr Insulin Human Regular (Humulin R Low) 0 units SC ACHS [facility] PRN Reason: Protocol Last Admin: 07/21/17 22:41 Dose: Not Given Levothyroxine Sodium (Synthroid) 100 mcg PO 0600 [facility] Last Admin: 07/22/17 08:14 Dose: Not Given Lisinopril (Zestril) 5 mg PO DAILY [facility] Last Admin: 07/21/17 09:34 Dose: 5 mg Lorazepam (Ativan) 1 mg IVP Q6H [facility] PRN Reason: Protocol Last Admin: 07/22/17 12:35 Dose: 1 mg Megestrol Acetate (Megace) 200 mg PO DAILY [facility] Last Admin: 07/22/17 10:00 Dose: Not Given Methylprednisolone (Solu-Medrol) 40 mg IVP Q8 [facility] Last Admin: 07/22/17 05:56 Dose: 40 mg Morphine Sulfate (Morphine) 2 mg IVP Q3H PRN PRN Reason: Pain, severe (8-10) Last Admin: 07/22/17 11:16 Dose: 2 mg Amitiza 24 Mcg ((Home Med)) 24 mcg PO BID PRN PRN Reason: Constipation Nystatin (Nystatin Oral Susp) 5 ml PO QID [facility] Last Admin: 07/22/17 03:19 Dose: Not Given Ondansetron HCl (Zofran Inj) 4 mg IVP Q6H PRN PRN Reason: Nausea/Vomiting Oxycodone HCl (Oxycodone Immediate Release Tab) 15 mg PO Q8H PRN PRN Reason: Pain, moderate (4-7) Potassium Chloride (K-Dur 20 Meq Er Tab) 20 meq PO DAILY [facility] Last Admin: 07/22/17 10:00 Dose: Not Given Promethazine HCl/Codeine (Phenergan/Codeine Oral Syrup) 5 ml PO Q6H PRN PRN Reason: Cough Last Admin: 07/20/17 18:42 Dose: 5 ml Thiamine HCl (Vitamin B1 Inj) 100 mg IV DAILY [facility] Zolpidem Tartrate (Ambien) 5 mg PO HS PRN; Protocol PRN Reason: Insomnia Last Admin: 07/20/17 22:30 Dose: 5 mg - Labs Labs: 07/22/17 08:18 07/22/17 08:18 PT 20.3 SECONDS (9.4-12.5) H 07/18/17 06:30 INR 1.75 (0.93-1.08) H 07/18/17 06:30 APTT 57.3 Seconds (25.1-36.5) H 07/17/17 18:38 - Constitutional Appears: Agitated, Non-verbal, Chronically Ill - Head Exam Head Exam: ATRAUMATIC, NORMOCEPHALIC - Eye Exam Eye Exam: EOMI, PERRL - ENT Exam ENT Exam: Mucous Membranes Dry - Neck Exam Neck Exam: Normal Inspection, no JVD - Respiratory Exam Respiratory Exam: Clear to Ausculation Bilateral, Rhonchi, Wheezes - Cardiovascular Exam Cardiovascular Exam: RRR, +S1, +S2 - GI/Abdominal Exam GI & Abdominal Exam: Soft, Normal Bowel Sounds. absent: Distended, Tenderness - Neurological Exam Neurological Exam: Alert, Awake, nonverbal - Psychiatric Exam Psychiatric exam: Normal Affect, Normal Mood - Skin Skin Exam: Dry, Warm Assessment and Plan - Assessment and Plan (Free Text) Assessment: 66 year old female with a PMH of Stage IV non-small cell lung CA with metastases , HTN, COPD, DM, and a history of previous colon and cervical CA s/p resections who presented to [facility] because of hematuria for 1 day. Plan: Hematuria Urinary tract infection Confusion Severe leukocytosis Oral candidaisis Stage IV lung CA with intrabronchial lesion s/p intrabronchial stent at [facility] HTN COPD DM Low appetite Hx colon and cervical CA s/p resection ID following, currently on zosyn, urine culture shows E faecalis Pulmonary following, recs appreciated, continue pulmonary toilet Continue pain control Overall prognosis is very poor, hospice evaluation underway, family discussions undergoing, plan for comfort care transition Patient was seen and examined and case was discussed at length with attending physician. <Julio Bustamante P - Last Filed: 07/26/17 21:51> Objective - Vital Signs/Intake and Output Vital Signs (last 24 hours): Temp Pulse Resp BP Pulse Ox 98.2 F 109 H 20 151/100 H 95 07/22/17 09:09 07/22/17 09:09 07/22/17 09:09 07/22/17 09:09 07/22/17 09:09 - Labs Labs: 07/22/17 08:18 07/22/17 08:18 PT 20.3 SECONDS (9.4-12.5) H 07/18/17 06:30 INR 1.75 (0.93-1.08) H 07/18/17 06:30 APTT 57.3 Seconds (25.1-36.5) H 07/17/17 18:38 Attending/Attestation - Attestation I have personally seen and examined this patient.: Yes I have fully participated in the care of the patient.: Yes I have reviewed all pertinent clinical information, including history, physical exam and plan: Yes
--- NOTE | 2017-07-22 15:05 | CON ---
DATE: 07/22/2017 NEUROLOGY CONSULTATION CHIEF COMPLAINT: Altered mental status. HISTORY OF PRESENT ILLNESS: This is a 66-year-old woman with history of metastatic progressive stage IV [id number] carcinoma of the lung, adenocarcinoma; documented brain mets, status post whole brain radiation; documented bone metastasis, status post radiation to the thoracic spine and left shoulder, status post endobronchial stent who presented with increased shortness of breath and nonproductive cough. A chest x-ray showing right lung infiltrate and labs showing leukocytosis, anemia, and elevated LFTs. I was consulted for altered mental status. The patient has poor p.o. intake. Her current MRI of the brain showed no evidence of any recurrent or progressive disease. CAT scan of the chest, abdomen, and pelvis shows progressive disease in the lung despite bronchial stenting, tumor is going around the bronchus with complete occlusion and also fluctuating elevated blood pressures. Case discussed with the family. The patient has diffuse generalized body pain. She is very lethargic, dyspneic. At this time, discussion ongoing about [facility] with palliative care. At this time, we will recommend to keep her comfortable. PAST MEDICAL HISTORY: History of progressive metastatic stage IV adenocarcinoma of the lung, status post endobronchial stent; hypertension. REVIEW OF SYSTEMS: Fourteen-point review of systems negative except in the HPI. ALLERGIES: NO KNOWN DRUG ALLERGIES. MEDICATIONS: Reviewed by nurse's reconciliation sheet. FAMILY HISTORY: Noncontributory. PHYSICAL EXAMINATION: GENERAL: The patient is sitting up in bed, drowsy, dyspneic, lethargic. VITAL SIGNS: Temperature is 98.2, pulse rate of 109, blood pressure 151/100, respiratory rate 20, oxygen saturation 95% by room air. HEENT: Head is atraumatic, normocephalic. PERRLA. Extraocular muscles intact. NECK: Supple. No JVD, no adenopathy noted. LUNGS: Decreased breath sounds on the right side posteriorly and bronchial breath sounds heard in the right upper lobe. Scattered rhonchi heard as well. Decreased breath sounds also noted in the right lower lobe. HEART: S1 and S2. Tachycardia. No murmurs. ABDOMEN: Soft, nontender, nondistended. Bowel sounds present. EXTREMITIES: No clubbing. No cyanosis. Peripheral pulses 2+ felt bilaterally. Has edema in the lower extremities. NEUROLOGIC: The patient is drowsy, does follows simple commands. Decreased attention and slow thought process. Cranial nerves II through XII are intact. Motor: Moves all extremities equally. Sensory: Decreased light touch and pinprick up to the calves bilaterally. Coordination and gait deferred for now. LABORATORY DATA: Sodium is 143, potassium 4, chloride 106, carbon dioxide 28, BUN of 22, creatinine 0.8, random glucose 177. ASSESSMENT AND PLAN: This is a 66-year-old woman with metastatic lung cancer, status post endobronchial stent, chemotherapy and radiation, whole brain radiation as well as thoracic radiation as well as to left shoulder, who presented with sepsis, right lung infiltrate, dyspnea, and diffuse generalized body pain. I was consulted for change in mental status and confusion. Her confusion is secondary to underlying metastatic lung cancer. MRI of the brain showed no new metastatic lesions at all and is stable. She has poor p.o. intake, which makes the patient very deconditioned and has elevated blood pressures, which can also affect mental status change. At this time, I recommend: 1. Hospice evaluation. 2. Pain management for comfort care. 3. We will consider some thiamine 100 mg IV b.i.d. for neural activation. 4. Continue with Oncology and respiratory management. Thank you for this consult. Case discussed with the family in detail. Ck Frankel MD
[2017-07-22] MEDS ORDERED: Morphine 2 mg/ml ISec IM STA (15:18)
--- NOTE | 2017-07-22 16:03 | CP.PCM.PN ---
<Tavia Jose - Last Filed: 07/22/17 15:59> Subjective - Date & Time of Evaluation Date of Evaluation: 07/22/17 Time of Evaluation: 11:40 - Subjective Subjective: Chief complaint: UTI, CVA tenderness 66 yr female with history of DM II, failure to thrive, stage IV non- small cell Lung CA (s/p radation w. metastatic disease), ovarian cystectomy, & colon CA (w. colectomy). Pt was admitted [place] [facility] [place] episode of [place]uria following treatment of flu with a course of tamiflu, doxycyline, & outpatient transfusion of 2 units PRBCs. Today, pt seen at bedside surrounded by family. Pt is a poor historian. L sided tenderness noted. Objective - Vital Signs/Intake and Output Vital Signs (last 24 hours): Temp Pulse Resp BP Pulse Ox 98.2 F 109 H 20 151/100 H 95 07/22/17 09:09 07/22/17 09:09 07/22/17 09:09 07/22/17 09:09 07/22/17 09:09 Intake and Output: 07/22/17 07/22/17 06:59 18:59 Intake Total 120 Balance 120 - Labs Labs: 07/22/17 08:18 07/22/17 08:18 PT 20.3 SECONDS (9.4-12.5) H 07/18/17 06:30 INR 1.75 (0.93-1.08) H 07/18/17 06:30 APTT 57.3 Seconds (25.1-36.5) H 07/17/17 18:38 - Constitutional Appears: Older Than Stated Age, Chronically Ill - Head Exam Head Exam: ATRAUMATIC, NORMAL INSPECTION, NORMOCEPHALIC - Eye Exam Eye Exam: EOMI, Normal appearance, PERRL Pupil Exam: NORMAL ACCOMODATION, PERRL - ENT Exam ENT Exam: Mucous Membranes Moist, Normal Exam - Neck Exam Neck Exam: Full ROM, Normal Inspection. absent: Lymphadenopathy - Respiratory Exam Respiratory Exam: Clear to Ausculation Bilateral, NORMAL BREATHING PATTERN - Cardiovascular Exam Cardiovascular Exam: REGULAR RHYTHM, +S1, +S2. absent: Murmur - GI/Abdominal Exam GI & Abdominal Exam: Soft, Normal Bowel Sounds. absent: Tenderness - Extremities Exam Extremities Exam: Full ROM, Normal Capillary Refill, Normal Inspection. absent : Joint Swelling, Pedal Edema - Back Exam Back Exam: NORMAL INSPECTION - Neurological Exam Neurological Exam: Alert - Psychiatric Exam Psychiatric exam: Normal Affect, Normal Mood - Skin Skin Exam: Dry, Intact, Normal Color, Warm Assessment and Plan (1) Fracture of ribs, seven Status: Acute (2) Metastatic breast cancer Status: Acute (3) Leukocytosis Status: Acute (4) UTI (urinary tract infection) Status: Acute (5) Anemia Status: Chronic (6) Hemoptysis Status: Chronic (7) Lung mass Status: Chronic (8) Fever Status: Resolved (9) Pneumonia Status: Resolved - Assessment and Plan (Free Text) Plan: Hospice evaluation pending. Pain management and comfort care. IV solumedryl. IV zosyn. VTE/GI prophlyaxis. R mediport in place. PT/OT on board. pain mgmnt: morphine IVP. 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 [facility] - Dr. Jostin PARKS - Dr. García Pulmo - Dr. Alejo Reviewed: Brain MRI = no evidence of metastatic disease CXR = L mid lung atelectasis, stable appearance of R perihilar & infrahilar mass lesion w. partial atelectasis of R lung & small pleural effusion CT abd/pelvis = diffuse metastatic disease, extensive lesion in the liver, kidney bilaterally, suspicious for disffuse liver and bilateral renal sarah, R anterior chest wall mass (6cm), destruction of R 7th rib, 2 paramediastinal masses R upper lobe, diffuse collapse or R upper lobe, extensive R axilllary lymphadeopathy, R breast thickening, suggestive metastatic breast cancer, billary stent, biliary duct dilation ECG = ST w short MO, poor R progression V1-V3 <Kathy Thakur - Last Filed: 07/23/17 17:23> Objective - Vital Signs/Intake and Output Vital Signs (last 24 hours): Temp Pulse Resp BP Pulse Ox 98.2 F 109 H 20 151/100 H 95 07/22/17 09:09 07/22/17 09:09 07/22/17 09:09 07/22/17 09:09 07/22/17 09:09 - Labs Labs: 07/22/17 08:18 07/22/17 08:18 PT 20.3 SECONDS (9.4-12.5) H 07/18/17 06:30 INR 1.75 (0.93-1.08) H 07/18/17 06:30 APTT 57.3 Seconds (25.1-36.5) H 07/17/17 18:38 Assessment and Plan - Assessment and Plan (Free Text) Plan: 66 yr female with history of DM II, failure to thrive, stage IV non- small cell Lung CA (s/p radation w. metastatic disease), ovarian cystectomy, & colon CA (w. colectomy). Pt was admitted to [facility] an episode of hematuria following treatment of flu with a course of tamiflu, doxycyline, & outpatient transfusion of 2 units PRBCs. Today, pt seen at bedside surrounded by family. Pt is a poor historian. L sided tenderness noted. pt is seen and examined at bed side , looking comfortable , agreed all above , chart meds and labs noted , will f/u
--- NOTE | 2017-07-23 15:28 | PQF SEPSIS ---
07/23/17 Dr. Garza, Sepsis is documented on consult of 07/22 and on progress notes of 07/20 and 07/21; "rule out sepsis" is documented on progress of 07/19 and 07/20. Did patient have systemic sepsis? If so, was this present on admission? Thank you. Clarification of your documentation is requested to better reflect the severity of illness and intensity of treatment of your patient. Indicators present [] Temp < 96.8 or > 100.4 [] WBC count > 12,000/mm3 or <000/mm3 or 10% immature neutrophils [] Heart Rate > 90 [] Respiratory Rate > 20 [] Fever or hypothermia [] Chills [] Positive blood cultures [] Hypotension [] Metabolic acidosis (Elevated lactate level, anion gap or reduced blood pH) [] Acute confusion /Altered Mental Status [] Shock [] Other: [] Location in the medical record that reflects the above clinical findings: [] Treatment Provided: [] PHYSICIAN'S RESPONSE Based on your medical judgment of the clinical indicators outlined above, are you treating this patient for a known or suspected: [] Sepsis / Septicemia Please specify organism if known [] [x] SIRS (Systemic Inflammatory Response Syndrome) [] Severe Sepsis (Sepsis with Associated Organ Dysfunction) [] Fever of Unknown Origin [] Other, please indicate: [] [] If Unable to Determine, please check the box, sign and date. Present On Admission (POA) Indicator: [] Present at the time of admission [] Not present at the time of admission [x] Clinically Undetermined In responding to this query, please exercise your independent professional judgment. The fact that a question is asked does not imply that any particular answer is desired or expected. Thank you for your clarification on this documentation. If you have any questions please call:[ ] * Thank you, [ ] electric brain wave equipment mechanic OVI
--- NOTE | 2017-07-24 02:24 | PN ---
DATE: LOCATION: The patient is in room #365, bed 2. SUBJECTIVE: Currently, the patient is in hospice with supportive care only. This is a 66-year-old female with progressive stage IV metastatic non-small cell carcinoma of the lung with progressive disease in the lung, liver, and the bowel, with progressive worsening shortness of breath, malaise, failure to thrive, progressing despite being aggressive with chemotherapy, placement of endobronchial stent. After discussing with the family over the weekend, it was decided to keep the patient comfortable, as she was getting progressively confused as well. The patient has been transferred over to inpatient hospice as of yesterday. The whole family is at the bedside with all the daughters present. 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 PHYSICAL EXAMINATION: VITAL SIGNS: T-max is 98.4, pulse is 109, respirations 20, blood pressure 151/100, and pulse ox is 98%. MEDICATIONS: The patient's medications were reviewed, and currently the patient is on just supportive care alone. The patient's medications on hospice were also reviewed to see if any changes needed to be made on the current medications. The patient is on Ativan 1 mg q.6 hours, Benadryl 25 mg IV q.6 hours, morphine sulfate 2 mg an hour, Solu-Medrol 40 mg q.12 hours, transdermal scopolamine patch q.3 days, and Tylenol p.r.n. for pain. ASSESSMENT NOTES AND PLAN: I had a lengthy talk with the family, counseled them for several minutes. Prognosis is imminent. The patient is going to have a study done during her course over the next 24 hours. We will continue supportive care at this point in time and keep the patient pain-free and less agitated as is feasible. Time spent with the family was more than 45 minutes. Julio Bustamante MD
--- NOTE | 2017-07-24 10:52 | CP.PCM.DIS ---
<Pacheco Flores - Last Filed: 07/24/17 10:47> Provider - Provider Date of Admission: 07/17/17 19:55 Attending physician: Rogelio Reed MD Primary care physician: Kathy Thakur MD Consults: Pulm Dr. Alejo ID Dr. García Neuro Dr. Frankel Time Spent in preparation of Discharge (in minutes): 65 Diagnosis - Discharge Diagnosis (1) Non-small cell carcinoma of lung, stage 4 Status: Acute Priority: High (2) Leukocytosis Status: Acute (3) UTI (urinary tract infection) Status: Acute Priority: High (4) Lung mass Status: Chronic Priority: High Hospital Course - Lab Results Lab Results: Micro Results 07/17/17 20:20 Blood-Venous Blood Culture - Final NO GROWTH AFTER 5 DAYS 07/17/17 20:20 Blood-Venous Gram Stain - Final TEST NOT PERFORMED 07/17/17 20:10 Sputum Gram Stain - Final 07/17/17 20:10 Sputum Sputum Culture - Final NORMAL ORAL KATHARINE Most Recent Lab Values WBC 72.3 10^3/ul (4.5-11.0) H* 07/22/17 08:18 RBC 2.79 10^6/uL (3.5-6.1) L 07/22/17 08:18 Hgb 7.8 g/dL (12.0-16.0) L 07/22/17 08:18 Hct 25.3 % (36.0-48.0) L 07/22/17 08:18 MCV 90.7 fl (80.0-105.0) 07/22/17 08:18 MCH 28.0 pg (25.0-35.0) 07/22/17 08:18 MCHC 30.8 g/dl (31.0-37.0) L 07/22/17 08:18 RDW 18.9 % (11.5-14.5) H 07/22/17 08:18 Plt Count 248 10^3/uL (120.0-450.0) 07/22/17 08:18 MPV 10.4 fl (7.0-11.0) 07/22/17 08:18 Gran % 96.3 % (50.0-68.0) H 07/22/17 08:18 Lymph % (Auto) 1.0 % (22.0-35.0) L 07/22/17 08:18 [place] % (Auto) 2.6 % (1.0-6.0) 07/22/17 08:18 Eos % (Auto) 0.0 % (1.5-5.0) L 07/22/17 08:18 Baso % (Auto) 0.1 % (0.0-3.0) 07/22/17 08:18 Gran # 69.68 (1.4-6.5) H 07/22/17 08:18 Lymph # (Auto) 0.7 (1.2-3.4) L 07/22/17 08:18 [place] # (Auto) 1.9 (0.1-0.6) H 07/22/17 08:18 Eos # (Auto) 0.0 (0.0-0.7) 07/22/17 08:18 Baso # (Auto) 0.05 K/mm3 (0.0-2.0) 07/22/17 08:18 Neutrophils % (Manual) 92 % (50.0-70.0) H 07/22/17 08:18 Band Neutrophils % 2 % (0-2) 07/22/17 08:18 Lymphocytes % (Manual) 2 % (22.0-35.0) L 07/22/17 08:18 Monocytes % (Manual) 2 % (1.0-6.0) 07/22/17 08:18 Myelocytes % 2 % 07/22/17 08:18 Toxic Granulation 1+ 07/22/17 08:18 Platelet Evaluation Normal (NORMAL) 07/22/17 08:18 Hypochromasia 2+ 07/22/17 08:18 Rouleaux 2+ 07/22/17 08:18 PT 20.3 SECONDS (9.4-12.5) H 07/18/17 06:30 INR 1.75 (0.93-1.08) H 07/18/17 06:30 APTT 57.3 Seconds (25.1-36.5) H 07/17/17 18:38 pO2 53 mm/Hg (30-55) 07/17/17 21:45 VBG pH 7.35 (7.32-7.43) 02/28/18 21:45 VBG pCO2 49.0 (40-60) 07/17/17 21:45 VBG HCO3 27.1 mmol/l (21-28) 07/17/17 21:45 VBG Total CO2 28.6 mmol.L (22-28) H 07/17/17 21:45 VBG O2 Sat (Calc) 89.8 % (40-65) H 07/17/17 21:45 VBG Base Excess 0.8 mmol/L (0.0-2.0) 07/17/17 21:45 VBG Potassium 3.5 mmol/L (3.6-5.2) L 07/17/17 21:45 Sodium 133.0 mmol/L (132-148) 07/17/17 21:45 Chloride 102.0 mmol/L (98-107) 07/17/17 21:45 Glucose 173 mg/dl (65-105) H 07/17/17 21:45 Lactate 1.6 mmol/L (0.7-2.1) 07/17/17 21:45 FiO2 21.0 % 07/17/17 21:45 Sodium 143 mmol/L (132-148) 07/22/17 08:18 Potassium 4.0 mmol/L (3.6-5.0) 07/22/17 08:18 Chloride 106 mmol/L (98-107) 07/22/17 08:18 Carbon Dioxide 28 mmol/L (21-33) 07/22/17 08:18 Anion Gap 13 (10-20) 07/22/17 08:18 BUN 23 mg/dL (7-21) H 07/22/17 08:18 Creatinine 0.8 mg/dl (0.7-1.2) 07/22/17 08:18 Est GFR ( Amer) > 60 07/22/17 08:18 Est GFR (Non-Af Amer) > 60 07/22/17 08:18 POC Glucose (mg/dL) 158 mg/dL (65-110) H 07/22/17 11:52 Random Glucose 177 mg/dL (70-110) H 07/22/17 08:18 Calcium 8.2 mg/dL (8.4-10.5) L 07/22/17 08:18 Phosphorus 3.2 mg/dL (2.5-4.5) 07/19/17 06:30 Magnesium 1.8 mg/dL (1.7-2.2) 07/19/17 06:30 Total Bilirubin 0.8 mg/dL (0.2-1.3) 07/22/17 08:18 AST 46 U/L (14-36) H 07/22/17 08:18 ALT 47 U/L (7-56) 07/22/17 08:18 Alkaline Phosphatase 297 U/L (38-126) H 07/22/17 08:18 Lactate Dehydrogenase 755 U/L (333-699) H 07/17/17 18:38 Total Creatine Kinase < 20 U/L (35-230) L 07/17/17 18:38 Troponin I < 0.01 ng/mL 07/17/17 18:38 NT-Pro-B Natriuret Pep 1080 pg/mL (0-450) H 07/17/17 20:20 Total Protein 5.6 g/dL (5.8-8.3) L 07/22/17 08:18 Albumin 2.5 g/dL (3.0-4.8) L 07/22/17 08:18 Globulin 3.1 gm/dL 07/22/17 08:18 Albumin/Globulin Ratio 0.8 (1.1-1.8) L 07/22/17 08:18 Amylase < 30 U/L (35-125) L 07/19/17 06:30 Lipase 29 U/L (23-300) 07/19/17 06:30 Procalcitonin 2.56 NG/ML (0.19-0.49) H 07/18/17 08:30 TSH 3rd Generation 1.73 mIU/mL (0.46-4.68) 07/18/17 06:30 Venous Blood Potassium 3.5 mmol/L (3.6-5.2) L 07/17/17 21:45 Urine Color Yellow (YELLOW) 07/17/17 19:30 Urine Appearance Sl cloudy (CLEAR) 07/17/17 19:30 Urine pH 6.0 (4.7-8.0) 07/17/17 19:30 Ur Specific [place] 1.025 (1.005-1.035) 07/17/17 19:30 Urine Protein 30 mg/dL (<30 mg/dL) H 07/17/17 19:30 Urine Glucose (UA) Negative mg/dL (NEGATIVE) 07/17/17 19:30 Urine Ketones Negative mg/dL (NEGATIVE) 07/17/17 19:30 Urine Blood Moderate (NEGATIVE) H 07/17/17 19:30 Urine Nitrate Negative (NEGATIVE) 07/17/17 19:30 Urine Bilirubin Small (NEGATIVE) H 07/17/17 19:30 Urine Urobilinogen 4.0 E.U./dL (<1 E.U./dL) H 07/17/17 19:30 Ur Leukocyte Esterase Moderate [place]/uL (NEGATIVE) H 07/17/17 19:30 Urine RBC 15 - 20 /hpf (0-2) 07/17/17 19:30 Urine WBC 20 - 25 /hpf (0-6) 07/17/17 19:30 Ur Epithelial Cells Many /hpf (0-5) 07/17/17 19:30 Urine Bacteria Mod (NEG) 07/17/17 19:30 Influenza Typ A,B (EIA) Negative for flu a/b (NEGATIVE) 07/17/17 20:10 WB Flow Cytometry Reference test 07/18/17 09:39 - Hospital Course Hospital Course: 66 year old female with a PMH of Stage IV non-small cell lung CA, HTN, COPD, DM , and a history of previous colon and cervical CA s/p resections who presented to [facility] because of hematuria for 1 day. Patient was found to have a urinary tract infection and was started on empiric antibiotics with zosyn. ID was consulted. Patient was also evaluated by pulm for her known NSCL CA and was started on a pulmonary toilet. Patient's mental status was noted to have been changing by family and so neurology consultation was requested. Patient's urine culture grew E. faecalis which was sensitive to the ongoing treatment and this aspect improved. However her confusion continued to worsen along with a severe persistent and progressive leukocytosis which is thought to have been a leukomoid reaction. Patient worsened to the point that the family was gathered and discussion were initially had about DNR/DNI, which she was, and then hospice. Palliative/hospice evaluated the patient and she was found to be severe enough to require inpatient hospice. Patient is accepted and so will be transferred to inpatient hospice today. Discussed with family extensively. - Date & Time of H&P Date of H&P: 07/22/17 Time of H&P: 18:00 Discharge Exam - Head Exam Head Exam: ATRAUMATIC, NORMAL INSPECTION, NORMOCEPHALIC - Eye Exam Eye Exam: EOMI - ENT Exam ENT Exam: Mucous Membranes Moist, Normal Oropharynx - Respiratory Exam Respiratory Exam: Clear to PA & Lateral, Rhonchi, Wheezes - Cardiovascular Exam Cardiovascular Exam: RRR, +S1, +S2 - GI/Abdominal Exam GI & Abdominal Exam: Normal Bowel Sounds, Soft. absent: Distended, Tenderness - Extremities Exam Extremities exam: normal inspection - Neurological Exam Additional comments: confused, moving all extremeties - Psychiatric Exam Psychiatric exam: Normal Affect, Normal Mood - Skin Skin Exam: Dry, Warm Discharge Plan - Follow Up Plan Condition: GUARDED Disposition: HOSPICE - MEDICAL FACILITY Patient education suggested?: Yes Instructions: Urinary Tract Infection in Women (DC), Urinary Tract Infection in Men (DC), Leukocytosis (DC), Leukocytosis (GEN), Dysuria (GEN) Referrals: Kathy Thakur MD [Primary Care Provider] - <Julio Bustamante P - Last Filed: 07/26/17 21:56> Provider - Provider Date of Admission: 07/17/17 19:55 Attending physician: Rogelio Reed MD Primary care physician: Kathy Thakur MD Hospital Course - Lab Results Lab Results: Micro Results 07/17/17 20:20 Blood-Venous Blood Culture - Final NO GROWTH AFTER 5 DAYS 07/17/17 20:20 Blood-Venous Gram Stain - Final TEST NOT PERFORMED 07/17/17 20:10 Sputum Gram Stain - Final 07/17/17 20:10 Sputum Sputum Culture - Final NORMAL ORAL KATHARINE Most Recent Lab Values WBC 72.3 10^3/ul (4.5-11.0) H* 07/22/17 08:18 RBC 2.79 10^6/uL (3.5-6.1) L 07/22/17 08:18 Hgb 7.8 g/dL (12.0-16.0) L 07/22/17 08:18 Hct 25.3 % (36.0-48.0) L 07/22/17 08:18 MCV 90.7 fl (80.0-105.0) 07/22/17 08:18 MCH 28.0 pg (25.0-35.0) 07/22/17 08:18 MCHC 30.8 g/dl (31.0-37.0) L 07/22/17 08:18 RDW 18.9 % (11.5-14.5) H 07/22/17 08:18 Plt Count 248 10^3/uL (120.0-450.0) 07/22/17:18 MPV 10.4 fl (7.0-11.0) 07/22/17 08:18 Gran % 96.3 % (50.0-68.0) H 07/22/17 08:18 Lymph % (Auto) 1.0 % (22.0-35.0) L 07/22/17 08:18 [place] % (Auto) 2.6 % (1.0-6.0) 07/22/17 08:18 Eos % (Auto) 0.0 % (1.5-5.0) L 07/22/17:18 Baso % (Auto) 0.1 % (0.0-3.0) 07/22/17 08:18 Gran # 69.68 (1.4-6.5) H 07/22/17 08:18 Lymph # (Auto) 0.7 (1.2-3.4) L 07/22/17:18 [place] # (Auto) 1.9 (0.1-0.6) H 07/22/17 08:18 Eos # (Auto) 0.0 (0.0-0.7) 07/22/17:18 Baso # (Auto) 0.05 K/mm3 (0.0-2.0) 07/22/17 08:18 Neutrophils % (Manual) 92 % (50.0-70.0) H 07/22/17 08:18 Band Neutrophils % 2 % (0-2) 07/22/17 08:18 Lymphocytes % (Manual) 2 % (22.0-35.0) L 07/22/17 08:18 Monocytes % (Manual) 2 % (1.0-6.0) 07/22/17 08:18 Myelocytes % 2 % 07/22/17 08:18 Toxic Granulation 1+ 07/22/17 08:18 Platelet Evaluation Normal (NORMAL) 07/22/17 08:18 Hypochromasia 2+ 07/22/17 08:18 Rouleaux 2+ 07/22/17 08:18 PT 20.3 SECONDS (9.4-12.5) H 07/18/17 06:30 INR 1.75 (0.93-1.08) H 07/18/17 06:30 APTT 57.3 Seconds (25.1-36.5) H 07/17/17 18:38 pO2 53 mm/Hg (30-55) 07/17/17 21:45 VBG pH 7.35 (7.32-7.43) 07/17/17 21:45 VBG pCO2 49.0 (40-60) 07/17/17 21:45 VBG HCO3 27.1 mmol/l (21-28) 07/17/17 21:45 VBG Total CO2 28.6 mmol.L (22-28) H 07/17/17 21:45 VBG O2 Sat (Calc) 89.8 % (40-65) H 07/17/17 21:45 VBG Base Excess 0.8 mmol/L (0.0-2.0) 07/17/17 21:45 VBG Potassium 3.5 mmol/L (3.6-5.2) L 07/17/17 21:45 Sodium 133.0 mmol/L (132-148) 07/17/17 21:45 Chloride 102.0 mmol/L (98-107) 07/17/17 21:45 Glucose 173 mg/dl (65-105) H 07/17/17 21:45 Lactate 1.6 mmol/L (0.7-2.1) 07/17/17 21:45 FiO2 21.0 % 07/17/17 21:45 Sodium 143 mmol/L (132-148) 07/22/17 08:18 Potassium 4.0 mmol/L (3.6-5.0) 07/22/17 08:18 Chloride 106 mmol/L (98-107) 07/22/17 08:18 Carbon Dioxide 28 mmol/L (21-33) 07/22/17 08:18 Anion Gap 13 (10-20) 07/22/17 08:18 BUN 23 mg/dL (7-21) H 07/22/17 08:18 Creatinine 0.8 mg/dl (0.7-1.2) 07/22/17 08:18 Est GFR ( Amer) > 60 07/22/17 08:18 Est GFR (Non-Af Amer) > 60 07/22/17 08:18 POC Glucose (mg/dL) 158 mg/dL (65-110) H 07/22/17 11:52 Random Glucose 177 mg/dL (70-110) H 07/22/17 08:18 Calcium 8.2 mg/dL (8.4-10.5) L 07/22/17 08:18 Phosphorus 3.2 mg/dL (2.5-4.5) 07/19/17 06:30 Magnesium 1.8 mg/dL (1.7-2.2) 07/19/17 06:30 Total Bilirubin 0.8 mg/dL (0.2-1.3) 07/22/17 08:18 AST 46 U/L (14-36) H 07/22/17 08:18 ALT 47 U/L (7-56) 07/22/17 08:18 Alkaline Phosphatase 297 U/L (38-126) H 07/22/17 08:18 Lactate Dehydrogenase 755 U/L (333-699) H 07/17/17 18:38 Total Creatine Kinase < 20 U/L (35-230) L 07/17/17 18:38 Troponin I < 0.01 ng/mL 07/17/17 18:38 NT-Pro-B Natriuret Pep 1080 pg/mL (0-450) H 07/17/17 20:20 Total Protein 5.6 g/dL (5.8-8.3) L 07/22/17 08:18 Albumin 2.5 g/dL (3.0-4.8) L 07/22/17 08:18 Globulin 3.1 gm/dL 07/22/17 08:18 Albumin/Globulin Ratio 0.8 (1.1-1.8) L 07/22/17 08:18 Amylase < 30 U/L (35-125) L 07/19/17 06:30 Lipase 29 U/L (23-300) 07/19/17 06:30 Procalcitonin 2.56 NG/ML (0.19-0.49) H 07/18/17 08:30 TSH 3rd Generation 1.73 mIU/mL (0.46-4.68) 07/18/17 06:30 Venous Blood Potassium 3.5 mmol/L (3.6-5.2) L 07/17/17 21:45 Urine Color Yellow (YELLOW) 07/17/17 19:30 Urine Appearance Sl cloudy (CLEAR) 07/17/17 19:30 Urine pH 6.0 (4.7-8.0) 07/17/17 19:30 Ur Specific [place] 1.025 (1.005-1.035) 07/17/17 19:30 Urine Protein 30 mg/dL (<30 mg/dL) H 07/17/17 19:30 Urine Glucose (UA) Negative mg/dL (NEGATIVE) 07/17/17 19:30 Urine Ketones Negative mg/dL (NEGATIVE) 07/17/17 19:30 Urine Blood Moderate (NEGATIVE) H 07/17/17 19:30 Urine Nitrate Negative (NEGATIVE) 07/17/17 19:30 Urine Bilirubin Small (NEGATIVE) H 07/17/17 19:30 Urine Urobilinogen 4.0 E.U./dL (<1 E.U./dL) H 07/17/17 19:30 Ur Leukocyte Esterase Moderate [place]/uL (NEGATIVE) H 07/17/17 19:30 Urine RBC 15 - 20 /hpf (0-2) 07/17/17 19:30 Urine WBC 20 - 25 /hpf (0-6) 07/17/17 19:30 Ur Epithelial Cells Many /hpf (0-5) 07/17/17 19:30 Urine Bacteria Mod (NEG) 07/17/17 19:30 Influenza Typ A,B (EIA) Negative for flu a/b (NEGATIVE) 07/17/17 20:10 WB Flow Cytometry Reference test 07/18/17 09:39 Attending/Attestation - Attestation I have personally seen and examined this patient.: Yes I have fully participated in the care of the patient.: Yes I have reviewed all pertinent clinical information, including history, physical exam and plan: Yes
== END 2017-07-22 15:35 | disposition hospice, inpatient (51) | DRG 690 ==
LOC: ED 17:52 → ERH 19:55 → 5RSO 22:23 → 3RNO 07-20 13:30
PROVIDERS: ADMIT Family Medicine; ATTEND Family Medicine
DX: N39.0 Urinary tract infection, site not specified (principal); J90 Pleural effusion, not elsewhere classified; B37.0 Candidal stomatitis; R65.10 Systemic inflammatory response syndrome (SIRS) of non-infectious origin without acute organ dysfunction; C78.7 Secondary malignant neoplasm of liver and intrahepatic bile duct; C79.31 Secondary malignant neoplasm of brain; C79.51 Secondary malignant neoplasm of bone; C34.00 Malignant neoplasm of unspecified main bronchus; C18.9 Malignant neoplasm of colon, unspecified; J44.0 Chronic obstructive pulmonary disease with (acute) lower respiratory infection; J98.11 Atelectasis; C50.919 Malignant neoplasm of unspecified site of unspecified female breast; D64.9 Anemia, unspecified; E03.9 Hypothyroidism, unspecified; E11.65 Type 2 diabetes mellitus with hyperglycemia; E66.9 Obesity, unspecified; E78.5 Hyperlipidemia, unspecified; E83.51 Hypocalcemia; E87.6 Hypokalemia; F40.240 Claustrophobia; G47.30 Sleep apnea, unspecified; I10 Essential (primary) hypertension; J98.09 Other diseases of bronchus, not elsewhere classified; K14.3 Hypertrophy of tongue papillae; R62.7 Adult failure to thrive; Z66 Do not resuscitate; Z51.5 Encounter for palliative care; Z68.34 Body mass index [BMI] 34.0-34.9, adult; Z85.038 Personal history of other malignant neoplasm of large intestine; Z85.118 Personal history of other malignant neoplasm of bronchus and lung; Z85.41 Personal history of malignant neoplasm of cervix uteri; Z87.01 Personal history of pneumonia (recurrent); Z87.891 Personal history of nicotine dependence; Z90.49 Acquired absence of other specified parts of digestive tract; Z90.710 Acquired absence of both cervix and uterus; Z91.19 Patient's noncompliance with other medical treatment and regimen; Z92.21 Personal history of antineoplastic chemotherapy; Z92.3 Personal history of irradiation; D72.823 Leukemoid reaction; B95.2 Enterococcus as the cause of diseases classified elsewhere

== ENCOUNTER 2017-07-22 15:35 | Inpatient (IN) | payer OTHER ==
[2017-07-22] MEDS: Morphine PCA 1 mg/ml (30ml) 30 ML IV PRN (17:08)
[2017-07-22 17:33] VITALS: BMI 28.3
[2017-07-22] MEDS ORDERED: Influenza Vaccine 60 mcg/0.5 mL SYR (4YR UP) IM ONE (17:40)
[2017-07-22] MEDS ORDERED: Piperacillin/Tazobact 3.375 gm 100 ML IVPB SCH (18:00)
[2017-07-22] MEDS: DiphenhydrAMINE 50 mg/ml Inj IVP PRN (19:17)
[2017-07-22] MEDS: MethylPREDNISolone 40 mg Vial IVP SCH (21:31)
[2017-07-23] MEDS: Morphine PCA 1 mg/ml (30ml) 30 ML IV PRN (09:11)
[2017-07-23] MEDS: MethylPREDNISolone 40 mg Vial IVP SCH ×2 (17:39→22:02)
[2017-07-24] MEDS: Morphine PCA 1 mg/ml (30ml) 30 ML IV PRN ×2 (01:12→17:00)
[2017-07-24] MEDS: MethylPREDNISolone 40 mg Vial IVP SCH ×2 (09:37→22:15)
--- NOTE | 2017-07-24 10:58 | CP.PCM.HP ---
<Pacheco Flores - Last Filed: 07/24/17 10:55> History of Present Illness - History of Present Illness History of Present Illness: Pacheco Flores D.O. PGY-2, Internal Medicine Resident, Hem/Onc H&P 66 year old female with a PMH of Stage IV non-small cell lung CA, HTN, COPD, DM , and a history of previous colon and cervical CA s/p resections who presented to [facility] because of hematuria for 1 day, found to have UTI, treated but however had worsening overall picture due to her pre-existing NSCL CA with mental alteration. Patient was seen and evaluated at bedside. Patient has been transferred to hospice and is now DNR/DNI. Plan for comfort care only at this time. Family all at bedside. Present on Admission - Present on Admission Any Indicators Present on Admission: No Review of Systems - Review of Systems Systems not reviewed;Unavailable: Altered Mental Status Past Patient History - Infectious Disease Hx of Infectious Diseases: None - Tetanus Immunizations Tetanus Immunization: Unknown - Past Medical History & Family History Past Medical History?: Yes - Past Social History Smoking Status: Never Smoked - CARDIAC Hx Cardiac Disorders: Yes Hx Hypertension: Yes - PULMONARY Hx Respiratory Disorders: Yes Hx Pneumonia: Yes Other/Comment: lung mass found on cxr - NEUROLOGICAL Hx Neurological Disorder: No - HEENT Hx HEENT Problems: Yes (glasses, itchy eyes) - RENAL Hx Chronic Kidney Disease: No - ENDOCRINE/METABOLIC Hx Diabetes Mellitus Type 2: Yes Hx Hypothyroidism: Yes - HEMATOLOGICAL/ONCOLOGICAL Hx Blood Disorders: Yes Hx Cancer: Yes (COLON 2009, colectomy; Lung) Hx Chemotherapy: Yes (05/07/2017) Other/Comment: recently dx with lung ca, lung bx done. radiation done today - INTEGUMENTARY Hx Dermatological Problems: No - MUSCULOSKELETAL/RHEUMATOLOGICAL Hx Musculoskeletal Disorders: No Hx Falls: Yes - GASTROINTESTINAL Hx Gastrointestinal Disorders: Yes Other/Comment: colon ca in remission as of 2018 - GENITOURINARY/GYNECOLOGICAL Hx Genitourinary Disorders: Yes Other/Comment: HX OVARIAN CYSTECTOMY OPEN 1997 HYSTERECTOMY OCTOBER 2013 - PSYCHIATRIC Hx Psychophysiologic Disorder: No Hx Substance Use: No - SURGICAL HISTORY Hx Cholecystectomy: Yes Hx Hysterectomy: Yes Other/Comment: Ovarian Cyst sx, lcw pac in and out, c section, tubal. Colon Sx. Lung biopsy. s/p stent right bronchus placement. R chest port - ANESTHESIA Hx Anesthesia: Yes Hx Anesthesia Reactions: Yes (NAUSEA VOMITTING) Hx Malignant Hyperthermia: No Meds Allergies/Adverse Reactions: Allergies Allergy/AdvReac Type Severity Reaction Status Date / Time No Known Allergies Allergy Verified 07/17/17 17:58 Physical Exam - Constitutional Appears: Non-toxic, No Acute Distress Additional comments: confused, nonverbal - Head Exam Head Exam: ATRAUMATIC, NORMOCEPHALIC - Eye Exam Eye Exam: EOMI - ENT Exam ENT Exam: Mucous Membranes Moist, Normal Oropharynx - Respiratory Exam Respiratory Exam: Rales, Rhonchi, Wheezes. absent: Clear to Auscultation Bilateral - Cardiovascular Exam Cardiovascular Exam: RRR, +S1, +S2 - GI/Abdominal Exam GI & Abdominal Exam: Normal Bowel Sounds, Soft. absent: Distended, Tenderness - Extremities Exam Extremities exam: Negative for: pedal edema - Neurological Exam Additional comments: confused, moving all extremities - Psychiatric Exam Psychiatric exam: Anxious - Skin Skin Exam: Dry, Warm Results - Vital Signs Recent Vital Signs: Last Vital Signs Temp 101.5 F H 07/23/17 22:07 Pulse Resp 24 07/22/17 16:30 BP Pulse Ox Assessment & Plan - Assessment and Plan (Free Text) Assessment: 66 year old female with a PMH of Stage IV non-small cell lung CA, HTN, COPD, DM , and a history of previous colon and cervical CA s/p resections who is being placed under inpatient hospice. Plan: Stage IV lung CA with intrabronchial lesion s/p intrabronchial stent at [facility] Urinary tract infection Severe leukocytosis HTN COPD DM Hx colon and cervical CA s/p resection Patient placed under inpatient hospice Comfort care Hospice following Start SUPERVISOR DETASSELING CREW pump Scopolamine for secretions Extensive discussion with family Patient was seen and examined and case was discussed at length with attending physician - Date & Time Date: 07/22/17 Time: 19:00 <Julio Bustamante P - Last Filed: 07/26/17 21:57> Results - Vital Signs Recent Vital Signs: Last Vital Signs Temp 101.4 F H 07/25/17 05:07 Pulse 129 H 07/25/17 00:00 Resp 22 07/25/17 00:00 BP 117/73 07/25/17 00:00 Pulse Ox 86 L 07/25/17 00:00 Attending/Attestation - Attestation I have personally seen and examined this patient.: Yes I have fully participated in the care of the patient.: Yes I have reviewed all pertinent clinical information: Yes
--- NOTE | 2017-07-24 11:05 | CP.PCM.PN ---
<Pacheco Flores - Last Filed: 07/25/17 07:02> Subjective - Date & Time of Evaluation Date of Evaluation: 07/24/17 Time of Evaluation: 08:49 - Subjective Subjective: Pacheco Flores D.O. PGY-2, Internal Medicine Resident, Hem/Onc Progress Note 66 year old female with a PMH of Stage IV non-small cell lung CA, HTN, COPD, DM , and a history of previous colon and cervical CA s/p resections currently under inpatient hospice. Patient was seen and examined at bedside. Large amount of family present as well. Having more agonal breathing. Otherwise appears more comfortable than before. No overnight events. Objective - Vital Signs/Intake and Output Vital Signs (last 24 hours): Temp Pulse Resp BP Pulse Ox 101.5 F H 24 07/23/17 22:07 07/22/17 16:30 Intake and Output: 07/24/17 07/24/17 06:59 18:59 Intake Total 30 Balance 30 - Medications Medications: Current Medications Acetaminophen (Tylenol 650 Mg Supp) 650 mg RC Q4H PRN PRN Reason: Fever >100.4 F Last Admin: 07/24/17 10:37 Dose: 650 mg Diphenhydramine HCl (Benadryl) 25 mg IVP Q6H PRN PRN Reason: Allergy symptoms Last Admin: 07/22/17 19:17 Dose: 25 mg Morphine Sulfate (Morphine Belt Builder Helper 1 Mg/Ml) 30 mls @ 2 mls/hr IV PRN PRN; Protocol ; 2 MG/HR PRN Reason: TRAINING AND DEVELOPMENT DIRECTOR PER MD ORDER Last Admin: 07/24/17 01:12 Dose: 2 mg/hr, 2 mls/hr Lorazepam (Ativan) 1 mg IVP Q6H NORMA PRN Reason: Protocol Last Admin: 07/24/17 09:36 Dose: 1 mg Methylprednisolone (Solu-Medrol) 40 mg IVP Q12 [facility] Last Admin: 07/24/17 09:37 Dose: 40 mg Scopolamine (Transderm-Scop) 1 patch TD Q3D [facility] Last Admin: 07/22/17 16:36 Dose: 1 patch - Constitutional Appears: Non-toxic, No Acute Distress Additional comments: confused, nonverbal - Head Exam Head Exam: ATRAUMATIC, NORMOCEPHALIC - Eye Exam Eye Exam: EOMI - ENT Exam ENT Exam: Mucous Membranes Moist, Normal Oropharynx - Respiratory Exam Respiratory Exam: Rales, Rhonchi, Wheezes. absent: Clear to Auscultation Bilateral - Cardiovascular Exam Cardiovascular Exam: RRR, +S1, +S2 - GI/Abdominal Exam GI & Abdominal Exam: Normal Bowel Sounds, Soft. absent: Distended, Tenderness - Extremities Exam Extremities exam: Negative for: pedal edema - Neurological Exam Additional comments: confused, moving all extremities - Psychiatric Exam Psychiatric exam: Anxious - Skin Skin Exam: Dry, Warm Assessment and Plan - Assessment and Plan (Free Text) Assessment: 66 year old female with a PMH of Stage IV non-small cell lung CA, HTN, COPD, DM , and a history of previous colon and cervical CA s/p resections who is being placed under inpatient hospice. Plan: Stage IV lung CA with intrabronchial lesion s/p intrabronchial stent at [facility] - under inpatient hospice Urinary tract infection Severe leukocytosis HTN COPD DM Hx colon and cervical CA s/p resection Prioritize comfort care only Continue TRAINING AND DEVELOPMENT DIRECTOR pump PRN ativan for agitation Scopolamine for secretions Patient was seen and examined and case was discussed at length with attending physician <Julio Bustamante P - Last Filed: 07/26/17 21:40> Objective - Vital Signs/Intake and Output Vital Signs (last 24 hours): Temp Pulse Resp BP Pulse Ox 101.4 F H 129 H 22 117/73 86 L 07/25/17 05:07 07/25/17 00:00 07/25/17 00:00 07/25/17 00:00 07/25/17 00:00 Attending/Attestation - Attestation I have personally seen and examined this patient.: Yes I have fully participated in the care of the patient.: Yes I have reviewed all pertinent clinical information, including history, physical exam and plan: Yes
[2017-07-24] MEDS: DiphenhydrAMINE 50 mg/ml Inj IVP PRN (16:21)
[2017-07-25 01:37] VITALS: BP 117/73; PULSE 129; RESP 22; TEMP 101.4; O2SAT 86
[2017-07-25] MEDS: MethylPREDNISolone 40 mg Vial IVP SCH (09:04)
[2017-07-25] MEDS: DiphenhydrAMINE 50 mg/ml Inj IVP PRN (09:04)
--- NOTE | 2017-07-25 09:46 | CP.PCM.PN ---
<Pacheco Flores - Last Filed: 07/25/17 10:47> Subjective - Date & Time of Evaluation Date of Evaluation: 07/25/17 Time of Evaluation: 07:10 - Subjective Subjective: Pacheco Flores D.O. PGY-2, Internal Medicine Resident, Hem/Onc Progress Note 66 year old female with a PMH of Stage IV non-small cell lung CA, HTN, COPD, DM , and a history of previous colon and cervical CA s/p resections currently under inpatient hospice. Patient was seen and examined. Multiple family members all at bedside mourning. No major changes since last seen. Appears as comfortable as possible. Objective - Vital Signs/Intake and Output Vital Signs (last 24 hours): Temp Pulse Resp BP Pulse Ox 101.4 F H 129 H 22 117/73 86 L 07/25/17 05:07 07/25/17 00:00 07/25/17 00:00 07/25/17 00:00 07/25/17 00:00 - Medications Medications: Current Medications Acetaminophen (Tylenol 650 Mg Supp) 650 mg RC Q4H PRN PRN Reason: Fever >100.4 F Last Admin: 07/25/17 05:07 Dose: 650 mg Diphenhydramine HCl (Benadryl) 25 mg IVP Q6H PRN PRN Reason: Allergy symptoms Last Admin: 07/25/17 09:04 Dose: 25 mg Morphine Sulfate (Morphine Vehicle Glass Technician 1 Mg/Ml) 30 mls @ 3 mls/hr IV PRN PRN; Protocol ; 3 MG/HR PRN Reason: SPIRITUAL CARE COORDINATOR PER MD ORDER Last Admin: 07/25/17 09:12 Dose: 3 mg/hr, 3 mls/hr Lorazepam (Ativan) 1 mg IVP Q6H NORMA PRN Reason: Protocol Last Admin: 07/25/17 07:45 Dose: Not Given Methylprednisolone (Solu-Medrol) 40 mg IVP Q12 [facility] Last Admin: 07/25/17 09:04 Dose: 40 mg Scopolamine (Transderm-Scop) 1 patch TD Q3D NORMA - Constitutional Appears: Non-toxic, No Acute Distress, Chronically Ill Additional comments: confused, nonverbal - Head Exam Head Exam: ATRAUMATIC, NORMOCEPHALIC - Eye Exam Eye Exam: EOMI - ENT Exam ENT Exam: Mucous Membranes Moist, Normal Oropharynx, less secretions - Respiratory Exam Respiratory Exam: Rales, Rhonchi, Wheezes. absent: Clear to Auscultation Bilateral - Cardiovascular Exam Cardiovascular Exam: RRR, +S1, +S2 - GI/Abdominal Exam GI & Abdominal Exam: Normal Bowel Sounds, Soft. absent: Distended, Tenderness - Extremities Exam Extremities exam: Negative for: pedal edema - Neurological Exam Additional comments: confused, moving all extremities - Psychiatric Exam Psychiatric exam: Anxious - Skin Skin Exam: Dry, Warm Assessment and Plan - Assessment and Plan (Free Text) Assessment: 66 year old female with a PMH of Stage IV non-small cell lung CA, HTN, COPD, DM , and a history of previous colon and cervical CA s/p resections who is being placed under inpatient hospice. Plan: Stage IV lung CA with intrabronchial lesion s/p intrabronchial stent at [facility] - under inpatient hospice Urinary tract infection Severe leukocytosis HTN COPD DM Hx colon and cervical CA s/p resection Continue to prioritize comfort Discussed with family members Continue SPIRITUAL CARE COORDINATOR pump, PRN ativan for agitation, and scopolamine patch for secretion control Patient was seen and examined and case was discussed at length with attending physician <Julio Bustamante P - Last Filed: 07/26/17 21:42> Objective - Vital Signs/Intake and Output Vital Signs (last 24 hours): Temp Pulse Resp BP Pulse Ox 101.4 F H 129 H 22 117/73 86 L 07/25/17 05:07 07/25/17 00:00 07/25/17 00:00 07/25/17 00:00 07/25/17 00:00 Attending/Attestation - Attestation I have personally seen and examined this patient.: Yes I have fully participated in the care of the patient.: Yes I have reviewed all pertinent clinical information, including history, physical exam and plan: Yes
--- NOTE | 2017-07-25 14:36 | CP.PCM.CON ---
History of Present Illness - History of Present Illness History of Present Illness: Palliative consult requested by Dr Bustamante Reason: Goals of care 66 year old female with history of metastatic NSCL, s/p bronchial stent who was recently admitted to acute care with increased shortness of breath ,weakness and intractable pain. She has since transitioned to hospice care PMHx: NSLC cancer s/p bronchial stent,chemotherapy and RT,HTN. Social History: No smoker, no alcohol or drug use. Family History: Non contributory Advance Care Planning: She is DNR/DNI. Review of Systems:As per HPI, obtunded unable t obtain Past Patient History - Infectious Disease Hx of Infectious Diseases: None - Tetanus Immunizations Tetanus Immunization: Unknown - Past Medical History & Family History Past Medical History?: Yes - Past Social History Smoking Status: Never Smoked - CARDIAC Hx Cardiac Disorders: Yes Hx Hypertension: Yes - PULMONARY Hx Respiratory Disorders: Yes Hx Pneumonia: Yes Other/Comment: lung mass found on cxr - NEUROLOGICAL Hx Neurological Disorder: No - HEENT Hx HEENT Problems: Yes (glasses, itchy eyes) - RENAL Hx Chronic Kidney Disease: No - ENDOCRINE/METABOLIC Hx Diabetes Mellitus Type 2: Yes Hx Hypothyroidism: Yes - HEMATOLOGICAL/ONCOLOGICAL Hx Blood Disorders: Yes Hx Cancer: Yes (COLON 2009, colectomy; Lung) Hx Chemotherapy: Yes (05/07/2017) Other/Comment: recently dx with lung ca, lung bx done. radiation done today - INTEGUMENTARY Hx Dermatological Problems: No - MUSCULOSKELETAL/RHEUMATOLOGICAL Hx Musculoskeletal Disorders: No Hx Falls: Yes - GASTROINTESTINAL Hx Gastrointestinal Disorders: Yes Other/Comment: colon ca in remission as of 2017 - GENITOURINARY/GYNECOLOGICAL Hx Genitourinary Disorders: Yes Other/Comment: HX OVARIAN CYSTECTOMY OPEN 1997 HYSTERECTOMY OCTOBER 2013 - PSYCHIATRIC Hx Psychophysiologic Disorder: No Hx Substance Use: No - SURGICAL HISTORY Hx Cholecystectomy: Yes Hx Hysterectomy: Yes Other/Comment: Ovarian Cyst sx, lcw pac in and out, c section, tubal. Colon Sx. Lung biopsy. s/p stent right bronchus placement. R chest port - ANESTHESIA Hx Anesthesia: Yes Hx Anesthesia Reactions: Yes (NAUSEA VOMITTING) Hx Malignant Hyperthermia: No Meds Allergies/Adverse Reactions: Allergies Allergy/AdvReac Type Severity Reaction Status Date / Time No Known Allergies Allergy Verified 07/17/17 17:58 - Medications Medications: Current Medications Acetaminophen (Tylenol 650 Mg Supp) 650 mg RC Q4H PRN PRN Reason: Fever >100.4 F Last Admin: 07/25/17 05:07 Dose: 650 mg Diphenhydramine HCl (Benadryl) 25 mg IVP Q6H PRN PRN Reason: Allergy symptoms Last Admin: 07/25/17 09:04 Dose: 25 mg Morphine Sulfate (Morphine Collaborative Teacher 1 Mg/Ml) 30 mls @ 3 mls/hr IV PRN PRN; Protocol ; 3 MG/HR PRN Reason: BILINGUAL INSTRUCTOR PER MD ORDER Last Admin: 07/25/17 09:12 Dose: 3 mg/hr, 3 mls/hr Lorazepam (Ativan) 1 mg IVP Q6H NORMA PRN Reason: Protocol Last Admin: 07/25/17 14:19 Dose: Not Given Methylprednisolone (Solu-Medrol) 40 mg IVP Q12 [facility] Last Admin: 07/25/17 09:04 Dose: 40 mg Scopolamine (Transderm-Scop) 1 patch TD Q3D [facility] Physical Exam - Constitutional Appears: Chronically Ill - Head Exam Head Exam: NORMAL INSPECTION - Eye Exam Eye Exam: Normal appearance Additional comments: sluggish - ENT Exam ENT Exam: Mucous Membranes Dry - Neck Exam Neck exam: Positive for: Normal Inspection - Respiratory Exam Respiratory Exam: Accessory Muscle Use, Decreased Breath Sounds, Rhonchi - Cardiovascular Exam Cardiovascular Exam: Tachycardia, +S1, +S2 - GI/Abdominal Exam GI & Abdominal Exam: Diminished Bowel Sounds, Soft - Extremities Exam Extremities exam: Positive for: pedal edema, pedal pulses present - Neurological Exam Additional comments: obtunded - Skin Skin Exam: Dry, Pallor Additional comments: febrile - Additional Findings Additional findings: Palliative performance score 10 %r Results - Vital Signs Recent Vital Signs: Last Vital Signs Temp 101.4 F H 07/25/17 05:07 Pulse 129 H 07/25/17 00:00 Resp 22 07/25/17 00:00 BP 117/73 07/25/17 00:00 Pulse Ox 86 L 07/25/17 00:00 Assessment & Plan - Assessment and Plan (Free Text) Assessment: 66 year old female with metastatic lung cancer,tachypnea, tachycardia, intractable pain who is admitted under [facility] services for pain and symptom management. The patient is tachypnic/ tachycardic with accessory muscle use. She moans,when examined or moves. She is febrile. Patients family at bedside. Signs of impeding explained , question answered. Psychosocial support and end of life counseling provided. Time spent with family in goals of care discussion and end of life counseling, 30 minutes Plan: End of life counseling Pain management;Morphine continuos IV increased to 3 mg hour Ativan 1 mg as needed for agitation Decrease Solumedrol IV to 20mg every 12 hours Upper airway secretions;Scopolamine transdermal patch.Benadryl 25 mg IV as needed.Albuterol IH as needed. Fever: Tylenol 650 mg RC, cooling blanket
[2017-07-25] MEDS ORDERED: Morphine PCA 1 mg/ml (30ml) 30 ML IV PRN (16:13)
--- NOTE | 2017-07-25 16:47 | CP.PCM.PRO ---
<Karly Goodson - Last Filed: 07/25/17 16:43> Pronouncement of Note - Clinical Findings Physical Exam: No Response Verbal/Painful Stimuli, Absent Peripheral Pulses{ Carotid & Femoral}, Absent Heart & Breath Sounds, No Pupillary Light Reflex, No Corneal Reflex, Pupils Fixed & Dilated, Absence of Vital Signs - Pronouncement Time Time of Pronouncement of : 16:44 (approx time of ) - Notifications Pronouncement Notifications: Family Notified, Atending Notified (Dr. Reed notified) Senior Accounting Specialist Notified: No - Autopsy Autopsy Requested: No [place] [id number] <Julio Bustamante - Last Filed: 07/26/17 21:45> Attending/Attestation - Attestation I have personally seen and examined this patient.: Yes I have fully participated in the care of the patient.: Yes I have reviewed all pertinent clinical information: Yes
[2017-07-25] MEDS ORDERED: MethylPREDNISolone 40 mg Vial IVP SCH (22:00)
--- NOTE | 2017-07-26 07:41 | CP.PCM.DIS ---
<Pacheco Flores - Last Filed: 07/26/17 07:31> Provider - Provider Date of Admission: 07/22/17 15:35 Attending physician: Rogelio Reed MD Primary care physician: Kathy Thakur MD Consults: Hospice Carol Paramonte CLINICAL LAB CLERK Time Spent in preparation of Discharge (in minutes): 60 Diagnosis - Discharge Diagnosis (1) Non-small cell carcinoma of lung, stage 4 Status: Acute Priority: High (2) Lung mass Status: Chronic Priority: High Hospital Course - Hospital Course Hospital Course: 66 year old female with a PMH of Stage IV non-small cell lung CA, HTN, COPD, DM , and a history of previous colon and cervical CA s/p resections who presented to [facility] because of hematuria for 1 day, found to have UTI, treated but however had worsening overall picture due to her pre-existing NSCL CA with mental alteration and was transferred to inpatient hospice. Patient's pain was controlled via MAINFRAME ANALYST pump. Hospice care aided by Carol Neely CLINICAL LAB CLERK. Scopolamine patch was used to control secretions. Patient was surrounded by family and blood draws and other aggressive measures were stopped per their wishes. Patient on 07/25/2017 at 16:44. - Date & Time of H&P Date of H&P: 07/25/17 Time of H&P: 19:00 Discharge Exam - Head Exam Head Exam: NORMAL INSPECTION - Eye Exam Eye Exam: absent: PERRL - ENT Exam ENT Exam: Mucous Membranes Dry - Neck Exam Neck exam: Normal Inspection - Respiratory Exam Respiratory Exam: absent: Clear to PA & Lateral - Cardiovascular Exam Cardiovascular Exam: absent: RRR - Extremities Exam Additional comments: cold - Neurological Exam Additional comments: no response to verbal or painful stimuli, no light reflex, no corneal reflex, pupils fixed and dilated - Skin Skin Exam: Pallor Discharge Plan - Follow Up Plan Condition: Disposition: WITH WITHOUT AUTOPSY Referrals: Kathy Thakur MD [Primary Care Provider] - <Julio Bustamante - Last Filed: 07/26/17 21:46> Provider - Provider Date of Admission: 07/22/17 15:35 Attending physician: Rogelio Reed MD Primary care physician: Kathy Thakur MD Attending/Attestation - Attestation I have personally seen and examined this patient.: Yes I have fully participated in the care of the patient.: Yes I have reviewed all pertinent clinical information, including history, physical exam and plan: Yes
== END 2017-07-25 16:44 | DRG 181 ==
LOC: 3RNO 15:35
PROVIDERS: ADMIT Family Medicine; ATTEND Family Medicine
DX: C34.90 Malignant neoplasm of unspecified part of unspecified bronchus or lung (principal); Z51.5 Encounter for palliative care; N39.0 Urinary tract infection, site not specified; J44.9 Chronic obstructive pulmonary disease, unspecified; E03.9 Hypothyroidism, unspecified; E11.9 Type 2 diabetes mellitus without complications; I10 Essential (primary) hypertension; Z66 Do not resuscitate; Z85.41 Personal history of malignant neoplasm of cervix uteri; Z85.038 Personal history of other malignant neoplasm of large intestine; Z90.710 Acquired absence of both cervix and uterus